=== PATIENT | female | born 1940 | race Hispanic/Latino ===

== ENCOUNTER 2016-12-15 21:21 | Emergency (ER) | payer MEDICARE, MEDICAID ==
[2016-12-15 21:21] VITALS: BMI 25.0
[2016-12-15 21:32] VITALS: RESP 16; TEMP 98.5; O2SAT 100
[2016-12-15] MEDS ORDERED: Sodium Chloride 0.9% 1,000 ML IV STA (21:43)
[2016-12-15 22:45] LABS: BASO # 0.1 K/uL (0.0-0.2); BASO % 0.8 % (0.0-2.0); EOS # 0.3 K/uL (0.0-0.7); EOS % 3.6 % (0.0-4.0); HEMATOCRIT 35.6 % (34.0-47.0); LYMPH # 1.4 K/uL (1.0-4.3); LYMPH % 17.4 % (20.0-40.0); MEAN CELL VOLUME 87.1 fl (81.0-99.0); MEAN CORPUSCULAR HEMOGLOBIN 28.9 pg (27.0-31.0); MEAN CORPUSCULAR HGB CONC 33.2 g/dL (33.0-37.0); MEAN PLATELET VOLUME 9.1 fl (7.2-11.7); MONO # 0.7 K/uL (0.0-0.8); MONO % 8.9 % (0.0-10.0); NEUT # 5.6 K/uL (1.8-7.0); NEUT % 69.3 % (50.0-75.0); NRBC % 0.1 % (0.0-0.0); RED CELL DISTRIBUTION WIDTH 12.7 % (11.5-14.5); WHITE BLOOD COUNT 8.1 K/uL (4.8-10.8)
[2016-12-15 22:55] LABS: ALB/GLOB RATIO 1.2 (1.0-2.1); ALKALINE PHOSPHATASE 77 U/L (38-126); ALT/SGPT 31 U/L (9-52); AST/SGOT 29 U/L (14-36); BILIRUBIN,TOTAL 0.4 mg/dl (0.2-1.3); BLOOD UREA NITROGEN 30 mg/dl (7-17); CALCIUM 10.2 mg/dL (8.4-10.2); CARBON DIOXIDE 24 mmol/L (22-30); CHLORIDE 107 mmol/L (98-107); GFR AFRICAN-AMERICAN > 60; GLUCOSE,RANDOM 103 mg/dL (65-105); LIPASE 191 U/L (23-300); POTASSIUM 4.5 MMOL/L (3.6-5.0); SODIUM 142 mmol/l (132-148); TOTAL PROTEIN 8.6 G/DL (6.3-8.2)
--- NOTE | 2016-12-15 22:58 | ED PDOC ---
HPI: General Adult Time Seen by Provider: 12/15/16 21:39 Chief Complaint (Nursing): Syncope Chief Complaint (Provider): Abdominal Pain and Lower Extremity Tremors History Per: Patient, Family (Patient's son) History/Exam Limitations: no limitations Onset/Duration Of Symptoms: Days (x1) Current Symptoms Are (Timing): Still Present Additional Complaint(s): 21:39 Serenity Goodwin is a 76 year old female with a past medical history of diabetes, hypertension, anxiety, and gastritis, as well as a past surgical history of open heart surgery, that presents to the ED with a chief complaint of "heaviness and shakiness" to her lower extremities with associated abdominal pain, left flank pain, and headache for the past day, along with one episode of nonbilious, nonbloody vomiting that occurred earlier today. She states that she saw her PMD, Dr. Daquan Wagoner, earlier today, and that she was sent home with no specific diagnosis due to her chronic health issues and chronic anxiety. Patient 's son also reports that his mother typically presents with multiple complaints. Patient denies any chest pain, cough, shortness of breath, or fever. Of Note: Patient typically takes Alprazolam twice daily, but reports that she did not take it today as prescribed. PMD: Dr. Daquan Wagoner MD Past Medical History Reviewed: Historical Data, Nursing Documentation, Vital Signs Vital Signs: Last Vital Signs Temp 98.5 F 12/15/16 21:27 Pulse 79 12/15/16 21:27 Resp 16 12/15/16 21:27 BP 188/73 H 12/15/16 21:27 Pulse Ox 100 12/15/16 23:58 - Medical History PMH: Anemia, Anxiety, Arthritis, CAD, Dementia (mild), Depression, Diabetes ( type II), Diverticulitis, Gastritis, Gall Bladder Disease, GERD, HTN, Hypercholesterolemia, Hypothyroidism, Pancreatitis, Chronic Kidney Disease Denies: CHF, COPD, HIV, Rheumatoid Arthritis - Surgical History Surgical History: CABG (x 4 years ago), Cholecystectomy, Coronary Stent (11/2015 (1 STENT)) - Family History Family History: States: Unknown Family Hx - Immunization History Hx Tetanus Toxoid Vaccination: No - Home Medications Home Medications: Ambulatory Orders Medication Instructions Recorded Alprazolam [Xanax] 0.5 mg PO BID 09/16/16 Glimepiride [Amaryl] 4 mg PO BID 09/16/16 Insulin Detemir [Levemir] 25 unit SQ QAM 09/16/16 Levothyroxine [Synthroid] 112 mcg PO DAILY 09/16/16 Linagliptin [Tradjenta] 5 mg PO DAILY 09/16/16 Metoprolol Tartrate [Lopressor] 50 mg PO BID 09/16/16 QUEtiapine [SEROquel] 50 mg PO HS 09/16/16 Ranolazine [Ranexa] 500 mg PO BID 09/16/16 Valsartan [Diovan] 80 mg PO HS 09/16/16 Valsartan [Diovan] 160 mg PO QAM 09/16/16 Aspirin [Ecotrin] 81 mg PO DAILY 11/09/16 Ticagrelor [Brilinta] 90 mg PO DAILY 11/09/16 traMADol [Ultram] 50 mg PO BID 11/09/16 Ondansetron ODT [Zofran ODT] 4 mg PO Q6 PRN #16 odt 12/16/16 - Allergies Allergies/Adverse Reactions: Allergies Allergy/AdvReac Type Severity Reaction Status Date / Time No Known Allergies Allergy Verified 10/06/16 00:05 Review of Systems Constitutional: Negative for: Fever Cardiovascular: Negative for: Chest Pain Respiratory: Negative for: Cough, Shortness of Breath Gastrointestinal: Positive for: Nausea, Vomiting (x1 episode), Abdominal Pain Musculoskeletal: Positive for: Other (left flank pain; "heaviness and shakiness " of lower extremities) Neurological: Positive for: Headache Physical Exam - Reviewed Nursing Documentation Reviewed: Yes Vital Signs Reviewed: Yes - Physical Exam Appears: Positive for: Uncomfortable (patient appears anxious) Head Exam: Positive for: ATRAUMATIC, NORMOCEPHALIC Skin: Positive for: Normal Color, Warm, Dry ENT: Positive for: Normal ENT Inspection Cardiovascular/Chest: Positive for: Regular Rate, Rhythm. Negative for: Murmur Respiratory: Positive for: Normal Breath Sounds. Negative for: Respiratory Distress Gastrointestinal/Abdominal: Positive for: Tenderness (epigastric tenderness) Extremity: Positive for: Normal ROM Neurologic/Psych: Positive for: Alert, Oriented - Laboratory Results Result Diagrams: 12/15/16 22:40 12/15/16 22:40 - ECG O2 Sat by Pulse Oximetry: 100 (RA) Pulse Ox Interpretation: Normal Medical Decision Making Medical Decision Makin:40 Initial Impression: Abdominal Pain, Nausea, Vomiting Initial Plan: * CMP * PTT * PT * Lipase * Troponin * Accucheck * Urine dipstick * Urinalysis * Sodium Chloride 1000 mL at 100 mLs/hr * Ativan 1 mg IVP * Pepcid 20 mg IV * Zofran 4 mg IV * Reevaluation 1:55 Labs reviewed, no clinically significant abnormalities. Patient experienced upwards resolution of pain and requested to be discharged home. Patient given Rx for Zofran and will follow up with PMD Dr. Wagoner. Clinical Impression: Gastritis and Anxiety Scribe Attestation: Documented by Piper Moreno, acting as a scribe for Rocky Medrano MD. Provider Scribe Attestation: All medical record entries made by the Scribe were at my direction and personally dictated by me. I have reviewed the chart and agree that the record accurately reflects my personal performance of the history, physical exam, medical decision making, and the department course for this patient. I have also personally directed, reviewed, and agree with the discharge instructions and disposition. Disposition - Clinical Impression Clinical Impression: Gastritis, Anxiety - Patient ED Disposition Is Patient to be Admitted: No Counseled Patient/Family Regarding: Studies Performed, Diagnosis, Need For Followup, Rx Given - Disposition Disposition: Routine/Home Disposition Time: 01:55 Condition: STABLE Prescriptions: Ondansetron ODT [Zofran ODT] 4 mg PO Q6 PRN #16 odt PRN Reason: Nausea/Vomiting Instructions: Gastritis (ED) Print Language: PERUVIAN
[2016-12-15 23:06] LABS: PARTIAL THROMBOPLASTIN TIME 23.8 SECONDS (23.3-32.5)
[2016-12-16 00:46] LABS: RBC URINE 2 /hpf (0-3); URINE BACTERIA RARE (<OCC); URINE BILIRUBIN NEGATIVE (NEGATIVE); URINE BLOOD NEGATIVE (NEGATIVE); URINE COLOR YELLOW (YELLOW); URINE GLUCOSE (UA) NEG (Normal); URINE KETONE NEGATIVE (NEGATIVE); URINE LEUKOCYTE ESTERASE NEG Leu/uL (Negative); URINE PROTEIN 30 mg/dL (NEGATIVE); URINE UROBILINOGEN 0.2-1.0 mg/dL (0.2-1.0); WBC URINE < 1 /hpf (0-5)
[2016-12-16 01:59] VITALS: BP 135/80; PULSE 71
--- NOTE | 2016-12-18 09:56 | CARD ---
APPROVED REPORT EKG Measurement Heart [id number] <Conclusion> Normal sinus rhythm Possible Left atrial enlargement Left axis deviation Left ventricular hypertrophy Abnormal ECG
== END 2016-12-16 02:00 | disposition home or self-care (01) ==
LOC: H.ER 21:21
DX: K29.70 Gastritis, unspecified, without bleeding (principal)
CPT/HCPCS: 80053; 81003; 83690; 84484; 85025; 85610; 85730; 93005; 96374; 99284; J2060; J2405; J7040

== ENCOUNTER 2017-02-23 10:11 | Emergency (ER) | payer MEDICARE, MEDICAID ==
[2017-02-23 10:20] VITALS: RESP 16; TEMP 98.3; BMI 27.4
[2017-02-23] MEDS ORDERED: Sodium Chloride 0.9% 500 ML IV STA (11:01)
--- NOTE | 2017-02-23 11:06 | ED PDOC ---
HPI: General Adult Time Seen by Provider: 02/23/17 10:45 Chief Complaint (Nursing): Abdominal Pain Chief Complaint (Provider): Body pain History Per: Patient History/Exam Limitations: no limitations Onset/Duration Of Symptoms: Days (3) Current Symptoms Are (Timing): Still Present Additional Complaint(s): Pt. with bodyaches. Also abd pain off and on. No dysuria. No nausea, vomit, diarrhea. Pain in abd goes up to her chest and to her throat. No dyspnea, headaches, dizziness. No fever or cough. No back pain. Has had similar multiple times in the past and has come to the ED. Pt. pcp Dr. Wagoner. Has not taken any meds for it. Past Medical History Reviewed: Nursing Documentation, Vital Signs Vital Signs: Last Vital Signs Temp 98.3 F 02/23/17 10:19 Pulse 60 02/23/17 10:19 Resp 16 02/23/17 10:19 BP 132/99 H 02/23/17 10:19 Pulse Ox 99 02/23/17 13:55 - Medical History PMH: Anemia, Anxiety, Arthritis, CAD, Dementia (mild), Depression, Diabetes ( type II), Diverticulitis, Gastritis, Gall Bladder Disease, GERD, HTN, Hypercholesterolemia, Hypothyroidism, Pancreatitis, Chronic Kidney Disease Denies: CHF, COPD, HIV, Rheumatoid Arthritis - Surgical History Surgical History: CABG (x 4 years ago), Cholecystectomy, Coronary Stent (11/2015 (1 STENT)) - Family History Family History: States: Unknown Family Hx - Living Arrangements Living Arrangements: With Family - Social History Current smoker - smoking cessation education provided: No Alcohol: None Drugs: Denies - Immunization History Hx Tetanus Toxoid Vaccination: No - Home Medications Home Medications: Ambulatory Orders Medication Instructions Recorded Alprazolam [Xanax] 0.5 mg PO BID 09/16/16 Glimepiride [Amaryl] 4 mg PO BID 09/16/16 Insulin Detemir [Levemir] 25 unit SQ QAM 09/16/16 Levothyroxine [Synthroid] 112 mcg PO DAILY 09/16/16 Linagliptin [Tradjenta] 5 mg PO DAILY 09/16/16 Metoprolol Tartrate [Lopressor] 50 mg PO BID 09/16/16 QUEtiapine [SEROquel] 50 mg PO HS 09/16/16 Ranolazine [Ranexa] 500 mg PO BID 09/16/16 Valsartan [Diovan] 80 mg PO HS 09/16/16 Valsartan [Diovan] 160 mg PO QAM 09/16/16 Aspirin [Ecotrin] 81 mg PO DAILY 11/09/16 Ticagrelor [Brilinta] 90 mg PO DAILY 11/09/16 traMADol [Ultram] 50 mg PO BID 11/09/16 Ondansetron ODT [Zofran ODT] 4 mg PO Q6 PRN #16 odt 12/16/16 Magnesium Citrate [Citrate of Mag] 150 ml PO DAILY PRN 3 Days 02/23/17 Nitrofurantoin Macrocrystals 100 mg PO BID #10 cap 02/23/17 [Macrobid] - Allergies Allergies/Adverse Reactions: Allergies Allergy/AdvReac Type Severity Reaction Status Date / Time No Known Allergies Allergy Verified 10/06/16 00:05 Review of Systems ROS Statement: Except As Marked, All Systems Reviewed And Found Negative ENT: Positive for: Throat Pain (able to swallow with no issues) Cardiovascular: Positive for: Chest Pain Gastrointestinal: Positive for: Abdominal Pain Musculoskeletal: Positive for: Other (bodyaches) Neurological: Negative for: Weakness Physical Exam - Reviewed Nursing Documentation Reviewed: Yes Vital Signs Reviewed: Yes - Physical Exam Appears: Positive for: Non-toxic, No Acute Distress Head Exam: Positive for: ATRAUMATIC, NORMAL INSPECTION, NORMOCEPHALIC Skin: Positive for: Normal Color, Warm, DRY Eye Exam: Positive for: EOMI, Normal appearance, PERRL ENT: Positive for: Normal ENT Inspection. Negative for: Nasal Congestion, Pharyngeal Erythema, Tonsillar Exudate Neck: Positive for: Normal, Painless ROM, Supple Cardiovascular/Chest: Positive for: Regular Rate, Rhythm Respiratory: Positive for: CNT, Normal Breath Sounds Gastrointestinal/Abdominal: Positive for: Normal Exam, Bowel Sounds, Soft, Tenderness (mild; nontender on distraction). Negative for: Distended, Guarding Back: Positive for: Normal Inspection. Negative for: L CVA Tenderness, R CVA Tenderness Extremity: Positive for: Normal ROM. Negative for: Tenderness, Pedal Edema Neurologic/Psych: Positive for: Alert, Oriented. Negative for: Motor/Sensory Deficits - Laboratory Results Result Diagrams: 02/23/17 12:50 02/23/17 12:00 Interpretation Of Abn Labs: 36/1.3 bun/cr. slight worsening Interpretation Of Abnormal: urine wbc - ECG ECG: Positive for: Interpreted By Me, Viewed By Me ECG Rhythm: Positive for: Normal QRS, Sinus Rhythm Interpretation Of Abn EKG: possible LVH Interpretation Of ECG: same as old O2 Sat by Pulse Oximetry: 99 Pulse Ox Interpretation: Normal - Radiology X-Ray: Interpreted by Me, Viewed By Me X-Ray Interpretation: No Acute Disease - Progress ED Course And Treament: 1109: Here multiple visits with multiple complaints. Will get labs and imaging for further eval. Pt. comfortable. Moving around and in no distress. Request urine evaluation. 1430: Stable. AAOx3. Pain free. Tolerated PO. Fu with pcp. Disposition - Clinical Impression Clinical Impression: UTI (urinary tract infection), Constipation - Patient ED Disposition Is Patient to be Admitted: No - Disposition Referrals: [facility] [Outside] - 02/26/17 Disposition: Routine/Home Disposition Time: 14:30 Condition: STABLE Additional Instructions: Return if not better in 3 days. Prescriptions: Magnesium Citrate [Citrate of Mag] 150 ml PO DAILY PRN 3 Days PRN Reason: Constipation Nitrofurantoin Macrocrystals [Macrobid] 100 mg PO BID #10 cap Instructions: Urinary Tract Infection in Women (ED), Constipation (ED) Print Language: MALTESE
[2017-02-23 11:51] LABS: RBC URINE 4 /hpf (0-3); TRANSITIONAL EPITHIAL 2 /hpf (0-3); URINE BACTERIA RARE (<OCC); URINE BILIRUBIN NEGATIVE (NEGATIVE); URINE BLOOD NEGATIVE (NEGATIVE); URINE COLOR YELLOW (YELLOW); URINE GLUCOSE (UA) NEG (Normal); URINE KETONE NEGATIVE (NEGATIVE); URINE LEUKOCYTE ESTERASE SMALL Leu/uL (Negative); URINE PROTEIN NEGATIVE (NEGATIVE); URINE UROBILINOGEN 0.2-1.0 mg/dL (0.2-1.0); WBC URINE 6 /hpf (0-5)
[2017-02-23 12:15] LABS: ALB/GLOB RATIO 1.2 (1.0-2.1); ALKALINE PHOSPHATASE 56 U/L (38-126); ALT/SGPT 22 U/L (9-52); AST/SGOT 28 U/L (14-36); BILIRUBIN,TOTAL 0.7 mg/dl (0.2-1.3); BLOOD UREA NITROGEN 36 mg/dl (7-17); CALCIUM 10.3 mg/dL (8.4-10.2); CARBON DIOXIDE 22 mmol/L (22-30); CHLORIDE 107 mmol/L (98-107); GFR AFRICAN-AMERICAN 48; GLUCOSE,RANDOM 88 mg/dL (65-105); LIPASE 189 U/L (23-300); SODIUM 144 mmol/l (132-148); TOTAL PROTEIN 9.1 G/DL (6.3-8.2)
[2017-02-23 12:18] LABS: POTASSIUM 5.5 MMOL/L (3.6-5.0)
[2017-02-23 13:11] LABS: BASO # 0.1 K/uL (0.0-0.2); BASO % 0.6 % (0.0-2.0); EOS # 0.6 K/uL (0.0-0.7); EOS % 6.8 % (0.0-4.0); HEMATOCRIT 33.6 % (34.0-47.0); LYMPH # 2.2 K/uL (1.0-4.3); LYMPH % 24.1 % (20.0-40.0); MEAN CELL VOLUME 84.4 fl (81.0-99.0); MEAN CORPUSCULAR HEMOGLOBIN 28.1 pg (27.0-31.0); MEAN CORPUSCULAR HGB CONC 33.3 g/dL (33.0-37.0); MEAN PLATELET VOLUME 8.9 fl (7.2-11.7); MONO # 1.1 K/uL (0.0-0.8); MONO % 11.9 % (0.0-10.0); NEUT # 5.1 K/uL (1.8-7.0); NEUT % 56.6 % (50.0-75.0); NRBC % 0.1 % (0.0-0.0); RED CELL DISTRIBUTION WIDTH 13.3 % (11.5-14.5)
--- NOTE | 2017-02-23 14:54 | RAD ---
PROCEDURE: Radiographs of the chest and abdomen (obstructive series) HISTORY: pain COMPARISON: No prior. TECHNIQUE: AP radiograph of the chest, with upright and supine radiographs of the abdomen. FINDINGS: CHEST: Lungs: Clear. Cardiovascular: Normal size heart. No pulmonary vascular congestion. Pleura: No pleural fluid. No pneumothorax. Other findings: Status post sternotomy P ABDOMEN AND PELVIS: Bowel: Unremarkable bowel gas pattern. No evidence of mechanical obstruction. Free air: None. Bones: Unremarkable. Other findings: Surgical clips seen at the right upper abdomen likely to prior cholecystectomy. IMPRESSION: Unremarkable radiographs of chest and abdomen. No evidence of mechanical bowel obstruction.
[2017-02-23 15:08] VITALS: BP 146/94; PULSE 67; O2SAT 100
--- NOTE | 2017-02-23 18:40 | CARD ---
APPROVED REPORT EKG Measurement Heart [id number] <Conclusion> Normal sinus rhythm Left axis deviation Moderate voltage criteria for LVH, may be normal variant Abnormal ECG
== END 2017-02-23 14:50 | disposition home or self-care (01) ==
LOC: H.ER 10:11
DX: N39.0 Urinary tract infection, site not specified (principal); K59.00 Constipation, unspecified; E03.9 Hypothyroidism, unspecified; E11.9 Type 2 diabetes mellitus without complications; E78.00 Pure hypercholesterolemia, unspecified; F03.90 Unspecified dementia, unspecified severity, without behavioral disturbance, psychotic disturbance, mood disturbance, and anxiety; F32.9 Major depressive disorder, single episode, unspecified; F41.9 Anxiety disorder, unspecified; I12.9 Hypertensive chronic kidney disease with stage 1 through stage 4 chronic kidney disease, or unspecified chronic kidney disease; K21.9 Gastro-esophageal reflux disease without esophagitis; I25.10 Atherosclerotic heart disease of native coronary artery without angina pectoris; K85.90 Acute pancreatitis without necrosis or infection, unspecified; Z79.4 Long term (current) use of insulin; Z79.82 Long term (current) use of aspirin; Z95.1 Presence of aortocoronary bypass graft; Z95.5 Presence of coronary angioplasty implant and graft
CPT/HCPCS: 74022; 80053; 81003; 83690; 84132; 84484; 85025; 87086; 93005; 96374; 99284; J2270; J7040

== ENCOUNTER 2017-03-04 09:04 | Inpatient (IN) | payer MEDICARE, MEDICAID ==
[2017-03-04 09:05] VITALS: BMI 27.4
[2017-03-04] MEDS ORDERED: DiphenhydrAMINE 50 mg/ml Inj IV STA (09:48)
[2017-03-04] MEDS ORDERED: DiphenhydrAMINE 50 mg/ml Inj ONE (10:06)
[2017-03-04 10:13] LABS: BASO % 0.2 % (0.0-2.0); EOS % 0.4 % (0.0-4.0); HEMATOCRIT 33.7 % (34.0-47.0); LYMPH % 8.3 % (20.0-40.0); MEAN CELL VOLUME 84.5 fl (81.0-99.0); MEAN CORPUSCULAR HEMOGLOBIN 27.6 pg (27.0-31.0); MEAN CORPUSCULAR HGB CONC 32.6 g/dL (33.0-37.0); MEAN PLATELET VOLUME 9.1 fl (7.2-11.7); MONO # 0.7 K/uL (0.0-0.8); MONO % 5.4 % (0.0-10.0); NEUT # 10.3 K/uL (1.8-7.0); NEUT % 85.7 % (50.0-75.0); PLATELET COUNT 208 K/uL (130-400); RED CELL DISTRIBUTION WIDTH 13.8 % (11.5-14.5); WHITE BLOOD COUNT 12.1 K/uL (4.8-10.8)
--- NOTE | 2017-03-04 10:13 | ED PDOC ---
HPI: Abdomen Time Seen by Provider: 03/04/17 09:21 Chief Complaint (Nursing): Abdominal Pain Chief Complaint (Provider): Abdominal Pain History Per: Patient History/Exam Limitations: no limitations Onset/Duration Of Symptoms: Hrs Current Symptoms Are (Timing): Still Present Severity: Mild Location Of Pain/Discomfort: Epigastric Associated Symptoms: Fever, Chills, Vomiting, Diarrhea Additional Complaint(s): Patient is a 76 year old female presenting to the ED complaining of epigastric abdominal pain since last night. Pain is associated with vomiting, diarrhea, tactile fever, and chills. Patient also complains of pruritic rash to bilateral arms. Patient fell earlier today right onto her back due to chronic dizziness and now complains of lower back pain. Denies head injury, chest pain, shortness of breath, cough, or leg edema. of note: Patient reports hypoglycemia yesterday and called 911. Patient was helped at her home and did not visit the ED. PMD; none Past Medical History Reviewed: Historical Data, Nursing Documentation, Vital Signs Vital Signs: Last Vital Signs Temp 98 F 03/04/17 09:15 Pulse 76 03/04/17 14:42 Resp 18 03/04/17 09:15 BP 121/57 L 03/04/17 09:15 Pulse Ox 98 03/04/17 14:42 - Medical History PMH: Anemia, Anxiety, Arthritis, CAD, Dementia (mild), Depression, Diabetes ( type II), Diverticulitis, Gastritis, Gall Bladder Disease, GERD, HTN, Hypercholesterolemia, Hypothyroidism, Pancreatitis, Chronic Kidney Disease Denies: CHF, COPD, HIV, Rheumatoid Arthritis - Surgical History Surgical History: CABG (x 4 years ago), Cholecystectomy, Coronary Stent (11/2015 (1 STENT)) - Family History Family History: States: No Known Family Hx - Immunization History Hx Tetanus Toxoid Vaccination: No - Home Medications Home Medications: Ambulatory Orders Medication Instructions Recorded Alprazolam [Xanax] 0.5 mg PO BID 09/16/16 Glimepiride [Amaryl] 4 mg PO BID 09/16/16 Insulin Detemir [Levemir] 25 unit SQ QAM 09/16/16 Levothyroxine [Synthroid] 112 mcg PO DAILY 09/16/16 Linagliptin [Tradjenta] 5 mg PO DAILY 09/16/16 Metoprolol Tartrate [Lopressor] 50 mg PO BID 09/16/16 QUEtiapine [SEROquel] 50 mg PO HS 09/16/16 Ranolazine [Ranexa] 500 mg PO BID 09/16/16 Valsartan [Diovan] 80 mg PO HS 09/16/16 Valsartan [Diovan] 160 mg PO QAM 09/16/16 Aspirin [Ecotrin] 81 mg PO DAILY 11/09/16 Ticagrelor [Brilinta] 90 mg PO DAILY 11/09/16 traMADol [Ultram] 50 mg PO BID 11/09/16 Ondansetron ODT [Zofran ODT] 4 mg PO Q6 PRN #16 odt 12/16/16 Magnesium Citrate [Citrate of Mag] 150 ml PO DAILY PRN 3 Days 02/23/17 Nitrofurantoin Macrocrystals 100 mg PO BID #10 cap 02/23/17 [Macrobid] - Allergies Allergies/Adverse Reactions: Allergies Allergy/AdvReac Type Severity Reaction Status Date / Time No Known Allergies Allergy Verified 03/04/17 09:15 Review of Systems ROS Statement: Except As Marked, All Systems Reviewed And Found Negative Constitutional: Positive for: Fever, Chills Cardiovascular: Negative for: Chest Pain, Edema Respiratory: Negative for: Cough, Shortness of Breath Gastrointestinal: Positive for: Vomiting, Abdominal Pain, Diarrhea Musculoskeletal: Positive for: Back Pain Skin: Positive for: Rash Physical Exam - Reviewed Nursing Documentation Reviewed: Yes Vital Signs Reviewed: Yes - Physical Exam Appears: Positive for: Well, Non-toxic, No Acute Distress Head Exam: Positive for: ATRAUMATIC, NORMAL INSPECTION, NORMOCEPHALIC Skin: Positive for: Warm. Negative for: Normal Color (hives on bilateral forearms) Eye Exam: Positive for: EOMI, Normal appearance, PERRL Neck: Positive for: Normal, Painless ROM Cardiovascular/Chest: Positive for: Regular Rate, Rhythm. Negative for: Gallop , Murmur Respiratory: Positive for: Normal Breath Sounds. Negative for: Accessory Muscle Use, Rhonchi, Respiratory Distress Gastrointestinal/Abdominal: Positive for: Normal Exam, Soft, Tenderness (mild epigastric ) Extremity: Positive for: Normal ROM Neurologic/Psych: Positive for: Alert, Oriented - Laboratory Results Result Diagrams: 03/04/17 10:00 06/04/17 10:00 - ECG ECG Rhythm: Positive for: Normal QRS, Sinus Rhythm. Negative for: ST/T Changes Rate: 76 O2 Sat by Pulse Oximetry: 98 (RA) Pulse Ox Interpretation: Normal Medical Decision Making Medical Decision Making: Time: Impression: 1 Gastroenteritis v Diverticulitis v Colitis 2 Urticarial Rash v Allergic Reaction 3 resolved Hypoglycemia Plan: CT A/P EKG CMP LIPASE TROPONIN CBC Benadryl 25 mg IV Zofran 4 mg IV Blood Culture Urine Culture UA Scribe Attestation Documented by Avelino Neumann acting as a scribe for Winter Laboy MD Provider Attestation: All medical record entries made by the Scribe were at my direction and personally dictated by me. I have reviewed the chart and agree that the record accurately reflects my personal performance of the history, physical exam, medical decision making, and the department course for this patient. I have also personally directed, reviewed, and agree with the discharge instructions and disposition. PROCEDURE: CT Abdomen and Pelvis with oral contrast. HISTORY: Abdominal pain vomiting and diarrhea COMPARISON: 11/09/2016 TECHNIQUE: Contiguous axial images of the abdomen and pelvis. No IV contrast given. Coronal and Sagittal reformats generated. Please note that due to lack of intravenous, evaluation of soft tissue structures and bowel wall is limited. Radiation dose: Total exam DLP = 714.69 mGy-cm. This CT exam was performed using one or more of the following dose reduction techniques: Automated exposure control, adjustment of the mA and/or kV according to patient size, and/or use of iterative reconstruction technique. FINDINGS: LOWER THORAX: [employer] radiograph demonstrates midline sternotomy wires and surgical clips in the right upper quadrant abdomen. Dense calcifications of the aortic valve and mitral annulus. Calcification of the coronary arteries. Heart is not significantly enlarged. No significant pericardial effusion. Mild bibasilar atelectatic changes noted. LIVER: No gross lesion. Calcification of the carpal lobe as before. Surgical clips in the gallbladder fossa. GALLBLADDER AND BILE DUCTS: Gallbladder not seen. Mildly dilated common bile duct, stable. PANCREAS: Unremarkable. No mass. No ductal dilatation. SPLEEN: Unremarkable. No splenomegaly. ADRENALS: Diffuse thickening of both adrenal glands, stable. KIDNEYS AND URETERS: Unremarkable. No stone or hydronephrosis. BLADDER: Grossly unremarkable. REPRODUCTIVE: Please note that evaluation of gynecologic organs is not optimal on CT imaging. Lobulated contour of the uterus, stable. APPENDIX: No CT evidence of acute appendicitis. BOWEL: Small hiatal hernia. Diverticulosis without evidence of diverticulitis. No bowel obstruction. Re- demonstration of focal asymmetry of the rectal wall. This could be underlying distention. PERITONEUM: Unremarkable. No fluid collection. No free air. LYMPH NODES: Unremarkable. No enlarged lymph nodes. VASCULATURE: Scattered atherosclerotic calcification throughout the abdominal aorta and its main branches. BONES: Generalized osteopenia. No acute fracture. OTHER FINDINGS: Calcified nodule in the posterior soft tissues on the left. IMPRESSION: Diverticulosis without evidence of diverticulitis. No acute bowel pathology. Focal asymmetry of the rectal wall could be related to underdistention. However , underlying pathology cannot be excluded. Colonoscopy/sigmoidoscopy recommended. No significant interval change. Disposition - Clinical Impression Clinical Impression: Abdominal pain, MUSHTAQ (acute kidney injury), Gastroenteritis - Patient ED Disposition Is Patient to be Admitted: Yes Discussed With : Daquan Wagoner Doctor Will See Patient In The: Hospital Counseled Patient/Family Regarding: Studies Performed, Diagnosis - Disposition Disposition Time: 14:30 Condition: FAIR - Pt Status Changed To: Hospital Disposition Of: Observation - POA Present On Arrival: None
[2017-03-04 10:35] LABS: ALB/GLOB RATIO 1.2 (1.0-2.1); ALKALINE PHOSPHATASE 73 U/L (38-126); ALT/SGPT 27 U/L (9-52); AST/SGOT 24 U/L (14-36); BILIRUBIN,TOTAL 0.8 mg/dl (0.2-1.3); BLOOD UREA NITROGEN 53 mg/dl (7-17); CARBON DIOXIDE 17 mmol/L (22-30); CHLORIDE 109 mmol/L (98-107); GFR AFRICAN-AMERICAN 33; GLUCOSE,RANDOM 144 mg/dL (65-105); LIPASE 214 U/L (23-300); SODIUM 139 mmol/l (132-148); TOTAL PROTEIN 8.6 G/DL (6.3-8.2)
[2017-03-04 10:50] LABS: POTASSIUM 5.6 MMOL/L (3.6-5.0)
[2017-03-04] MEDS ORDERED: Iohexol 240 (50 ml) PO ONE (11:28)
[2017-03-04 11:54] LABS: EOSINOPHIL 1 % (0-7); NEUTROPHIL 87 % (42-75); TOTAL CELLS COUNTED 100
--- NOTE | 2017-03-04 14:19 | CT ---
PROCEDURE: CT Abdomen and Pelvis with oral contrast. HISTORY: Abdominal pain vomiting and diarrhea COMPARISON: 11/09/2016 TECHNIQUE: Contiguous axial images of the abdomen and pelvis. No IV contrast given. Coronal and Sagittal reformats generated. Please note that due to lack of intravenous, evaluation of soft tissue structures and bowel wall is limited. Radiation dose: Total exam DLP = 714.69 mGy-cm. This CT exam was performed using one or more of the following dose reduction techniques: Automated exposure control, adjustment of the mA and/or kV according to patient size, and/or use of iterative reconstruction technique. FINDINGS: LOWER THORAX: [employer] Tester radiograph demonstrates midline sternotomy wires and surgical clips in the right upper quadrant abdomen. Dense calcifications of the aortic valve and mitral annulus. Calcification of the coronary arteries. Heart is not significantly enlarged. No significant pericardial effusion. Mild bibasilar atelectatic changes noted. LIVER: No gross lesion. Calcification of the carpal lobe as before. Surgical clips in the gallbladder fossa. GALLBLADDER AND BILE DUCTS: Gallbladder not seen. Mildly dilated common bile duct, stable. PANCREAS: Unremarkable. No mass. No ductal dilatation. SPLEEN: Unremarkable. No splenomegaly. ADRENALS: Diffuse thickening of both adrenal glands, stable. KIDNEYS AND URETERS: Unremarkable. No stone or hydronephrosis. BLADDER: Grossly unremarkable. REPRODUCTIVE: Please note that evaluation of gynecologic organs is not optimal on CT imaging. Lobulated contour of the uterus, stable. APPENDIX: No CT evidence of acute appendicitis. BOWEL: Small hiatal hernia. Diverticulosis without evidence of diverticulitis. No bowel obstruction. Re- demonstration of focal asymmetry of the rectal wall. This could be underlying distention. PERITONEUM: Unremarkable. No fluid collection. No free air. LYMPH NODES: Unremarkable. No enlarged lymph nodes. VASCULATURE: Scattered atherosclerotic calcification throughout the abdominal aorta and its main branches. BONES: Generalized osteopenia. No acute fracture. OTHER FINDINGS: Calcified nodule in the posterior soft tissues on the left. IMPRESSION: Diverticulosis without evidence of diverticulitis. No acute bowel pathology. Focal asymmetry of the rectal wall could be related to underdistention. However, underlying pathology cannot be excluded. Colonoscopy/sigmoidoscopy recommended. No significant interval change.
[2017-03-04] MEDS ORDERED: Sodium Chloride 0.9% 1,000 ML IV STA (14:33)
[2017-03-04] MEDS ORDERED: Ciprofloxacin 400mg/200ml D5W 400 MG/200 ML BAG IVPB STA (14:37)
[2017-03-04] MEDS ORDERED: metroNIDAZOLE 500mg/100ml NS 100 ML IVPB STA (14:37)
[2017-03-04 15:11] LABS: RBC URINE 2 /hpf (0-3); URINE BILIRUBIN NEGATIVE (NEGATIVE); URINE BLOOD NEGATIVE (NEGATIVE); URINE COLOR YELLOW (YELLOW); URINE GLUCOSE (UA) NEG (Normal); URINE KETONE NEGATIVE (NEGATIVE); URINE LEUKOCYTE ESTERASE NEG Leu/uL (Negative); URINE PROTEIN NEGATIVE (NEGATIVE); URINE UROBILINOGEN 0.2-1.0 mg/dL (0.2-1.0); WBC URINE 1 /hpf (0-5)
[2017-03-04] MEDS ORDERED: methylPREDNISolone 30 MG in Sodium Chloride 0.9% 50 ML IV STA (18:54)
[2017-03-05] MEDS: Insulin Detemir 100 Units/ml Inj SC SCH ×2 (06:31→08:28)
[2017-03-05] MEDS: Insulin Regular 100 units/ml SC SCH ×4 (06:31→21:43)
[2017-03-05] MEDS: Levothyroxine 112 MCG TAB PO SCH (06:32)
--- NOTE | 2017-03-05 07:41 | CARD ---
APPROVED REPORT EKG Measurement Heart [id number] <Conclusion> Normal sinus rhythm Right atrial enlargement Left axis deviation Abnormal ECG
[2017-03-05 08:00] LABS: HEMATOCRIT 29.1 % (34.0-47.0); LYMPH # 0.7 K/uL (1.0-4.3); LYMPH % 7.6 % (20.0-40.0); MEAN CELL VOLUME 84.1 fl (81.0-99.0); MEAN CORPUSCULAR HEMOGLOBIN 28.5 pg (27.0-31.0); MEAN CORPUSCULAR HGB CONC 33.8 g/dL (33.0-37.0); MEAN PLATELET VOLUME 9.4 fl (7.2-11.7); MONO # 0.1 K/uL (0.0-0.8); MONO % 1.1 % (0.0-10.0); NEUT # 8.3 K/uL (1.8-7.0); NEUT % 91.3 % (50.0-75.0); NRBC % 0.1 % (0.0-0.0); PLATELET COUNT 168 K/uL (130-400); RED CELL DISTRIBUTION WIDTH 13.7 % (11.5-14.5); WHITE BLOOD COUNT 9.1 K/uL (4.8-10.8)
[2017-03-05 08:24] LABS: ALB/GLOB RATIO 1.2 (1.0-2.1); ALKALINE PHOSPHATASE 64 U/L (38-126); ALT/SGPT 25 U/L (9-52); AST/SGOT 21 U/L (14-36); BILIRUBIN,TOTAL 0.6 mg/dl (0.2-1.3); BLOOD UREA NITROGEN 50 mg/dl (7-17); CALCIUM 9.6 mg/dL (8.4-10.2); CARBON DIOXIDE 20 mmol/L (22-30); CHLORIDE 106 mmol/L (98-107); GFR AFRICAN-AMERICAN 31; GLUCOSE,RANDOM 352 mg/dL (65-105); POTASSIUM 5.7 MMOL/L (3.6-5.0); SODIUM 134 mmol/l (132-148); TOTAL PROTEIN 7.3 G/DL (6.3-8.2)
[2017-03-05 08:25] LABS: PARTIAL THROMBOPLASTIN TIME 27.8 Seconds (25.6-37.1)
[2017-03-05] MEDS: methylPREDNISolone 30 MG in Sodium Chloride 0.9% 50 ML IV SCH ×2 (08:30→20:34)
[2017-03-05 08:50] LABS: T3 UPTAKE 0.76 T3 UPTAK (0.736-1.37); T4 6.31 ug/dl (5.5-11.0)
[2017-03-05 09:04] LABS: THYROID STIMULATING HORMONE < 0.02 mIU/ML (0.46-4.68)
[2017-03-05] MEDS ORDERED: Sod Polystyrene Sulf 15 gm/60 ml Oral Susp PO ONE (10:14)
[2017-03-05 11:41] LABS: NEUTROPHIL 94 % (42-75); TOTAL CELLS COUNTED 100
--- NOTE | 2017-03-05 12:09 | CP.PCM.CON ---
History of Present Illness - History of Present Illness History of Present Illness: This patient who is 76 years old I was called to see her for abnormal kidney function and hyperkalemia. Patient admitted because of abdominal pain also of hypoglycemia. Patient has history of diabetes mellitus for a long time Stated of hypertension medication all reviewed Social history noted in the chart Review of Systems - Constitutional Constitutional: Fatigue - EENT Eyes: As Per HPI Ears: As Per HPI Nose/Mouth/Throat: As Per HPI - Cardiovascular Cardiovascular: absent: Chest Pain, Dyspnea, Leg Ulcers, Orthopnea, Palpitations , Syncope - Respiratory Respiratory: absent: Cough, Dyspnea, Hemoptysis, Wheezing - Gastrointestinal Gastrointestinal: Abdominal Pain - Genitourinary Genitourinary: Nocturia - Musculoskeletal Musculoskeletal: Muscle Weakness Past Patient History - Infectious Disease Hx of Infectious Diseases: None - Tetanus Immunizations Tetanus Immunization: Unknown - Past Medical History & Family History Past Medical History?: Yes - Past Social History Smoking Status: Never Smoked - CARDIAC Hx Congestive Heart Failure: No Hx Hypercholesterolemia: Yes Hx Hypertension: Yes - PULMONARY Hx Chronic Obstructive Pulmonary Disease (COPD): No - NEUROLOGICAL Hx Dementia: Yes (mild) - HEENT Hx HEENT Problems: No - RENAL Hx Chronic Kidney Disease: Yes - ENDOCRINE/METABOLIC Hx Hypothyroidism: Yes - HEMATOLOGICAL/ONCOLOGICAL Hx AIDS: No Hx Anemia: Yes Hx Human Immunodeficiency Virus (HIV): No - INTEGUMENTARY Hx Dermatological Problems: No - MUSCULOSKELETAL/RHEUMATOLOGICAL Hx Arthritis: Yes Hx Falls: Yes Hx Rheumatoid Arthritis: No - GASTROINTESTINAL Hx Diverticulitis: Yes Hx Gall Bladder Disease: Yes Hx Gastritis: Yes Hx Pancreatitis: Yes - GENITOURINARY/GYNECOLOGICAL Hx Genitourinary Disorders: Yes - PSYCHIATRIC Hx Anxiety: Yes Hx Depression: Yes Hx Substance Use: No - SURGICAL HISTORY Hx Cholecystectomy: Yes Hx Coronary Artery Bypass Graft: Yes (x 4 years ago) Hx Coronary Stent: Yes (11/2015 (1 STENT)) - ANESTHESIA Hx Anesthesia: Yes Hx Anesthesia Reactions: No Hx Malignant Hyperthermia: No Meds Allergies/Adverse Reactions: Allergies Allergy/AdvReac Type Severity Reaction Status Date / Time No Known Allergies Allergy Verified 03/04/17 09:15 - Medications Medications: Current Medications Alprazolam (Xanax) 0.5 mg PO BID [facility] Last Admin: 03/05/17 08:41 Dose: 0.5 mg Diphenhydramine HCl (Benadryl) 25 mg PO TID [facility] Last Admin: 03/05/17 08:26 Dose: 25 mg Diphenhydramine HCl (Benadryl) 25 mg PO Q4 PRN PRN Reason: Itching / Pruritus Last Admin: 03/05/17 06:39 Dose: 25 mg Home Med (Patient's Own Medication) 500 unit PO BID [facility] Home Med (Patient's Own Medication) 5 unit PO DAILY [facility] Methylprednisolone 30 mg/ (Sodium Chloride) 50 mls @ 100 mls/hr IV Q12H [facility] Last Admin: 03/05/17 08:30 Dose: 100 mls/hr Sodium Chloride (Sodium Chloride 0.9%) 1,000 mls @ 75 mls/hr IV .[id number] [facility] Stop: 03/06/17 10:13 Insulin Detemir (Levemir) 25 units SC DAILY [facility] Last Admin: 03/05/17 08:28 Dose: 25 units Insulin Human Regular (Humulin R) 0 units SC ACHS [facility] PRN Reason: Protocol Last Admin: 03/05/17 06:31 Dose: 8 units Levothyroxine Sodium (Synthroid) 112 mcg PO DAILY@0630 [facility] Last Admin: 03/05/17 06:32 Dose: 112 mcg Metoprolol Tartrate (Lopressor) 50 mg PO Q12 [facility] Last Admin: 03/04/17 22:07 Dose: Not Given Quetiapine Fumarate (Seroquel) 50 mg PO HS [facility] Last Admin: 03/04/17 22:06 Dose: 50 mg Ticagrelor (Brilinta) 90 mg PO DAILY [facility] Last Admin: 03/05/17 08:26 Dose: 90 mg Valsartan (Diovan) 80 mg PO DAILY [facility] Physical Exam - Constitutional Appears: No Acute Distress - ENT Exam ENT Exam: Mucous Membranes Moist - Respiratory Exam Respiratory Exam: NORMAL BREATHING PATTERN. absent: Chest Wall Tenderness - Cardiovascular Exam Cardiovascular Exam: REGULAR RHYTHM. absent: Rubs - GI/Abdominal Exam GI & Abdominal Exam: Normal Bowel Sounds - Extremities Exam Extremities exam: Negative for: calf tenderness - Back Exam Back exam: absent: CVA tenderness (L), CVA tenderness (R) - Neurological Exam Neurological exam: Alert Results - Vital Signs Recent Vital Signs: Last Vital Signs Temp 98.4 F 03/05/17 07:54 Pulse 88 03/05/17 07:54 Resp 20 03/05/17 07:54 BP 99/63 L 03/05/17 07:54 Pulse Ox 99 03/05/17 07:54 - Labs Result Diagrams: 03/05/17 07:48 03/05/17 07:48 Assessment & Plan (1) Hyperkalemia Status: Acute (2) MUSHTAQ (acute kidney injury) Assessment and Plan: Patient appears to have acute kidney injury perhaps from dehydration and also patient noted she is taken ARB. My recommendation to hold the Diovan temporary for now one switched to Catapres of the blood pressure to go up for now her blood pressure is low. Patient was given Kayexalate for hyperkalemia Continue monitoring blood pressure repeat chemistry by tomorrow. Status: Acute
[2017-03-05] MEDS: Sodium Chloride 0.9% 1,000 ML IV SCH (12:47)
--- NOTE | 2017-03-05 14:05 | US ---
PROCEDURE: Ultrasound of the Kidneys HISTORY: MUSHTAQ COMPARISON: 09/17/2016.. TECHNIQUE: Sonogram of the kidneys. FINDINGS: RIGHT KIDNEY: Measures: 5.4 x 9.4 Cm. Normal in size, contour and echogenicity. No stone, solid mass lesion or hydronephrosis visualized. LEFT KIDNEY: Measures: By by 9.3 cm. Normal in size, contour and echogenicity. No stone, solid mass lesion or hydronephrosis visualized. OTHER FINDINGS: None. IMPRESSION: Unremarkable renal sonogram.
--- NOTE | 2017-03-05 15:17 | CP.PCM.HP ---
History of Present Illness - History of Present Illness History of Present Illness: 76 yrs old female AD CC abdominal pain epigastric, vomiting , diarrhea, tactile fever , chills , rash R L arm , chest , legs for one day [employer]. Patient is poor historian , She denies allergies. Review of Systems - Constitutional Constitutional: Chills, Fever (tactil) - EENT Eyes: Other (neg) Ears: Other (neg) Nose/Mouth/Throat: Other (neg) - Cardiovascular Cardiovascular: Other (neg) - Respiratory Respiratory: Other (neg) - Gastrointestinal Gastrointestinal: Abdominal Pain, Diarrhea, Vomiting - Genitourinary Genitourinary: Other (neg) - Musculoskeletal Musculoskeletal: Arthralgias - Integumentary Integumentary: Lesions, Pruritus - Neurological Neurological: Headaches - Psychiatric Psychiatric: Anxiety, Depression - Endocrine Endocrine: Other (neg) - Hematologic/Lymphatic Hematologic: Other (neg) Past Patient History - Infectious Disease Hx of Infectious Diseases: None - Tetanus Immunizations Tetanus Immunization: Unknown - Past Medical History & Family History Past Medical History?: Yes - Past Social History Smoking Status: Never Smoked - CARDIAC Hx Congestive Heart Failure: No Hx Hypercholesterolemia: Yes Hx Hypertension: Yes - PULMONARY Hx Chronic Obstructive Pulmonary Disease (COPD): No - NEUROLOGICAL Hx Dementia: Yes (mild) - HEENT Hx HEENT Problems: No - RENAL Hx Chronic Kidney Disease: Yes - ENDOCRINE/METABOLIC Hx Hypothyroidism: Yes - HEMATOLOGICAL/ONCOLOGICAL Hx AIDS: No Hx Anemia: Yes Hx Human Immunodeficiency Virus (HIV): No - INTEGUMENTARY Hx Dermatological Problems: No - MUSCULOSKELETAL/RHEUMATOLOGICAL Hx Arthritis: Yes Hx Falls: Yes Hx Rheumatoid Arthritis: No - GASTROINTESTINAL Hx Diverticulitis: Yes Hx Gall Bladder Disease: Yes Hx Gastritis: Yes Hx Pancreatitis: Yes - GENITOURINARY/GYNECOLOGICAL Hx Genitourinary Disorders: Yes - PSYCHIATRIC Hx Anxiety: Yes Hx Depression: Yes Hx Substance Use: No - SURGICAL HISTORY Hx Cholecystectomy: Yes Hx Coronary Artery Bypass Graft: Yes (x 4 years ago) Hx Coronary Stent: Yes (11/2015 (1 STENT)) - ANESTHESIA Hx Anesthesia: Yes Hx Anesthesia Reactions: No Hx Malignant Hyperthermia: No Meds Home Medications: Home Medication List Medication Instructions Recorded Confirmed Type Ciprofloxacin [Cipro] 500 mg PO Q12 #14 tab 03/08/17 Rx Hydrocortisone [Cortizone 2.5% 1 applic TP DAILY PRN 03/08/17 Rx CREAM] cloNIDine [Catapres] 0.1 mg PO BID #30 tab 03/09/17 Rx Allergies/Adverse Reactions: Allergies Allergy/AdvReac Type Severity Reaction Status Date / Time No Known Allergies Allergy Verified 03/04/17 09:15 Physical Exam - Constitutional Appears: No Acute Distress - Head Exam Head Exam: NORMAL INSPECTION - Eye Exam Eye Exam: PERRL - ENT Exam ENT Exam: Normal Exam - Neck Exam Neck exam: Positive for: Normal Inspection - Respiratory Exam Respiratory Exam: NORMAL BREATHING PATTERN - Cardiovascular Exam Cardiovascular Exam: REGULAR RHYTHM, Systolic Murmur (3/6 harsh Aortic LSB radiated to neck vessels) - GI/Abdominal Exam GI & Abdominal Exam: Normal Bowel Sounds, Tenderness (mild epigastric). absent : Guarding, Rebound, Rigid - Extremities Exam Extremities exam: Positive for: pedal edema (trace) - Back Exam Back exam: NORMAL INSPECTION - Neurological Exam Neurological exam: CN II-XII Intact (no foca motor/sensory defifcit) - Psychiatric Exam Psychiatric exam: Anxious - Skin Skin Exam: Rash (maculo papular lesions upper etremities, chest , lower extremities) Results - Vital Signs Recent Vital Signs: Last Vital Signs Temp 98.4 F 03/05/17 07:54 Pulse 98 H 03/05/17 12:47 Resp 20 03/05/17 07:54 BP 144/62 03/05/17 12:47 Pulse Ox 99 03/05/17 07:54 - Labs Result Diagrams: 03/08/17 13:30 03/09/17 05:30 Assessment & Plan (1) Gastroenteritis Status: Resolved (2) MUSHTAQ (acute kidney injury) Status: Acute (3) Hyperkalemia Status: Resolved (4) Skin rash Status: Resolved (5) DM (diabetes mellitus) Status: Chronic Priority: High (6) Dementia Status: Chronic Priority: High (7) Depression Status: Chronic Priority: High (8) Aortic valve disease Status: Chronic Priority: Medium (9) Presence of stent in coronary artery in patient with coronary artery disease Status: Chronic (10) Hypertension Status: Chronic Priority: Medium (11) Hypothyroidism Status: Chronic Priority: Medium - Assessment and Plan (Free Text) Plan: GI symptoms control , Benadryl ,Solu Medrol , Atarax, Hyperkalemia , BS and HTN control, CAD treatment, Renal consult appreciated
--- NOTE | 2017-03-05 19:41 | CP.PCM.CON ---
History of Present Illness - History of Present Illness History of Present Illness: I was asked to see patient by Dr Wagoner. Patient is a 76 year old female with PMH HTN, hypercholesterolemia who presents with rash and abdominal pain. The patient has a cardiac history and is s/p CABG. The patient had subsequent stress test revealing normal myocardial perfusion and normal LV function. The patient has a pruritic rash. Review of Systems - Constitutional Constitutional: absent: As Per HPI, Anorexia, Chills, Daytime Sleepiness, Excessive Sweating, Fatigue, Fever, Frequent Falls, Headache, Increased Appetite , Lethargy, Malaise, Night Sweats, Snoring, Sleep Apnea, Weight Gain, Weight Loss, Weakness, Other - EENT Eyes: absent: As Per HPI, Blind Spots, Blurred Vision, Change in Vision, Decreased Night Vision, Diplopia, Discharge, Dry Eye, Exophthalmos, Floaters, Irritation, Itchy Eyes, Loss of Peripheral Vision, Pain, Photophobia, Requires Corrective Lenses, Sees Flashes, Spots in Vision, Tunnel Vision, Other Visual Disturbances, Loss of Vision, Other Ears: absent: As Per HPI, Decreased Hearing, Ear Discharge, Ear Pain, Tinnitus, Abnormal Hearing, Disequilibrium, Dizziness, Other Nose/Mouth/Throat: absent: As Per HPI, Epistaxis, Nasal Congestion, Nasal Discharge, Nasal Obstruction, Nasal Trauma, Nose Pain, Post Nasal Drip, Sinus Pain, Sinus Pressure, Bleeding Gums, Change in Voice, Dental Pain, Dry Mouth, Dysphagia, Halitosis, Hoarsness, Lip Swelling, Mouth Lesions, Mouth Pain, Odynophagia, Sore Throat, Throat Swelling, Tongue Swelling, Facial Pain, Neck Pain, Neck Mass, Other - Cardiovascular Cardiovascular: absent: As Per HPI, Acrocyanosis, Chest Pain, Chest Pain at Rest , Chest Pain with Activity, Claudication, Diaphoresis, Dyspnea, Dyspnea on Exertion, Edema, Irregular Heart Rhythm, Pain Radiating to Arm/Neck/Jaw, Leg Edema, Leg Ulcers, Lightheadedness, Orthopnea, Palpitations, Paroxysmal Nocturnal Dyspnea, Pedal Edema, Radiating Pain, Rapid Heart Rate, Slow Heart Rate, Syncope, Other - Respiratory Respiratory: absent: As Per HPI, Cough, Dyspnea, Hemoptysis, Dyspnea on Exertion , Wheezing, Snoring, Stridor, Pain on Inspiration, Chest Congestion, Excessive Mucous Production, Change in Mucous Color, Pain with Coughing, Other - Gastrointestinal Gastrointestinal: absent: As Per HPI, Abdominal Pain, Belching, Bloating, Change in Bowel Habits, Change in Stool Character, Coffee Ground Emesis, Constipation, Cramping, Diarrhea, Dyspepsia, Dysphagia, Early Satiety, Excessive Flatus, Fecal Incontinence, Heartburn, Hematemesis, Hematochezia, Loose Stools, Melena, Nausea, Odynophagia, Temesmus, Vomiting, Other - Musculoskeletal Musculoskeletal: absent: As Per HPI, Abnormal Gait, Arthralgias, Atrophy, Back Pain, Deformity, Joint Swelling, Limited Range of Motion, Loss of Height, Muscle Cramps, Muscle Weakness, Myalgias, Neck Pain, Numbness, Radiating Pain into Limb, Stiffness, Tingling, Other - Integumentary Integumentary: Rash - Neurological Neurological: absent: As Per HPI, Abnormal Gait, Abnormal Hearing, Abnormal Movements, Abnormal Speech, Behavioral Changes, Burning Sensations, Confusion, Convulsions, Disequilibrium, Dizziness, Numbness, Focal Weakness, Frequent Falls , Headaches, Lack of Coordination, Loss of Vision, Memory Loss, Paresthesias, Radicular Pain, Restless Legs, Sensory Deficit, Syncope, Tingling, Tremor, Vertigo, Weakness, Other Visual Disturbances, Other - Psychiatric Psychiatric: absent: As Per HPI, Abnormal Sleep Pattern, Anhedonia, Anxiety, Auditory Hallucinations, Behavioral Changes, Change in Appetite, Change in Libido, Confusion, Depression, Difficulty Concentrating, Hallucinations, Homicidal Ideation, Hopelessness, Irritability, Memory Loss, Mood Swings, Panic Attacks, Paranoia, Suicidal Ideation, Visual Hallucinations, Tactile Hallucinations, Other - Endocrine Endocrine: absent: As Per HPI, Change in Body Appearance, Change in Libido, Cold Intolorance, Deepening of Voice, Excessive Sweating, Fatigue, Flushing, Heat Intolorance, Increase in Ring/Shoe/Hat Size, Palpitations, Polydipsia, Polyphagia, Polyuria, Other - Hematologic/Lymphatic Hematologic: absent: As Per HPI, Easy Bleeding, Easy Bruising, Lymphadenopathy, Other Past Patient History - Infectious Disease Hx of Infectious Diseases: None - Tetanus Immunizations Tetanus Immunization: Unknown - Past Medical History & Family History Past Medical History?: Yes - Past Social History Smoking Status: Never Smoked - CARDIAC Hx Congestive Heart Failure: No Hx Hypercholesterolemia: Yes Hx Hypertension: Yes - PULMONARY Hx Chronic Obstructive Pulmonary Disease (COPD): No - NEUROLOGICAL Hx Dementia: Yes (mild) - HEENT Hx HEENT Problems: No - RENAL Hx Chronic Kidney Disease: Yes - ENDOCRINE/METABOLIC Hx Hypothyroidism: Yes - HEMATOLOGICAL/ONCOLOGICAL Hx AIDS: No Hx Anemia: Yes Hx Human Immunodeficiency Virus (HIV): No - INTEGUMENTARY Hx Dermatological Problems: No - MUSCULOSKELETAL/RHEUMATOLOGICAL Hx Arthritis: Yes Hx Falls: Yes Hx Rheumatoid Arthritis: No - GASTROINTESTINAL Hx Diverticulitis: Yes Hx Gall Bladder Disease: Yes Hx Gastritis: Yes Hx Pancreatitis: Yes - GENITOURINARY/GYNECOLOGICAL Hx Genitourinary Disorders: Yes - PSYCHIATRIC Hx Anxiety: Yes Hx Depression: Yes Hx Substance Use: No - SURGICAL HISTORY Hx Cholecystectomy: Yes Hx Coronary Artery Bypass Graft: Yes (x 4 years ago) Hx Coronary Stent: Yes (11/2015 (1 STENT)) - ANESTHESIA Hx Anesthesia: Yes Hx Anesthesia Reactions: No Hx Malignant Hyperthermia: No Meds Allergies/Adverse Reactions: Allergies Allergy/AdvReac Type Severity Reaction Status Date / Time No Known Allergies Allergy Verified 03/04/17 09:15 - Medications Medications: Current Medications Alprazolam (Xanax) 0.5 mg PO BID [facility] Last Admin: 03/05/17 17:28 Dose: 0.5 mg Diphenhydramine HCl (Benadryl) 25 mg PO Q4 PRN PRN Reason: Itching / Pruritus Last Admin: 03/05/17 06:39 Dose: 25 mg Home Med (Patient's Own Medication) 500 unit PO BID [facility] Hydroxyzine HCl (Atarax) 25 mg PO Q8 PRN PRN Reason: Itching / Pruritus Last Admin: 03/05/17 17:11 Dose: 25 mg Methylprednisolone 30 mg/ (Sodium Chloride) 50 mls @ 100 mls/hr IV Q12H [facility] Last Admin: 03/05/17 08:30 Dose: 100 mls/hr Sodium Chloride (Sodium Chloride 0.9%) 1,000 mls @ 75 mls/hr IV .[id number] [facility] Stop: 03/06/17 10:13 Last Admin: 03/05/17 12:47 Dose: 75 mls/hr Insulin Detemir (Levemir) 25 units SC DAILY [facility] Last Admin: 03/05/17 08:28 Dose: 25 units Insulin Human Regular (Humulin R) 0 units SC ACHS [facility] PRN Reason: Protocol Last Admin: 03/05/17 17:11 Dose: 4 units Levothyroxine Sodium (Synthroid) 112 mcg PO DAILY@0630 [facility] Last Admin: 03/05/17 06:32 Dose: 112 mcg Metoprolol Tartrate (Lopressor) 50 mg PO Q12 [facility] Last Admin: 03/05/17 12:47 Dose: 50 mg Quetiapine Fumarate (Seroquel) 50 mg PO HS [facility] Last Admin: 03/04/17 22:06 Dose: 50 mg Sitagliptin Phosphate (Januvia) 25 mg PO DAILY [facility] Last Admin: 03/05/17 17:13 Dose: 25 mg Ticagrelor (Brilinta) 90 mg PO DAILY [facility] Last Admin: 03/05/17 08:26 Dose: 90 mg Valsartan (Diovan) 80 mg PO DAILY [facility] Physical Exam - Constitutional Appears: Non-toxic - Head Exam Head Exam: NORMAL INSPECTION - Eye Exam Eye Exam: Normal appearance - ENT Exam ENT Exam: Mucous Membranes Dry - Neck Exam Neck exam: Positive for: Normal Inspection - Respiratory Exam Respiratory Exam: NORMAL BREATHING PATTERN - Cardiovascular Exam Cardiovascular Exam: REGULAR RHYTHM - GI/Abdominal Exam GI & Abdominal Exam: Normal Bowel Sounds - Rectal Exam Rectal Exam: Deferred - Extremities Exam Extremities exam: Positive for: pedal edema - Back Exam Back exam: NORMAL INSPECTION - Neurological Exam Neurological exam: Alert - Psychiatric Exam Psychiatric exam: Normal Affect - Skin Skin Exam: Rash Results - Vital Signs Recent Vital Signs: Last Vital Signs Temp 98.2 F 03/05/17 16:24 Pulse 89 03/05/17 16:24 Resp 20 03/05/17 16:24 BP 145/57 L 03/05/17 16:24 Pulse Ox 96 03/05/17 16:24 - Labs Result Diagrams: 03/05/17 07:48 03/05/17 07:48 Labs: Laboratory Results - last 24 hr 03/05/17 03/05/17 03/05/17 11:27 15:42 17:30 POC Glucose (mg/dL) 138 H 292 H Ur Random Sodium 23 Ur Random Potassium 42.6 - EKG Data EKG Interpreted by: Myself Assessment & Plan (1) Aortic valve disease Assessment and Plan: will continue medical therapy Status: Acute (2) Essential hypertension Assessment and Plan: blood pressure control Status: Acute Priority: High (3) CAD (coronary artery disease) Assessment and Plan: previous normal stress test Status: Chronic Priority: Medium (4) DM (diabetes mellitus) Assessment and Plan: risk factors for CAD. Status: Chronic Priority: High
[2017-03-06] MEDS: Sodium Chloride 0.9% 1,000 ML IV SCH (00:07)
[2017-03-06] MEDS: Levothyroxine 112 MCG TAB PO SCH (05:58)
[2017-03-06] MEDS: Insulin Regular 100 units/ml SC SCH ×4 (06:52→22:35)
[2017-03-06 08:11] LABS: BASO % 0.1 % (0.0-2.0); HEMATOCRIT 27.2 % (34.0-47.0); LYMPH # 0.8 K/uL (1.0-4.3); LYMPH % 6.9 % (20.0-40.0); MEAN CELL VOLUME 84.8 fl (81.0-99.0); MEAN CORPUSCULAR HEMOGLOBIN 27.8 pg (27.0-31.0); MEAN CORPUSCULAR HGB CONC 32.8 g/dL (33.0-37.0); MEAN PLATELET VOLUME 9.7 fl (7.2-11.7); MONO # 0.3 K/uL (0.0-0.8); MONO % 2.7 % (0.0-10.0); NEUT # 10.8 K/uL (1.8-7.0); NEUT % 90.3 % (50.0-75.0); PLATELET COUNT 168 K/uL (130-400); RED CELL DISTRIBUTION WIDTH 13.7 % (11.5-14.5)
[2017-03-06 08:21] LABS: ALB/GLOB RATIO 1.2 (1.0-2.1); BILIRUBIN,TOTAL 0.4 mg/dl (0.2-1.3); CALCIUM 9.2 mg/dL (8.4-10.2); POTASSIUM 4.7 MMOL/L (3.6-5.0)
[2017-03-06] MEDS: Insulin Detemir 100 Units/ml Inj SC SCH (08:26)
[2017-03-06] MEDS: methylPREDNISolone 30 MG in Sodium Chloride 0.9% 50 ML IV SCH ×2 (08:28→20:49)
--- NOTE | 2017-03-06 11:03 | CP.PCM.PN ---
Subjective - Date & Time of Evaluation Date of Evaluation: 03/06/17 Time of Evaluation: 11:02 - Subjective Subjective: Patient appeared to be comfortable in bed No chest pain reported No abdominal pain Vital signs stable Physical exam Chest clear Heart no rubs Abdomen soft Extremity no edema Impression and plan Kidney function improving acute kidney injury appeared to be improving Calcium is corrected Continue monitoring Objective - Vital Signs/Intake and Output Vital Signs (last 24 hours): Temp Pulse Resp BP Pulse Ox 98.5 F 99 H 20 123/73 100 03/06/17 07:42 03/06/17 08:28 03/06/17 07:42 03/06/17 08:28 03/06/17 07:42 - Medications Medications: Current Medications Alprazolam (Xanax) 0.5 mg PO BID [facility] Last Admin: 03/06/17 08:31 Dose: 0.5 mg Diphenhydramine HCl (Benadryl) 25 mg PO Q4 PRN PRN Reason: Itching / Pruritus Last Admin: 03/05/17 06:39 Dose: 25 mg Home Med (Patient's Own Medication) 500 unit PO BID [facility] Hydrocortisone (Cortizone 2.5% Cream) 1 applic TP DAILY PRN PRN Reason: Itching / Pruritus Last Admin: 03/06/17 00:49 Dose: 1 applic Hydroxyzine HCl (Atarax) 25 mg PO Q8 PRN PRN Reason: Itching / Pruritus Last Admin: 03/06/17 00:06 Dose: 25 mg Methylprednisolone 30 mg/ (Sodium Chloride) 50 mls @ 100 mls/hr IV Q12H [facility] Last Admin: 03/06/17 08:28 Dose: 100 mls/hr Insulin Detemir (Levemir) 25 units SC DAILY [facility] Last Admin: 03/06/17 08:26 Dose: 25 units Insulin Human Regular (Humulin R) 0 units SC ACHS [facility] PRN Reason: Protocol Last Admin: 03/06/17 06:52 Dose: 4 units Levothyroxine Sodium (Synthroid) 112 mcg PO DAILY@0630 [facility] Last Admin: 03/06/17 05:58 Dose: 112 mcg Metoprolol Tartrate (Lopressor) 50 mg PO Q12 [facility] Last Admin: 03/06/17 08:28 Dose: 50 mg Quetiapine Fumarate (Seroquel) 50 mg PO HS [facility] Last Admin: 03/05/17 22:43 Dose: 50 mg Sitagliptin Phosphate (Januvia) 25 mg PO DAILY [facility] Last Admin: 03/06/17 08:26 Dose: 25 mg Ticagrelor (Brilinta) 90 mg PO DAILY [facility] Last Admin: 03/06/17 08:26 Dose: 90 mg Valsartan (Diovan) 80 mg PO DAILY [facility] Last Admin: 03/06/17 08:26 Dose: 80 mg Zolpidem Tartrate (Ambien) 5 mg PO HS PRN PRN Reason: Insomnia Last Admin: 03/06/17 00:49 Dose: 5 mg - Labs Labs: 03/06/17 06:45 03/06/17 06:45 PT 14.5 Seconds (9.8-13.1) H 03/05/17 07:48 INR 1.3 (0.9-1.2) H 03/05/17 07:48 APTT 27.8 Seconds (25.6-37.1) 03/05/17 07:48 Assessment and Plan (1) Hyperkalemia Status: Acute (2) MUSHTAQ (acute kidney injury) Status: Acute
[2017-03-06 11:20] LABS: NEUTROPHIL 90 % (42-75); TOTAL CELLS COUNTED 100
--- NOTE | 2017-03-06 14:14 | PQF GENQUE ---
Dr. Wagoner, Is there an associated diagnosis to go along with the following clinical labs: H /H:11.0/33.7->9.8/29.2->8.9/27.2 OR: Disagree OR: Unable to determine This form is a permanent part of the medical record Clarification of your documentation is requested to better reflect the severity of illness and intensity of treatment of your patient. Indicators present [] Specify: [] [] Specify: [] [] Specify: [] [] Specify: [] Location in the medical record that reflects the above clinical findings: [] Treatment Provided: [] PHYSICIAN'S RESPONSE Based on your medical judgment of the clinical indicators outlined above please clarify the following: [] Practitioner response [] If unable to determine, please check the box, sign and date. Present On Admission (POA) Indicator: [] Present at the time of admission [] Not present at the time of admission [] Clinically Undetermined In responding to this query, please exercise your independent professional judgment. The fact that a question is asked does not imply that any particular answer is desired or expected. Thank you for your clarification on this documentation. If you have any questions please call. Mony Cortes RN BSN ext. #[phone] MTDD
--- NOTE | 2017-03-06 14:19 | PQF GENQUE ---
Dr. Wagoner, Please clarify the stage of the chronic kidney disease: Stage 1 Stage 2 (mild) Stage 3 (moderate) Stage 4 (severe) Stage 5 Other (please specify) Unable to determine Unknown OR: Disagree H and P and Renal note: History of CKD and a current diagnosis of Acute Kidney Injury BUN:53->50->54 Creatinine:1.8->1.9->1.6 Est GFR ( Am/ Non-Af Amer):->-> IVF's This form is a permanent part of the medical record Clarification of your documentation is requested to better reflect the severity of illness and intensity of treatment of your patient. Indicators present [] Specify: [] [] Specify: [] [] Specify: [] [] Specify: [] Location in the medical record that reflects the above clinical findings: [] Treatment Provided: [] PHYSICIAN'S RESPONSE Based on your medical judgment of the clinical indicators outlined above please clarify the following: [] Practitioner response [] If unable to determine, please check the box, sign and date. Present On Admission (POA) Indicator: [] Present at the time of admission [] Not present at the time of admission [] Clinically Undetermined In responding to this query, please exercise your independent professional judgment. The fact that a question is asked does not imply that any particular answer is desired or expected. Thank you for your clarification on this documentation. If you have any questions please call. * Thank you, Mony Cortes RN BSN ext. #[phone] MTDD
--- NOTE | 2017-03-06 15:35 | CP.PCM.PN ---
Subjective - Date & Time of Evaluation Date of Evaluation: 03/06/17 Time of Evaluation: 10:45 - Subjective Subjective: F/U Gastroenteritis Less skin rash itching , at times when Patienet talks appears confused Objective - Vital Signs/Intake and Output Vital Signs (last 24 hours): Temp Pulse Resp BP Pulse Ox 98.5 F 99 H 20 123/73 100 03/06/17 07:42 03/06/17 08:28 03/06/17 07:42 03/06/17 08:28 03/06/17 07:42 - Medications Medications: Current Medications Alprazolam (Xanax) 0.5 mg PO BID [facility] Last Admin: 03/06/17 08:31 Dose: 0.5 mg Diphenhydramine HCl (Benadryl) 25 mg PO Q4 PRN PRN Reason: Itching / Pruritus Last Admin: 03/05/17 06:39 Dose: 25 mg Home Med (Patient's Own Medication) 500 unit PO BID [facility] Hydrocortisone (Cortizone 2.5% Cream) 1 applic TP DAILY PRN PRN Reason: Itching / Pruritus Last Admin: 03/06/17 00:49 Dose: 1 applic Methylprednisolone 30 mg/ (Sodium Chloride) 50 mls @ 100 mls/hr IV Q12H [facility] Last Admin: 03/06/17 08:28 Dose: 100 mls/hr Insulin Detemir (Levemir) 25 units SC DAILY [facility] Last Admin: 03/06/17 08:26 Dose: 25 units Insulin Human Regular (Humulin R) 0 units SC ACHS [facility] PRN Reason: Protocol Last Admin: 03/06/17 13:22 Dose: 3 units Levothyroxine Sodium (Synthroid) 112 mcg PO DAILY@0630 [facility] Last Admin: 03/06/17 05:58 Dose: 112 mcg Metoprolol Tartrate (Lopressor) 50 mg PO Q12 [facility] Last Admin: 03/06/17 08:28 Dose: 50 mg Quetiapine Fumarate (Seroquel) 50 mg PO HS [facility] Last Admin: 03/05/17 22:43 Dose: 50 mg Sitagliptin Phosphate (Januvia) 25 mg PO DAILY [facility] Last Admin: 03/06/17 08:26 Dose: 25 mg Ticagrelor (Brilinta) 90 mg PO DAILY [facility] Last Admin: 06/06/17 08:26 Dose: 90 mg Valsartan (Diovan) 80 mg PO DAILY [facility] Last Admin: 03/06/17 08:26 Dose: 80 mg Zolpidem Tartrate (Ambien) 5 mg PO HS PRN PRN Reason: Insomnia Last Admin: 03/06/17 00:49 Dose: 5 mg - Labs Labs: 03/06/17 06:45 03/06/17 06:45 PT 14.5 Seconds (9.8-13.1) H 03/05/17 07:48 INR 1.3 (0.9-1.2) H 03/05/17 07:48 APTT 27.8 Seconds (25.6-37.1) 03/05/17 07:48 - Constitutional Appears: No Acute Distress - Head Exam Head Exam: NORMAL INSPECTION - Eye Exam Eye Exam: PERRL - ENT Exam ENT Exam: Normal Exam - Neck Exam Neck Exam: Normal Inspection - Respiratory Exam Respiratory Exam: NORMAL BREATHING PATTERN - Cardiovascular Exam Cardiovascular Exam: REGULAR RHYTHM, Murmur (systolic 3/6 harsh Ao LSB radiated to neck vessels.) - GI/Abdominal Exam GI & Abdominal Exam: Tenderness (mild epigastric), Normal Bowel Sounds. absent : Guarding, Rigid, Rebound - Extremities Exam Additional comments: Trace pedal edema. - Back Exam Back Exam: NORMAL INSPECTION - Neurological Exam Neurological Exam: CN II-XII Intact Additional comments: No focal motor/sensory deficit. - Psychiatric Exam Psychiatric exam: Anxious - Skin Skin Exam: Rash (maculopapular lesions U/E, chest , L/E improved) Assessment and Plan (1) Gastroenteritis Status: Resolved (2) MUSHTAQ (acute kidney injury) Status: Acute (3) Hyperkalemia Status: Resolved (4) Skin rash Status: Resolved (5) DM (diabetes mellitus) Status: Chronic (6) Dementia Status: Chronic (7) Depression Status: Chronic (8) Aortic valve disease Status: Chronic (9) Presence of stent in coronary artery in patient with coronary artery disease Status: Chronic (10) Hypertension Status: Chronic (11) Hypothyroidism Status: Chronic - Assessment and Plan (Free Text) Plan: abdominal pain , hyperkalemia , skin rash improved, BS elevated 2nd to steroids
[2017-03-07] MEDS: Levothyroxine 112 MCG TAB PO SCH (05:59)
[2017-03-07] MEDS: Insulin Regular 100 units/ml SC SCH ×4 (06:37→21:13)
[2017-03-07 07:16] LABS: HEMATOCRIT 26.4 % (34.0-47.0); MEAN CELL VOLUME 84.8 fl (81.0-99.0); MEAN CORPUSCULAR HEMOGLOBIN 27.6 pg (27.0-31.0); MEAN CORPUSCULAR HGB CONC 32.5 g/dL (33.0-37.0); RED CELL DISTRIBUTION WIDTH 13.8 % (11.5-14.5); WHITE BLOOD COUNT 9.4 K/uL (4.8-10.8)
[2017-03-07 07:38] LABS: CREATININE, 24 HOUR URINE 0.55 g/24 h (0.63-2.50); CREATININE, URINE 0.73 g/L
[2017-03-07 07:49] LABS: CALCIUM 9.2 mg/dL (8.4-10.2); POTASSIUM 4.5 MMOL/L (3.6-5.0)
[2017-03-07] MEDS: Insulin Detemir 100 Units/ml Inj SC SCH (09:11)
[2017-03-07] MEDS: methylPREDNISolone 30 MG in Sodium Chloride 0.9% 50 ML IV SCH ×2 (09:13→21:11)
--- NOTE | 2017-03-07 11:26 | CP.PCM.PN ---
Subjective - Date & Time of Evaluation Date of Evaluation: 03/07/17 Time of Evaluation: 11:25 - Subjective Subjective: Patient is recovering from acute kidney injury Kidney function continued to improve Chest clear No rales Abdomen soft Extremity no edema Recovering from acute kidney injury. Objective - Vital Signs/Intake and Output Vital Signs (last 24 hours): Temp Pulse Resp BP Pulse Ox 98 F 70 20 133/70 97 03/07/17 09:00 03/07/17 09:12 03/07/17 09:00 03/07/17 09:12 03/07/17 09:00 - Medications Medications: Current Medications Alprazolam (Xanax) 0.5 mg PO BID [facility] Last Admin: 03/07/17 09:23 Dose: 0.5 mg Diphenhydramine HCl (Benadryl) 25 mg PO Q4 PRN PRN Reason: Itching / Pruritus Last Admin: 03/05/17 06:39 Dose: 25 mg Home Med (Patient's Own Medication) 500 unit PO BID [facility] Hydrocortisone (Cortizone 2.5% Cream) 1 applic TP DAILY PRN PRN Reason: Itching / Pruritus Last Admin: 03/06/17 00:49 Dose: 1 applic Methylprednisolone 30 mg/ (Sodium Chloride) 50 mls @ 100 mls/hr IV Q12H [facility] Last Admin: 03/07/17 09:13 Dose: 100 mls/hr Insulin Detemir (Levemir) 25 units SC DAILY [facility] Last Admin: 03/07/17 09:11 Dose: 25 units Insulin Human Regular (Humulin R) 0 units SC ACHS [facility] PRN Reason: Protocol Last Admin: 03/07/17 06:37 Dose: 2 units Levothyroxine Sodium (Synthroid) 112 mcg PO DAILY@0630 [facility] Last Admin: 03/07/17 05:59 Dose: 112 mcg Metoprolol Tartrate (Lopressor) 50 mg PO Q12 [facility] Last Admin: 03/07/17 09:12 Dose: 50 mg Quetiapine Fumarate (Seroquel) 50 mg PO HS [facility] Last Admin: 03/06/17 22:41 Dose: 50 mg Sitagliptin Phosphate (Januvia) 25 mg PO DAILY [facility] Last Admin: 03/07/17 09:11 Dose: 25 mg Ticagrelor (Brilinta) 90 mg PO DAILY [facility] Last Admin: 03/07/17 09:10 Dose: 90 mg Valsartan (Diovan) 80 mg PO DAILY [facility] Last Admin: 03/07/17 09:10 Dose: 80 mg - Labs Labs: 03/07/17 05:50 03/07/17 05:50 PT 14.5 Seconds (9.8-13.1) H 03/05/17 07:48 INR 1.3 (0.9-1.2) H 03/05/17 07:48 APTT 27.8 Seconds (25.6-37.1) 03/05/17 07:48 Assessment and Plan (1) Hyperkalemia Status: Acute (2) MUSHTAQ (acute kidney injury) Status: Acute
--- NOTE | 2017-03-07 17:47 | CP.PCM.PN ---
Subjective - Date & Time of Evaluation Date of Evaluation: 03/07/17 Time of Evaluation: 13:00 - Subjective Subjective: no abdominal pain , no skin itching , Patient complains She is not receiving enough visits from her family Objective - Vital Signs/Intake and Output Vital Signs (last 24 hours): Temp Pulse Resp BP Pulse Ox 98.3 F 85 20 170/78 H 100 03/07/17 16:12 03/07/17 16:12 03/07/17 16:12 03/07/17 16:12 03/07/17 16:12 - Medications Medications: Current Medications Alprazolam (Xanax) 0.5 mg PO BID [facility] Last Admin: 03/07/17 17:17 Dose: 0.5 mg Diphenhydramine HCl (Benadryl) 25 mg PO Q4 PRN PRN Reason: Itching / Pruritus Last Admin: 03/05/17 06:39 Dose: 25 mg Home Med (Patient's Own Medication) 500 unit PO BID [facility] Hydrocortisone (Cortizone 2.5% Cream) 1 applic TP DAILY PRN PRN Reason: Itching / Pruritus Last Admin: 03/06/17 00:49 Dose: 1 applic Methylprednisolone 30 mg/ (Sodium Chloride) 50 mls @ 100 mls/hr IV Q12H [facility] Last Admin: 03/07/17 09:13 Dose: 100 mls/hr Insulin Detemir (Levemir) 25 units SC DAILY [facility] Last Admin: 03/07/17 09:11 Dose: 25 units Insulin Human Regular (Humulin R) 0 units SC ACHS [facility] PRN Reason: Protocol Last Admin: 03/07/17 17:13 Dose: 6 units Levothyroxine Sodium (Synthroid) 112 mcg PO DAILY@0630 [facility] Last Admin: 03/07/17 05:59 Dose: 112 mcg Metoprolol Tartrate (Lopressor) 50 mg PO Q12 [facility] Last Admin: 03/07/17 09:12 Dose: 50 mg Quetiapine Fumarate (Seroquel) 50 mg PO HS [facility] Last Admin: 03/06/17 22:41 Dose: 50 mg Sitagliptin Phosphate (Januvia) 25 mg PO DAILY [facility] Last Admin: 03/07/17 09:11 Dose: 25 mg Ticagrelor (Brilinta) 90 mg PO DAILY [facility] Last Admin: 03/07/17 09:10 Dose: 90 mg Valsartan (Diovan) 80 mg PO DAILY [facility] Last Admin: 03/07/17 09:10 Dose: 80 mg - Labs Labs: 03/07/17 05:50 03/07/17 05:50 PT 14.5 Seconds (9.8-13.1) H 03/05/17 07:48 INR 1.3 (0.9-1.2) H 03/05/17 07:48 APTT 27.8 Seconds (25.6-37.1) 03/05/17 07:48 - Constitutional Appears: No Acute Distress - Head Exam Head Exam: NORMAL INSPECTION - Eye Exam Eye Exam: PERRL - ENT Exam ENT Exam: Normal Exam - Neck Exam Neck Exam: Normal Inspection - Respiratory Exam Respiratory Exam: Clear to Ausculation Bilateral, NORMAL BREATHING PATTERN - Cardiovascular Exam Cardiovascular Exam: REGULAR RHYTHM, Murmur (3/6 harsh Ao LSB radiated to neck vessels) - GI/Abdominal Exam GI & Abdominal Exam: Soft, Normal Bowel Sounds - Extremities Exam Extremities Exam: Normal Inspection - Back Exam Back Exam: tenderness (mild) - Neurological Exam Neurological Exam: Alert. absent: Motor Sensory Deficit - Psychiatric Exam Psychiatric exam: Anxious - Skin Skin Exam: Rash (resolving) Assessment and Plan (1) Gastroenteritis Status: Resolved (2) MUSHTAQ (acute kidney injury) Status: Acute (3) Hyperkalemia Status: Resolved (4) Skin rash Status: Resolved (5) DM (diabetes mellitus) Status: Chronic (6) Dementia Status: Chronic (7) Depression Status: Chronic (8) Aortic valve disease Status: Chronic (9) Presence of stent in coronary artery in patient with coronary artery disease Status: Chronic (10) Hypertension Status: Chronic (11) Hypothyroidism Status: Chronic - Assessment and Plan (Free Text) Plan: abdominal pain , rash resolved , MUSHTAQ improved , BP elevated
[2017-03-08] MEDS: Levothyroxine 112 MCG TAB PO SCH (05:40)
[2017-03-08 07:26] LABS: CALCIUM 9.5 mg/dL (8.4-10.2); POTASSIUM 4.8 MMOL/L (3.6-5.0)
[2017-03-08] MEDS: Insulin Regular 100 units/ml SC SCH ×4 (08:59→22:20)
[2017-03-08] MEDS: Insulin Detemir 100 Units/ml Inj SC SCH (09:00)
--- NOTE | 2017-03-08 11:07 | CP.PCM.PN ---
Subjective - Date & Time of Evaluation Date of Evaluation: 03/08/17 Time of Evaluation: 11:06 - Subjective Subjective: patient has no specific co Serum creatinine down 1.1 Patient recovers from acute kidney injury Follow-up as needed thank you Objective - Vital Signs/Intake and Output Vital Signs (last 24 hours): Temp Pulse Resp BP Pulse Ox 98.6 F 74 20 176/95 H 98 03/08/17 08:24 03/08/17 10:28 03/08/17 08:24 03/08/17 10:28 03/08/17 08:24 - Medications Medications: Current Medications Alprazolam (Xanax) 0.5 mg PO BID [facility] Last Admin: 03/08/17 08:58 Dose: 0.5 mg Ciprofloxacin (Cipro) 500 mg PO Q12 [facility] Last Admin: 03/08/17 10:28 Dose: 500 mg Diphenhydramine HCl (Benadryl) 25 mg PO Q4 PRN PRN Reason: Itching / Pruritus Last Admin: 03/05/17 06:39 Dose: 25 mg Home Med (Patient's Own Medication) 500 unit PO BID [facility] Hydrocortisone (Cortizone 2.5% Cream) 1 applic TP DAILY PRN PRN Reason: Itching / Pruritus Last Admin: 03/06/17 00:49 Dose: 1 applic Insulin Detemir (Levemir) 25 units SC DAILY [facility] Last Admin: 03/08/17 09:00 Dose: 25 units Insulin Human Regular (Humulin R) 0 units SC [facility] PRN Reason: Protocol Last Admin: 03/08/17 08:59 Dose: 2 units Levothyroxine Sodium (Synthroid) 112 mcg PO DAILY@0630 [facility] Last Admin: 03/08/17 05:40 Dose: 112 mcg Metoprolol Tartrate (Lopressor) 50 mg PO Q12 [facility] Last Admin: 03/08/17 09:01 Dose: 50 mg Quetiapine Fumarate (Seroquel) 50 mg PO HS [facility] Last Admin: 03/07/17 21:11 Dose: 50 mg Sitagliptin Phosphate (Januvia) 25 mg PO DAILY [facility] Last Admin: 03/08/17 09:00 Dose: 25 mg Ticagrelor (Brilinta) 90 mg PO DAILY [facility] Last Admin: 03/08/17 08:59 Dose: 90 mg Valsartan (Diovan) 80 mg PO DAILY [facility] Last Admin: 03/08/17 08:59 Dose: 80 mg - Labs Labs: 03/07/17 05:50 03/08/17 05:45 PT 14.5 Seconds (9.8-13.1) H 03/05/17 07:48 INR 1.3 (0.9-1.2) H 03/05/17 07:48 APTT 27.8 Seconds (25.6-37.1) 03/05/17 07:48 Assessment and Plan (1) Hyperkalemia Status: Resolved (2) MUSHTAQ (acute kidney injury) Status: Acute
[2017-03-08 12:39] LABS: RBC URINE 2 /hpf (0-3); URINE BACTERIA RARE (<OCC); URINE BILIRUBIN NEGATIVE (NEGATIVE); URINE BLOOD NEGATIVE (NEGATIVE); URINE COLOR YELLOW (YELLOW); URINE GLUCOSE (UA) NEG (Normal); URINE KETONE NEGATIVE (NEGATIVE); URINE LEUKOCYTE ESTERASE MOD Leu/uL (Negative); URINE PROTEIN NEGATIVE (NEGATIVE); URINE UROBILINOGEN 0.2-1.0 mg/dL (0.2-1.0); WBC URINE 42 /hpf (0-5)
[2017-03-08 14:44] LABS: HEMATOCRIT 28.8 % (34.0-47.0); MEAN CELL VOLUME 84.3 fl (81.0-99.0); MEAN CORPUSCULAR HEMOGLOBIN 28.4 pg (27.0-31.0); MEAN CORPUSCULAR HGB CONC 33.7 g/dL (33.0-37.0); RED CELL DISTRIBUTION WIDTH 13.7 % (11.5-14.5); RETIC% 1.4 % (0.5-1.5); WHITE BLOOD COUNT 8.4 K/uL (4.8-10.8)
[2017-03-08 15:20] LABS: IRON 67 ug/dL (37-170)
--- NOTE | 2017-03-08 16:18 | CP.PCM.PN ---
Subjective - Date & Time of Evaluation Date of Evaluation: 03/08/17 Time of Evaluation: 11:30 - Subjective Subjective: F/U Gastroenteritis Patient appears anxious, no abdominal pain, no SOB , no C/P , Patient,s son at bedside , BP elevated Objective - Vital Signs/Intake and Output Vital Signs (last 24 hours): Temp Pulse Resp BP Pulse Ox 98.6 F 54 L 20 166/78 H 98 03/08/17 08:24 03/08/17 15:21 03/08/17 08:24 03/08/17 15:21 03/08/17 08:24 - Medications Medications: Current Medications Alprazolam (Xanax) 0.5 mg PO BID [facility] Last Admin: 03/08/17 08:58 Dose: 0.5 mg Ciprofloxacin (Cipro) 500 mg PO Q12 [facility] Last Admin: 03/08/17 10:28 Dose: 500 mg Clonidine HCl (Catapres) 0.1 mg PO TID [facility] Diphenhydramine HCl (Benadryl) 25 mg PO Q4 PRN PRN Reason: Itching / Pruritus Last Admin: 03/05/17 06:39 Dose: 25 mg Home Med (Patient's Own Medication) 500 unit PO BID [facility] Hydrocortisone (Cortizone 2.5% Cream) 1 applic TP DAILY PRN PRN Reason: Itching / Pruritus Last Admin: 03/06/17 00:49 Dose: 1 applic Insulin Detemir (Levemir) 25 units SC DAILY [facility] Last Admin: 03/08/17 09:00 Dose: 25 units Insulin Human Regular (Humulin R) 0 units SC [facility] PRN Reason: Protocol Last Admin: 03/08/17 12:54 Dose: 2 units Levothyroxine Sodium (Synthroid) 112 mcg PO DAILY@0630 [facility] Last Admin: 03/08/17 05:40 Dose: 112 mcg Metoprolol Tartrate (Lopressor) 50 mg PO Q12 [facility] Last Admin: 03/08/17 09:01 Dose: 50 mg Quetiapine Fumarate (Seroquel) 50 mg PO HS [facility] Last Admin: 03/07/17 21:11 Dose: 50 mg Sitagliptin Phosphate (Januvia) 25 mg PO DAILY [facility] Last Admin: 03/08/17 09:00 Dose: 25 mg Ticagrelor (Brilinta) 90 mg PO DAILY [facility] Last Admin: 03/08/17 08:59 Dose: 90 mg Valsartan (Diovan) 80 mg PO DAILY [facility] Last Admin: 03/08/17 08:59 Dose: 80 mg Valsartan (Diovan) 80 mg PO HS [facility] - Labs Labs: 03/08/17 13:30 03/08/17 05:45 PT 14.5 Seconds (9.8-13.1) H 03/05/17 07:48 INR 1.3 (0.9-1.2) H 03/05/17 07:48 APTT 27.8 Seconds (25.6-37.1) 03/05/17 07:48 - Constitutional Appears: No Acute Distress - Head Exam Head Exam: NORMAL INSPECTION - Eye Exam Eye Exam: PERRL - ENT Exam ENT Exam: Normal Exam - Neck Exam Neck Exam: Normal Inspection - Respiratory Exam Respiratory Exam: NORMAL BREATHING PATTERN - Cardiovascular Exam Cardiovascular Exam: REGULAR RHYTHM, Murmur (systolic 3/6 harsh Ao LSB radiated to neck vessels) - GI/Abdominal Exam GI & Abdominal Exam: Soft, Normal Bowel Sounds - Extremities Exam Extremities Exam: Normal Inspection - Back Exam Back Exam: tenderness (mild) - Neurological Exam Neurological Exam: Alert, CN II-XII Intact Additional comments: No focal motor/sensory deficit. - Psychiatric Exam Psychiatric exam: Anxious - Skin Skin Exam: Warm Assessment and Plan (1) Gastroenteritis Status: Resolved (2) MUSHTAQ (acute kidney injury) Status: Acute (3) Hyperkalemia Status: Resolved (4) Skin rash Status: Resolved (5) DM (diabetes mellitus) Status: Chronic (6) Dementia Status: Chronic (7) Depression Status: Chronic (8) Aortic valve disease Status: Chronic (9) Presence of stent in coronary artery in patient with coronary artery disease Status: Chronic (10) Hypertension Status: Chronic (11) Hypothyroidism Status: Chronic (12) Hypertension, uncontrolled Status: Acute (13) Hypertension, uncontrolled Status: Acute - Assessment and Plan (Free Text) Plan: SBP elevated 180,s , adjust BP meds , f/u Cardiology
[2017-03-08 21:55] LABS: FOLATE 11.9 ng/mL
[2017-03-09] MEDS: Levothyroxine 112 MCG TAB PO SCH (05:57)
[2017-03-09] MEDS: Insulin Regular 100 units/ml SC SCH ×2 (06:33→11:15)
[2017-03-09 07:07] LABS: CALCIUM 9.6 mg/dL (8.4-10.2); POTASSIUM 4.4 MMOL/L (3.6-5.0)
--- NOTE | 2017-03-09 07:46 | CP.PCM.PN ---
Subjective - Date & Time of Evaluation Date of Evaluation: 03/09/17 Time of Evaluation: 07:40 - Subjective Subjective: no new complaints. blood pressure is improved. Objective - Vital Signs/Intake and Output Vital Signs (last 24 hours): Temp Pulse Resp BP Pulse Ox 98.4 F 50 L 20 143/74 95 03/08/17 16:26 03/08/17 23:20 03/08/17 16:26 03/08/17 23:20 03/08/17 16:26 - Medications Medications: Current Medications Alprazolam (Xanax) 0.5 mg PO BID [facility] Last Admin: 03/08/17 08:58 Dose: 0.5 mg Ciprofloxacin (Cipro) 500 mg PO Q12 [facility] Last Admin: 03/08/17 20:23 Dose: 500 mg Clonidine HCl (Catapres) 0.1 mg PO TID [facility] Last Admin: 03/08/17 16:40 Dose: 0.1 mg Diphenhydramine HCl (Benadryl) 25 mg PO Q4 PRN PRN Reason: Itching / Pruritus Last Admin: 03/05/17 06:39 Dose: 25 mg Home Med (Patient's Own Medication) 500 unit PO BID [facility] Hydrocortisone (Cortizone 2.5% Cream) 1 applic TP DAILY PRN PRN Reason: Itching / Pruritus Last Admin: 03/06/17 00:49 Dose: 1 applic Insulin Detemir (Levemir) 25 units SC DAILY [facility] Last Admin: 03/08/17 09:00 Dose: 25 units Insulin Human Regular (Humulin R) 0 units SC [facility] PRN Reason: Protocol Last Admin: 03/09/17 06:33 Dose: Not Given Levothyroxine Sodium (Synthroid) 112 mcg PO DAILY@0630 [facility] Last Admin: 03/09/17 05:57 Dose: 112 mcg Metoprolol Tartrate (Lopressor) 50 mg PO Q12 [facility] Last Admin: 03/08/17 20:23 Dose: 50 mg Quetiapine Fumarate (Seroquel) 50 mg PO HS [facility] Last Admin: 03/08/17 22:19 Dose: 50 mg Sitagliptin Phosphate (Januvia) 25 mg PO DAILY [facility] Last Admin: 03/08/17 09:00 Dose: 25 mg Ticagrelor (Brilinta) 90 mg PO DAILY [facility] Last Admin: 03/08/17 08:59 Dose: 90 mg Valsartan (Diovan) 80 mg PO DAILY [facility] Last Admin: 03/08/17 08:59 Dose: 80 mg Valsartan (Diovan) 80 mg PO HS [facility] Last Admin: 03/08/17 22:20 Dose: 80 mg - Labs Labs: 03/08/17 13:30 03/09/17 05:30 PT 14.5 Seconds (9.8-13.1) H 03/05/17 07:48 INR 1.3 (0.9-1.2) H 03/05/17 07:48 APTT 27.8 Seconds (25.6-37.1) 03/05/17 07:48 - Constitutional Appears: Non-toxic - Head Exam Head Exam: NORMAL INSPECTION - Eye Exam Eye Exam: Normal appearance - ENT Exam ENT Exam: Mucous Membranes Moist - Neck Exam Neck Exam: Full ROM - Cardiovascular Exam Cardiovascular Exam: REGULAR RHYTHM - GI/Abdominal Exam GI & Abdominal Exam: Normal Bowel Sounds - Rectal Exam Rectal Exam: Deferred - Extremities Exam Extremities Exam: absent: Pedal Edema - Back Exam Back Exam: NORMAL INSPECTION - Neurological Exam Neurological Exam: Alert - Psychiatric Exam Psychiatric exam: Normal Affect - Skin Skin Exam: Normal Color Assessment and Plan (1) Aortic valve disease Assessment & Plan: currently stable. no evidence of heart failure Status: Chronic (2) Essential hypertension Assessment & Plan: blood pressure is improved on current therapy Status: Acute (3) CAD (coronary artery disease) Assessment & Plan: previous normal stress test Status: Chronic (4) DM (diabetes mellitus) Assessment & Plan: blood sugar control Status: Chronic
[2017-03-09] MEDS: Insulin Detemir 100 Units/ml Inj SC SCH (09:13)
[2017-03-09 11:19] VITALS: RESP 18
[2017-03-09 13:58] VITALS: BP 110/72; PULSE 63; TEMP 98.3; O2SAT 100
--- NOTE | 2017-03-09 13:58 | CP.PCM.PN ---
Subjective - Date & Time of Evaluation Date of Evaluation: 03/09/17 Time of Evaluation: 11:30 - Subjective Subjective: F/U Gastroenteritis Objective - Vital Signs/Intake and Output Vital Signs (last 24 hours): Temp Pulse Resp BP Pulse Ox 98.2 F 62 18 117/72 99 03/09/17 11:19 03/09/17 11:19 03/09/17 11:19 03/09/17 11:19 03/09/17 11:19 - Medications Medications: Current Medications Alprazolam (Xanax) 0.5 mg PO BID [facility] Last Admin: 03/09/17 08:28 Dose: 0.5 mg Ciprofloxacin (Cipro) 500 mg PO Q12 [facility] Last Admin: 03/09/17 08:24 Dose: 500 mg Clonidine HCl (Catapres) 0.1 mg PO TID [facility] Last Admin: 03/09/17 12:27 Dose: 0.1 mg Diphenhydramine HCl (Benadryl) 25 mg PO Q4 PRN PRN Reason: Itching / Pruritus Last Admin: 03/05/17 06:39 Dose: 25 mg Home Med (Patient's Own Medication) 500 unit PO BID [facility] Hydrocortisone (Cortizone 2.5% Cream) 1 applic TP DAILY PRN PRN Reason: Itching / Pruritus Last Admin: 03/06/17 00:49 Dose: 1 applic Insulin Detemir (Levemir) 25 units SC DAILY [facility] Last Admin: 03/09/17 09:13 Dose: 25 units Insulin Human Regular (Humulin R) 0 units SC [facility] PRN Reason: Protocol Last Admin: 03/09/17 11:15 Dose: 2 units Levothyroxine Sodium (Synthroid) 112 mcg PO DAILY@0630 [facility] Last Admin: 03/09/17 05:57 Dose: 112 mcg Metoprolol Tartrate (Lopressor) 50 mg PO Q12 [facility] Last Admin: 03/09/17 08:25 Dose: 50 mg Quetiapine Fumarate (Seroquel) 50 mg PO HS [facility] Last Admin: 03/08/17 22:19 Dose: 50 mg Sitagliptin Phosphate (Januvia) 25 mg PO DAILY [facility] Last Admin: 03/09/17 08:25 Dose: 25 mg Ticagrelor (Brilinta) 90 mg PO DAILY [facility] Last Admin: 03/09/17 08:24 Dose: 90 mg Valsartan (Diovan) 80 mg PO DAILY [facility] Last Admin: 03/09/17 08:26 Dose: 80 mg Valsartan (Diovan) 80 mg PO HS [facility] Last Admin: 03/08/17 22:20 Dose: 80 mg - Labs Labs: 03/08/17 13:30 03/09/17 05:30 PT 14.5 Seconds (9.8-13.1) H 03/05/17 07:48 INR 1.3 (0.9-1.2) H 03/05/17 07:48 APTT 27.8 Seconds (25.6-37.1) 03/05/17 07:48 - Constitutional Appears: No Acute Distress - Head Exam Head Exam: NORMAL INSPECTION - Eye Exam Pupil Exam: PERRL - ENT Exam ENT Exam: Normal Oropharynx - Neck Exam Neck Exam: Normal Inspection - Respiratory Exam Respiratory Exam: NORMAL BREATHING PATTERN - Cardiovascular Exam Cardiovascular Exam: REGULAR RHYTHM, Murmur (systolic 3/6 harsh Ao LSB radiated to neck) - GI/Abdominal Exam GI & Abdominal Exam: Soft, Normal Bowel Sounds - Extremities Exam Extremities Exam: Normal Inspection - Back Exam Back Exam: tenderness (mild) - Neurological Exam Neurological Exam: Alert, CN II-XII Intact Additional comments: No focal motor sensory deficit. - Psychiatric Exam Psychiatric exam: Anxious - Skin Skin Exam: Warm Assessment and Plan (1) Gastroenteritis Status: Resolved (2) MUSHTAQ (acute kidney injury) Status: Acute (3) Hyperkalemia Status: Resolved (4) Skin rash Status: Resolved (5) DM (diabetes mellitus) Status: Chronic (6) Dementia Status: Chronic (7) Depression Status: Chronic (8) Aortic valve disease Status: Chronic (9) Presence of stent in coronary artery in patient with coronary artery disease Status: Chronic (10) Hypertension Status: Chronic (11) Hypothyroidism Status: Chronic
== END 2017-03-09 14:15 | disposition home health service (06) | DRG 392 ==
LOC: H.ER 09:04 → H.ERHOLD 14:37 → H.MEDSURG1 16:36 → OBSVTOIN 03-05 10:26
PROVIDERS: ADMIT Internal Medicine Pulmonary Disease; ATTEND Internal Medicine Pulmonary Disease
DX: K52.9 Noninfective gastroenteritis and colitis, unspecified (principal); N17.9 Acute kidney failure, unspecified; E11.22 Type 2 diabetes mellitus with diabetic chronic kidney disease; F03.90 Unspecified dementia, unspecified severity, without behavioral disturbance, psychotic disturbance, mood disturbance, and anxiety; E11.649 Type 2 diabetes mellitus with hypoglycemia without coma; E03.9 Hypothyroidism, unspecified; E78.00 Pure hypercholesterolemia, unspecified; E87.5 Hyperkalemia; F32.9 Major depressive disorder, single episode, unspecified; I12.9 Hypertensive chronic kidney disease with stage 1 through stage 4 chronic kidney disease, or unspecified chronic kidney disease; K21.9 Gastro-esophageal reflux disease without esophagitis; I25.10 Atherosclerotic heart disease of native coronary artery without angina pectoris; I35.9 Nonrheumatic aortic valve disorder, unspecified; L50.9 Urticaria, unspecified; N18.9 Chronic kidney disease, unspecified; Z79.82 Long term (current) use of aspirin; Z95.1 Presence of aortocoronary bypass graft; Z95.5 Presence of coronary angioplasty implant and graft; D64.9 Anemia, unspecified; F41.9 Anxiety disorder, unspecified; K29.70 Gastritis, unspecified, without bleeding; M19.90 Unspecified osteoarthritis, unspecified site; Z79.84 Long term (current) use of oral hypoglycemic drugs; R21 Rash and other nonspecific skin eruption; E86.0 Dehydration

== ENCOUNTER 2017-04-20 14:24 | Emergency (ER) | payer MEDICARE, MEDICAID ==
[2017-04-20 14:24] VITALS: BMI 27.4
[2017-04-20 14:32] VITALS: TEMP 98.8; O2SAT 98
[2017-04-20] MEDS ORDERED: Sodium Chloride 0.9% 500 ML IV STA (15:00)
--- NOTE | 2017-04-20 15:05 | ED PDOC ---
HPI: General Adult Time Seen by Provider: 04/20/17 15:03 Chief Complaint (Nursing): Weakness/Neurological Deficit Chief Complaint (Provider): EPIGASTRIC DISCOMFORT History Per: Patient (77 Y/O FEMALE H/O DM HERE WITH COMPLAINT OF EPIGASTRIC PAIN BEGINNING LAST NIGHT WORSENING TODAY RADIATING TO THROAT. DENIES ANY VOMITING/DIARRHEA/FEVER/DYSURIA/ TREATED FOR UTI DURING RECENT HOSPITAL STAY. HAS HAD CT ABDOMEN/PELVIS 03/2017 NEG FOR ACUTE FINDINGS. FEELS INTERMITTENTLY WEAK WITH FLUCTUATING BLOOD GLUCOSE PER PATIENT.) Past Medical History Reviewed: Historical Data, Nursing Documentation, Vital Signs Vital Signs: Last Vital Signs Temp 98.8 F 04/20/17 14:29 Pulse 82 04/20/17 14:29 Resp 20 04/20/17 14:29 BP 150/73 04/20/17 14:29 Pulse Ox 98 04/20/17 18:28 - Medical History PMH: Anemia, Anxiety, Arthritis, CAD, Dementia (mild), Depression, Diabetes ( type II), Diverticulitis, Gastritis, Gall Bladder Disease, GERD, HTN, Hypercholesterolemia, Hypothyroidism, Pancreatitis, Chronic Kidney Disease Denies: CHF, COPD, HIV, Rheumatoid Arthritis - Surgical History Surgical History: CABG (x 4 years ago), Cholecystectomy, Coronary Stent (11/2015 (1 STENT)) - Family History Family History: States: Unknown Family Hx - Immunization History Hx Tetanus Toxoid Vaccination: No - Home Medications Home Medications: Ambulatory Orders Medication Instructions Recorded Alprazolam [Xanax] 0.5 mg PO BID 09/16/16 Insulin Detemir [Levemir] 25 unit SQ QAM 09/16/16 Levothyroxine [Synthroid] 112 mcg PO DAILY 09/16/16 Linagliptin [Tradjenta] 5 mg PO DAILY 09/16/16 Metoprolol Tartrate [Lopressor] 50 mg PO BID 09/16/16 QUEtiapine [SEROquel] 50 mg PO HS 09/16/16 Ranolazine [Ranexa] 500 mg PO BID 09/16/16 Valsartan [Diovan] 80 mg PO HS 09/16/16 Valsartan [Diovan] 160 mg PO QAM 09/16/16 Aspirin [Ecotrin] 81 mg PO DAILY 11/09/16 Ticagrelor [Brilinta] 90 mg PO DAILY 11/09/16 Ciprofloxacin [Cipro] 500 mg PO Q12 #14 tab 03/08/17 Hydrocortisone [Cortizone 2.5% 1 applic TP DAILY PRN 03/08/17 CREAM] cloNIDine [Catapres] 0.1 mg PO BID #30 tab 03/09/17 Ranitidine HCl [Zantac 75] 75 mg PO BID #10 tablet 04/20/17 - Allergies Allergies/Adverse Reactions: Allergies Allergy/AdvReac Type Severity Reaction Status Date / Time No Known Allergies Allergy Verified 04/20/17 14:32 Review of Systems ROS Statement: Except As Marked, All Systems Reviewed And Found Negative Physical Exam - Reviewed Nursing Documentation Reviewed: Yes Vital Signs Reviewed: Yes - Physical Exam Appears: Positive for: Well, Non-toxic, No Acute Distress Head Exam: Positive for: ATRAUMATIC, NORMAL INSPECTION, NORMOCEPHALIC Skin: Positive for: Normal Color, Warm, DRY Eye Exam: Positive for: EOMI, Normal appearance, PERRL ENT: Positive for: Normal ENT Inspection Neck: Positive for: Normal, Painless ROM Cardiovascular/Chest: Positive for: Regular Rate, Rhythm Respiratory: Positive for: CNT, Normal Breath Sounds Gastrointestinal/Abdominal: Positive for: Normal Exam, Bowel Sounds, Soft Back: Positive for: Normal Inspection Extremity: Positive for: Normal ROM Neurologic/Psych: Positive for: Alert, Oriented - Laboratory Results Result Diagrams: 04/20/17 16:42 04/20/17 16:42 - ECG O2 Sat by Pulse Oximetry: 98 - Progress ED Course And Treament: PEPCID 20 MG PO X1 DOSE ZOFRAN 4 MG ODT EKG: NSR 72BPM; NO ECTOPY NO ACUTE CHANGES PATIENT STATES IMPROVEMENT AFTER MEDICATION GIVEN. H/O CHOLECYSTECTOMY UDIP NEG FOR LEUK /BLOOD/ KETONE/NITRATE PATIENT GIVEN 500ML WATER AND ABLE TO TOLERATE IN ED. Disposition - Clinical Impression Clinical Impression: Gastritis - Disposition Disposition: Routine/Home Disposition Time: 18:38 Condition: FAIR Prescriptions: Ranitidine HCl [Zantac 75] 75 mg PO BID #10 tablet Instructions: Gastritis (DC) Print Language: UPPER SORBIAN
--- NOTE | 2017-04-20 15:19 | RAD ---
HISTORY: ROUTINE COMPARISON: 10/05/2016 FINDINGS: LUNGS: No active pulmonary disease. PLEURA: No significant pleural effusion identified, no pneumothorax apparent. CARDIOVASCULAR: Normal. OSSEOUS STRUCTURES: Sternal wires VISUALIZED UPPER ABDOMEN: Normal. OTHER FINDINGS: None. IMPRESSION: No active disease.
[2017-04-20 17:08] LABS: BASO % 0.6 % (0.0-2.0); EOS # 0.4 K/uL (0.0-0.7); EOS % 5.8 % (0.0-4.0); HEMOGLOBIN 10.7 g/dL (12.0-16.0); MEAN CELL VOLUME 88.2 fl (81.0-99.0); MEAN CORPUSCULAR HEMOGLOBIN 28.3 pg (27.0-31.0); MEAN CORPUSCULAR HGB CONC 32.1 g/dL (33.0-37.0); MEAN PLATELET VOLUME 9.2 fl (7.2-11.7); MONO # 0.8 K/uL (0.0-0.8); MONO % 11.3 % (0.0-10.0); NEUT % 55.3 % (50.0-75.0); RBC 3.77 Mil/uL (3.80-5.20); RED CELL DISTRIBUTION WIDTH 15.4 % (11.5-14.5); WHITE BLOOD COUNT 7.3 K/uL (4.8-10.8)
[2017-04-20 18:03] LABS: SQUAMOUS EPITHIAL < 1 /hpf (0-5); URINE BILIRUBIN NEGATIVE (NEGATIVE); URINE BLOOD NEGATIVE (NEGATIVE); URINE CLARITY CLEAR (Clear); URINE COLOR YELLOW (YELLOW); URINE GLUCOSE (UA) NEG (Normal); URINE LEUKOCYTE ESTERASE NEG Leu/uL (Negative); URINE NITRATE NEGATIVE (NEGATIVE); URINE PROTEIN NEGATIVE (NEGATIVE); URINE UROBILINOGEN 0.2-1.0 mg/dL (0.2-1.0)
[2017-04-20 18:06] LABS: ALB/GLOB RATIO 1.4 (1.0-2.1); ALBUMIN 4.6 g/dL (3.5-5.0); ALT/SGPT 29 U/L (9-52); AST/SGOT 68 U/L (14-36); BLOOD UREA NITROGEN 33 mg/dl (7-17); CALCIUM 9.8 mg/dL (8.4-10.2); GFR AFRICAN-AMERICAN 48; GFR NON-AFRICAN AMERICAN 40; LIPASE 297 U/L (23-300)
[2017-04-20 19:07] VITALS: BP 144/71; PULSE 78; RESP 16
--- NOTE | 2017-04-21 20:31 | CARD ---
APPROVED REPORT EKG Measurement Heart [id number] <Conclusion> Sinus rhythm with occasional premature ventricular complexes Possible Left atrial enlargement Left axis deviation Left ventricular hypertrophy Abnormal ECG
== END 2017-04-20 19:06 | disposition home or self-care (01) ==
LOC: H.ER 14:24
DX: K29.70 Gastritis, unspecified, without bleeding (principal); R53.1 Weakness; E03.9 Hypothyroidism, unspecified; E78.00 Pure hypercholesterolemia, unspecified; F03.90 Unspecified dementia, unspecified severity, without behavioral disturbance, psychotic disturbance, mood disturbance, and anxiety; I12.9 Hypertensive chronic kidney disease with stage 1 through stage 4 chronic kidney disease, or unspecified chronic kidney disease; I25.10 Atherosclerotic heart disease of native coronary artery without angina pectoris; K85.90 Acute pancreatitis without necrosis or infection, unspecified; Z79.4 Long term (current) use of insulin; Z79.82 Long term (current) use of aspirin; Z95.1 Presence of aortocoronary bypass graft; Z95.5 Presence of coronary angioplasty implant and graft
CPT/HCPCS: 71010; 80053; 81003; 82948; 83690; 84484; 85025; 87086; 93005; 96374; 99284; J2405

== ENCOUNTER 2017-05-19 09:14 | Emergency (ER) | payer MEDICARE, MEDICAID ==
[2017-05-19 09:15] VITALS: BMI 27.4
[2017-05-19 09:30] VITALS: TEMP 98.6
[2017-05-19] MEDS ORDERED: Sodium Chloride 0.9% 1,000 ML IV STA (09:33)
--- NOTE | 2017-05-19 09:47 | ED PDOC ---
HPI: Abdomen Time Seen by Provider: 05/19/17 09:22 Chief Complaint (Nursing): Abdominal Pain Chief Complaint (Provider): Abdominal Pain History Per: Patient History/Exam Limitations: no limitations Onset/Duration Of Symptoms: Days (x 2-3) Current Symptoms Are (Timing): Still Present Additional Complaint(s): Serenity is a 77 y/o female who presents to the ED complaining of abdominal pain associated with nausea, vomiting, and constipation for 2-3 days. Patient has been here in the past for similar complaints, but this time she has nausea. Earlier today she experienced chest pain, son gave her Diovan with relief. Denies symptoms. Pain is described as epigastric pain that radiates to her back. PMD: Daquan Wagoner Past Medical History Reviewed: Historical Data, Nursing Documentation, Vital Signs Vital Signs: Last Vital Signs Temp 98.6 F 05/19/17 09:28 Pulse 61 05/19/17 10:21 Resp 19 05/19/17 10:21 BP 156/81 H 05/19/17 10:21 Pulse Ox 99 05/19/17 14:27 - Medical History PMH: Anemia, Anxiety, Arthritis, CAD, Dementia (mild), Depression, Diabetes ( type II), Diverticulitis, Gastritis, Gall Bladder Disease, GERD, HTN, Hypercholesterolemia, Hypothyroidism, Pancreatitis, Chronic Kidney Disease Denies: CHF, COPD, HIV, Rheumatoid Arthritis - Surgical History Surgical History: CABG (x 4 years ago), Cholecystectomy, Coronary Stent (11/2015 (1 STENT)) - Family History Family History: States: Unknown Family Hx - Immunization History Hx Tetanus Toxoid Vaccination: No - Home Medications Home Medications: Ambulatory Orders Medication Instructions Recorded Alprazolam [Xanax] 0.5 mg PO BID 09/16/16 Insulin Detemir [Levemir] 25 unit SQ QAM 09/16/16 Levothyroxine [Synthroid] 112 mcg PO DAILY 09/16/16 Linagliptin [Tradjenta] 5 mg PO DAILY 09/16/16 Metoprolol Tartrate [Lopressor] 50 mg PO BID 09/16/16 QUEtiapine [SEROquel] 50 mg PO HS 09/16/16 Ranolazine [Ranexa] 500 mg PO BID 09/16/16 Valsartan [Diovan] 80 mg PO HS 09/16/16 Valsartan [Diovan] 160 mg PO QAM 09/16/16 Aspirin [Ecotrin] 81 mg PO DAILY 11/09/16 Ticagrelor [Brilinta] 90 mg PO DAILY 11/09/16 Ciprofloxacin [Cipro] 500 mg PO Q12 #14 tab 03/08/17 Hydrocortisone [Cortizone 2.5% 1 applic TP DAILY PRN 03/08/17 CREAM] cloNIDine [Catapres] 0.1 mg PO BID #30 tab 03/09/17 Ranitidine HCl [Zantac 75] 75 mg PO BID #10 tablet 04/20/17 Ondansetron ODT [Zofran ODT] 4 mg PO Q8H PRN #20 odt 05/19/17 Pantoprazole Sodium [Protonix] 40 mg PO DAILY #14 ect 05/19/17 - Allergies Allergies/Adverse Reactions: Allergies Allergy/AdvReac Type Severity Reaction Status Date / Time ceftriaxone [From Rocephin] Allergy RASH Verified 05/19/17 09:27 Review of Systems ROS Statement: Except As Marked, All Systems Reviewed And Found Negative Cardiovascular: Negative for: Chest Pain (earlier today, now none) Gastrointestinal: Positive for: Nausea, Vomiting, Abdominal Pain (Epigastric), Constipation Genitourinary Female: Negative for: Dysuria, Frequency, Incontinence Musculoskeletal: Positive for: Back Pain (radiates from abdomen to back) Physical Exam - Reviewed Nursing Documentation Reviewed: Yes Vital Signs Reviewed: Yes - Physical Exam Appears: Positive for: Non-toxic, No Acute Distress, Uncomfortable Head Exam: Positive for: ATRAUMATIC, NORMAL INSPECTION, NORMOCEPHALIC Skin: Positive for: Normal Color, Warm, Dry Eye Exam: Positive for: EOMI, Normal appearance, PERRL Neck: Positive for: Normal, Painless ROM, Supple Cardiovascular/Chest: Positive for: Regular Rate, Rhythm. Negative for: Murmur Respiratory: Positive for: Normal Breath Sounds. Negative for: Respiratory Distress Gastrointestinal/Abdominal: Positive for: Soft, Tenderness (Epigastric tenderness on palpation). Negative for: Guarding, Rebound Back: Positive for: Normal Inspection. Negative for: Vertebral Tenderness Extremity: Positive for: Normal ROM. Negative for: Deformity Neurologic/Psych: Positive for: Alert, Oriented - Laboratory Results Result Diagrams: 05/19/17 09:48 08/19/17 09:48 - ECG O2 Sat by Pulse Oximetry: 99 (RA) Pulse Ox Interpretation: Normal - Radiology X-Ray: Interpreted by Me X-Ray Interpretation: No Acute Disease - Physician Consult Information Physician Contacted: Daquan Wagoner Outcome Of Conversation: Recommends Rx Protonix and follow-up with Dr. Bernard. Medical Decision Making Medical Decision Making: Time: 09:32 Initial Impression: Gastritis, ACS Initial Plan: --Blood work --EKG --CXR --Accucheck --Morphine 2 mg IV --NS IV 1000 ml at 125 mls/hr --Zofran 4 mg IV --Pending reevaluation Time: 09:57 --CT Abdomen/Pelvis pending Time: 12:56 CT CHEST WITH CONTRAST: FINDINGS: LUNGS: Suspect minor bibasilar atelectasis and or scarring changes. Lung milligan are otherwise clear. No infiltrate or mass seen. The MEDIASTINUM: Heart is borderline/ mildly enlarged. No significant pericardial effusion. At ascending thoracic aorta measures approximately 3.2 cm and descending thoracic aorta measures approximately 2.6 cm. . Atherosclerotic plaque changes seen along the thoracic aorta. Pulmonary trunk measures approximately 2.1 cm. Central airways are midline and patent. LYMPH NODES: Few small nonspecific mediastinal lymph nodes are present. PLEURA: Unremarkable. No pneumothorax. No pleural fluid. BONES: Mild multilevel degenerative spondylosis of the thoracic spine. There are no acute compression fractures seen. OTHER FINDINGS: None. CT ABDOMEN AND PELVIS: LIVER: Liver exhibits on normal size and attenuation pattern without mass collection or calcification. Mild central intrahepatic biliary ductal dilatation. Portal and splenic veins are opacified. GALLBLADDER AND BILE DUCTS: Status post cholecystectomy. There is dilatation of the common bile duct. . The PANCREAS: Pancreas is slightly atrophic and fatty replaced. No evidence of pancreatic mass or collection. Pancreatic duct is visible lobe not significantly dilated. Suspect the small diverticulum of the duodenum extending medially adjacent to the pancreatic head. SPLEEN: Spleen exhibits normal size and attenuation pattern without mass collection or calcification. ADRENALS: No adrenal masses. KIDNEYS AND URETERS: Kidneys demonstrate symmetric nephrograms. No evidence of nephrolithiasis hydronephrosis. No renal mass or collection. VASCULATURE: No evidence of abdominal aortic or iliac artery aneurysm. Mild atherosclerotic plaque changes along the abdominal aorta. BOWEL: Evaluation of the bowel is limited due to the lack of oral contrast material. There is a small hiatal hernia with wall thickening of the distal esophagus that could be due to esophagitis. The possibility of intrinsic/invasive wall lesion such as esophageal carcinoma not excluded. Endoscopy followup may be prudent. Clinic correlation recommended. Visualized loops of small bowel exhibit normal contour and caliber. No evidence acute mechanical small bowel obstruction. Stool and air seen throughout the colon with moderate amount of stool in the distal sigmoid and rectum consistent with fecal retention/ constipation. There appears to be mild wall thickening of the distal rectum. Colonic diverticulosis again noted APPENDIX: Normal-appearing appendix best seen on axial image number [id number]. No periappendiceal inflammatory changes. PERITONEUM: No evidence of free intraperitoneal air or fluid. No loculated fluid collections. LYMPH NODES: No significant bulky adenopathy. BLADDER: Urinary bladder is markedly distended. No evidence of intraluminal urinary bladder calculi. REPRODUCTIVE: Uterus is mildly enlarged and lobulated likely due to uterine fibroids with a calcification in the uterine fundal region. BONES: Mild multilevel degenerative spondylosis of the thoracic and lumbar spine. No acute compression fractures no retropulsed fragments. No suspicious lytic or blastic lesions. OTHER FINDINGS: None. IMPRESSION: There is a small hiatal hernia with wall thickening of the distal esophagus that could be due to protrusion of gastric mucosa. Esophagitis or other intrinsic/ invasive wall lesion including gas esophageal carcinoma to be excluded. Consider followup GI consultation and endoscopy. There is a small duodenal diverticulum. Constipation with large amount of stool in the sigmoid and rectum. Mild wall thickening of the distal rectum. Colonic diverticulosis. Status post cholecystectomy. Mild fatty hepatic infiltration. Borderline/mild cardiomegaly. Uterine fibroids. Time: 14:15 --Patient reports feeling better --Consulted patients PMD, Dr. Wagoner, present and previous CT scan results discussed Clinical Impression: Hiatal hernia, Esophagitis Upon provider evaluation patient is medically stable, and requires no further treatment in the ED at this time. Patient will be discharged with Rx for Zofran and Protonix. Counseling was provided and all questions were answered regarding diagnosis and need for follow up with PMD. There is agreement to discharge plan. Return if symptoms persist or worsen. Scribe Attestation: Documented by Alva Nicholson, acting as a scribe for Verito Rodriguez MD Provider Scribe Attestation: All medical record entries made by the Scribe were at my direction and personally dictated by me. I have reviewed the chart and agree that the record accurately reflects my personal performance of the history, physical exam, medical decision making, and the department course for this patient. I have also personally directed, reviewed, and agree with the discharge instructions and disposition. Disposition - Clinical Impression Clinical Impression: Hiatal hernia, Esophagitis - Patient ED Disposition Is Patient to be Admitted: No Discussed With : Daquan Wagoner Doctor Will See Patient In The: Office Counseled Patient/Family Regarding: Studies Performed, Diagnosis, Need For Followup - Disposition Referrals: Johnathon Bernard [Staff Provider] - Daquan Wagoner MD [Family Provider] - [facility] [Outside] Disposition: Routine/Home Disposition Time: 14:21 Condition: STABLE Prescriptions: Ondansetron ODT [Zofran ODT] 4 mg PO Q8H PRN #20 odt PRN Reason: Nausea/Vomiting Pantoprazole Sodium [Protonix] 40 mg PO DAILY #14 ect Instructions: Hiatal Hernia (ED), Esophagitis (ED) Forms: [employer] (Setswana) Print Language: MOHAWK
[2017-05-19 10:07] LABS: BASO # 0.1 K/uL (0.0-0.2); BASO % 0.7 % (0.0-2.0); EOS # 0.2 K/uL (0.0-0.7); EOS % 2.1 % (0.0-4.0); LYMPH # 1.3 K/uL (1.0-4.3); LYMPH % 12.7 % (20.0-40.0); MEAN CELL VOLUME 87.1 fl (81.0-99.0); MEAN CORPUSCULAR HEMOGLOBIN 28.9 pg (27.0-31.0); MEAN CORPUSCULAR HGB CONC 33.2 g/dL (33.0-37.0); MONO # 0.4 K/uL (0.0-0.8); MONO % 4.3 % (0.0-10.0); NEUT # 8.3 K/uL (1.8-7.0); NEUT % 80.2 % (50.0-75.0); NRBC % 0.1 % (0.0-0.0); RED CELL DISTRIBUTION WIDTH 13.8 % (11.5-14.5); WHITE BLOOD COUNT 10.4 K/uL (4.8-10.8)
[2017-05-19 10:17] LABS: PARTIAL THROMBOPLASTIN TIME 33.1 Seconds (25.6-37.1)
[2017-05-19 10:18] LABS: ALB/GLOB RATIO 1.3 (1.0-2.1); ALKALINE PHOSPHATASE 75 U/L (38-126); ALT/SGPT 33 U/L (9-52); AST/SGOT 29 U/L (14-36); BILIRUBIN,TOTAL 0.6 mg/dl (0.2-1.3); BLOOD UREA NITROGEN 19 mg/dl (7-17); CARBON DIOXIDE 20 mmol/L (22-30); CHLORIDE 108 mmol/L (98-107); GFR AFRICAN-AMERICAN 53; GLUCOSE,RANDOM 201 mg/dL (65-105); LIPASE 209 U/L (23-300); POTASSIUM 4.8 MMOL/L (3.6-5.0); SODIUM 142 mmol/l (132-148); TOTAL PROTEIN 8.7 G/DL (6.3-8.2)
[2017-05-19 10:22] VITALS: BP 156/81; PULSE 61; RESP 19
[2017-05-19 10:50] VITALS: O2SAT 99
[2017-05-19] MEDS ORDERED: Iohexol 300 100 ML IJ ONE (11:08)
[2017-05-19] MEDS ORDERED: Sodium Chloride 0.9% 100 ML ONE (11:08)
--- NOTE | 2017-05-19 12:58 | CT ---
PROCEDURE: CT Chest, Abdomen and Pelvis with intravenous contrast HISTORY: Upper epigastric pain, vomiting COMPARISON: Comparison made with CT scan chest 03/04/2017 TECHNIQUE: IV dose administered: 98 cc of Omnipaque 300 contrast material Radiation dose: Total exam DLP = 1041.75 mGy-cm. This CT exam was performed using one or more of the following dose reduction techniques: Automated exposure control, adjustment of the mA and/or kV according to patient size, and/or use of iterative reconstruction technique. FINDINGS: CT CHEST WITH CONTRAST: LUNGS: Suspect minor bibasilar atelectasis and or scarring changes. Lung milligan are otherwise clear. No infiltrate or mass seen. The MEDIASTINUM: Heart is borderline/ mildly enlarged. No significant pericardial effusion. At ascending thoracic aorta measures approximately 3.2 cm and descending thoracic aorta measures approximately 2.6 cm. . Atherosclerotic plaque changes seen along the thoracic aorta. Pulmonary trunk measures approximately 2.1 cm. Central airways are midline and patent. LYMPH NODES: Few small nonspecific mediastinal lymph nodes are present. PLEURA: Unremarkable. No pneumothorax. No pleural fluid. BONES: Mild multilevel degenerative spondylosis of the thoracic spine. There are no acute compression fractures seen. OTHER FINDINGS: None. CT ABDOMEN AND PELVIS: LIVER: Liver exhibits on normal size and attenuation pattern without mass collection or calcification. Mild central intrahepatic biliary ductal dilatation. Portal and splenic veins are opacified. GALLBLADDER AND BILE DUCTS: Status post cholecystectomy. There is dilatation of the common bile duct. . The PANCREAS: Pancreas is slightly atrophic and fatty replaced. No evidence of pancreatic mass or collection. Pancreatic duct is visible lobe not significantly dilated. Suspect the small diverticulum of the duodenum extending medially adjacent to the pancreatic head. SPLEEN: Spleen exhibits normal size and attenuation pattern without mass collection or calcification. ADRENALS: No adrenal masses. KIDNEYS AND URETERS: Kidneys demonstrate symmetric nephrograms. No evidence of nephrolithiasis hydronephrosis. No renal mass or collection. VASCULATURE: No evidence of abdominal aortic or iliac artery aneurysm. Mild atherosclerotic plaque changes along the abdominal aorta. BOWEL: Evaluation of the bowel is limited due to the lack of oral contrast material. There is a small hiatal hernia with wall thickening of the distal esophagus that could be due to esophagitis. The possibility of intrinsic/invasive wall lesion such as esophageal carcinoma not excluded. Endoscopy followup may be prudent. Clinic correlation recommended. Visualized loops of small bowel exhibit normal contour and caliber. No evidence acute mechanical small bowel obstruction. Stool and air seen throughout the colon with moderate amount of stool in the distal sigmoid and rectum consistent with fecal retention/ constipation. There appears to be mild wall thickening of the distal rectum. Colonic diverticulosis again noted APPENDIX: Normal-appearing appendix best seen on axial image number [id number]. No periappendiceal inflammatory changes. PERITONEUM: No evidence of free intraperitoneal air or fluid. No loculated fluid collections. LYMPH NODES: No significant bulky adenopathy. BLADDER: Urinary bladder is markedly distended. No evidence of intraluminal urinary bladder calculi. REPRODUCTIVE: Uterus is mildly enlarged and lobulated likely due to uterine fibroids with a calcification in the uterine fundal region. BONES: Mild multilevel degenerative spondylosis of the thoracic and lumbar spine. No acute compression fractures no retropulsed fragments. No suspicious lytic or blastic lesions. OTHER FINDINGS: None. IMPRESSION: There is a small hiatal hernia with wall thickening of the distal esophagus that could be due to protrusion of gastric mucosa. Esophagitis or other intrinsic/ invasive wall lesion including gas esophageal carcinoma to be excluded. Consider followup GI consultation and endoscopy. There is a small duodenal diverticulum. Constipation with large amount of stool in the sigmoid and rectum. Mild wall thickening of the distal rectum. Colonic diverticulosis. Status post cholecystectomy. Mild fatty hepatic infiltration. Borderline/mild cardiomegaly. Uterine fibroids.
[2017-05-19 13:25] LABS: RBC URINE 2 /hpf (0-3); URINE BILIRUBIN NEGATIVE (NEGATIVE); URINE BLOOD NEGATIVE (NEGATIVE); URINE COLOR STRAW (YELLOW); URINE GLUCOSE (UA) NEG (Normal); URINE KETONE NEGATIVE (NEGATIVE); URINE LEUKOCYTE ESTERASE NEG Leu/uL (Negative); URINE PROTEIN NEGATIVE (NEGATIVE); URINE UROBILINOGEN 0.2-1.0 mg/dL (0.2-1.0); WBC URINE < 1 /hpf (0-5)
--- NOTE | 2017-05-19 16:25 | RAD ---
HISTORY: Epigastric pain COMPARISON: Comparison chest 04/20/2017 FINDINGS: LUNGS: No active pulmonary disease. PLEURA: No significant pleural effusion identified, however note that the left lateral CP angle has been excluded from the film. No pneumothorax apparent. CARDIOVASCULAR: Sternotomy wires and CABG clips. There is mild left ventricular configuration. Metallic clips right OSSEOUS STRUCTURES: No significant abnormalities. VISUALIZED UPPER ABDOMEN: Upper quadrant of the abdomen consistent with prior cholecystectomy. OTHER FINDINGS: None. IMPRESSION: No active disease.
--- NOTE | 2017-05-20 10:21 | CARD ---
APPROVED REPORT EKG Measurement Heart [id number] <Conclusion> Normal sinus rhythm Possible Left atrial enlargement Left axis deviation Cannot rule out Septal infarct, age undetermined Abnormal ECG
== END 2017-05-19 14:30 | disposition home or self-care (01) ==
LOC: H.ER 09:14
DX: K44.9 Diaphragmatic hernia without obstruction or gangrene (principal); K20.9 Esophagitis, unspecified; R10.13 Epigastric pain; D25.9 Leiomyoma of uterus, unspecified; E03.9 Hypothyroidism, unspecified; E11.22 Type 2 diabetes mellitus with diabetic chronic kidney disease; F03.90 Unspecified dementia, unspecified severity, without behavioral disturbance, psychotic disturbance, mood disturbance, and anxiety; F32.9 Major depressive disorder, single episode, unspecified; F41.9 Anxiety disorder, unspecified; I12.9 Hypertensive chronic kidney disease with stage 1 through stage 4 chronic kidney disease, or unspecified chronic kidney disease; K21.0 Gastro-esophageal reflux disease with esophagitis; K57.50 Diverticulosis of both small and large intestine without perforation or abscess without bleeding; K59.00 Constipation, unspecified; Z79.4 Long term (current) use of insulin; Z79.82 Long term (current) use of aspirin; Z90.49 Acquired absence of other specified parts of digestive tract; Z95.1 Presence of aortocoronary bypass graft; Z95.5 Presence of coronary angioplasty implant and graft
CPT/HCPCS: 71010; 71260; 74177; 80053; 81003; 82948; 83690; 84484; 85025; 85610; 85730; 93005; 96374; 96375; 99282; J2270; J2405; J7040; Q9967

== ENCOUNTER 2017-06-29 17:07 | Emergency (ER) | payer MEDICARE, MEDICAID ==
[2017-06-29 17:07] VITALS: BMI 27.4
[2017-06-29] MEDS ORDERED: Sodium Chloride 0.9% 1,000 ML IV STA ×2 (17:19→17:41)
[2017-06-29 18:09] LABS: BASO # 0.1 K/uL (0.0-0.2); BASO % 0.9 % (0.0-2.0); EOS # 0.4 K/uL (0.0-0.7); EOS % 5.3 % (0.0-4.0); LYMPH # 1.7 K/uL (1.0-4.3); LYMPH % 22.2 % (20.0-40.0); MEAN CELL VOLUME 88.1 fl (81.0-99.0); MEAN CORPUSCULAR HEMOGLOBIN 30.1 pg (27.0-31.0); MEAN CORPUSCULAR HGB CONC 34.2 g/dL (33.0-37.0); MEAN PLATELET VOLUME 9.7 fl (7.2-11.7); MONO # 0.7 K/uL (0.0-0.8); MONO % 9.9 % (0.0-10.0); NEUT # 4.7 K/uL (1.8-7.0); NEUT % 61.7 % (50.0-75.0); NRBC % 0.1 % (0.0-0.0); RED CELL DISTRIBUTION WIDTH 13.5 % (11.5-14.5); WHITE BLOOD COUNT 7.6 K/uL (4.8-10.8)
--- NOTE | 2017-06-29 18:20 | ED PDOC ---
HPI: General Adult Time Seen by Provider: 06/29/17 17:19 Chief Complaint (Nursing): Dizziness/Lightheaded Chief Complaint (Provider): dizziness, weakness, epigastric pain History Per: Patient, Scoreboard Operator (joe GONZÁLES) History/Exam Limitations: no limitations Onset/Duration Of Symptoms: Days (3) Current Symptoms Are (Timing): Still Present Recently: Seen In ED (may visit for Abd pain) Additional Complaint(s): 77yo female presents c/o multiple symptoms including dizziness, generalized weakness, epigastric pain radiating to chest, associated with mild headache, nausea, and lower extremity weakness/pain (bilateral). Denies fever, melena, BRBPR or hematemesis or focal weakness. Past Medical History Reviewed: Historical Data, Nursing Documentation, Vital Signs Vital Signs: Last Vital Signs Temp 97.9 F 06/29/17 21:50 Pulse 75 06/29/17 21:50 Resp 16 06/29/17 21:50 BP 135/80 06/29/17 21:50 Pulse Ox 98 06/29/17 22:29 - Medical History PMH: Anemia, Anxiety, Arthritis, CAD, Dementia (mild), Depression, Diabetes ( type II), Diverticulitis, Gastritis, Gall Bladder Disease, GERD, HTN, Hypercholesterolemia, Hypothyroidism, Pancreatitis, Chronic Kidney Disease Denies: CHF, COPD, HIV, Rheumatoid Arthritis - Surgical History Surgical History: CABG (x 4 years ago), Cholecystectomy, Coronary Stent (11/2015 (1 STENT)) - Family History Family History: States: Unknown Family Hx - Living Arrangements Living Arrangements: With Family (son, has homemaker) - Social History Current smoker - smoking cessation education provided: No Alcohol: None - Immunization History Hx Tetanus Toxoid Vaccination: No - Home Medications Home Medications: Ambulatory Orders Medication Instructions Recorded Alprazolam [Xanax] 0.5 mg PO BID 09/16/16 Insulin Detemir [Levemir] 25 unit SQ QAM 09/16/16 Levothyroxine [Synthroid] 112 mcg PO DAILY 09/16/16 Linagliptin [Tradjenta] 5 mg PO DAILY 09/16/16 Metoprolol Tartrate [Lopressor] 50 mg PO BID 09/16/16 QUEtiapine [SEROquel] 50 mg PO HS 09/16/16 Ranolazine [Ranexa] 500 mg PO BID 09/16/16 Valsartan [Diovan] 80 mg PO HS 09/16/16 Valsartan [Diovan] 160 mg PO QAM 09/16/16 Aspirin [Ecotrin] 81 mg PO DAILY 11/09/16 Ticagrelor [Brilinta] 90 mg PO DAILY 11/09/16 Ciprofloxacin [Cipro] 500 mg PO Q12 #14 tab 03/08/17 Hydrocortisone [Cortizone 2.5% 1 applic TP DAILY PRN 03/08/17 CREAM] cloNIDine [Catapres] 0.1 mg PO BID #30 tab 03/09/17 Ranitidine HCl [Zantac 75] 75 mg PO BID #10 tablet 04/20/17 Ondansetron ODT [Zofran ODT] 4 mg PO Q8H PRN #20 odt 05/19/17 Pantoprazole Sodium [Protonix] 40 mg PO DAILY #14 ect 05/19/17 Famotidine [Pepcid] 20 mg PO Q12 #14 tab 06/29/17 - Allergies Allergies/Adverse Reactions: Allergies Allergy/AdvReac Type Severity Reaction Status Date / Time ceftriaxone [From Rocephin] Allergy RASH Verified 05/19/17 09:27 Review of Systems ROS Statement: Except As Marked, All Systems Reviewed And Found Negative Constitutional: Negative for: Fever, Chills ENT: Negative for: Nose Discharge, Throat Pain Cardiovascular: Positive for: Chest Pain. Negative for: Palpitations Respiratory: Negative for: Cough, Hemoptysis Gastrointestinal: Positive for: Nausea, Abdominal Pain. Negative for: Vomiting , Constipation, Melena Genitourinary Female: Negative for: Dysuria, Frequency Musculoskeletal: Positive for: Leg Pain. Negative for: Neck Pain, Shoulder Pain Skin: Negative for: Rash, Lesions, Jaundice Neurological: Positive for: Weakness, Headache, Dizziness. Negative for: Incoordination, Change in Speech, Confusion, Seizures Psych: Negative for: Anxiety, Depression Physical Exam - Reviewed Nursing Documentation Reviewed: Yes Vital Signs Reviewed: Yes - Physical Exam Appears: Positive for: Well, Non-toxic, No Acute Distress Head Exam: Positive for: ATRAUMATIC, NORMAL INSPECTION, NORMOCEPHALIC Skin: Positive for: Normal Color, Warm, DRY Eye Exam: Positive for: EOMI, Normal appearance, PERRL ENT: Positive for: Normal ENT Inspection Neck: Positive for: Normal, Painless ROM Cardiovascular/Chest: Positive for: Regular Rate, Rhythm Respiratory: Positive for: CNT, Normal Breath Sounds Gastrointestinal/Abdominal: Positive for: Bowel Sounds, Soft, Tenderness (mild epigastric tenderness) Back: Positive for: Normal Inspection Extremity: Positive for: Normal ROM Neurologic/Psych: Positive for: Alert, Oriented. Negative for: Motor/Sensory Deficits - Laboratory Results Result Diagrams: 06/29/17 17:50 06/29/17 17:50 - ECG ECG: Positive for: Interpreted By Me ECG Rhythm: Positive for: Nonspecific Changes Interpretation Of ECG: similar to EKG from 05/17 Rate: 61 O2 Sat by Pulse Oximetry: 98 Pulse Ox Interpretation: Normal Medical Decision Making Medical Decision Making: Prior charts reviewed, imaging CT chest/abd/pelv from May 19 revealed possible esophagitis but recommended endoscopy. Patient has not followed up w GI or PMD since ED visit. Disposition - Clinical Impression Clinical Impression: Generalized weakness, Abdominal pain, Gastritis - Patient ED Disposition Is Patient to be Admitted: Transfer of Care Counseled Patient/Family Regarding: Studies Performed - Disposition Disposition: Transfer of Care Disposition Time: 19:00 Condition: STABLE Prescriptions: Famotidine [Pepcid] 20 mg PO Q12 #14 tab Instructions: Gastritis (ED), Weakness (ED) Forms: [employer] (Kuwaiti) Print Language: GEORGIAN Patient Signed Over To: Rocky Medrano Handoff Comments: pending imaging, remaining bloodwork and dispo
[2017-06-29 18:26] LABS: ALB/GLOB RATIO 1.3 (1.0-2.1); ALKALINE PHOSPHATASE 77 U/L (38-126); ALT/SGPT 19 U/L (9-52); AST/SGOT 26 U/L (14-36); BILIRUBIN,TOTAL 0.4 mg/dl (0.2-1.3); BLOOD UREA NITROGEN 22 mg/dl (7-17); CARBON DIOXIDE 24 mmol/L (22-30); CHLORIDE 104 mmol/L (98-107); GFR AFRICAN-AMERICAN 53; GLUCOSE,RANDOM 190 mg/dL (65-105); LIPASE 306 U/L (23-300); SODIUM 145 mmol/l (132-148); TOTAL PROTEIN 8.2 G/DL (6.3-8.2)
[2017-06-29 18:29] LABS: POTASSIUM 5.2 MMOL/L (3.6-5.0)
[2017-06-29 18:54] LABS: RBC URINE 1 /hpf (0-3); URINE BACTERIA RARE (<OCC); URINE BILIRUBIN NEGATIVE (NEGATIVE); URINE BLOOD NEGATIVE (NEGATIVE); URINE COLOR YELLOW (YELLOW); URINE GLUCOSE (UA) NEG (Normal); URINE KETONE NEGATIVE (NEGATIVE); URINE LEUKOCYTE ESTERASE TRACE Leu/uL (Negative); URINE PROTEIN 100 mg/dL (NEGATIVE); URINE UROBILINOGEN 0.2-1.0 mg/dL (0.2-1.0); WBC URINE 4 /hpf (0-5)
--- NOTE | 2017-06-29 19:56 | ED PDOC ---
- Laboratory Results Result Diagrams: 06/29/17 17:50 06/29/17 17:50 - ECG O2 Sat by Pulse Oximetry: 98 (RA) Pulse Ox Interpretation: Normal Medical Decision Making Medical Decision Making: Patient signed out to provider from Dr. Campos at 190 pending ultrasound and reevaluation. 2145 Chest Xray shows no acute disease. Patient reports her symptoms have improved. Patient is medically stable and will be discharged home. Diagnosis: Gastritis Scribe Attestation Documented by Tea You acting as a scribe for Sadie Medrano MD. Provider Attestation All medical record entries made by the Scribe were at my direction and personally dictated by me. I have reviewed the chart and agree that the record accurately reflects my personal performance of the history, physical exam, medical decision making, and the department course for this patient. I have also personally directed, reviewed, and agree with the discharge instructions and disposition. Disposition Discussed With : Daquan Wagoner Counseled Patient/Family Regarding: Studies Performed, Diagnosis - Clinical Impression Clinical Impression: Generalized weakness, Abdominal pain, Gastritis - POA Present On Arrival: None - Disposition Disposition: Routine/Home Disposition Time: 21:46 Condition: STABLE Prescriptions: Famotidine [Pepcid] 20 mg PO Q12 #14 tab Instructions: Gastritis (ED), Weakness (ED) Forms: [employer] (Luxembourger) Print Language: THAI
--- NOTE | 2017-06-29 20:24 | US ---
EXAM: US Abdomen Complete EXAM DATE/TIME: 06/29/2017 6:24 PM CLINICAL HISTORY: 77 years old, female; Pain; Abdominal pain; Epigastric; Prior surgery; Surgery date: 6+ months; Surgery type: S/P cholecystectomy; Additional info: Epigastric pain TECHNIQUE: Real-time ultrasound of the abdomen (complete) with image documentation. COMPARISON: Prior CT abdomen of 11/28/2015 FINDINGS: Gallbladder: Surgically removed. Common bile duct: Measures 6.8 mm in diameter, within normal limits for age (normal less than 7 mm in a patient of this age). Liver: Within normal limits in appearance. Measures 14.4 cm in length. Normal flow seen in the main portal vein on color and Doppler imaging. Pancreas: Imaged portions appear unremarkable. Right kidney: Within normal limits in appearance. Measures 10 cm in length. No evidence of hydronephrosis. Left kidney: Within normal limits in appearance. Measures 9.6 cm in length. No evidence of hydronephrosis. Spleen: Within normal limits in appearance. Measures 9 cm in length. Aorta: Imaged portions appear unremarkable. IVC: Imaged portions appear unremarkable. IMPRESSION: No significant abnormality identified. Post cholecystectomy. See above for remaining findings.
[2017-06-29 21:50] VITALS: BP 135/80; RESP 16; TEMP 97.9
[2017-06-29 22:29] VITALS: O2SAT 98
[2017-06-30 07:35] VITALS: PULSE 61
--- NOTE | 2017-06-30 11:22 | RAD ---
HISTORY: epigastric and chest pain COMPARISON: Portable chest 05/19/2017. TECHNIQUE: Chest PA and lateral FINDINGS: LUNGS: No active pulmonary disease. PLEURA: No significant pleural effusion identified. No pneumothorax apparent. CARDIOVASCULAR: Normal. OSSEOUS STRUCTURES: Sternotomy wires appear stable. Surgical clips are again seen the right upper quadrant abdomen. VISUALIZED UPPER ABDOMEN: Normal. OTHER FINDINGS: None. IMPRESSION: No acute interval cardiopulmonary disease appreciated.
== END 2017-06-29 22:26 | disposition home or self-care (01) ==
LOC: H.ER 17:07
DX: K29.70 Gastritis, unspecified, without bleeding (principal); M62.81 Muscle weakness (generalized)
CPT/HCPCS: 71020; 76700; 80053; 81003; 82607; 83690; 84484; 85025; 96361; 96374; 96375; 99283; J2405; J7040

== ENCOUNTER 2017-11-03 16:58 | Inpatient (IN) | payer MEDICARE, MEDICAID ==
[2017-11-03 16:59] VITALS: BMI 27.4
--- NOTE | 2017-11-03 17:38 | ED PDOC ---
HPI: Chest Pain Time Seen by Provider: 11/03/17 17:17 Chief Complaint (Nursing): Abdominal Pain Chief Complaint (Provider): Chest Pain History Per: Patient History/Exam Limitations: no limitations Current Symptoms Are (Timing): Still Present Quality: "Pain" Associated Symptoms: denies: Nausea Additional Complaint(s): 77 year old male presenting to the ED complaining of chest pain that radiates to the right side of his back. the patient states that his pain is not associated with nausea, vomiting or shortness of breath. Denies shortness of breath and abdominal pain. Past Medical History Reviewed: Historical Data, Nursing Documentation, Vital Signs Vital Signs: Last Vital Signs Temp 97.6 F 11/03/17 17:03 Pulse 82 11/03/17 17:03 Resp 20 11/03/17 17:03 BP 211/99 H 11/03/17 17:03 Pulse Ox 97 11/03/17 17:42 - Medical History PMH: Anemia, Anxiety, Arthritis, CAD, Dementia (mild), Depression, Diabetes (?) , Diverticulitis, Gastritis, Gall Bladder Disease, GERD, HTN, Hypercholesterolemia, Hypothyroidism, Pancreatitis, Chronic Kidney Disease Denies: CHF, COPD, HIV, Rheumatoid Arthritis - Surgical History Surgical History: CABG, Cholecystectomy, Coronary Stent (11/2015 (1 STENT)) - Family History Family History: States: Unknown Family Hx - Immunization History Hx Tetanus Toxoid Vaccination: No Hx Influenza Vaccination: No Hx Pneumococcal Vaccination: No - Home Medications Home Medications: Ambulatory Orders Medication Instructions Recorded Alprazolam [Xanax] 0.5 mg PO BID 09/16/16 Insulin Detemir [Levemir] 25 unit SQ QAM 09/16/16 Levothyroxine [Synthroid] 112 mcg PO DAILY 09/16/16 Linagliptin [Tradjenta] 5 mg PO DAILY 09/16/16 Metoprolol Tartrate [Lopressor] 50 mg PO BID 09/16/16 QUEtiapine [SEROquel] 50 mg PO HS 09/16/16 Ranolazine [Ranexa] 500 mg PO BID 09/16/16 Valsartan [Diovan] 80 mg PO HS 09/16/16 Valsartan [Diovan] 160 mg PO QAM 09/16/16 Aspirin [Ecotrin] 81 mg PO DAILY 11/09/16 Ticagrelor [Brilinta] 90 mg PO DAILY 11/09/16 Ciprofloxacin [Cipro] 500 mg PO Q12 #14 tab 03/08/17 Hydrocortisone [Cortizone 2.5% 1 applic TP DAILY PRN 03/08/17 CREAM] cloNIDine [Catapres] 0.1 mg PO BID #30 tab 03/09/17 Ranitidine HCl [Zantac 75] 75 mg PO BID #10 tablet 04/20/17 Ondansetron ODT [Zofran ODT] 4 mg PO Q8H PRN #20 odt 05/19/17 Pantoprazole Sodium [Protonix] 40 mg PO DAILY #14 ect 05/19/17 Famotidine [Pepcid] 20 mg PO Q12 #14 tab 06/29/17 Aspirin 81 mg PO DAILY 07/24/17 Metoprolol Tartrate [Lopressor] 100 mg PO TID 07/24/17 LORazepam [Ativan] 0.5 mg PO BID #28 tab 08/01/17 QUEtiapine [SEROquel] 50 mg PO HS #14 tab 08/01/17 QUEtiapine [Seroquel] 25 mg PO DAILY #14 tab 08/01/17 Glimepiride [amaRYL] 4 mg PO BID 08/11/17 Insulin Detemir [Levemir] 20 unit SQ DAILY 08/11/17 Levothyroxine [Synthroid] 0.112 mg PO DAILY 08/11/17 Linagliptin [Tradjenta] 5 mg PO DAILY 08/11/17 Valsartan [Diovan] 160 mg PO DAILY 08/11/17 traMADol [Ultram] 50 mg PO BID 08/11/17 - Allergies Allergies/Adverse Reactions: Allergies Allergy/AdvReac Type Severity Reaction Status Date / Time ceftriaxone [From Rocephin] Allergy RASH Verified 11/03/17 17:03 Review of Systems ROS Statement: Except As Marked, All Systems Reviewed And Found Negative Cardiovascular: Positive for: Chest Pain (radiates to right side of back) Respiratory: Negative for: Shortness of Breath Gastrointestinal: Negative for: Nausea, Vomiting, Abdominal Pain Physical Exam - Reviewed Nursing Documentation Reviewed: Yes Vital Signs Reviewed: Yes - Physical Exam Appears: Positive for: Non-toxic, No Acute Distress Head Exam: Positive for: ATRAUMATIC, NORMAL INSPECTION, NORMOCEPHALIC Skin: Positive for: Normal Color, Warm, Dry. Negative for: Rash Eye Exam: Positive for: Normal appearance, EOMI, PERRL ENT: Positive for: Normal ENT Inspection. Negative for: Nasal Congestion, Tonsillar Exudate Neck: Positive for: Normal, Painless ROM, Supple Cardiovascular/Chest: Positive for: Regular Rate, Rhythm, Chest Non Tender. Negative for: Tachycardia Respiratory: Positive for: Normal Breath Sounds. Negative for: Rales, Rhonchi, Wheezing, Respiratory Distress Gastrointestinal/Abdominal: Positive for: Normal Exam, Bowel Sounds, Soft. Negative for: Tenderness, Guarding, Rebound Back: Positive for: Normal Inspection. Negative for: L CVA Tenderness, R CVA Tenderness Extremity: Positive for: Normal ROM. Negative for: Tenderness, Deformity, Swelling Neurologic/Psych: Positive for: Alert, Oriented - Laboratory Results Result Diagrams: 11/03/17 18:00 11/03/17 18:00 - ECG O2 Sat by Pulse Oximetry: 97 (RA) Pulse Ox Interpretation: Normal Medical Decision Making Medical Decision Makin Initial Impression 77 y/o female presenting with chest pain Initial Plan: * EKG * CMP * Troponin * Udip * CBC * Chest x-ray * Toradol 30mg IVP * Influenza A B * Reevaluation Documented by Tea You acting as a scribe for Jose M Chin MD. All medical record entries made by the Scribe were at my direction and personally dictated by me. I have reviewed the chart and agree that the record accurately reflects my personal performance of the history, physical exam, medical decision making, and the department course for this patient. I have also personally directed, reviewed, and agree with the discharge instructions and disposition. Disposition - Clinical Impression Clinical Impression: Chest pain - Patient ED Disposition Is Patient to be Admitted: Yes - Disposition Disposition Time: 19:15 Condition: FAIR Forms: [facility] (Belarusian) - Pt Status Changed To: Hospital Disposition Of: Observation - POA Present On Arrival: None
[2017-11-03 18:18] LABS: ALB/GLOB RATIO 1.3 (1.0-2.1); ALBUMIN 4.4 g/dL (3.5-5.0); ALT/SGPT 30 U/L (9-52); AST/SGOT 21 U/L (14-36); BLOOD UREA NITROGEN 29 mg/dl (7-17); CALCIUM 9.9 mg/dL (8.4-10.2); GFR AFRICAN-AMERICAN 53; GFR NON-AFRICAN AMERICAN 43
[2017-11-03 18:39] LABS: BASO # 0.1 K/uL (0.0-0.2); BASO % 0.7 % (0.0-2.0); EOS # 0.4 K/uL (0.0-0.7); HEMOGLOBIN 11.8 g/dL (12.0-16.0); LYMPH # 1.4 K/uL (1.0-4.3); LYMPH % 14.6 % (20.0-40.0); MEAN CELL VOLUME 87.2 fl (81.0-99.0); MEAN CORPUSCULAR HEMOGLOBIN 28.7 pg (27.0-31.0); MEAN CORPUSCULAR HGB CONC 32.9 g/dL (33.0-37.0); MEAN PLATELET VOLUME 10.5 fl (7.2-11.7); MONO # 0.7 K/uL (0.0-0.8); MONO % 7.8 % (0.0-10.0); NEUT # 6.7 K/uL (1.8-7.0); NEUT % 72.9 % (50.0-75.0); NRBC % 0.2 % (0.0-0.0); RBC 4.12 Mil/uL (3.80-5.20); RED CELL DISTRIBUTION WIDTH 13.6 % (11.5-14.5); WHITE BLOOD COUNT 9.3 K/uL (4.8-10.8)
[2017-11-03] MEDS ORDERED: Nitroglycerin 2% 15 INCH/30 GM TUBE TOP STA (20:21)
[2017-11-03] MEDS ORDERED: Nitroglycerin 2% Ointment Foilpak UD TOP ONE (20:30)
[2017-11-03] MEDS ORDERED: Nitroglycerin 2% Ointment Foilpak UD TOP SCH (22:00)
[2017-11-04 04:43] LABS: SQUAMOUS EPITHIAL 5 /hpf (0-5); URINE BACTERIA OCC (<OCC); URINE BILIRUBIN NEGATIVE (NEGATIVE); URINE BLOOD NEGATIVE (NEGATIVE); URINE CLARITY CLOUDY (Clear); URINE COLOR YELLOW (YELLOW); URINE GLUCOSE (UA) NEG (Normal); URINE HYALINE CAST 0-2 /hpf (0-2); URINE LEUKOCYTE ESTERASE LARGE Leu/uL (Negative); URINE NITRATE NEGATIVE (NEGATIVE); URINE PROTEIN 30 mg/dL (NEGATIVE); URINE UROBILINOGEN 0.2-1.0 mg/dL (0.2-1.0)
[2017-11-04] MEDS: Levothyroxine 100 MCG TAB PO SCH (06:12)
--- NOTE | 2017-11-04 08:35 | RAD ---
HISTORY: chest pain COMPARISON: Chest radiograph dated 06/29/2017. TECHNIQUE: Chest PA and lateral FINDINGS: LUNGS: No active pulmonary disease. PLEURA: No significant pleural effusion identified. No pneumothorax apparent. CARDIOVASCULAR: Prior sternotomy with sternal wires and surgical clips redemonstrated. Cardiomediastinal silhouette within normal limits. OSSEOUS STRUCTURES: Unchanged. VISUALIZED UPPER ABDOMEN: Right upper quadrant surgical clips redemonstrated. OTHER FINDINGS: None. IMPRESSION: No active disease.
[2017-11-04 08:50] LABS: HEMOGLOBIN 10.7 g/dL (12.0-16.0); MEAN CELL VOLUME 87.4 fl (81.0-99.0); MEAN CORPUSCULAR HEMOGLOBIN 29.3 pg (27.0-31.0); MEAN CORPUSCULAR HGB CONC 33.5 g/dL (33.0-37.0); RBC 3.65 Mil/uL (3.80-5.20); RED CELL DISTRIBUTION WIDTH 13.3 % (11.5-14.5); WHITE BLOOD COUNT 7.8 K/uL (4.8-10.8)
[2017-11-04] MEDS ORDERED: Patient's Own Med (Glimepiride [Amaryl] 4 MG) PO SCH (09:00)
[2017-11-04] MEDS ORDERED: INSULIN GLARGINE RECOMBINA 20 UNIT SQ SCH (09:00)
[2017-11-04 09:10] LABS: ALB/GLOB RATIO 1.2 (1.0-2.1); ALBUMIN 3.9 g/dL (3.5-5.0); CALCIUM 9.7 mg/dL (8.4-10.2)
[2017-11-04 09:14] LABS: T4 7.26 ug/dl (5.5-11.0)
[2017-11-04] MEDS: GlipiZIDE 10 mg SR Tab PO SCH ×2 (10:03→16:46)
[2017-11-04] MEDS: Insulin Detemir 100 Units/ml Inj SC SCH (10:04)
[2017-11-04] MEDS: Enoxaparin 40 mg Syringe SC SCH (10:04)
--- NOTE | 2017-11-04 11:18 | CARD ---
APPROVED REPORT EKG Measurement Heart [id number] <Conclusion> Normal sinus rhythm Biatrial enlargement Left ventricular hypertrophy Abnormal ECG
[2017-11-04] MEDS ORDERED: Iohexol 240 (50 ml) PO ONE (18:47)
--- NOTE | 2017-11-04 19:30 | CP.PCM.HP ---
History of Present Illness - History of Present Illness History of Present Illness: CC: Chest Pain. 77 y/o F, Multiple chronic current medical conditions, also Hx of CABG, Stent, CKD, [facility]x pancreat[facility] be evaluated for Chest pain in AM DOA, moderate intensity 6:10 with no relief, radiated to R flank, non associated to SOB, but BP 211/99 on arrival to ER. Worsening symptoms: Pt c/o of generalized abdominal pain, intermittent, moderate severity 6-7:10, non radiated, associated to nausea and 1x episode of vomiting. Aggravated factor: BP not controlled with Lopressor, Diovan po at home. Pt denied: fever, chills, SOB, palpitations, LOC, numbness, dizziness, sick contact, recent travel out of [facility]. CXR: Non active disease. EKG: Normal sinus rhythm, biatrial enlargement L ventricular hypertrophy. Present on Admission - Present on Admission Any Indicators Present on Admission: No Review of Systems - Constitutional Constitutional: Weakness - EENT Eyes: Other (negative) Nose/Mouth/Throat: Other (negative) - Cardiovascular Cardiovascular: Chest Pain, Radiating Pain - Respiratory Respiratory: Other (negative) - Gastrointestinal Gastrointestinal: Abdominal Pain, Nausea, Vomiting - Genitourinary Genitourinary: Other (negative) - Musculoskeletal Musculoskeletal: Arthralgias - Integumentary Integumentary: Other (negative) - Neurological Neurological: Other (negative) - Psychiatric Psychiatric: Anxiety, Depression - Endocrine Endocrine: Other (negative) - Hematologic/Lymphatic Hematologic: Other (negative) Past Patient History - Infectious Disease Hx of Infectious Diseases: None - Tetanus Immunizations Tetanus Immunization: Unknown - Past Medical History & Family History Past Medical History?: Yes Pertinent Family History: Unknown - Past Social History Smoking Status: Never Smoked Alcohol: None Drugs: Denies Home Situation {Lives}: With Family - CARDIAC Hx Cardiac Disorders: Yes Hx Congestive Heart Failure: No Hx Heart Attack: Yes Hx Hypercholesterolemia: Yes Hx Hypertension: Yes Other/Comment: Valve Replacement - PULMONARY Hx Chronic Obstructive Pulmonary Disease (COPD): No - NEUROLOGICAL Hx Neurological Disorder: Yes Hx Dementia: Yes (mild) - HEENT Hx HEENT Problems: No - RENAL Hx Chronic Kidney Disease: Yes (stage 2 renal disease) - ENDOCRINE/METABOLIC Hx Endocrine Disorders: Yes Hx Diabetes Mellitus Type 2: Yes Hx Hypothyroidism: Yes - HEMATOLOGICAL/ONCOLOGICAL Hx Blood Disorders: Yes Hx AIDS: No Hx Anemia: Yes Hx Blood Transfusions: No Hx Human Immunodeficiency Virus (HIV): No - INTEGUMENTARY Hx Dermatological Problems: No - MUSCULOSKELETAL/RHEUMATOLOGICAL Hx Musculoskeletal Disorders: Yes Hx Arthritis: Yes Hx Falls: Yes Hx Rheumatoid Arthritis: No - GASTROINTESTINAL Hx Gastrointestinal Disorders: Yes Hx Diverticulitis: Yes Hx Gall Bladder Disease: Yes Hx Gastritis: Yes Hx Gastroesophageal Reflux: Yes Hx Pancreatitis: Yes - GENITOURINARY/GYNECOLOGICAL Hx Genitourinary Disorders: No - PSYCHIATRIC Hx Psychophysiologic Disorder: Yes Hx Anxiety: Yes Hx Depression: Yes Hx Substance Use: No - SURGICAL HISTORY Hx Surgeries: Yes Hx Cholecystectomy: Yes Hx Coronary Artery Bypass Graft: Yes Hx Coronary Stent: Yes (11/2015 (1 STENT)) - ANESTHESIA Hx Anesthesia: Yes Hx Anesthesia Reactions: No Meds Allergies/Adverse Reactions: Allergies Allergy/AdvReac Type Severity Reaction Status Date / Time ceftriaxone [From Rocephin] Allergy RASH Verified 11/03/17 17:03 Physical Exam - Constitutional Appears: No Acute Distress, Chronically Ill - Head Exam Head Exam: NORMAL INSPECTION - Eye Exam Eye Exam: PERRL - ENT Exam ENT Exam: Normal Exam - Neck Exam Neck exam: Positive for: Normal Inspection - Respiratory Exam Respiratory Exam: NORMAL BREATHING PATTERN - Cardiovascular Exam Cardiovascular Exam: REGULAR RHYTHM - GI/Abdominal Exam GI & Abdominal Exam: Normal Bowel Sounds, Soft. absent: Distended, Tenderness - Extremities Exam Extremities exam: Positive for: normal inspection - Back Exam Back exam: NORMAL INSPECTION - Neurological Exam Neurological exam: Altered, Oriented x3 Additional comments: No motor sensory deficit. - Psychiatric Exam Psychiatric exam: Anxious - Skin Skin Exam: Warm Results - Vital Signs Recent Vital Signs: Last Vital Signs Temp 97.8 F 11/04/17 16:00 Pulse 66 11/04/17 16:00 Resp 20 11/04/17 16:00 BP 106/58 L 11/04/17 16:47 Pulse Ox 96 11/04/17 16:00 amrita Nguyen - Labs Result Diagrams: 11/04/17 08:10 11/04/17 08:10 Labs: Laboratory Results - last 24 hr 11/03/17 11/04/17 11/04/17 18:00 00:21 02:06 WBC RBC Hgb Hct MCV MCH MCHC RDW Plt Count 159 Sodium Potassium Chloride Carbon Dioxide Anion Gap BUN Creatinine Est GFR ( Amer) Est GFR (Non-Af Amer) POC Glucose (mg/dL) 141 H Random Glucose Calcium Total Bilirubin AST ALT Alkaline Phosphatase Total Protein Albumin Globulin Albumin/Globulin Ratio Triglycerides Cholesterol LDL Cholesterol Direct HDL Cholesterol Thyroxine (T4) TSH 3rd Generation Urine Color Yellow Urine Clarity Cloudy Urine pH 5.0 Ur Specific [place] 1.014 Urine Protein 30 Urine Glucose (UA) Neg Urine Ketones Negative Urine Blood Negative Urine Nitrate Negative Urine Bilirubin Negative Urine Urobilinogen 0.2-1.0 Ur Leukocyte Esterase Large Urine RBC (Auto) 3 Urine Microscopic WBC 48 H Ur Squamous Epith Cells 5 Urine Bacteria Occ H Hyaline Casts 0-2 11/04/17 11/04/17 11/04/17 06:28 08:10 08:10 WBC 7.8 RBC 3.65 L Hgb 10.7 L Hct 31.9 L MCV 87.4 MCH 29.3 MCHC 33.5 RDW 13.3 Plt Count 161 Sodium 140 Potassium 5.2 H Chloride 101 Carbon Dioxide 29 Anion Gap 15 BUN 38 H Creatinine 2.1 H Est GFR ( Amer) 28 Est GFR (Non-Af Amer) 23 POC Glucose (mg/dL) 90 Random Glucose 88 Calcium 9.7 Total Bilirubin 0.6 AST 18 ALT 25 Alkaline Phosphatase 59 Total Protein 7.0 Albumin 3.9 Globulin 3.2 Albumin/Globulin Ratio 1.2 Triglycerides 163 H Cholesterol 191 LDL Cholesterol Direct 121 HDL Cholesterol 31 Thyroxine (T4) 7.26 TSH 3rd Generation 0.43 L Urine Color Urine Clarity Urine pH Ur Specific [place] Urine Protein Urine Glucose (UA) Urine Ketones Urine Blood Urine Nitrate Urine Bilirubin Urine Urobilinogen Ur Leukocyte Esterase Urine RBC (Auto) Urine Microscopic WBC Ur Squamous Epith Cells Urine Bacteria Hyaline Casts 11/04/17 11/04/17 10:48 15:49 WBC RBC Hgb Hct MCV MCH MCHC RDW Plt Count Sodium Potassium Chloride Carbon Dioxide Anion Gap BUN Creatinine Est GFR ( Amer) Est GFR (Non-Af Amer) POC Glucose (mg/dL) 110 74 Random Glucose Calcium Total Bilirubin AST ALT Alkaline Phosphatase Total Protein Albumin Globulin Albumin/Globulin Ratio Triglycerides Cholesterol LDL Cholesterol Direct HDL Cholesterol Thyroxine (T4) TSH 3rd Generation Urine Color Urine Clarity Urine pH Ur Specific [place] Urine Protein Urine Glucose (UA) Urine Ketones Urine Blood Urine Nitrate Urine Bilirubin Urine Urobilinogen Ur Leukocyte Esterase Urine RBC (Auto) Urine Microscopic WBC Ur Squamous Epith Cells Urine Bacteria Hyaline Casts reviewed J.P. - EKG Data EKG comments: reviewed J.P. - Imaging and Cardiology Chest x-ray Status: Report reviewed by me (Patrick) Assessment & Plan (1) Chest pain Status: Acute Priority: High (2) Abdominal pain Status: Acute Priority: High (3) DM (diabetes mellitus) Status: Chronic Priority: High (4) High cholesterol Status: Chronic Priority: Medium (5) Hx of CABG Status: Chronic Priority: High (6) Hypertension Status: Chronic Priority: Medium (7) Hypothyroidism Status: Chronic Priority: Medium - Assessment and Plan (Free Text) Plan: Serology: (-) for Influenza A-B. F/U U C-S, Hgb A1C, Abd/Pelv CT, Continue with Cipro, Indur, Diovan, Zofran, Morphine and rest of medications, PT, OT. Cardiology consult. - Date & Time Date: 11/04/17 Time: 14:30
[2017-11-04] MEDS: Ciprofloxacin 400mg/200ml D5W 400 MG/200 ML BAG IVPB SCH (21:32)
[2017-11-05] MEDS: GlipiZIDE 10 mg SR Tab PO SCH ×2 (08:47→17:30)
[2017-11-05] MEDS: Enoxaparin 40 mg Syringe SC SCH (08:47)
[2017-11-05] MEDS: Levothyroxine 100 MCG TAB PO SCH (08:48)
[2017-11-05] MEDS: Ciprofloxacin 400mg/200ml D5W 400 MG/200 ML BAG IVPB SCH ×2 (08:49→21:58)
[2017-11-05] MEDS: Insulin Detemir 100 Units/ml Inj SC SCH (08:49)
[2017-11-05 09:48] LABS: HEMOGLOBIN 10.9 g/dL (12.0-16.0); MEAN CELL VOLUME 87.8 fl (81.0-99.0); MEAN CORPUSCULAR HEMOGLOBIN 28.7 pg (27.0-31.0); MEAN CORPUSCULAR HGB CONC 32.6 g/dL (33.0-37.0); RBC 3.8 Mil/uL (3.80-5.20); RED CELL DISTRIBUTION WIDTH 13.5 % (11.5-14.5); WHITE BLOOD COUNT 8.1 K/uL (4.8-10.8)
[2017-11-05 09:53] LABS: CALCIUM 9.5 mg/dL (8.4-10.2)
--- NOTE | 2017-11-05 10:08 | CP.PCM.CON ---
<Dionte Gentile Karen - Last Filed: 11/05/17 12:00> History of Present Illness - History of Present Illness History of Present Illness: Cardiology consult note for Dr. Trevor Gentile DO, PGY - 1 Reason For Consult: Chest pain HPI: 77 year old female with multiple visits to [facility] facilities and past medical history of CAD s/p CABG and stent placement in November 2015 (cannot locate where the stent is placed per chart review), Diabetes, Hypertension, Hyporthyroidism, Dementia, Depression, and Aortic Valve Disease presented day before yesterday, 11/03, with 8 hour duration of right sided, sharp, 6/10 chest pain which radiated to the right flank without associated symptoms (including shortness of breath). Upon arrival at the ER, patient's blood pressure was 211/ 99. Patient also has abdominal pain associated with nausea and one episode of vomiting. We were consulted for patient's chest pain. Patient seen by me at bedside, obtained translation from nurse. Patient denied any incidence of chest pain to me, stated that she only has the abdominal pain with nausea, and that the pain is very intense. Patient history is limited 2/2 language barrier, but she denies any shortness of breath or palpitations. Past Surgical History: CABG, Cardiac cath s/p stent November 2015, Aortic Valve Repair Past Medical History: Diabetes, Hypertension, Hyporthyroidism, Dementia, Depression, and Aortic Valve Disease Allergies: Ceftriaxone Social History: Patient denies alcohol, illicits, or tobacco (never-smoker) Hospitalizations: 07/24 - 08/03, patient was seen for chest pain by Dr. Wu Family History: Patient denies any cardiac historyy Medications: See NOV PMD: Dr. Daquan Wagoner Insurance: [employer] [place] [employer] Pharmacy: [facility] - [phone] Review of Systems: Constitutional: patient denies fever, chills, generalized weakness ENT: patient denies dysphagia, otalgia, hearing deficit, rhinorrhea Eyes: patient denies sudden loss of vision, diplopia, blurred vision MSK: patient denies muscle stiffness, joint pain, extremity cramping Cardio: +See HPI Pulm: patient denies cough, hemoptysis, wheeze Gastrointestinal: +See HPI Genitourinary: patient denies burning on urination, urinary frequency, hematuria, urinary urgency Neuro: patient denies paresis, paresthesia, dizziness, headache, numbness , tingling Derm: patient denies skin changes, lesions, nail changes Endo: patient denies intolerance to heat/cold, diaphoresis, night sweats, polydipsia Psych: patient denies anxiety, depression, mood changes Past Patient History - Infectious Disease Hx of Infectious Diseases: None - Tetanus Immunizations Tetanus Immunization: Unknown - Past Medical History & Family History Past Medical History?: Yes - Past Social History Smoking Status: Never Smoked Alcohol: None Drugs: Denies Home Situation {Lives}: With Family - CARDIAC Hx Cardiac Disorders: Yes Hx Congestive Heart Failure: No Hx Heart Attack: Yes Hx Hypercholesterolemia: Yes Hx Hypertension: Yes Other/Comment: Valve Replacement - PULMONARY Hx Chronic Obstructive Pulmonary Disease (COPD): No - NEUROLOGICAL Hx Neurological Disorder: Yes Hx Dementia: Yes (mild) - HEENT Hx HEENT Problems: No - RENAL Hx Chronic Kidney Disease: Yes (stage 2 renal disease) - ENDOCRINE/METABOLIC Hx Endocrine Disorders: Yes Hx Diabetes Mellitus Type 2: Yes Hx Hypothyroidism: Yes - HEMATOLOGICAL/ONCOLOGICAL Hx Blood Disorders: Yes Hx AIDS: No Hx Anemia: Yes Hx Blood Transfusions: No Hx Human Immunodeficiency Virus (HIV): No - INTEGUMENTARY Hx Dermatological Problems: No - MUSCULOSKELETAL/RHEUMATOLOGICAL Hx Musculoskeletal Disorders: Yes Hx Arthritis: Yes Hx Falls: Yes Hx Rheumatoid Arthritis: No - GASTROINTESTINAL Hx Gastrointestinal Disorders: Yes Hx Diverticulitis: Yes Hx Gall Bladder Disease: Yes Hx Gastritis: Yes Hx Gastroesophageal Reflux: Yes Hx Pancreatitis: Yes - GENITOURINARY/GYNECOLOGICAL Hx Genitourinary Disorders: No - PSYCHIATRIC Hx Psychophysiologic Disorder: Yes Hx Anxiety: Yes Hx Depression: Yes Hx Substance Use: No - SURGICAL HISTORY Hx Surgeries: Yes Hx Cholecystectomy: Yes Hx Coronary Artery Bypass Graft: Yes Hx Coronary Stent: Yes (11/2015 (1 STENT)) - ANESTHESIA Hx Anesthesia: Yes Hx Anesthesia Reactions: No Meds Allergies/Adverse Reactions: Allergies Allergy/AdvReac Type Severity Reaction Status Date / Time ceftriaxone [From Rocephin] Allergy RASH Verified 11/03/17 17:03 - Medications Medications: Current Medications Aspirin (Aspirin Chewable) 81 mg PO DAILY [facility] Last Admin: 11/05/17 08:47 Dose: 81 mg Enoxaparin Sodium (Lovenox) 40 mg SC DAILY [facility] PRN Reason: Protocol Last Admin: 11/05/17 08:47 Dose: 40 mg Glipizide (Glucotrol Xl) 10 mg PO ACBD [facility] Last Admin: 11/05/17 08:47 Dose: 10 mg Ciprofloxacin (Cipro 400mg/200ml Dsw) 400 mg in 200 mls @ 200 mls/hr IVPB Q12 [facility] PRN Reason: Protocol Last Admin: 11/05/17 08:49 Dose: 200 mls/hr Insulin Detemir (Levemir) 20 units SC DAILY [facility] Last Admin: 11/05/17 08:49 Dose: Not Given Isosorbide Mononitrate (Imdur Er) 30 mg PO BID [facility] Last Admin: 11/05/17 08:47 Dose: 30 mg Levothyroxine Sodium (Synthroid) 100 mcg PO DAILY@0630 [facility] Last Admin: 11/05/17 08:48 Dose: 100 mcg Lorazepam (Ativan) 0.5 mg PO BID [facility] Last Admin: 11/05/17 08:46 Dose: 0.5 mg Metoprolol Tartrate (Lopressor) 50 mg PO TID [facility] Last Admin: 11/04/17 16:47 Dose: Not Given Morphine Sulfate (Morphine) 2 mg IVP Q6 PRN PRN Reason: Pain, severe (8-10) Last Admin: 11/05/17 06:04 Dose: 2 mg Ondansetron HCl (Zofran Inj) 4 mg IVP Q6 PRN PRN Reason: Nausea/Vomiting Last Admin: 11/05/17 08:50 Dose: 4 mg Quetiapine Fumarate (Seroquel) 25 mg PO BID [facility] Last Admin: 11/05/17 08:47 Dose: 25 mg Tramadol HCl (Ultram) 50 mg PO BID [facility] Last Admin: 11/05/17 08:46 Dose: 50 mg Valsartan (Diovan) 160 mg PO BID [facility] Last Admin: 11/05/17 08:48 Dose: 160 mg Physical Exam - Additional Findings Additional findings: Physical Exam: Vital Signs as below Const'l: Telugu speaking, awake alert & oriented x 4, no acute distress Head/Neck: neck supple, no jvd, trachea midline, carotid midline, no cervical/head mass Eyes: pupils equally reactive to light and accommodation, nonicteric sclera, extraocular intact ENT: auditory acuity grossly intact, throat not congested, no nasal deformity Cardio: +Holosystolic murmur best heard at LUSB; regular rate, regular rhythm, no rubs gallops, no carotid bruit, normal s1, s2 Pulm: no accessory muscle use, equal normal breath sounds bilaterally, clear to ausculation bilaterally Abd: +Tenderness to palpation RUQ and RLQ; soft non-distended, normal bowel sounds x 4 quadrants, no palpable masses Derm: no rashes, no ulcers, no lesions Extr: no edema, no cyanosis, no calf tenderness, no lesions, no varicosities Neuro: cranial nerves II-XII grossly intact, upper extremity and lower extremity 5/5 muscle strength bilaterally, no loss of sensation in upper extremities, lower extremities bilaterally Results - Vital Signs Recent Vital Signs: Last Vital Signs Temp 98 F 11/05/17 08:00 Pulse 72 11/05/17 08:00 Resp 20 11/05/17 08:00 BP 131/65 11/05/17 08:00 Pulse Ox 97 11/05/17 08:00 - Labs Result Diagrams: 11/05/17 09:00 11/05/17 09:00 Labs: Laboratory Results - last 24 hr 11/04/17 11/04/17 11/04/17 10:48 15:49 21:27 WBC RBC Hgb Hct MCV MCH MCHC RDW Plt Count Sodium Potassium Chloride Carbon Dioxide Anion Gap BUN Creatinine Est GFR ( Amer) Est GFR (Non-Af Amer) POC Glucose (mg/dL) 110 74 133 H Random Glucose Calcium Troponin I 11/05/17 11/05/17 11/05/17 05:26 09:00 09:00 WBC 8.1 RBC 3.80 Hgb 10.9 L Hct 33.3 L MCV 87.8 MCH 28.7 MCHC 32.6 L RDW 13.5 Plt Count 147 Sodium Potassium Chloride Carbon Dioxide Anion Gap BUN Creatinine Est GFR ( Amer) Est GFR (Non-Af Amer) POC Glucose (mg/dL) 59 L Random Glucose Calcium Troponin I < 0.0120 11/05/17 09:00 WBC RBC Hgb Hct MCV MCH MCHC RDW Plt Count Sodium 139 Potassium 5.0 Chloride 105 Carbon Dioxide 21 L Anion Gap 18 BUN 45 H Creatinine 2.1 H Est GFR ( Amer) 28 Est GFR (Non-Af Amer) 23 POC Glucose (mg/dL) Random Glucose 127 H Calcium 9.5 Troponin I Assessment & Plan - Assessment and Plan (Free Text) Assessment: Assessment and Plan: 77 year old female with past medical history of CAD s/p CABG and stent placement in November 2015 (cannot locate where the stent is placed per chart review), Diabetes, Hypertension, Hyporthyroidism, Dementia, Depression, and Aortic Valve Disease presents with abdominal pain. Patient incidentally reported some right sided chest pain with radiation to the right flank area as well without shortness of breath. Patient was also found to be hypertensive, which was treated with Lopressor, Valsartan, and Catapres. Upon review of labs , this was found to be hypertensive emergency, as patient is in MUSHTAQ. Patient's blood pressure is well controlled right now. Patient's troponins were negative X 2 and EKG does not show any ST elevations. Chest pain, likely 2/2 anxiety VS ischemia, rule out ACS - Pending Troponin 3, Negative X 2 - No EKG ischemic changes, but shows biatrial enlargement with LVH Hypertensive Emergency - Patient found to have systolic blood pressure >180 on admission as well as MUSHTAQ - Manage BP with Lopressor and Catapres; HOLD ARB, PATIENT IS IN MUSHTAQ Acute Kidney Injury likely 2/2 blood pressure vs renal calculi - Patient does complain of right flank pain - Please hold MELONIE-I, ARBs, as patient is in MUSHTAQ - Patient's last ECHO does not show decreased EF, consider light hydration - Rest of Management per Primary Hyperlipidemia - Patient has elevated TGs - Consider starting on Fenofibrate Diabetes Mellitus - Per primary Abdominal Pain - Per primary Hypothyroidism - Per primary Dispo: Monitor blood pressure closely; Check last troponin; Consider light hydration for MUSHTAQ; Please hold MELONIE-I/ARBs 2/2 MUSHTAQ <Juan Murray - Last Filed: 11/07/17 00:53> Meds - Medications Medications: Current Medications Aspirin (Aspirin Chewable) 81 mg PO DAILY [facility] Last Admin: 11/06/17 09:15 Dose: 81 mg Atorvastatin Calcium (Lipitor) 40 mg PO HS [facility] Last Admin: 11/06/17 21:23 Dose: 40 mg Enoxaparin Sodium (Lovenox) 40 mg SC DAILY [facility] PRN Reason: Protocol Last Admin: 11/06/17 09:18 Dose: 40 mg Glipizide (Glucotrol Xl) 10 mg PO ACBD [facility] Last Admin: 11/06/17 16:32 Dose: 10 mg Hydralazine HCl (Apresoline) 10 mg IV Q6 PRN PRN Reason: Blood Pressure Ciprofloxacin (Cipro 200mg/100ml D5w) 100 mls @ 100 mls/hr IVPB Q12 [facility] Last Admin: 11/06/17 21:26 Dose: 100 mls/hr Insulin Detemir (Levemir) 20 units SC DAILY [facility] Last Admin: 11/06/17 09:17 Dose: 20 units Isosorbide Mononitrate (Imdur Er) 30 mg PO BID [facility] Last Admin: 11/06/17 16:32 Dose: 30 mg Levothyroxine Sodium (Synthroid) 100 mcg PO DAILY@0630 [facility] Last Admin: 11/06/17 05:42 Dose: 100 mcg Lorazepam (Ativan) 0.5 mg PO Q8 PRN PRN Reason: Anxiety Metoprolol Tartrate (Lopressor) 50 mg PO TID [facility] Last Admin: 11/06/17 16:33 Dose: 50 mg Morphine Sulfate (Morphine) 2 mg IVP Q6 PRN PRN Reason: Pain, severe (8-10) Last Admin: 11/05/17 06:04 Dose: 2 mg Ondansetron HCl (Zofran Inj) 4 mg IVP Q6 PRN PRN Reason: Nausea/Vomiting Last Admin: 11/05/17 08:50 Dose: 4 mg Quetiapine Fumarate (Seroquel) 25 mg PO HS [facility] Last Admin: 11/06/17 21:23 Dose: 25 mg Tramadol HCl (Ultram) 50 mg PO BID [facility] Last Admin: 11/06/17 16:37 Dose: 50 mg Results - Vital Signs Recent Vital Signs: Last Vital Signs Temp 97.5 F L 11/06/17 19:28 Pulse 79 11/06/17 21:00 Resp 20 11/06/17 19:28 BP 114/59 L 11/06/17 19:28 Pulse Ox 97 11/06/17 19:28 - Labs Result Diagrams: 11/06/17 07:31 11/06/17 07:31 Labs: Laboratory Results - last 24 hr 11/06/17 11/06/17 11/06/17 00:51 00:51 05:41 WBC RBC Hgb Hct MCV MCH MCHC RDW Plt Count Sodium Potassium Chloride Carbon Dioxide Anion Gap BUN Creatinine Est GFR ( Amer) Est GFR (Non-Af Amer) POC Glucose (mg/dL) 109 Random Glucose Calcium Phosphorus Total Bilirubin AST ALT Alkaline Phosphatase Total Protein Albumin Globulin Albumin/Globulin Ratio Urine Osmolality 206 L Ur Random Creatinine 51.3 Ur Random Sodium 15 Ur Random Potassium 24.2 11/06/17 11/06/17 11/06/17 07:31 07:31 11:29 WBC 8.1 RBC 3.61 L Hgb 10.5 L Hct 31.4 L MCV 87.0 MCH 29.2 MCHC 33.5 RDW 13.1 Plt Count 156 Sodium 139 Potassium 4.8 Chloride 100 Carbon Dioxide 28 Anion Gap 16 BUN 45 H Creatinine 2.0 H Est GFR ( Amer) 29 Est GFR (Non-Af Amer) 24 POC Glucose (mg/dL) 222 H Random Glucose 137 H Calcium 9.7 Phosphorus Total Bilirubin 0.8 AST 20 ALT 29 Alkaline Phosphatase 70 Total Protein 7.7 Albumin 4.4 Globulin 3.3 Albumin/Globulin Ratio 1.3 Urine Osmolality Ur Random Creatinine Ur Random Sodium Ur Random Potassium 11/06/17 11/06/17 11/06/17 15:40 16:22 21:06 WBC RBC Hgb Hct MCV MCH MCHC RDW Plt Count Sodium Potassium Chloride Carbon Dioxide Anion Gap BUN Creatinine Est GFR ( Amer) Est GFR (Non-Af Amer) POC Glucose (mg/dL) 155 H 91 Random Glucose Calcium Phosphorus 4.5 Total Bilirubin AST ALT Alkaline Phosphatase Total Protein Albumin Globulin Albumin/Globulin Ratio Urine Osmolality Ur Random Creatinine Ur Random Sodium Ur Random Potassium Assessment & Plan (1) Chest pain Status: Acute Priority: High (2) Abdominal discomfort Status: Acute (3) CAD (coronary artery disease) Status: Acute (4) Diabetes mellitus Status: Acute (5) Essential hypertension Status: Acute Priority: High (6) Hypercholesteremia Status: Acute (7) Hypertension, uncontrolled Status: Acute (8) Renal failure Status: Acute (9) Respiratory distress Status: Acute Priority: High (10) Coronary artery disease involving coronary bypass graft Status: Chronic (11) History of coronary artery stent placement Status: Chronic Attending/Attestation - Attestation I have personally seen and examined this patient.: Yes I have fully participated in the care of the patient.: Yes I have reviewed all pertinent clinical information: Yes Notes (Text): 11/05/17 00:53 CP - atypical - hx of significant CAD HTN plan for ischemic evaluation
--- NOTE | 2017-11-05 14:45 | RAD ---
HISTORY: Chest and abdominal pain COMPARISON: No prior. FINDINGS: BOWEL: Normal. No obstruction. No free air. BONES: Mild secondary OTHER FINDINGS: None. IMPRESSION: No significant or acute findings to account for/ related to the clinical presentation. Additional benign and/or incidental findings described above.
--- NOTE | 2017-11-05 15:34 | CP.PCM.PN ---
Subjective - Date & Time of Evaluation Date of Evaluation: 11/05/17 Time of Evaluation: 13:15 - Subjective Subjective: F/U Chest pain. Nausea , abdominal pain early am , had Zofran IV , denies abdominal pain N/ V/D now, no Chest pain Objective - Vital Signs/Intake and Output Vital Signs (last 24 hours): Temp Pulse Resp BP Pulse Ox 97.5 F L 89 18 103/65 95 11/05/17 13:00 11/05/17 13:14 11/05/17 13:00 11/05/17 13:14 11/05/17 13:00 - Medications Medications: Current Medications Aspirin (Aspirin Chewable) 81 mg PO DAILY [facility] Last Admin: 11/05/17 08:47 Dose: 81 mg Enoxaparin Sodium (Lovenox) 40 mg SC DAILY [facility] PRN Reason: Protocol Last Admin: 11/05/17 08:47 Dose: 40 mg Glipizide (Glucotrol Xl) 10 mg PO ACBD [facility] Last Admin: 11/05/17 08:47 Dose: 10 mg Hydralazine HCl (Apresoline) 10 mg IV Q6 PRN PRN Reason: Blood Pressure Ciprofloxacin (Cipro 400mg/200ml Dsw) 400 mg in 200 mls @ 200 mls/hr IVPB Q12 [facility] PRN Reason: Protocol Last Admin: 11/05/17 08:49 Dose: 200 mls/hr Insulin Detemir (Levemir) 20 units SC DAILY [facility] Last Admin: 11/05/17 08:49 Dose: Not Given Isosorbide Mononitrate (Imdur Er) 30 mg PO BID [facility] Last Admin: 11/05/17 08:47 Dose: 30 mg Levothyroxine Sodium (Synthroid) 100 mcg PO DAILY@0630 [facility] Last Admin: 11/05/17 08:48 Dose: 100 mcg Lorazepam (Ativan) 0.5 mg PO BID [facility] Last Admin: 11/05/17 08:46 Dose: 0.5 mg Metoprolol Tartrate (Lopressor) 50 mg PO TID [facility] Last Admin: 11/05/17 13:14 Dose: 50 mg Morphine Sulfate (Morphine) 2 mg IVP Q6 PRN PRN Reason: Pain, severe (8-10) Last Admin: 11/05/17 06:04 Dose: 2 mg Ondansetron HCl (Zofran Inj) 4 mg IVP Q6 PRN PRN Reason: Nausea/Vomiting Last Admin: 11/05/17 08:50 Dose: 4 mg Quetiapine Fumarate (Seroquel) 25 mg PO BID [facility] Last Admin: 11/05/17 08:47 Dose: 25 mg Tramadol HCl (Ultram) 50 mg PO BID [facility] Last Admin: 11/05/17 08:46 Dose: 50 mg - Labs Labs: 11/05/17 09:00 11/05/17 09:00 - Constitutional Appears: No Acute Distress, Chronically Ill - Head Exam Head Exam: NORMAL INSPECTION - Eye Exam Eye Exam: PERRL - ENT Exam ENT Exam: Normal Exam - Neck Exam Neck Exam: Normal Inspection - Respiratory Exam Respiratory Exam: NORMAL BREATHING PATTERN - Cardiovascular Exam Cardiovascular Exam: REGULAR RHYTHM, Murmur - GI/Abdominal Exam GI & Abdominal Exam: Soft, Tenderness (Mild epigastric , RUQ , suprapubic), Normal Bowel Sounds. absent: Guarding, Rebound - Extremities Exam Extremities Exam: Normal Inspection - Back Exam Back Exam: NORMAL INSPECTION - Neurological Exam Neurological Exam: Alert, Oriented x3 Additional comments: no focal motor/sensory deficit - Psychiatric Exam Psychiatric exam: Anxious - Skin Skin Exam: Warm Assessment and Plan (1) Chest pain Status: Acute (2) Abdominal pain Status: Acute (3) UTI (urinary tract infection) Status: Acute (4) MUSHTAQ (acute kidney injury) Status: Acute (5) DM (diabetes mellitus) Status: Chronic (6) High cholesterol Status: Chronic (7) Hx of CABG Status: Chronic (8) Hypertension Status: Chronic (9) Hypothyroidism Status: Chronic - Assessment and Plan (Free Text) Plan: f/u CT Abd/pelvis continue Cipro IV , U C-S G (-) rods, continue rest of treatment , PT eval
--- NOTE | 2017-11-05 16:25 | CT ---
PROCEDURE: CT Abdomen and Pelvis with contrast HISTORY: Chest pain and abdominal pain COMPARISON: 06/29/2017 abdominal ultrasound TECHNIQUE: Oral contrast only. Radiation dose: Total exam DLP = 952.46 mGy-cm. This CT exam was performed using one or more of the following dose reduction techniques: Automated exposure control, adjustment of the mA and/or kV according to patient size, and/or use of iterative reconstruction technique. FINDINGS: LOWER THORAX: Unremarkable. LIVER: Unremarkable. No gross lesion or ductal dilatation. GALLBLADDER AND BILE DUCTS: Status post cholecystectomy. No abnormality is seen in the gallbladder fossa. Dilated common bile duct consistent with prior cholecystectomy without intrahepatic bile duct dilatation. PANCREAS: Unremarkable. No gross lesion or ductal dilatation. SPLEEN: Unremarkable. ADRENALS: Unremarkable. No mass. KIDNEYS AND URETERS: Unremarkable. No hydronephrosis. No solid mass. VASCULATURE: Unremarkable. No aortic aneurysm. BOWEL: Diverticulosis without an acute inflammatory component or other associated pathologic process. APPENDIX: A normal appendix is not visualize. No abnormalities to suggest acute appendicitis. No right lower quadrant inflammatory processes identified. PERITONEUM: Unremarkable. No free fluid. No free air. LYMPH NODES: Unremarkable. No enlarged lymph nodes. BLADDER: Unremarkable. REPRODUCTIVE: Unremarkable. BONES: No acute fracture. OTHER FINDINGS: Air in subcutaneous tissues left lower quadrant anterior abdominal wall region likely iatrogenic with no adjacent inflammatory process. IMPRESSION: No acute findings related to/accounting for the clinical presentation. Additional benign and/or incidental findings described above.
[2017-11-06] MEDS ORDERED: Sodium Chloride 0.45% 1,000 ML IV SCH (01:00)
[2017-11-06] MEDS: Levothyroxine 100 MCG TAB PO SCH (05:42)
[2017-11-06 08:14] LABS: HEMOGLOBIN 10.5 g/dL (12.0-16.0); MEAN CORPUSCULAR HEMOGLOBIN 29.2 pg (27.0-31.0); MEAN CORPUSCULAR HGB CONC 33.5 g/dL (33.0-37.0); RBC 3.61 Mil/uL (3.80-5.20); RED CELL DISTRIBUTION WIDTH 13.1 % (11.5-14.5); WHITE BLOOD COUNT 8.1 K/uL (4.8-10.8)
[2017-11-06 08:30] LABS: ALB/GLOB RATIO 1.3 (1.0-2.1); ALBUMIN 4.4 g/dL (3.5-5.0); CALCIUM 9.7 mg/dL (8.4-10.2)
[2017-11-06] MEDS: GlipiZIDE 10 mg SR Tab PO SCH ×2 (09:16→16:32)
[2017-11-06] MEDS: Insulin Detemir 100 Units/ml Inj SC SCH (09:17)
[2017-11-06] MEDS: Enoxaparin 40 mg Syringe SC SCH (09:18)
--- NOTE | 2017-11-06 09:32 | CP.PCM.PN ---
<SeferinoDionte - Last Filed: 11/06/17 10:22> Subjective - Date & Time of Evaluation Date of Evaluation: 11/06/17 Time of Evaluation: 09:28 - Subjective Subjective: Cardiology progress note Patient seen and examined at bedside. Patient still having mild abdominal pain , but denies any chest pain at current time. Patient further states that her nausea, vomiting, diarrhea are much improved, have resolved. Patient denies shortness of breath, states she is feeling better. No further complaints at this time. Sister at bedside providing translation. Objective - Vital Signs/Intake and Output Vital Signs (last 24 hours): Temp Pulse Resp BP Pulse Ox 97.1 F L 79 18 114/71 99 11/06/17 08:49 11/06/17 09:00 11/06/17 08:49 11/06/17 08:49 11/06/17 08:49 - Medications Medications: Current Medications Alprazolam (Xanax) 0.25 mg PO Q12 [facility] Stop: 11/12/17 21:31 Last Admin: 11/06/17 09:23 Dose: 0.25 mg Aspirin (Aspirin Chewable) 81 mg PO DAILY [facility] Last Admin: 11/06/17 09:15 Dose: 81 mg Enoxaparin Sodium (Lovenox) 40 mg SC DAILY [facility] PRN Reason: Protocol Last Admin: 11/06/17 09:18 Dose: 40 mg Glipizide (Glucotrol Xl) 10 mg PO ACBD [facility] Last Admin: 11/06/17 09:16 Dose: 10 mg Hydralazine HCl (Apresoline) 10 mg IV Q6 PRN PRN Reason: Blood Pressure Sodium Chloride (Sodium Chloride 0.45%) 1,000 mls @ 80 mls/hr IV .[id number] [facility] Stop: 11/07/17 00:51 Last Admin: 11/06/17 01:12 Dose: 80 mls/hr Ciprofloxacin (Cipro 200mg/100ml D5w) 100 mls @ 100 mls/hr IVPB Q12 [facility] Insulin Detemir (Levemir) 20 units SC DAILY [facility] Last Admin: 11/06/17 09:17 Dose: 20 units Isosorbide Mononitrate (Imdur Er) 30 mg PO BID [facility] Last Admin: 11/06/17 09:16 Dose: 30 mg Levothyroxine Sodium (Synthroid) 100 mcg PO DAILY@0630 [facility] Last Admin: 11/06/17 05:42 Dose: 100 mcg Metoprolol Tartrate (Lopressor) 50 mg PO TID [facility] Last Admin: 11/05/17 17:34 Dose: 50 mg Morphine Sulfate (Morphine) 2 mg IVP Q6 PRN PRN Reason: Pain, severe (8-10) Last Admin: 11/05/17 06:04 Dose: 2 mg Ondansetron HCl (Zofran Inj) 4 mg IVP Q6 PRN PRN Reason: Nausea/Vomiting Last Admin: 11/05/17 08:50 Dose: 4 mg Quetiapine Fumarate (Seroquel) 25 mg PO HS [facility] Tramadol HCl (Ultram) 50 mg PO BID [facility] Last Admin: 11/06/17 09:22 Dose: 50 mg - Labs Labs: 11/06/17 07:31 11/06/17 07:31 - Additional Findings Additional findings: Physical Exam: Vital Signs as below Const'l: Wallisian speaking, awake alert & oriented x 4, no acute distress Head/Neck: neck supple, no jvd, trachea midline, carotid midline, no cervical/head mass Eyes: pupils equally reactive to light and accommodation, nonicteric sclera, extraocular intact ENT: auditory acuity grossly intact, throat not congested, no nasal deformity Cardio: +Holosystolic murmur best heard at LUSB; regular rate, regular rhythm, no rubs gallops, no carotid bruit, normal s1, s2 Pulm: no accessory muscle use, equal normal breath sounds bilaterally, clear to ausculation bilaterally Abd: +Tenderness to palpation RUQ and RLQ; soft non-distended, normal bowel sounds x 4 quadrants, no palpable masses Derm: no rashes, no ulcers, no lesions Extr: no edema, no cyanosis, no calf tenderness, no lesions, no varicosities Neuro: cranial nerves II-XII grossly intact, upper extremity and lower extremity 5/5 muscle strength bilaterally, no loss of sensation in upper extremities, lower extremities bilaterally Assessment and Plan - Assessment and Plan (Free Text) Assessment: Assessment and Plan: 77 year old female with past medical history of CAD s/p CABG and stent placement in November 2015 (cannot locate where the stent is placed per chart review), Diabetes, Hypertension, Hyporthyroidism, Dementia, Depression, and Aortic Valve Disease presents with abdominal pain. Patient incidentally reported some right sided chest pain with radiation to the right flank area as well without shortness of breath. Patient was also found to be hypertensive, which was treated with Lopressor, Valsartan, and Catapres. Upon review of labs , this was found to be hypertensive emergency, as patient is in MUSHTAQ. Patient's blood pressure is well controlled right now. Patient's troponins were negative X 2 and EKG does not show any ST elevations. Chest pain, likely 2/2 anxiety VS ischemia, rule out ACS - Pending Troponin 3, Negative X 2 - No EKG ischemic changes, but shows biatrial enlargement with LVH - When patient's abdominal symptoms resolve, stress test Hypertensive Emergency - Patient found to have systolic blood pressure >180 on admission as well as MUSHTAQ - Manage BP with Lopressor and Catapres; HOLD ARB, PATIENT IS IN MUSHTAQ Acute Kidney Injury likely 2/2 blood pressure vs renal calculi - Patient does complain of right flank pain - Please hold MELONIE-I, ARBs, as patient is in MUSHTAQ - Patient's last ECHO does not show decreased EF, consider light hydration - Rest of Management per Primary Hyperlipidemia - Patient has elevated TGs - Starting patient on Crestor Diabetes Mellitus - Per primary Abdominal Pain - Per primary Hypothyroidism - Per primary Dispo: Monitor blood pressure closely; Check last troponin; Consider light hydration for MUSHTAQ; Please hold MELONIE-I/ARBs 2/2 MUSHTAQ. When patient's symptoms resolve, stress test <Juan Murray - Last Filed: 11/07/17 00:54> Objective - Vital Signs/Intake and Output Vital Signs (last 24 hours): Temp Pulse Resp BP Pulse Ox 97.5 F L 79 20 114/59 L 97 11/06/17 19:28 11/06/17 21:00 11/06/17 19:28 11/06/17 19:28 11/06/17 19:28 Intake and Output: 11/06/17 11/07/17 18:59 06:59 Intake Total 1100 Balance 1100 - Medications Medications: Current Medications Aspirin (Aspirin Chewable) 81 mg PO DAILY [facility] Last Admin: 11/06/17 09:15 Dose: 81 mg Atorvastatin Calcium (Lipitor) 40 mg PO HS [facility] Last Admin: 11/06/17 21:23 Dose: 40 mg Enoxaparin Sodium (Lovenox) 40 mg SC DAILY [facility] PRN Reason: Protocol Last Admin: 11/06/17 09:18 Dose: 40 mg Glipizide (Glucotrol Xl) 10 mg PO ACBD [facility] Last Admin: 11/06/17 16:32 Dose: 10 mg Hydralazine HCl (Apresoline) 10 mg IV Q6 PRN PRN Reason: Blood Pressure Ciprofloxacin (Cipro 200mg/100ml D5w) 100 mls @ 100 mls/hr IVPB Q12 [facility] Last Admin: 11/06/17 21:26 Dose: 100 mls/hr Insulin Detemir (Levemir) 20 units SC DAILY [facility] Last Admin: 11/06/17 09:17 Dose: 20 units Isosorbide Mononitrate (Imdur Er) 30 mg PO BID [facility] Last Admin: 11/06/17 16:32 Dose: 30 mg Levothyroxine Sodium (Synthroid) 100 mcg PO DAILY@0630 [facility] Last Admin: 11/06/17 05:42 Dose: 100 mcg Lorazepam (Ativan) 0.5 mg PO Q8 PRN PRN Reason: Anxiety Metoprolol Tartrate (Lopressor) 50 mg PO TID [facility] Last Admin: 11/06/17 16:33 Dose: 50 mg Morphine Sulfate (Morphine) 2 mg IVP Q6 PRN PRN Reason: Pain, severe (8-10) Last Admin: 11/05/17 06:04 Dose: 2 mg Ondansetron HCl (Zofran Inj) 4 mg IVP Q6 PRN PRN Reason: Nausea/Vomiting Last Admin: 11/05/17 08:50 Dose: 4 mg Quetiapine Fumarate (Seroquel) 25 mg PO HS [facility] Last Admin: 11/06/17 21:23 Dose: 25 mg Tramadol HCl (Ultram) 50 mg PO BID [facility] Last Admin: 11/06/17 16:37 Dose: 50 mg - Labs Labs: 11/06/17 07:31 11/06/17 07:31 Assessment and Plan (1) Chest pain Status: Acute (2) Abdominal discomfort Status: Acute (3) CAD (coronary artery disease) Status: Acute (4) Diabetes mellitus Status: Acute (5) Essential hypertension Status: Acute (6) Hypercholesteremia Status: Acute (7) Hypertension, uncontrolled Status: Acute (8) Renal failure Status: Acute (9) Respiratory distress Status: Acute (10) Coronary artery disease involving coronary bypass graft Status: Chronic (11) History of coronary artery stent placement Status: Chronic Attending/Attestation - Attestation I have personally seen and examined this patient.: Yes I have fully participated in the care of the patient.: Yes I have reviewed all pertinent clinical information, including history, physical exam and plan: Yes
--- NOTE | 2017-11-06 10:00 | US ---
PROCEDURE: Ultrasound of the Kidneys HISTORY: As per MD order COMPARISON: Comparison is made with the previous ultrasound of the abdomen dated 06/29/2017 CT of the abdomen and pelvis dated 11/05/2017. TECHNIQUE: Sonogram of the kidneys. FINDINGS: RIGHT KIDNEY: Measures: 9.9 x 6.4 x 4.3 cm. Normal in size, contour and echogenicity. No stone, solid mass lesion or hydronephrosis visualized. LEFT KIDNEY: Measures: 9.9 x 5.4 x 5.4 cm. Normal in size, contour and echogenicity. No stone, solid mass lesion or hydronephrosis visualized. OTHER FINDINGS: None. IMPRESSION: No ultrasound evidence of obstructing nephrolithiasis or hydronephrosis.
[2017-11-06] MEDS: Ciprofloxacin 200mg/100ml D5W 100 ML IVPB SCH ×2 (11:15→21:26)
--- NOTE | 2017-11-06 11:47 | CP.PCM.CON ---
History of Present Illness - History of Present Illness History of Present Illness: This patient is 77 years of age I was called to see for consultation for abnormal kidney function with rising BUN/creatinine creatinine. Patient was admitted with atypical epigastric pain also atypical chest pain which appeared to be relieved by now. Patient stated that she has a history of chronic kidney disease in addition history of coronary artery disease with a previous stent History of hypertension and hyperlipidemia Review of systems as noted below Social history unremarkable Review of Systems - Constitutional Constitutional: absent: Anorexia, Chills, Night Sweats - EENT Eyes: absent: Blurred Vision, Irritation Ears: absent: Decreased Hearing Nose/Mouth/Throat: absent: Epistaxis - Cardiovascular Cardiovascular: absent: Acrocyanosis, Chest Pain, Dyspnea, Leg Edema, Syncope - Respiratory Respiratory: absent: Cough, Dyspnea, Hemoptysis - Gastrointestinal Gastrointestinal: absent: Abdominal Pain, Diarrhea - Genitourinary Genitourinary: Nocturia - Musculoskeletal Musculoskeletal: Muscle Weakness - Integumentary Integumentary: As Per HPI - Neurological Neurological: Weakness - Hematologic/Lymphatic Hematologic: absent: Easy Bleeding Past Patient History - Infectious Disease Hx of Infectious Diseases: None - Tetanus Immunizations Tetanus Immunization: Unknown - Past Medical History & Family History Past Medical History?: Yes - Past Social History Smoking Status: Never Smoked Alcohol: None Drugs: Denies Home Situation {Lives}: With Family - CARDIAC Hx Cardiac Disorders: Yes Hx Congestive Heart Failure: No Hx Heart Attack: Yes Hx Hypercholesterolemia: Yes Hx Hypertension: Yes Other/Comment: Valve Replacement - PULMONARY Hx Chronic Obstructive Pulmonary Disease (COPD): No - NEUROLOGICAL Hx Neurological Disorder: Yes Hx Dementia: Yes (mild) - HEENT Hx HEENT Problems: No - RENAL Hx Chronic Kidney Disease: Yes (stage 2 renal disease) - ENDOCRINE/METABOLIC Hx Endocrine Disorders: Yes Hx Diabetes Mellitus Type 2: Yes Hx Hypothyroidism: Yes - HEMATOLOGICAL/ONCOLOGICAL Hx Blood Disorders: Yes Hx AIDS: No Hx Anemia: Yes Hx Blood Transfusions: No Hx Human Immunodeficiency Virus (HIV): No - INTEGUMENTARY Hx Dermatological Problems: No - MUSCULOSKELETAL/RHEUMATOLOGICAL Hx Musculoskeletal Disorders: Yes Hx Arthritis: Yes Hx Falls: Yes Hx Rheumatoid Arthritis: No - GASTROINTESTINAL Hx Gastrointestinal Disorders: Yes Hx Diverticulitis: Yes Hx Gall Bladder Disease: Yes Hx Gastritis: Yes Hx Gastroesophageal Reflux: Yes Hx Pancreatitis: Yes - GENITOURINARY/GYNECOLOGICAL Hx Genitourinary Disorders: No - PSYCHIATRIC Hx Psychophysiologic Disorder: Yes Hx Anxiety: Yes Hx Depression: Yes Hx Substance Use: No - SURGICAL HISTORY Hx Surgeries: Yes Hx Cholecystectomy: Yes Hx Coronary Artery Bypass Graft: Yes Hx Coronary Stent: Yes (11/2015 (1 STENT)) - ANESTHESIA Hx Anesthesia: Yes Hx Anesthesia Reactions: No Meds Home Medications: Home Medication List Medication Instructions Recorded Confirmed Type Atorvastatin [Lipitor] 40 mg PO DAILY #60 tab 11/06/17 Rx Allergies/Adverse Reactions: Allergies Allergy/AdvReac Type Severity Reaction Status Date / Time ceftriaxone [From Rocephin] Allergy RASH Verified 11/03/17 17:03 - Medications Medications: Current Medications Alprazolam (Xanax) 0.25 mg PO Q12 [facility] Stop: 11/12/17 21:31 Last Admin: 11/06/17 09:23 Dose: 0.25 mg Aspirin (Aspirin Chewable) 81 mg PO DAILY [facility] Last Admin: 11/06/17 09:15 Dose: 81 mg Atorvastatin Calcium (Lipitor) 40 mg PO HS [facility] Enoxaparin Sodium (Lovenox) 40 mg SC DAILY [facility] PRN Reason: Protocol Last Admin: 11/06/17 09:18 Dose: 40 mg Glipizide (Glucotrol Xl) 10 mg PO ACBD [facility] Last Admin: 11/06/17 09:16 Dose: 10 mg Hydralazine HCl (Apresoline) 10 mg IV Q6 PRN PRN Reason: Blood Pressure Sodium Chloride (Sodium Chloride 0.45%) 1,000 mls @ 80 mls/hr IV .[id number] [facility] Stop: 11/07/17 00:51 Last Admin: 11/06/17 01:12 Dose: 80 mls/hr Ciprofloxacin (Cipro 200mg/100ml D5w) 100 mls @ 100 mls/hr IVPB Q12 [facility] Last Admin: 11/06/17 11:15 Dose: 100 mls/hr Insulin Detemir (Levemir) 20 units SC DAILY [facility] Last Admin: 11/06/17 09:17 Dose: 20 units Isosorbide Mononitrate (Imdur Er) 30 mg PO BID [facility] Last Admin: 11/06/17 09:16 Dose: 30 mg Levothyroxine Sodium (Synthroid) 100 mcg PO DAILY@0630 [facility] Last Admin: 11/06/17 05:42 Dose: 100 mcg Metoprolol Tartrate (Lopressor) 50 mg PO TID [facility] Last Admin: 11/06/17 11:17 Dose: 50 mg Morphine Sulfate (Morphine) 2 mg IVP Q6 PRN PRN Reason: Pain, severe (8-10) Last Admin: 11/05/17 06:04 Dose: 2 mg Ondansetron HCl (Zofran Inj) 4 mg IVP Q6 PRN PRN Reason: Nausea/Vomiting Last Admin: 11/05/17 08:50 Dose: 4 mg Quetiapine Fumarate (Seroquel) 25 mg PO [facility] Tramadol HCl (Ultram) 50 mg PO BID [facility] Last Admin: 11/06/17 09:22 Dose: 50 mg Physical Exam - Constitutional Appears: Non-toxic, No Acute Distress - ENT Exam ENT Exam: absent: Mucous Membranes Dry - Neck Exam Neck exam: Negative for: Lymphadenopathy - Respiratory Exam Respiratory Exam: NORMAL BREATHING PATTERN. absent: Chest Wall Tenderness - Cardiovascular Exam Cardiovascular Exam: REGULAR RHYTHM. absent: Rubs - GI/Abdominal Exam GI & Abdominal Exam: Normal Bowel Sounds - Extremities Exam Extremities exam: Negative for: calf tenderness - Back Exam Back exam: absent: CVA tenderness (L), CVA tenderness (R) - Neurological Exam Neurological exam: Alert - Psychiatric Exam Psychiatric exam: Normal Affect Results - Vital Signs Recent Vital Signs: Last Vital Signs Temp 97.1 F L 11/06/17 08:49 Pulse 79 11/06/17 11:17 Resp 18 11/06/17 08:49 BP 114/71 11/06/17 11:17 Pulse Ox 99 11/06/17 08:49 - Labs Result Diagrams: 11/06/17 07:31 11/06/17 07:31 Labs: Laboratory Results - last 24 hr 11/04/17 11/05/17 11/05/17 08:10 11:01 16:35 WBC RBC Hgb Hct MCV MCH MCHC RDW Plt Count Sodium Potassium Chloride Carbon Dioxide Anion Gap BUN Creatinine Est GFR ( Amer) Est GFR (Non-Af Amer) POC Glucose (mg/dL) 184 H Random Glucose Hemoglobin A1c 6.0 Calcium Total Bilirubin AST ALT Alkaline Phosphatase Troponin I NT-Pro-B Natriuret Pep 537 Total Protein Albumin Globulin Albumin/Globulin Ratio Urine Osmolality Ur Random Creatinine Ur Random Sodium Ur Random Potassium 02/02/1511/05/17 11/05/17 16:35 17:13 21:55 WBC RBC Hgb Hct MCV MCH MCHC RDW Plt Count Sodium Potassium Chloride Carbon Dioxide Anion Gap BUN Creatinine Est GFR ( Amer) Est GFR (Non-Af Amer) POC Glucose (mg/dL) 120 H 153 H Random Glucose Hemoglobin A1c Calcium Total Bilirubin AST ALT Alkaline Phosphatase Troponin I < 0.0120 NT-Pro-B Natriuret Pep Total Protein Albumin Globulin Albumin/Globulin Ratio Urine Osmolality Ur Random Creatinine Ur Random Sodium Ur Random Potassium 11/06/17 11/06/17 11/06/17 00:51 00:51 05:41 WBC RBC Hgb Hct MCV MCH MCHC RDW Plt Count Sodium Potassium Chloride Carbon Dioxide Anion Gap BUN Creatinine Est GFR ( Amer) Est GFR (Non-Af Amer) POC Glucose (mg/dL) 109 Random Glucose Hemoglobin A1c Calcium Total Bilirubin AST ALT Alkaline Phosphatase Troponin I NT-Pro-B Natriuret Pep Total Protein Albumin Globulin Albumin/Globulin Ratio Urine Osmolality 206 L Ur Random Creatinine 51.3 Ur Random Sodium 15 Ur Random Potassium 24.2 11/06/17 11/06/17 11/06/17 07:31 07:31 11:29 WBC 8.1 RBC 3.61 L Hgb 10.5 L Hct 31.4 L MCV 87.0 MCH 29.2 MCHC 33.5 RDW 13.1 Plt Count 156 Sodium 139 Potassium 4.8 Chloride 100 Carbon Dioxide 28 Anion Gap 16 BUN 45 H Creatinine 2.0 H Est GFR ( Amer) 29 Est GFR (Non-Af Amer) 24 POC Glucose (mg/dL) 222 H Random Glucose 137 H Hemoglobin A1c Calcium 9.7 Total Bilirubin 0.8 AST 20 ALT 29 Alkaline Phosphatase 70 Troponin I NT-Pro-B Natriuret Pep Total Protein 7.7 Albumin 4.4 Globulin 3.3 Albumin/Globulin Ratio 1.3 Urine Osmolality Ur Random Creatinine Ur Random Sodium Ur Random Potassium Assessment & Plan (1) MUSHTAQ (acute kidney injury) Assessment and Plan: Patient may have acute kidney injury superimposed on underlying chronic kidney disease not sure at this point we need to have baseline SERUM creatinine if possible. Patient has significant history of coronary artery disease had kidney function could be compromised and has chronic kidney disease from nephrosclerosis as possibility in the differential diagnosis. We will order serum phosphorus level and protein in the urine and PTH Status: Acute
--- NOTE | 2017-11-06 13:46 | CP.PCM.PN ---
Subjective - Date & Time of Evaluation Date of Evaluation: 11/06/17 Time of Evaluation: 13:45 - Subjective Subjective: doing well Objective - Vital Signs/Intake and Output Vital Signs (last 24 hours): Temp Pulse Resp BP Pulse Ox 97.7 F 67 18 126/65 97 11/06/17 13:00 11/06/17 13:35 11/06/17 13:00 11/06/17 13:35 11/06/17 13:00 Intake and Output: 11/06/17 11/06/17 06:59 18:59 Intake Total 100 Balance 100 - Medications Medications: Current Medications Aspirin (Aspirin Chewable) 81 mg PO DAILY [facility] Last Admin: 11/06/17 09:15 Dose: 81 mg Atorvastatin Calcium (Lipitor) 40 mg PO HS [facility] Enoxaparin Sodium (Lovenox) 40 mg SC DAILY [facility] PRN Reason: Protocol Last Admin: 11/06/17 09:18 Dose: 40 mg Glipizide (Glucotrol Xl) 10 mg PO ACBD [facility] Last Admin: 11/06/17 09:16 Dose: 10 mg Hydralazine HCl (Apresoline) 10 mg IV Q6 PRN PRN Reason: Blood Pressure Sodium Chloride (Sodium Chloride 0.45%) 1,000 mls @ 80 mls/hr IV .[id number] [facility] Stop: 11/07/17 00:51 Last Admin: 11/06/17 01:12 Dose: 80 mls/hr Ciprofloxacin (Cipro 200mg/100ml D5w) 100 mls @ 100 mls/hr IVPB Q12 [facility] Last Admin: 11/06/17 11:15 Dose: 100 mls/hr Insulin Detemir (Levemir) 20 units SC DAILY [facility] Last Admin: 11/06/17 09:17 Dose: 20 units Isosorbide Mononitrate (Imdur Er) 30 mg PO BID [facility] Last Admin: 11/06/17 09:16 Dose: 30 mg Levothyroxine Sodium (Synthroid) 100 mcg PO DAILY@0630 [facility] Last Admin: 11/06/17 05:42 Dose: 100 mcg Lorazepam (Ativan) 0.5 mg PO Q8 PRN PRN Reason: Anxiety Metoprolol Tartrate (Lopressor) 50 mg PO TID [facility] Last Admin: 11/06/17 13:35 Dose: 50 mg Morphine Sulfate (Morphine) 2 mg IVP Q6 PRN PRN Reason: Pain, severe (8-10) Last Admin: 11/05/17 06:04 Dose: 2 mg Ondansetron HCl (Zofran Inj) 4 mg IVP Q6 PRN PRN Reason: Nausea/Vomiting Last Admin: 11/05/17 08:50 Dose: 4 mg Quetiapine Fumarate (Seroquel) 25 mg PO HS [facility] Tramadol HCl (Ultram) 50 mg PO BID [facility] Last Admin: 11/06/17 09:22 Dose: 50 mg - Labs Labs: 11/06/17 07:31 11/06/17 07:31 - Neck Exam Neck Exam: Normal Inspection - Respiratory Exam Respiratory Exam: NORMAL BREATHING PATTERN - Cardiovascular Exam Cardiovascular Exam: REGULAR RHYTHM - GI/Abdominal Exam GI & Abdominal Exam: Soft, Normal Bowel Sounds Assessment and Plan - Assessment and Plan (Free Text) Assessment: 77 yo female with chest pain no gi complaints cardio w/u in progress
--- NOTE | 2017-11-06 17:10 | CARD ---
APPROVED REPORT EKG Measurement Heart [id number] <Conclusion> Normal sinus rhythm Possible Left atrial enlargement Left axis deviation Left ventricular hypertrophy Abnormal ECG
[2017-11-07] MEDS: Levothyroxine 100 MCG TAB PO SCH (06:49)
[2017-11-07 07:13] LABS: CALCIUM 9.4 mg/dL (8.4-10.2)
[2017-11-07] MEDS: Insulin Detemir 100 Units/ml Inj SC SCH (09:43)
[2017-11-07] MEDS: GlipiZIDE 10 mg SR Tab PO SCH ×2 (09:43→17:41)
[2017-11-07] MEDS: Ciprofloxacin 200mg/100ml D5W 100 ML IVPB SCH ×2 (09:45→21:18)
--- NOTE | 2017-11-07 10:11 | CP.PCM.PN ---
Subjective - Date & Time of Evaluation Date of Evaluation: 11/06/17 (This note is for 11/06/17.) Time of Evaluation: 13:20 - Subjective Subjective: F/u CP, UTI. No A/D, no CP. Objective - Vital Signs/Intake and Output Vital Signs (last 24 hours): Temp Pulse Resp BP Pulse Ox 98.1 F 69 18 143/68 96 11/07/17 08:09 11/07/17 08:09 11/07/17 08:09 11/07/17 08:09 11/07/17 08:09 - Medications Medications: Current Medications Aspirin (Aspirin Chewable) 81 mg PO DAILY [facility] Last Admin: 11/06/17 09:15 Dose: 81 mg Atorvastatin Calcium (Lipitor) 40 mg PO HS [facility] Last Admin: 11/06/17 21:23 Dose: 40 mg Enoxaparin Sodium (Lovenox) 40 mg SC DAILY [facility] PRN Reason: Protocol Last Admin: 11/06/17 09:18 Dose: 40 mg Glipizide (Glucotrol Xl) 10 mg PO ACBD [facility] Last Admin: 11/07/17 09:43 Dose: Not Given Hydralazine HCl (Apresoline) 10 mg IV Q6 PRN PRN Reason: Blood Pressure Ciprofloxacin (Cipro 200mg/100ml D5w) 100 mls @ 100 mls/hr IVPB Q12 [facility] Last Admin: 11/07/17 09:45 Dose: 100 mls/hr Insulin Detemir (Levemir) 20 units SC DAILY [facility] Last Admin: 11/07/17 09:43 Dose: Not Given Isosorbide Mononitrate (Imdur Er) 30 mg PO BID [facility] Last Admin: 11/06/17 16:32 Dose: 30 mg Levothyroxine Sodium (Synthroid) 100 mcg PO DAILY@0630 [facility] Last Admin: 11/07/17 06:49 Dose: Not Given Lorazepam (Ativan) 0.5 mg PO Q8 PRN PRN Reason: Anxiety Metoprolol Tartrate (Lopressor) 50 mg PO TID [facility] Last Admin: 11/07/17 09:44 Dose: Not Given Morphine Sulfate (Morphine) 2 mg IVP Q6 PRN PRN Reason: Pain, severe (8-10) Last Admin: 11/05/17 06:04 Dose: 2 mg Ondansetron HCl (Zofran Inj) 4 mg IVP Q6 PRN PRN Reason: Nausea/Vomiting Last Admin: 11/05/17 08:50 Dose: 4 mg Quetiapine Fumarate (Seroquel) 25 mg PO HS [facility] Last Admin: 11/06/17 21:23 Dose: 25 mg Tramadol HCl (Ultram) 50 mg PO BID [facility] Last Admin: 11/07/17 09:44 Dose: Not Given - Labs Labs: 11/06/17 07:31 11/07/17 05:30 - Constitutional Appears: No Acute Distress, Chronically Ill - Head Exam Head Exam: NORMAL INSPECTION - Eye Exam Eye Exam: PERRL - ENT Exam ENT Exam: Normal Exam - Neck Exam Neck Exam: Normal Inspection - Respiratory Exam Respiratory Exam: NORMAL BREATHING PATTERN - Cardiovascular Exam Cardiovascular Exam: REGULAR RHYTHM - GI/Abdominal Exam GI & Abdominal Exam: Soft, Tenderness (mmild epigastric, RUQ), Normal Bowel Sounds - Extremities Exam Extremities Exam: Normal Inspection - Back Exam Back Exam: NORMAL INSPECTION - Neurological Exam Neurological Exam: Alert, Oriented x3 Additional comments: No focal motor sensory deficit. - Psychiatric Exam Psychiatric exam: Anxious - Skin Skin Exam: Warm Assessment and Plan (1) Chest pain Status: Acute (2) Abdominal pain Status: Acute (3) UTI (urinary tract infection) Assessment & Plan: E. Coli Status: Acute (4) MUSHTAQ (acute kidney injury) Status: Acute (5) DM (diabetes mellitus) Status: Chronic (6) High cholesterol Status: Chronic (7) Hx of CABG Status: Chronic (8) Hypertension Status: Chronic (9) Hypothyroidism Status: Chronic - Assessment and Plan (Free Text) Plan: Urine C-S: E.Coli, continue Cipro and rest of Tx.
--- NOTE | 2017-11-07 10:31 | CP.PCM.PN ---
<SeferinoiDonte - Last Filed: 11/07/17 10:34> Subjective - Date & Time of Evaluation Date of Evaluation: 11/07/17 Time of Evaluation: 10:27 - Subjective Subjective: Cardiology progress note for Dr. Murray Patient seen and examined at bedside. Patient's son providing translation. Patient is having an acute bout of confusion, does not want to give consent for stress test at this time. We will revisit this topic tomorrow. Patient states that she still has a foul odor to her urine but denies burning on urination or discharge. Patient's son states that she has been diagnosed with CKD Stage II by her kraft mill operator, Dr. Gore. Objective - Vital Signs/Intake and Output Vital Signs (last 24 hours): Temp Pulse Resp BP Pulse Ox 98.1 F 69 18 143/68 96 11/07/17 08:09 11/07/17 08:09 11/07/17 08:09 11/07/17 08:09 11/07/17 08:09 - Medications Medications: Current Medications Aspirin (Aspirin Chewable) 81 mg PO DAILY [facility] Last Admin: 11/06/17 09:15 Dose: 81 mg Atorvastatin Calcium (Lipitor) 40 mg PO HS [facility] Last Admin: 11/06/17 21:23 Dose: 40 mg Enoxaparin Sodium (Lovenox) 40 mg SC DAILY [facility] PRN Reason: Protocol Last Admin: 11/06/17 09:18 Dose: 40 mg Glipizide (Glucotrol Xl) 10 mg PO ACBD [facility] Last Admin: 11/07/17 09:43 Dose: Not Given Hydralazine HCl (Apresoline) 10 mg IV Q6 PRN PRN Reason: Blood Pressure Ciprofloxacin (Cipro 200mg/100ml D5w) 100 mls @ 100 mls/hr IVPB Q12 [facility] Last Admin: 11/07/17 09:45 Dose: 100 mls/hr Insulin Detemir (Levemir) 20 units SC DAILY [facility] Last Admin: 11/07/17 09:43 Dose: Not Given Isosorbide Mononitrate (Imdur Er) 30 mg PO BID [facility] Last Admin: 11/06/17 16:32 Dose: 30 mg Levothyroxine Sodium (Synthroid) 100 mcg PO DAILY@0630 [facility] Last Admin: 11/07/17 06:49 Dose: Not Given Lorazepam (Ativan) 0.5 mg PO Q8 PRN PRN Reason: Anxiety Metoprolol Tartrate (Lopressor) 50 mg PO TID [facility] Last Admin: 11/07/17 09:44 Dose: Not Given Morphine Sulfate (Morphine) 2 mg IVP Q6 PRN PRN Reason: Pain, severe (8-10) Last Admin: 11/05/17 06:04 Dose: 2 mg Ondansetron HCl (Zofran Inj) 4 mg IVP Q6 PRN PRN Reason: Nausea/Vomiting Last Admin: 11/05/17 08:50 Dose: 4 mg Quetiapine Fumarate (Seroquel) 25 mg PO HS [facility] Last Admin: 11/06/17 21:23 Dose: 25 mg Tramadol HCl (Ultram) 50 mg PO BID [facility] Last Admin: 11/07/17 09:44 Dose: Not Given - Labs Labs: 11/06/17 07:31 11/07/17 05:30 - Additional Findings Additional findings: Physical Exam: Vital Signs as below Const'l: Tajik speaking, awake alert & oriented x 4, no acute distress Head/Neck: neck supple, no jvd, trachea midline, carotid midline, no cervical/head mass Eyes: pupils equally reactive to light and accommodation, nonicteric sclera, extraocular intact ENT: auditory acuity grossly intact, throat not congested, no nasal deformity Cardio: +Holosystolic murmur best heard at LUSB; regular rate, regular rhythm, no rubs gallops, no carotid bruit, normal s1, s2 Pulm: no accessory muscle use, equal normal breath sounds bilaterally, clear to ausculation bilaterally Abd: +Tenderness to palpation RUQ and RLQ; +Anthony negative; soft non- distended, normal bowel sounds x 4 quadrants, no palpable masses Derm: no rashes, no ulcers, no lesions Extr: no edema, no cyanosis, no calf tenderness, no lesions, no varicosities Neuro: cranial nerves II-XII grossly intact, upper extremity and lower extremity 5/5 muscle strength bilaterally, no loss of sensation in upper extremities, lower extremities bilaterally Assessment and Plan - Assessment and Plan (Free Text) Assessment: Assessment and Plan: 77 year old female with past medical history of CAD s/p CABG and stent placement in November 2015 (cannot locate where the stent is placed per chart review), Diabetes, Hypertension, Hyporthyroidism, Dementia, Depression, and Aortic Valve Disease presents with abdominal pain. Patient incidentally reported some right sided chest pain with radiation to the right flank area as well without shortness of breath. Patient was also found to be hypertensive, which was treated with Lopressor, Valsartan, and Catapres. Upon review of labs , this was found to be hypertensive emergency, as patient is in MUSHTAQ. Patient's blood pressure is well controlled right now. Patient's troponins were negative X 2 and EKG does not show any ST elevations. Chest pain, likely 2/2 anxiety VS ischemia, rule out ACS - Pending Troponin 3, Negative X 2 - No EKG ischemic changes, but shows biatrial enlargement with LVH - When patient's abdominal symptoms resolve, stress test Hypertensive Emergency - Patient found to have systolic blood pressure >180 on admission as well as MUSHTAQ - Manage BP with Lopressor and Catapres; HOLD ARB, PATIENT IS IN MUSHTAQ Acute Kidney Injury likely 2/2 blood pressure vs renal calculi - Patient does complain of right flank pain - Please hold MELONIE-I, ARBs, as patient is in MUSHTAQ - Patient's last ECHO does not show decreased EF, consider light hydration - Patient's son states that her kraft mill operator has diagnosed her with CKD Stage II - consider nephrology consult - Rest of Management per Primary Hyperlipidemia - Patient has elevated TGs - Starting patient on Crestor Diabetes Mellitus - Per primary Abdominal Pain - Per primary Hypothyroidism - Per primary Dispo: Monitor blood pressure closely; Consider light hydration for MUSHTAQ; Please hold MELONIE-I/ARBs 2/2 MUSHTAQ. Patient having an acute bout of confusion, is refusing consent for stress test right now. Will consult with her regarding the stress test tomorrow. <Juan Murray - Last Filed: 11/07/17 17:38> Objective - Vital Signs/Intake and Output Vital Signs (last 24 hours): Temp Pulse Resp BP Pulse Ox 97.9 F 81 20 144/79 98 11/07/17 15:25 11/07/17 15:25 11/07/17 15:25 11/07/17 15:25 11/07/17 15:25 - Medications Medications: Current Medications Aspirin (Aspirin Chewable) 81 mg PO DAILY [facility] Last Admin: 11/07/17 14:36 Dose: 81 mg Atorvastatin Calcium (Lipitor) 40 mg PO HS [facility] Last Admin: 11/06/17 21:23 Dose: 40 mg Enoxaparin Sodium (Lovenox) 40 mg SC DAILY [facility] PRN Reason: Protocol Last Admin: 11/07/17 14:37 Dose: 40 mg Glipizide (Glucotrol Xl) 10 mg PO ACBD [facility] Last Admin: 11/07/17 09:43 Dose: Not Given Hydralazine HCl (Apresoline) 10 mg IV Q6 PRN PRN Reason: Blood Pressure Ciprofloxacin (Cipro 200mg/100ml D5w) 100 mls @ 100 mls/hr IVPB Q12 [facility] Last Admin: 11/07/17 09:45 Dose: 100 mls/hr Insulin Detemir (Levemir) 20 units SC DAILY [facility] Last Admin: 11/07/17 09:43 Dose: Not Given Isosorbide Mononitrate (Imdur Er) 30 mg PO BID [facility] Last Admin: 11/07/17 09:00 Dose: Not Given Levothyroxine Sodium (Synthroid) 100 mcg PO DAILY@0630 [facility] Last Admin: 11/07/17 06:49 Dose: Not Given Lorazepam (Ativan) 0.5 mg PO Q8 PRN PRN Reason: Anxiety Last Admin: 11/07/17 14:36 Dose: 0.5 mg Metoprolol Tartrate (Lopressor) 50 mg PO TID [facility] Last Admin: 11/07/17 14:37 Dose: 50 mg Morphine Sulfate (Morphine) 2 mg IVP Q6 PRN PRN Reason: Pain, severe (8-10) Last Admin: 11/05/17 06:04 Dose: 2 mg Ondansetron HCl (Zofran Inj) 4 mg IVP Q6 PRN PRN Reason: Nausea/Vomiting Last Admin: 11/05/17 08:50 Dose: 4 mg Quetiapine Fumarate (Seroquel) 25 mg PO [facility] Last Admin: 11/06/17 21:23 Dose: 25 mg Tramadol HCl (Ultram) 50 mg PO BID [facility] Last Admin: 11/07/17 09:44 Dose: Not Given - Labs Labs: 11/06/17 07:31 11/07/17 05:30 Assessment and Plan (1) Chest pain Status: Acute (2) Abdominal discomfort Status: Acute (3) CAD (coronary artery disease) Status: Acute (4) Diabetes mellitus Status: Acute (5) Essential hypertension Status: Acute (6) Hypercholesteremia Status: Acute (7) Hypertension, uncontrolled Status: Acute (8) Renal failure Status: Acute (9) Respiratory distress Status: Acute (10) Coronary artery disease involving coronary bypass graft Status: Chronic (11) History of coronary artery stent placement Status: Chronic Attending/Attestation - Attestation I have personally seen and examined this patient.: Yes I have fully participated in the care of the patient.: Yes I have reviewed all pertinent clinical information, including history, physical exam and plan: Yes Notes (Text): 11/07/17 17:37 stress imaging done, pt refused resting images cont hydralazine, nitrates arb on hold 2' to mushtaq cont asa, statins, bb 11/07/17 17:38
[2017-11-07] MEDS ORDERED: Aminophylline 50 MG in Sodium Chloride 0.9% 50 ML IV ONE (12:45)
--- NOTE | 2017-11-07 14:08 | CP.PCM.PN ---
Subjective - Date & Time of Evaluation Date of Evaluation: 11/07/17 Time of Evaluation: 14:07 - Subjective Subjective: doing well Objective - Vital Signs/Intake and Output Vital Signs (last 24 hours): Temp Pulse Resp BP Pulse Ox 97.9 F 65 18 165/69 H 96 11/07/17 13:14 11/07/17 13:14 11/07/17 13:14 11/07/17 13:14 11/07/17 13:14 - Medications Medications: Current Medications Aspirin (Aspirin Chewable) 81 mg PO DAILY [facility] Last Admin: 11/06/17 09:15 Dose: 81 mg Atorvastatin Calcium (Lipitor) 40 mg PO HS [facility] Last Admin: 11/06/17 21:23 Dose: 40 mg Enoxaparin Sodium (Lovenox) 40 mg SC DAILY [facility] PRN Reason: Protocol Last Admin: 11/06/17 09:18 Dose: 40 mg Glipizide (Glucotrol Xl) 10 mg PO ACBD [facility] Last Admin: 11/07/17 09:43 Dose: Not Given Hydralazine HCl (Apresoline) 10 mg IV Q6 PRN PRN Reason: Blood Pressure Ciprofloxacin (Cipro 200mg/100ml D5w) 100 mls @ 100 mls/hr IVPB Q12 [facility] Last Admin: 11/07/17 09:45 Dose: 100 mls/hr Insulin Detemir (Levemir) 20 units SC DAILY [facility] Last Admin: 11/07/17 09:43 Dose: Not Given Isosorbide Mononitrate (Imdur Er) 30 mg PO BID [facility] Last Admin: 11/06/17 16:32 Dose: 30 mg Levothyroxine Sodium (Synthroid) 100 mcg PO DAILY@0630 [facility] Last Admin: 11/07/17 06:49 Dose: Not Given Lorazepam (Ativan) 0.5 mg PO Q8 PRN PRN Reason: Anxiety Metoprolol Tartrate (Lopressor) 50 mg PO TID [facility] Last Admin: 11/07/17 09:44 Dose: Not Given Morphine Sulfate (Morphine) 2 mg IVP Q6 PRN PRN Reason: Pain, severe (8-10) Last Admin: 11/05/17 06:04 Dose: 2 mg Ondansetron HCl (Zofran Inj) 4 mg IVP Q6 PRN PRN Reason: Nausea/Vomiting Last Admin: 11/05/17 08:50 Dose: 4 mg Quetiapine Fumarate (Seroquel) 25 mg PO HS [facility] Last Admin: 11/06/17 21:23 Dose: 25 mg Tramadol HCl (Ultram) 50 mg PO BID [facility] Last Admin: 11/07/17 09:44 Dose: Not Given - Labs Labs: 11/06/17 07:31 11/07/17 05:30 - Neck Exam Neck Exam: Normal Inspection - Respiratory Exam Respiratory Exam: NORMAL BREATHING PATTERN - Cardiovascular Exam Cardiovascular Exam: REGULAR RHYTHM - GI/Abdominal Exam GI & Abdominal Exam: Soft, Normal Bowel Sounds Assessment and Plan - Assessment and Plan (Free Text) Assessment: 77 yo female with chest pain stress test pending no gi issues
--- NOTE | 2017-11-07 14:14 | CP.PCM.PN ---
Subjective - Date & Time of Evaluation Date of Evaluation: 11/07/17 Time of Evaluation: 14:12 - Subjective Subjective: Patient conscious alert sitting up not in any acute distress. No specific complain No nausea no vomiting Appetite normal Objective - Vital Signs/Intake and Output Vital Signs (last 24 hours): Temp Pulse Resp BP Pulse Ox 97.9 F 65 18 165/69 H 96 11/07/17 13:14 11/07/17 13:14 11/07/17 13:14 11/07/17 13:14 11/07/17 13:14 - Medications Medications: Current Medications Aspirin (Aspirin Chewable) 81 mg PO DAILY [facility] Last Admin: 11/06/17 09:15 Dose: 81 mg Atorvastatin Calcium (Lipitor) 40 mg PO HS [facility] Last Admin: 11/06/17 21:23 Dose: 40 mg Enoxaparin Sodium (Lovenox) 40 mg SC DAILY [facility] PRN Reason: Protocol Last Admin: 11/06/17 09:18 Dose: 40 mg Glipizide (Glucotrol Xl) 10 mg PO ACBD [facility] Last Admin: 11/07/17 09:43 Dose: Not Given Hydralazine HCl (Apresoline) 10 mg IV Q6 PRN PRN Reason: Blood Pressure Ciprofloxacin (Cipro 200mg/100ml D5w) 100 mls @ 100 mls/hr IVPB Q12 [facility] Last Admin: 11/07/17 09:45 Dose: 100 mls/hr Insulin Detemir (Levemir) 20 units SC DAILY [facility] Last Admin: 11/07/17 09:43 Dose: Not Given Isosorbide Mononitrate (Imdur Er) 30 mg PO BID [facility] Last Admin: 11/06/17 16:32 Dose: 30 mg Levothyroxine Sodium (Synthroid) 100 mcg PO DAILY@0630 [facility] Last Admin: 11/07/17 06:49 Dose: Not Given Lorazepam (Ativan) 0.5 mg PO Q8 PRN PRN Reason: Anxiety Metoprolol Tartrate (Lopressor) 50 mg PO TID [facility] Last Admin: 11/07/17 09:44 Dose: Not Given Morphine Sulfate (Morphine) 2 mg IVP Q6 PRN PRN Reason: Pain, severe (8-10) Last Admin: 11/05/17 06:04 Dose: 2 mg Ondansetron HCl (Zofran Inj) 4 mg IVP Q6 PRN PRN Reason: Nausea/Vomiting Last Admin: 11/05/17 08:50 Dose: 4 mg Quetiapine Fumarate (Seroquel) 25 mg PO HS [facility] Last Admin: 11/06/17 21:23 Dose: 25 mg Tramadol HCl (Ultram) 50 mg PO BID [facility] Last Admin: 11/07/17 09:44 Dose: Not Given - Labs Labs: 11/06/17 07:31 11/07/17 05:30 - Constitutional Appears: No Acute Distress - ENT Exam ENT Exam: Mucous Membranes Moist - Neck Exam Neck Exam: absent: Lymphadenopathy - Respiratory Exam Respiratory Exam: NORMAL BREATHING PATTERN. absent: Chest Wall Tenderness - Cardiovascular Exam Cardiovascular Exam: REGULAR RHYTHM. absent: Rubs - GI/Abdominal Exam GI & Abdominal Exam: Soft, Normal Bowel Sounds - Extremities Exam Extremities Exam: absent: Calf Tenderness - Back Exam Back Exam: absent: CVA tenderness (L), CVA tenderness (R) - Neurological Exam Neurological Exam: Alert, Awake, CN II-XII Intact, Normal Gait, Oriented x3 - Psychiatric Exam Psychiatric exam: Normal Affect - Skin Skin Exam: absent: Cyanosis Assessment and Plan (1) MUSHTAQ (acute kidney injury) Assessment & Plan: Acute kidney injury seems to be improving. Serum creatinine coming down. Patient with a history of coronary artery disease apparently she is refusing to do some cardiac testing as per primary team. Serum phosphorus normal PTH is pending Status: Acute
[2017-11-07] MEDS: Enoxaparin 40 mg Syringe SC SCH (14:37)
--- NOTE | 2017-11-07 16:44 | CP.PCM.PN ---
Subjective - Date & Time of Evaluation Date of Evaluation: 11/07/17 Time of Evaluation: 13:40 - Subjective Subjective: F/U CP, UTI Pt no A/D. no c/o, confused at times. Objective - Vital Signs/Intake and Output Vital Signs (last 24 hours): Temp Pulse Resp BP Pulse Ox 97.9 F 81 20 144/79 98 11/07/17 15:25 11/07/17 15:25 11/07/17 15:25 11/07/17 15:25 11/07/17 15:25 - Medications Medications: Current Medications Aspirin (Aspirin Chewable) 81 mg PO DAILY [facility] Last Admin: 11/07/17 14:36 Dose: 81 mg Atorvastatin Calcium (Lipitor) 40 mg PO HS [facility] Last Admin: 11/06/17 21:23 Dose: 40 mg Enoxaparin Sodium (Lovenox) 40 mg SC DAILY [facility] PRN Reason: Protocol Last Admin: 11/07/17 14:37 Dose: 40 mg Glipizide (Glucotrol Xl) 10 mg PO ACBD [facility] Last Admin: 11/07/17 09:43 Dose: Not Given Hydralazine HCl (Apresoline) 10 mg IV Q6 PRN PRN Reason: Blood Pressure Ciprofloxacin (Cipro 200mg/100ml D5w) 100 mls @ 100 mls/hr IVPB Q12 [facility] Last Admin: 11/07/17 09:45 Dose: 100 mls/hr Insulin Detemir (Levemir) 20 units SC DAILY [facility] Last Admin: 11/07/17 09:43 Dose: Not Given Isosorbide Mononitrate (Imdur Er) 30 mg PO BID [facility] Last Admin: 11/07/17 09:00 Dose: Not Given Levothyroxine Sodium (Synthroid) 100 mcg PO DAILY@0630 [facility] Last Admin: 11/07/17 06:49 Dose: Not Given Lorazepam (Ativan) 0.5 mg PO Q8 PRN PRN Reason: Anxiety Last Admin: 11/07/17 14:36 Dose: 0.5 mg Metoprolol Tartrate (Lopressor) 50 mg PO TID [facility] Last Admin: 11/07/17 14:37 Dose: 50 mg Morphine Sulfate (Morphine) 2 mg IVP Q6 PRN PRN Reason: Pain, severe (8-10) Last Admin: 11/05/17 06:04 Dose: 2 mg Ondansetron HCl (Zofran Inj) 4 mg IVP Q6 PRN PRN Reason: Nausea/Vomiting Last Admin: 11/05/17 08:50 Dose: 4 mg Quetiapine Fumarate (Seroquel) 25 mg PO HS [facility] Last Admin: 11/06/17 21:23 Dose: 25 mg Tramadol HCl (Ultram) 50 mg PO BID [facility] Last Admin: 11/07/17 09:44 Dose: Not Given - Labs Labs: 11/06/17 07:31 11/07/17 05:30 - Constitutional Appears: Chronically Ill - Head Exam Head Exam: NORMAL INSPECTION - Eye Exam Eye Exam: PERRL - ENT Exam ENT Exam: Normal Exam - Neck Exam Neck Exam: Normal Inspection - Respiratory Exam Respiratory Exam: NORMAL BREATHING PATTERN - Cardiovascular Exam Cardiovascular Exam: REGULAR RHYTHM, Murmur - GI/Abdominal Exam GI & Abdominal Exam: Soft, Tenderness (mild RUQ, suprapubic.), Normal Bowel Sounds - Extremities Exam Extremities Exam: Normal Inspection - Back Exam Back Exam: NORMAL INSPECTION - Neurological Exam Neurological Exam: Alert, Oriented x3 Additional comments: No focal motor/sensory deficit - Psychiatric Exam Psychiatric exam: Anxious - Skin Skin Exam: Warm Assessment and Plan (1) Chest pain Status: Acute (2) Abdominal pain Status: Acute (3) UTI (urinary tract infection) Status: Acute (4) MUSHTAQ (acute kidney injury) Status: Acute (5) DM (diabetes mellitus) Status: Chronic (6) High cholesterol Status: Chronic (7) Hx of CABG Status: Chronic (8) Hypertension Status: Chronic (9) Hypothyroidism Status: Chronic - Assessment and Plan (Free Text) Plan: For Stress Test in AM, continue rest of Tx.
[2017-11-08 00:56] VITALS: RESP 18
[2017-11-08] MEDS: Levothyroxine 100 MCG TAB PO SCH (06:39)
[2017-11-08] MEDS: Enoxaparin 40 mg Syringe SC SCH (09:12)
[2017-11-08] MEDS: GlipiZIDE 10 mg SR Tab PO SCH (09:13)
[2017-11-08] MEDS: Ciprofloxacin 200mg/100ml D5W 100 ML IVPB SCH (09:18)
[2017-11-08] MEDS: Insulin Detemir 100 Units/ml Inj SC SCH (10:00)
--- NOTE | 2017-11-08 11:17 | CP.PCM.PN ---
Subjective - Date & Time of Evaluation Date of Evaluation: 11/08/17 Time of Evaluation: 11:15 - Subjective Subjective: Patient awake and conscious She appears to be comfortable but no chest pain no shortness of breath Vital sign noted to be stable Objective - Vital Signs/Intake and Output Vital Signs (last 24 hours): Temp Pulse Resp BP Pulse Ox 97.7 F 65 18 147/70 95 11/08/17 07:55 11/08/17 09:12 11/08/17 07:55 11/08/17 09:12 11/08/17 07:55 - Medications Medications: Current Medications Aspirin (Aspirin Chewable) 81 mg PO DAILY [facility] Last Admin: 11/08/17 09:13 Dose: 81 mg Atorvastatin Calcium (Lipitor) 40 mg PO HS [facility] Last Admin: 11/07/17 21:17 Dose: 40 mg Enoxaparin Sodium (Lovenox) 40 mg SC DAILY [facility] PRN Reason: Protocol Last Admin: 11/08/17 09:12 Dose: 40 mg Glipizide (Glucotrol Xl) 10 mg PO ACBD [facility] Last Admin: 11/08/17 09:13 Dose: 10 mg Hydralazine HCl (Apresoline) 10 mg IV Q6 PRN PRN Reason: Blood Pressure Ciprofloxacin (Cipro 200mg/100ml D5w) 100 mls @ 100 mls/hr IVPB Q12 [facility] Last Admin: 11/08/17 09:18 Dose: 100 mls/hr Insulin Detemir (Levemir) 20 units SC DAILY [facility] Last Admin: 11/07/17 09:43 Dose: Not Given Isosorbide Mononitrate (Imdur Er) 30 mg PO BID [facility] Last Admin: 11/08/17 09:12 Dose: 30 mg Levothyroxine Sodium (Synthroid) 100 mcg PO DAILY@0630 [facility] Last Admin: 11/08/17 06:39 Dose: 100 mcg Lorazepam (Ativan) 0.5 mg PO Q8 PRN PRN Reason: Anxiety Last Admin: 11/07/17 23:19 Dose: 0.5 mg Metoprolol Tartrate (Lopressor) 50 mg PO TID [facility] Last Admin: 11/08/17 09:12 Dose: 50 mg Morphine Sulfate (Morphine) 2 mg IVP Q6 PRN PRN Reason: Pain, severe (8-10) Last Admin: 11/05/17 06:04 Dose: 2 mg Ondansetron HCl (Zofran Inj) 4 mg IVP Q6 PRN PRN Reason: Nausea/Vomiting Last Admin: 11/05/17 08:50 Dose: 4 mg Quetiapine Fumarate (Seroquel) 25 mg PO HS [facility] Last Admin: 11/07/17 21:17 Dose: 25 mg Tramadol HCl (Ultram) 50 mg PO BID [facility] Last Admin: 11/08/17 09:17 Dose: 50 mg - Labs Labs: 11/06/17 07:31 11/07/17 05:30 - Constitutional Appears: No Acute Distress - ENT Exam ENT Exam: Mucous Membranes Moist - Respiratory Exam Respiratory Exam: absent: Chest Wall Tenderness - Cardiovascular Exam Cardiovascular Exam: REGULAR RHYTHM. absent: JVD, Rubs - GI/Abdominal Exam GI & Abdominal Exam: Soft, Normal Bowel Sounds - Extremities Exam Extremities Exam: absent: Calf Tenderness - Back Exam Back Exam: absent: CVA tenderness (L), CVA tenderness (R) - Neurological Exam Neurological Exam: Alert - Psychiatric Exam Psychiatric exam: Normal Affect - Skin Skin Exam: absent: Cyanosis Assessment and Plan (1) MUSHTAQ (acute kidney injury) Assessment & Plan: Acute kidney injury the fact that serum creatinine coming down and improving I'm not sure again if she has underlying chronic kidney disease because I do not have previous serum creatinine on her. Diabetes mellitus as per primary team PTH is slightly elevated consistent with secondary hyperparathyroidism we give calcitriol. Status: Acute
[2017-11-08 12:49] VITALS: BP 143/89; PULSE 58; TEMP 97.6; O2SAT 97
--- NOTE | 2017-11-08 13:32 | CT ---
PROCEDURE: CT HEAD WITHOUT CONTRAST. HISTORY: AMS COMPARISON: CT head dated 09/16/2016. TECHNIQUE: Axial computed tomography images were obtained through the head/brain without intravenous contrast. Radiation dose: Total exam DLP = 788.2 mGy-cm. This CT exam was performed using one or more of the following dose reduction techniques: Automated exposure control, adjustment of the mA and/or kV according to patient size, and/or use of iterative reconstruction technique. FINDINGS: HEMORRHAGE: No intracranial hemorrhage. BRAIN: No mass effect or edema. Atrophy. Chronic periventricular matter microvascular ischemic changes. VENTRICLES: Unremarkable. No hydrocephalus. CALVARIUM: Unremarkable. PARANASAL SINUSES: Unremarkable as visualized. No significant inflammatory changes. MASTOID AIR CELLS: Unremarkable as visualized. No inflammatory changes. OTHER FINDINGS: None. IMPRESSION: No acute intracranial pathology.
--- NOTE | 2017-11-08 15:37 | CP.PCM.DIS ---
Provider - Provider Date of Admission: 11/03/17 19:14 Attending physician: Daquan Wagoner MD Diagnosis - Discharge Diagnosis (1) Chest pain Status: Acute Priority: High (2) Abdominal pain Status: Acute Priority: High (3) UTI (urinary tract infection) Status: Acute (4) MUSHTAQ (acute kidney injury) Status: Acute (5) DM (diabetes mellitus) Status: Chronic Priority: High (6) High cholesterol Status: Chronic Priority: Medium (7) Hx of CABG Status: Chronic Priority: High (8) Hypertension Status: Chronic Priority: Medium (9) Hypothyroidism Status: Chronic Priority: Medium Hospital Course - Lab Results Lab Results: Micro Results 11/04/17 08:20 Urine,Random Urine Culture - Final Escherichia Coli Most Recent Lab Values WBC 8.1 K/uL (4.8-10.8) 11/06/17 07:31 RBC 3.61 Mil/uL (3.80-5.20) L 11/06/17 07:31 Hgb 10.5 g/dL (12.0-16.0) L 11/06/17 07:31 Hct 31.4 % (34.0-47.0) L 11/06/17 07:31 MCV 87.0 fl (81.0-99.0) 11/06/17 07:31 MCH 29.2 pg (27.0-31.0) 11/06/17 07:31 MCHC 33.5 g/dL (33.0-37.0) 11/06/17 07:31 RDW 13.1 % (11.5-14.5) 11/06/17 07:31 Plt Count 156 K/uL (130-400) 11/06/17 07:31 MPV 10.5 fl (7.2-11.7) 11/03/17 18:00 Neut % (Auto) 72.9 % (50.0-75.0) 11/03/17 18:00 Lymph % (Auto) 14.6 % (20.0-40.0) L 11/03/17 18:00 Dickey % (Auto) 7.8 % (0.0-10.0) 11/03/17 18:00 Eos % (Auto) 4.0 % (0.0-4.0) 11/03/17 18:00 Baso % (Auto) 0.7 % (0.0-2.0) 11/03/17 18:00 Neut # (Auto) 6.7 K/uL (1.8-7.0) 11/03/17 18:00 Lymph # (Auto) 1.4 K/uL (1.0-4.3) 11/03/17 18:00 Dickey # (Auto) 0.7 K/uL (0.0-0.8) 11/03/17 18:00 Eos # (Auto) 0.4 K/uL (0.0-0.7) 11/03/17 18:00 Baso # (Auto) 0.1 K/uL (0.0-0.2) 11/03/17 18:00 Sodium 143 mmol/l (132-148) 11/07/17 05:30 Potassium 4.6 MMOL/L (3.6-5.0) 11/07/17 05:30 Chloride 105 mmol/L (98-107) 11/07/17 05:30 Carbon Dioxide 24 mmol/L (22-30) 11/07/17 05:30 Anion Gap 19 (10-20) 11/07/17 05:30 BUN 35 mg/dl (7-17) H 11/07/17 05:30 Creatinine 1.5 mg/dl (0.7-1.2) H 11/07/17 05:30 Est GFR ( Amer) 41 11/07/17 05:30 Est GFR (Non-Af Amer) 34 11/07/17 05:30 POC Glucose (mg/dL) 182 mg/dL (65-110) H 11/08/17 11:02 Random Glucose 106 mg/dL (65-105) H 11/07/17 05:30 Hemoglobin A1c 6.0 % (4.2-6.5) 11/04/17 08:10 Calcium 9.4 mg/dL (8.4-10.2) 11/07/17 05:30 Phosphorus 4.5 mg/dl (2.5-4.5) 11/06/17 15:40 Total Bilirubin 0.8 mg/dl (0.2-1.3) 11/06/17 07:31 AST 20 U/L (14-36) 11/06/17 07:31 ALT 29 U/L (9-52) 11/06/17 07:31 Alkaline Phosphatase 70 U/L (38-126) 11/06/17 07:31 Troponin I < 0.0120 ng/mL (0.00-0.120) 11/05/17 16:35 NT-Pro-B Natriuret Pep 537 pg/ml (0-900) 11/05/17 16:35 Total Protein 7.7 G/DL (6.3-8.2) 11/06/17 07:31 Albumin 4.4 g/dL (3.5-5.0) 11/06/17 07:31 Globulin 3.3 gm/dL (2.2-3.9) 11/06/17 07:31 Albumin/Globulin Ratio 1.3 (1.0-2.1) 11/06/17 07:31 Triglycerides 163 mg/DL (0-149) H 11/04/17 08:10 Cholesterol 191 mg/dL (0-199) 11/04/17 08:10 LDL Cholesterol Direct 121 mg/dL (0-129) 11/04/17 08:10 HDL Cholesterol 31 MG/DL (30-70) 11/04/17 08:10 Thyroxine (T4) 7.26 ug/dl (5.5-11.0) 11/04/17 08:10 TSH 3rd Generation 0.43 mIU/ML (0.46-4.68) L 11/04/17 08:10 PTH Intact Whole Molec 78 pg/mL (14-64) H 11/06/17 15:40 Urine Color Yellow (YELLOW) 11/04/17 02:06 Urine Clarity Cloudy (Clear) 11/04/17 02:06 Urine pH 5.0 (5.0-8.0) 11/04/17 02:06 Ur Specific [place] 1.014 (1.003-1.030) 11/04/17 02:06 Urine Protein 30 mg/dL (NEGATIVE) 11/04/17 02:06 Urine Glucose (UA) Neg mg/dL (Normal) 11/04/17 02:06 Urine Ketones Negative mg/dL (NEGATIVE) 11/04/17 02:06 Urine Blood Negative (NEGATIVE) 11/04/17 02:06 Urine Nitrate Negative (NEGATIVE) 11/04/17 02:06 Urine Bilirubin Negative (NEGATIVE) 11/04/17 02:06 Urine Urobilinogen 0.2-1.0 mg/dL (0.2-1.0) 11/04/17 02:06 Ur Leukocyte Esterase Large Slim/uL (Negative) 11/04/17 02:06 Urine RBC (Auto) 3 /hpf (0-3) 11/04/17 02:06 Urine Microscopic WBC 48 /hpf (0-5) H 11/04/17 02:06 Ur Squamous Epith Cells 5 /hpf (0-5) 11/04/17 02:06 Urine Bacteria Occ (<OCC) H 11/04/17 02:06 Hyaline Casts 0-2 /hpf (0-2) 11/04/17 02:06 Urine Osmolality 206 mosm/kg (300-1000) L 11/06/17 00:51 Ur Random Creatinine 51.3 mg/dL 11/06/17 00:51 Ur Random Sodium 15 meq/L 11/06/17 00:51 Ur Random Potassium 24.2 mmol/L 11/06/17 00:51 Influenza Typ A,B (EIA) Negative for flu a/b (NEGATIVE) 11/03/17 18:00 Discharge Exam - Head Exam Head Exam: NORMAL INSPECTION - Eye Exam Eye Exam: Normal appearance - ENT Exam ENT Exam: Normal Exam - Neck Exam Neck exam: Normal Inspection - Respiratory Exam Respiratory Exam: NORMAL BREATHING PATTERN - Cardiovascular Exam Cardiovascular Exam: REGULAR RHYTHM, Systolic Murmur - GI/Abdominal Exam GI & Abdominal Exam: Normal Bowel Sounds, Soft, Tenderness (mild suprapubic) - Extremities Exam Extremities exam: normal inspection - Back Exam Back exam: NORMAL INSPECTION - Neurological Exam Neurological exam: Alert, Oriented x3 Additional comments: No focal motor/sensory deficit - Psychiatric Exam Psychiatric exam: Anxious - Skin Skin Exam: Warm Discharge Plan - Discharge Medications Prescriptions: Glimepiride [amaRYL] 4 mg PO BID #60 tab Aspirin 81 mg PO DAILY #30 tab.chew LORazepam [Ativan] 0.5 mg PO BID #14 tab Ciprofloxacin HCl [Cipro] 250 mg PO BID #10 tablet Isosorbide Mononitrate ER [Imdur ER] 30 mg PO BID #30 tab Atorvastatin [Lipitor] 40 mg PO HS #30 tab Metoprolol Tartrate [Lopressor] 50 mg PO TID #90 tab QUEtiapine [Seroquel] 25 mg PO HS #30 tab Levothyroxine [Synthroid] 100 mcg PO DAILY #30 tab - Follow Up Plan Condition: FAIR Disposition: HOME/ ROUTINE Instructions: Chest Pain (DC) Additional Instructions: pt. cleared for discharge to Home today by , Rx for meds provided pt. will f/u with PMD in 1 week pt will f/u with outpatient Referrals: Juan Murray MD [Staff Provider] - Karel Gore MD [Staff Provider] - Daquan Wagoner MD [Staff Provider] - Leyla Wu MD [Staff Provider] -
--- NOTE | 2017-11-08 16:25 | CP.PCM.PN ---
Subjective - Date & Time of Evaluation Date of Evaluation: 11/08/17 Time of Evaluation: 10:45 - Subjective Subjective: Cardiology progress note for Dr. Murray Patient seen and examined at bedside with son providing translation. Her abdominal pain is better, patient offers no complaints of chest pain or shortness of breath. Patient refused her stress imaging yesterday, only agreed to resting images. Objective - Vital Signs/Intake and Output Vital Signs (last 24 hours): Temp Pulse Resp BP Pulse Ox 97.6 F 58 L 18 143/89 97 11/08/17 12:49 11/08/17 12:49 11/08/17 12:49 11/08/17 12:49 11/08/17 12:49 - Medications Medications: Current Medications Aspirin (Aspirin Chewable) 81 mg PO DAILY [facility] Last Admin: 11/08/17 09:13 Dose: 81 mg Atorvastatin Calcium (Lipitor) 40 mg PO HS [facility] Last Admin: 11/07/17 21:17 Dose: 40 mg Enoxaparin Sodium (Lovenox) 40 mg SC DAILY [facility] PRN Reason: Protocol Last Admin: 11/08/17 09:12 Dose: 40 mg Glipizide (Glucotrol Xl) 10 mg PO ACBD [facility] Last Admin: 11/08/17 09:13 Dose: 10 mg Hydralazine HCl (Apresoline) 10 mg IV Q6 PRN PRN Reason: Blood Pressure Ciprofloxacin (Cipro 200mg/100ml D5w) 100 mls @ 100 mls/hr IVPB Q12 [facility] Last Admin: 11/08/17 09:18 Dose: 100 mls/hr Insulin Detemir (Levemir) 20 units SC DAILY [facility] Last Admin: 11/08/17 10:00 Dose: 20 units Isosorbide Mononitrate (Imdur Er) 30 mg PO BID [facility] Last Admin: 11/08/17 09:12 Dose: 30 mg Levothyroxine Sodium (Synthroid) 100 mcg PO DAILY@0630 [facility] Last Admin: 11/08/17 06:39 Dose: 100 mcg Lorazepam (Ativan) 0.5 mg PO Q8 PRN PRN Reason: Anxiety Last Admin: 11/07/17 23:19 Dose: 0.5 mg Metoprolol Tartrate (Lopressor) 50 mg PO TID [facility] Last Admin: 11/08/17 09:12 Dose: 50 mg Morphine Sulfate (Morphine) 2 mg IVP Q6 PRN PRN Reason: Pain, severe (8-10) Last Admin: 11/05/17 06:04 Dose: 2 mg Ondansetron HCl (Zofran Inj) 4 mg IVP Q6 PRN PRN Reason: Nausea/Vomiting Last Admin: 11/05/17 08:50 Dose: 4 mg Quetiapine Fumarate (Seroquel) 25 mg PO HS [facility] Last Admin: 11/07/17 21:17 Dose: 25 mg Tramadol HCl (Ultram) 50 mg PO BID [facility] Last Admin: 11/08/17 09:17 Dose: 50 mg - Labs Labs: 11/06/17 07:31 11/07/17 05:30 - Additional Findings Additional findings: Physical Exam: Vital Signs as below Const'l: Chinese speaking, awake alert & oriented x 4, no acute distress Head/Neck: neck supple, no jvd, trachea midline, carotid midline, no cervical/head mass Eyes: pupils equally reactive to light and accommodation, nonicteric sclera, extraocular intact ENT: auditory acuity grossly intact, throat not congested, no nasal deformity Cardio: +Holosystolic murmur best heard at LUSB; regular rate, regular rhythm, no rubs gallops, no carotid bruit, normal s1, s2 Pulm: no accessory muscle use, equal normal breath sounds bilaterally, clear to ausculation bilaterally Abd: +Tenderness to palpation RUQ and RLQ; +Anthony negative; soft non- distended, normal bowel sounds x 4 quadrants, no palpable masses Derm: no rashes, no ulcers, no lesions Extr: no edema, no cyanosis, no calf tenderness, no lesions, no varicosities Neuro: cranial nerves II-XII grossly intact, upper extremity and lower extremity 5/5 muscle strength bilaterally, no loss of sensation in upper extremities, lower extremities bilaterally Assessment and Plan - Assessment and Plan (Free Text) Assessment: Assessment and Plan: 77 year old female with past medical history of CAD s/p CABG and stent placement in November 2015 (cannot locate where the stent is placed per chart review), Diabetes, Hypertension, Hyporthyroidism, Dementia, Depression, and Aortic Valve Disease presents with abdominal pain. Patient incidentally reported some right sided chest pain with radiation to the right flank area as well without shortness of breath. Patient was also found to be hypertensive, which was treated with Lopressor, Valsartan, and Catapres. Upon review of labs , this was found to be hypertensive emergency, as patient is in MUSHTAQ. Patient's blood pressure is well controlled right now. Patient's troponins were negative X 2 and EKG does not show any ST elevations. Chest pain, likely 2/2 anxiety VS ischemia, rule out ACS - Pending Troponin 3, Negative X 2 - No EKG ischemic changes, but shows biatrial enlargement with LVH - Stress test: Resting images show no ischemia Hypertensive Emergency - Patient found to have systolic blood pressure >180 on admission as well as MUSHTAQ - Manage BP with Lopressor and Catapres; HOLD ARB, PATIENT IS IN MUSHTAQ Acute Kidney Injury likely 2/2 blood pressure vs renal calculi - Patient does complain of right flank pain - Please hold MELONIE-I, ARBs, as patient is in MUSHTAQ - Patient's last ECHO does not show decreased EF, consider light hydration - Patient's son states that her lav crewman has diagnosed her with CKD Stage II - consider nephrology consult - Rest of Management per Primary Hyperlipidemia - Patient has elevated TGs - Starting patient on Crestor Diabetes Mellitus - Per primary Abdominal Pain - Per primary Hypothyroidism - Per primary Dispo: Monitor blood pressure closely; Consider light hydration for MUSHTAQ; Please hold MELONIE-I/ARBs 2/2 MUSHTAQ. Patient having an acute bout of confusion, is refusing consent for stress imaging right now. We read the resting images, which show no evidence of ischemia. Per ACC/AHA guidelines, no further cardiac intervention needed at this point.
== END 2017-11-08 15:40 | disposition home health service (06) | DRG 313 ==
LOC: H.ER 16:58 → OBSVTOIN 19:14 → H.ERHOLD 19:14 → H.TEL 11-04 00:10
PROVIDERS: ADMIT Internal Medicine Pulmonary Disease; ATTEND Internal Medicine Pulmonary Disease
DX: R07.89 Other chest pain (principal); N17.9 Acute kidney failure, unspecified; N39.0 Urinary tract infection, site not specified; I16.1 Hypertensive emergency; I25.10 Atherosclerotic heart disease of native coronary artery without angina pectoris; B96.20 Unspecified Escherichia coli [E. coli] as the cause of diseases classified elsewhere; I12.9 Hypertensive chronic kidney disease with stage 1 through stage 4 chronic kidney disease, or unspecified chronic kidney disease; N18.2 Chronic kidney disease, stage 2 (mild); E11.22 Type 2 diabetes mellitus with diabetic chronic kidney disease; F03.90 Unspecified dementia, unspecified severity, without behavioral disturbance, psychotic disturbance, mood disturbance, and anxiety; E03.9 Hypothyroidism, unspecified; E78.5 Hyperlipidemia, unspecified; F41.9 Anxiety disorder, unspecified; K21.9 Gastro-esophageal reflux disease without esophagitis; I25.2 Old myocardial infarction; Z95.2 Presence of prosthetic heart valve; Z95.1 Presence of aortocoronary bypass graft; Z95.5 Presence of coronary angioplasty implant and graft; Z79.82 Long term (current) use of aspirin; Z79.4 Long term (current) use of insulin

== ENCOUNTER 2018-03-02 08:56 | Emergency (ER) | payer MEDICARE, MEDICAID ==
[2018-03-02 08:56] VITALS: BMI 27.4
[2018-03-02 09:03] VITALS: BP 149/42; PULSE 63; TEMP 99; O2SAT 98
--- NOTE | 2018-03-02 10:05 | ED PDOC ---
HPI: General Adult Chief Complaint (Nursing): Abnormal Skin Integrity Chief Complaint (Provider): Allergic Reaction History Per: Patient History/Exam Limitations: no limitations Onset/Duration Of Symptoms: Days (1x) Current Symptoms Are (Timing): Still Present Additional Complaint(s): 77 year old female with a history of HTN, DM and hypercholesteremia presents to the ED complaining of itchiness and redness on hands and abdomen yesterday. She reports she was gardening with no gloves on and soon noticed redness developing on both hands. Patient denies shortness of breath, throat closing sensation or any other medical complaints. PMD: Dr. Daquan Wagonre Past Medical History Vital Signs: Last Vital Signs Temp 99 F 03/02/18 09:02 Pulse 63 03/02/18 09:02 Resp BP 149/42 L 03/02/18 09:02 Pulse Ox 98 03/02/18 18:38 - Medical History PMH: Anemia, Anxiety, Arthritis, CAD, Dementia (mild), Depression, Diabetes (?) , Diverticulitis, Gastritis, Gall Bladder Disease, GERD, HTN, Hypercholesterolemia, Hypothyroidism, Pancreatitis, Chronic Kidney Disease ( stage 2 renal disease) Denies: CHF, COPD, HIV, Rheumatoid Arthritis - Surgical History Surgical History: CABG, Cholecystectomy, Coronary Stent (11/2015 (1 STENT)) - Family History Family History: States: Unknown Family Hx - Social History Current smoker - smoking cessation education provided: No Ex-Smoker (has not smoked in the last 12 months): No Alcohol: None Drugs: Denies - Immunization History Hx Tetanus Toxoid Vaccination: No Hx Influenza Vaccination: No Hx Pneumococcal Vaccination: No - Home Medications Home Medications: Ambulatory Orders Medication Instructions Recorded traMADol [Ultram] 50 mg PO BID 08/11/17 Insulin Glargine, Recombina 20 units SQ DAILY 11/03/17 [Lantus] Aspirin 81 mg PO DAILY #30 tab.chew 11/08/17 Atorvastatin [Lipitor] 40 mg PO HS #30 tab 11/08/17 Ciprofloxacin HCl [Cipro] 250 mg PO BID #10 tablet 11/08/17 Glimepiride [amaRYL] 4 mg PO BID #60 tab 11/08/17 Isosorbide Mononitrate ER [Imdur 30 mg PO BID #30 tab 11/08/17 ER] LORazepam [Ativan] 0.5 mg PO BID #14 tab 11/08/17 Levothyroxine [Synthroid] 100 mcg PO DAILY #30 tab 11/08/17 Metoprolol Tartrate [Lopressor] 50 mg PO TID #90 tab 11/08/17 QUEtiapine [Seroquel] 25 mg PO HS #30 tab 11/08/17 predniSONE [Prednisone] 40 mg PO DAILY 3 Days tab 03/02/18 - Allergies Allergies/Adverse Reactions: Allergies Allergy/AdvReac Type Severity Reaction Status Date / Time ceftriaxone [From Rocephin] Allergy RASH Verified 11/03/17 17:03 Review of Systems ROS Statement: Except As Marked, All Systems Reviewed And Found Negative Respiratory: Positive for: Other (no throat closing). Negative for: Shortness of Breath Skin: Positive for: Other (itchiness and redness on hands and abdomen) Physical Exam - Reviewed Nursing Documentation Reviewed: Yes Vital Signs Reviewed: Yes - Physical Exam Appears: Positive for: Non-toxic, No Acute Distress Head Exam: Positive for: ATRAUMATIC, NORMOCEPHALIC Skin: Positive for: Warm, Dry Eye Exam: Positive for: EOMI, Normal appearance, PERRL Neck: Positive for: Normal, Painless ROM Cardiovascular/Chest: Positive for: Murmur (systolic ) Respiratory: Positive for: Normal Breath Sounds. Negative for: Stridor, Wheezing Gastrointestinal/Abdominal: Positive for: Other (mild lower abdominal erythema) Extremity: Positive for: Normal ROM (upper and lower extremities), Other (mild erythema on hands) - ECG O2 Sat by Pulse Oximetry: 98 (RA) Pulse Ox Interpretation: Normal Medical Decision Making Medical Decision Making: Time: 9:22 Initial Impression: Allergic Reaction Initial Plan: --benadryl 25 mg PO --prednisone tab 60 mg PO Scribe Attestation: Documented by Brittany Elise, acting as a scribe for Walt Passafaro DO Provider Scribe Attestation: All medical record entries made by the Scribe were at my direction and personally dictated by me. I have reviewed the chart and agree that the record accurately reflects my personal performance of the history, physical exam, medical decision making, and the department course for this patient. I have also personally directed, reviewed, and agree with the discharge instructions and disposition. Disposition - Clinical Impression Clinical Impression: Allergic reaction - [facility] - Disposition Time: 09:20 Condition: GOOD Additional Instructions: Thank you for letting us take care of you today. The emergency medical care you received today was directed at your acute symptoms. If you were prescribed any medication, please fill it and take as directed. It may take several days for your symptoms to resolve. Return to the Emergency Department if your symptoms worsen, do not improve, or if you have any other problems. Please contact your doctor or call one of the physicians/clinics you have been referred to that are listed on the Patient Visit Information form that is included in your discharge packet. Bring any paperwork you were given at discharge with you along with any medications you are taking to your follow up visit. Our treatment cannot replace ongoing medical care by a primary care provider (PCP) outside of the emergency department. Thank you for allowing the [facility] team to be part of your care today. Start prescription tomorrow morning. Follow up with your primary care doctor in 2-3 days for re-evaluation and further management. Prescriptions: predniSONE [Prednisone] 40 mg PO DAILY 3 Days tab Forms: [employer] ([place])
== END 2018-03-02 09:43 | disposition home or self-care (01) ==
LOC: H.ER 08:56
DX: T78.40XA Allergy, unspecified, initial encounter (principal); I10 Essential (primary) hypertension; E11.9 Type 2 diabetes mellitus without complications; Z79.4 Long term (current) use of insulin; Z87.891 Personal history of nicotine dependence; Z95.1 Presence of aortocoronary bypass graft; Z95.5 Presence of coronary angioplasty implant and graft; Z79.82 Long term (current) use of aspirin; I12.9 Hypertensive chronic kidney disease with stage 1 through stage 4 chronic kidney disease, or unspecified chronic kidney disease; F03.90 Unspecified dementia, unspecified severity, without behavioral disturbance, psychotic disturbance, mood disturbance, and anxiety; Z86.59 Personal history of other mental and behavioral disorders; E78.00 Pure hypercholesterolemia, unspecified; E03.9 Hypothyroidism, unspecified; I25.10 Atherosclerotic heart disease of native coronary artery without angina pectoris

== ENCOUNTER 2018-03-28 17:04 | Inpatient (IN) | payer MEDICARE, MEDICAID ==
[2018-03-28 17:04] VITALS: BMI 27.4
[2018-03-28] MEDS ORDERED: Iohexol 240 (50 ml) PO ONE (17:33)
[2018-03-28] MEDS ORDERED: Sodium Chloride 0.9% 500 ML IV STA (17:36)
[2018-03-28] MEDS ORDERED: Famotidine 20mg/50ml 20 MG/50 ML BAG IVPB STA (17:51)
--- NOTE | 2018-03-28 17:51 | ED PDOC ---
HPI: General Adult Time Seen by Provider: 03/28/18 17:18 Chief Complaint (Nursing): Headache Chief Complaint (Provider): Abd pain History Per: Patient History/Exam Limitations: no limitations Onset/Duration Of Symptoms: Days (few) Current Symptoms Are (Timing): Still Present Additional Complaint(s): Pt. with upper abd pain for 3 days. Nausea, no vomit. Also had headache and body aches all over for a very long time. Is not worst pain in her life. Mild ache. No neck pain. No vision changes. No weakness, diarrhea, dyspnea. ? chest pain. No fever, cough, numbness, tingles, weakness. Past Medical History Reviewed: Nursing Documentation, Vital Signs Vital Signs: Last Vital Signs Temp 98.5 F 03/28/18 17:13 Pulse 72 03/28/18 17:13 Resp 22 03/28/18 17:13 BP 176/79 H 03/28/18 17:13 Pulse Ox 98 03/28/18 18:01 - Medical History PMH: Anemia, Anxiety, Arthritis, CAD, Dementia (mild), Depression, Diabetes (?) , Diverticulitis, Gastritis, Gall Bladder Disease, GERD, HTN, Hypercholesterolemia, Hypothyroidism, Pancreatitis, Chronic Kidney Disease ( stage 2 renal disease) Denies: CHF, COPD, HIV, Rheumatoid Arthritis - Surgical History Surgical History: CABG, Cholecystectomy, Coronary Stent (11/2015 (1 STENT)) - Family History Family History: States: Unknown Family Hx - Living Arrangements Living Arrangements: With Family - Immunization History Hx Tetanus Toxoid Vaccination: No Hx Influenza Vaccination: No Hx Pneumococcal Vaccination: No - Home Medications Home Medications: Ambulatory Orders Medication Instructions Recorded traMADol [Ultram] 50 mg PO BID 08/11/17 Insulin Glargine, Recombina 20 units SQ DAILY 11/03/17 [Lantus] Aspirin 81 mg PO DAILY #30 tab.chew 11/08/17 Atorvastatin [Lipitor] 40 mg PO HS #30 tab 11/08/17 Ciprofloxacin HCl [Cipro] 250 mg PO BID #10 tablet 11/08/17 Glimepiride [amaRYL] 4 mg PO BID #60 tab 11/08/17 Isosorbide Mononitrate ER [Imdur 30 mg PO BID #30 tab 11/08/17 ER] LORazepam [Ativan] 0.5 mg PO BID #14 tab 11/08/17 Levothyroxine [Synthroid] 100 mcg PO DAILY #30 tab 11/08/17 Metoprolol Tartrate [Lopressor] 50 mg PO TID #90 tab 11/08/17 QUEtiapine [Seroquel] 25 mg PO HS #30 tab 11/08/17 predniSONE [Prednisone] 40 mg PO DAILY 3 Days tab 03/02/18 - Allergies Allergies/Adverse Reactions: Allergies Allergy/AdvReac Type Severity Reaction Status Date / Time ceftriaxone [From Rocephin] Allergy RASH Verified 03/28/18 17:12 Review of Systems ROS Statement: Except As Marked, All Systems Reviewed And Found Negative Cardiovascular: Positive for: Chest Pain Gastrointestinal: Positive for: Nausea, Abdominal Pain Musculoskeletal: Positive for: Other (body aches) Physical Exam - Reviewed Nursing Documentation Reviewed: Yes Vital Signs Reviewed: Yes - Physical Exam Appears: Positive for: Non-toxic, No Acute Distress Head Exam: Positive for: ATRAUMATIC, NORMAL INSPECTION, NORMOCEPHALIC Skin: Positive for: Normal Color, Warm, DRY Eye Exam: Positive for: EOMI, Normal appearance, PERRL ENT: Positive for: Normal ENT Inspection Neck: Positive for: Normal, Painless ROM Cardiovascular/Chest: Positive for: Regular Rate, Rhythm Respiratory: Positive for: CNT, Normal Breath Sounds Gastrointestinal/Abdominal: Positive for: Soft, Tenderness (epigastric) Back: Positive for: Normal Inspection. Negative for: L CVA Tenderness, R CVA Tenderness Extremity: Positive for: Normal ROM, Pedal Edema (b/l feet 1+). Negative for: Tenderness, Calf Tenderness Neurologic/Psych: Positive for: Alert, cutter grinder II-XII, Oriented. Negative for: Motor/Sensory Deficits, Aphasia, Facial Droop - Laboratory Results Result Diagrams: 03/28/18 17:45 03/28/18 17:45 - ECG O2 Sat by Pulse Oximetry: 98 Pulse Ox Interpretation: Normal - CT Scan/US ct head Other Rad Studies (CT/US): Read By Radiologist Other Rad Interpretation: no acute - Progress ED Course And Treament: 1833: Stable. Dr. Mcgovern to fu on ct abd/pelvis and repeat K. Pt. with chf/ edema in feet will need possible admit. Lasix and asa given. Disposition - Clinical Impression Clinical Impression: CHF (congestive heart failure), Chronic headache disorder, Abdominal pain - Patient ED Disposition Is Patient to be Admitted: Transfer of Care - Disposition Disposition: Transfer of Care Disposition Time: 18:36 Condition: STABLE Patient Signed Over To: Lemuel Mcgovern
[2018-03-28] MEDS ORDERED: Famotidine 20mg/50ml 20 MG/50 ML BAG IVPB ONE (17:53)
[2018-03-28] MEDS ORDERED: Iohexol 240 (50 ml) ONE (17:54)
[2018-03-28 17:58] LABS: BASO # 0.1 K/uL (0.0-0.2); BASO % 0.7 % (0.0-2.0); EOS # 0.5 K/uL (0.0-0.7); EOS % 5.6 % (0.0-4.0); LYMPH # 1.9 K/uL (1.0-4.3); LYMPH % 21.9 % (20.0-40.0); MEAN CORPUSCULAR HEMOGLOBIN 29.3 pg (27.0-31.0); MEAN CORPUSCULAR HGB CONC 33.7 g/dL (33.0-37.0); MEAN PLATELET VOLUME 9.5 fl (7.2-11.7); MONO # 0.9 K/uL (0.0-0.8); MONO % 10.5 % (0.0-10.0); NEUT # 5.2 K/uL (1.8-7.0); NEUT % 61.3 % (50.0-75.0); NRBC % 0.1 % (0.0-0.0); RBC 4.1 Mil/uL (3.80-5.20); RED CELL DISTRIBUTION WIDTH 13.4 % (11.5-14.5); WHITE BLOOD COUNT 8.6 K/uL (4.8-10.8)
[2018-03-28 18:05] LABS: ALB/GLOB RATIO 1.2 (1.0-2.1); ALBUMIN 4.9 g/dL (3.5-5.0); CALCIUM 10.1 mg/dL (8.4-10.2); GFR AFRICAN-AMERICAN 52; GFR NON-AFRICAN AMERICAN 43; LIPASE 213 U/L (23-300)
--- NOTE | 2018-03-28 18:08 | CT ---
PROCEDURE: CT HEAD WITHOUT CONTRAST. HISTORY: headache COMPARISON: Noncontrast head CT 11/08/2017. TECHNIQUE: Axial computed tomography images were obtained through the head/brain without intravenous contrast. Radiation dose: Total exam DLP = 790.07 mGy-cm. This CT exam was performed using one or more of the following dose reduction techniques: Automated exposure control, adjustment of the mA and/or kV according to patient size, and/or use of iterative reconstruction technique. FINDINGS: HEMORRHAGE: No intracranial hemorrhage. BRAIN: Corticomedullary differentiation remains good throughout. Proportional, diffuse cerebral atrophy and chronic microangiopathy are reiterated. No interval mass effect is identified or suspicious extra-axial fluid collection in the midline brain and appears diffusely unremarkable nevertheless. Posterior fossa contents remain unremarkable including the brainstem. VENTRICLES: Unremarkable. No hydrocephalus. CALVARIUM: Unremarkable. PARANASAL SINUSES: Unremarkable as visualized. No significant inflammatory changes. MASTOID AIR CELLS: Unremarkable as visualized. No inflammatory changes. OTHER FINDINGS: None. IMPRESSION: Stable limited age-related neuro degenerative findings. No definite acute intracranial findings by standard CT criteria. Follow-up CT or MRI are available if clinically warranted.
[2018-03-28 18:17] LABS: B-TYPE NATRIURETIC PEPTIDE 1820 pg/ml (0-900); PROTHROMBIN TIME 10.9 Seconds (9.8-13.1)
[2018-03-28 18:18] LABS: PARTIAL THROMBOPLASTIN TIME 31.3 Seconds (25.6-37.1)
[2018-03-28 18:19] LABS: ALT/SGPT 26 U/L (9-52); AST/SGOT 44 U/L (14-36); BLOOD UREA NITROGEN 23 mg/dl (7-17)
[2018-03-28] MEDS ORDERED: Sodium Chloride 0.9% 50 ML IV ONE (19:22)
[2018-03-28] MEDS ORDERED: Iohexol 300 100 ML IJ ONE (19:22)
--- NOTE | 2018-03-28 19:27 | ED PDOC ---
- Laboratory Results Result Diagrams: 03/28/18 17:45 03/28/18 19:00 - ECG O2 Sat by Pulse Oximetry: 98 (RA) Pulse Ox Interpretation: Normal Medical Decision Making Medical Decision Making: -- Patient endorsed to me by Dr. Barrientos @ 1900, pending CT Abd & Pelvis and repeat potassium. Time: [address] RESULTS FINDINGS: HEMORRHAGE: No intracranial hemorrhage. BRAIN: Corticomedullary differentiation remains good throughout. Proportional, diffuse cerebral atrophy and chronic microangiopathy are reiterated. No interval mass effect is identified or suspicious extra-axial fluid collection in the midline brain and appears diffusely unremarkable nevertheless. Posterior fossa contents remain unremarkable including the brainstem. VENTRICLES: Unremarkable. No hydrocephalus. CALVARIUM: Unremarkable. PARANASAL SINUSES: Unremarkable as visualized. No significant inflammatory changes. MASTOID AIR CELLS: Unremarkable as visualized. No inflammatory changes. OTHER FINDINGS: None. IMPRESSION: Stable limited age-related neuro degenerative findings. No definite acute intracranial findings by standard CT criteria. Follow-up CT or MRI are available if clinically warranted. Time: 2056 CT ABD/PELVIS RESULTS FINDINGS: Lower thorax: There are postsurgical changes of median sternotomy. Heart size is normal. There are coronary artery calcifications and/or stents. 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 There is minimal scarring at the lung bases. ABDOMEN: Liver: There is fatty infiltration of the liver. Gallbladder and bile ducts: Gallbladder is absent. Common duct is dilated. Pancreas: Pancreas is mildly atrophic. Spleen: unremarkable Adrenals: There is nodularity to both adrenals. Kidneys and ureters: Kidneys are unremarkable.There is no pelvocaliectasis. There is mild ureterectasis bilaterally. Stomach and bowel: There is a small hiatal hernia. Stomach is incompletely distended. Rotation is normal. There is contrast throughout the small bowel. There is mild small bowel wall and fold thickening. There is mild terminal ileal wall thickening. Appendix is not visualized. There is no pericecal inflammation. There is moderate stool in the colon. There is diverticulosis. There is minimal inflammation about a proximal sigmoid diverticulum, image 102 series 3. PELVIS: Appendix: See stomach and bowel Bladder: Bladder is distended. Reproductive: Uterus is mildly prominent for patient's age. There is continued mild prominence of both adnexa with small coarse calcifications and cysts. ABDOMEN and PELVIS: Intraperitoneal space: There is no significant fluid.There is no free air. Bones/joints: Bony structures are osteopenic with degenerative change. Soft tissues: There is a very small fat containing umbilical hernia. Vasculature: There are vascular calcifications. There are phleboliths in the pelvis Lymph nodes: There are no enlarged para-aortic nodes There are shotty celiac nodes. IMPRESSION: Early sigmoid diverticulitis; possible enteritis, no bowel obstruction; dilated common duct status post cholecystectomy; mild ureterectasis most likely due to bladder volume Additional nonemergent findings as described above. Thank you for allowing us to participate in the care of your patient. Dictated and Authenticated by: Celeste Villasenor MD 03/28/2018 8:56 PM Eastern Time ([place] & [place]) Time: 2109 A/P: - will get blood work - will give Cipro and Flagyl Time: 2111 -- Spoke with family about results and Dr. Wagoner who accepts admission. Will admit for sigmoid diverticulitis and potential CHF. Scribe Attestation: Documented by Michael Mathew, acting as a scribe for Dr. Lemuel Mcgovern MD. Provider Scribe Attestation: All medical record entries made by the Scribe were at my direction and personally dictated by me. I have reviewed the chart and agree that the record accurately reflects my personal performance of the history, physical exam, medical decision making, and the department course for this patient. I have also personally directed, reviewed, and agree with the discharge instructions and disposition. Disposition - Clinical Impression Clinical Impression: CHF (congestive heart failure), Sigmoid diverticulitis - POA Present On Arrival: None - Disposition Disposition: Hospitalized as Observation Patient Disposition Time: 21:12 Condition: FAIR
--- NOTE | 2018-03-28 20:56 | CT ---
EXAM: CT Abdomen and Pelvis With Intravenous Contrast EXAM DATE/TIME: 03/28/2018 5:34 PM CLINICAL HISTORY: 78 years old, female; Pain; Abdominal pain; Epigastric; Prior surgery; Surgery date: 6+ months; Surgery type: Gb removed; Additional info: Abd pain TECHNIQUE: Axial computed tomography images of the abdomen and pelvis with intravenous contrast. All CT scans at this facility use at least one of these dose optimization techniques: automated exposure control; mA and/or kV adjustment per patient size (includes targeted exams where dose is matched to clinical indication); or iterative reconstruction. Coronal and sagittal reformatted images were created and reviewed. COMPARISON: CT - ABD PELVIS PO CONTRAST ONLY 2017-11-05 14:56 FINDINGS: Lower thorax: There are postsurgical changes of median sternotomy. Heart size is normal. There are coronary artery calcifications and/or stents. 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 There is minimal scarring at the lung bases. ABDOMEN: Liver: There is fatty infiltration of the liver. Gallbladder and bile ducts: Gallbladder is absent. Common duct is dilated. Pancreas: Pancreas is mildly atrophic. Spleen: unremarkable Adrenals: There is nodularity to both adrenals. Kidneys and ureters: Kidneys are unremarkable.There is no pelvocaliectasis. There is mild ureterectasis bilaterally. Stomach and bowel: There is a small hiatal hernia. Stomach is incompletely distended. Rotation is normal. There is contrast throughout the small bowel. There is mild small bowel wall and fold thickening. There is mild terminal ileal wall thickening. Appendix is not visualized. There is no pericecal inflammation. There is moderate stool in the colon. There is diverticulosis. There is minimal inflammation about a proximal sigmoid diverticulum, image 102 series 3. PELVIS: Appendix: See stomach and bowel Bladder: Bladder is distended. Reproductive: Uterus is mildly prominent for patient's age. There is continued mild prominence of both adnexa with small coarse calcifications and cysts. ABDOMEN and PELVIS: Intraperitoneal space: There is no significant fluid.There is no free air. Bones/joints: Bony structures are osteopenic with degenerative change. Soft tissues: There is a very small fat containing umbilical hernia. Vasculature: There are vascular calcifications. There are phleboliths in the pelvis Lymph nodes: There are no enlarged para-aortic nodes There are shotty celiac nodes. IMPRESSION: Early sigmoid diverticulitis; possible enteritis, no bowel obstruction; dilated common duct status post cholecystectomy; mild ureterectasis most likely due to bladder volume Additional nonemergent findings as described above.
[2018-03-28] MEDS ORDERED: Ciprofloxacin 200mg/100ml D5W 100 ML IVPB STA (20:57)
[2018-03-28] MEDS ORDERED: metroNIDAZOLE 500mg/100ml NS 100 ML IVPB STA (20:57)
[2018-03-28 22:39] LABS: VENOUS BLOOD GAS BASE EXCESS 4.5 mmol/L (0.0-2.0); VENOUS BLOOD GAS PCO2 54 mmHg (40-60); VENOUS BLOOD GAS PO2 24 mm/Hg (30-55); VENOUS BLOOD PH 7.37 (7.32-7.43)
[2018-03-29] MEDS: Levothyroxine 112 MCG TAB PO SCH (05:43)
--- NOTE | 2018-03-29 07:32 | RAD ---
HISTORY: dyspnea COMPARISON: Chest radiographs 11/03/2017. FINDINGS: LUNGS: No active pulmonary disease. PLEURA: No significant pleural effusion identified, no pneumothorax apparent. CARDIOVASCULAR: Normal cardiac silhouette reiterated. Post CABG changes however again identified. OSSEOUS STRUCTURES: No significant abnormalities. VISUALIZED UPPER ABDOMEN: Postcholecystectomy pattern of surgical clips again noted right upper quadrant. OTHER FINDINGS: None. IMPRESSION: No interval acute cardiopulmonary disease appreciated.
[2018-03-29 07:47] LABS: SQUAMOUS EPITHIAL < 1 /hpf (0-5); URINE BILIRUBIN NEGATIVE (NEGATIVE); URINE BLOOD NEGATIVE (NEGATIVE); URINE CLARITY CLEAR (Clear); URINE COLOR STRAW (YELLOW); URINE GLUCOSE (UA) NEG (Normal); URINE LEUKOCYTE ESTERASE NEG Leu/uL (Negative); URINE PROTEIN NEGATIVE (NEGATIVE); URINE UROBILINOGEN 0.2-1.0 mg/dL (0.2-1.0)
[2018-03-29] MEDS: GlipiZIDE 10 mg SR Tab PO SCH ×2 (08:58→16:59)
[2018-03-29] MEDS ORDERED: Patient's Own Med (Glimepiride [Amaryl] 4 MG) PO SCH (09:00)
[2018-03-29] MEDS ORDERED: INSULIN GLARGINE RECOMBINA 20 UNIT SQ SCH (09:00)
[2018-03-29] MEDS: Insulin Detemir 100 Units/ml Inj SC SCH (09:10)
--- NOTE | 2018-03-29 10:22 | CARD ---
APPROVED REPORT EKG Measurement Heart [id number] <Conclusion> Normal sinus rhythm Possible Left atrial enlargement Left axis deviation Pulmonary disease pattern Left ventricular hypertrophy Cannot rule out Septal infarct, age undetermined Abnormal ECG
--- NOTE | 2018-03-29 13:35 | CP.PCM.HP ---
History of Present Illness - History of Present Illness History of Present Illness: 78 years old female, CC abdominal pain for 3 days prior to admission no nausea no vomiting abdominal pain difficult to described by patient she is a poor historian appeared periumbilical and in the lower quadrants also patient is state at time epigastric with retrosternal radiation, accompanied by headache and generalized body aches, no nausea no vomiting no diarrhea no hematemesis or melena no fever no cough Review of Systems - Constitutional Constitutional: Other (neg) - EENT Eyes: Other (neg) Nose/Mouth/Throat: Other (neg) - Cardiovascular Cardiovascular: Other (neg) - Respiratory Respiratory: Other (neg) - Gastrointestinal Gastrointestinal: Abdominal Pain - Genitourinary Genitourinary: Other (neg) - Musculoskeletal Musculoskeletal: Arthralgias - Integumentary Integumentary: Other (neg) - Neurological Neurological: Headaches - Psychiatric Psychiatric: Anxiety, Depression - Endocrine Endocrine: Other (neg) - Hematologic/Lymphatic Hematologic: Other (neg) Past Patient History - Infectious Disease Hx of Infectious Diseases: None - Tetanus Immunizations Tetanus Immunization: Unknown - Past Medical History & Family History Past Medical History?: Yes - Past Social History Smoking Status: Never Smoked Alcohol: None Drugs: Denies Home Situation {Lives}: With Family - CARDIAC Hx Cardiac Disorders: Yes Hx Congestive Heart Failure: No Hx Hypercholesterolemia: Yes Hx Hypertension: Yes Other/Comment: CAD , CABG ,Stent - PULMONARY Hx Respiratory Disorders: No Hx Chronic Obstructive Pulmonary Disease (COPD): No - NEUROLOGICAL Hx Neurological Disorder: Yes Hx Dementia: Yes (mild) - HEENT Hx HEENT Problems: No - RENAL Hx Chronic Kidney Disease: Yes (stage 2 renal disease) - ENDOCRINE/METABOLIC Hx Endocrine Disorders: Yes Hx Diabetes Mellitus Type 2: Yes Hx Hypothyroidism: Yes - HEMATOLOGICAL/ONCOLOGICAL Hx Blood Disorders: Yes Hx AIDS: No Hx Anemia: Yes Hx Human Immunodeficiency Virus (HIV): No - INTEGUMENTARY Hx Dermatological Problems: No - MUSCULOSKELETAL/RHEUMATOLOGICAL Hx Musculoskeletal Disorders: Yes Hx Arthritis: Yes Hx Falls: No - GASTROINTESTINAL Hx Gastrointestinal Disorders: Yes Hx Diverticulitis: Yes Hx Gall Bladder Disease: Yes Hx Gastritis: Yes Hx Gastroesophageal Reflux: Yes Hx Pancreatitis: Yes - GENITOURINARY/GYNECOLOGICAL Hx Genitourinary Disorders: No - PSYCHIATRIC Hx Psychophysiologic Disorder: Yes Hx Anxiety: Yes Hx Depression: Yes Hx Substance Use: No - SURGICAL HISTORY Hx Surgeries: Yes Hx Cholecystectomy: Yes Hx Coronary Artery Bypass Graft: Yes Hx Coronary Stent: Yes (11/2015 (1 STENT)) - ANESTHESIA Hx Anesthesia: Yes Hx Anesthesia Reactions: No Meds Home Medications: Home Medication List Medication Instructions Recorded Confirmed Type Ciprofloxacin [Cipro] 500 mg PO Q12 #14 tab 04/01/18 Rx metroNIDAZOLE [Flagyl] 500 mg PO Q8 #21 tab 04/01/18 Rx Allergies/Adverse Reactions: Allergies Allergy/AdvReac Type Severity Reaction Status Date / Time ceftriaxone [From Rocephin] Allergy RASH Verified 03/28/18 17:12 Physical Exam - Constitutional Appears: No Acute Distress - Head Exam Head Exam: NORMAL INSPECTION - Eye Exam Eye Exam: PERRL - ENT Exam ENT Exam: Normal Exam - Neck Exam Neck exam: Positive for: Normal Inspection - Respiratory Exam Respiratory Exam: Clear to Auscultation Bilateral - Cardiovascular Exam Cardiovascular Exam: REGULAR RHYTHM, Systolic Murmur - GI/Abdominal Exam GI & Abdominal Exam: Tenderness (periumbilical, epigastric, lower quadrants L>R) - Extremities Exam Extremities exam: Positive for: pedal edema, tenderness (mild knees) - Back Exam Back exam: tenderness (mild) - Neurological Exam Neurological exam: Alert, CN II-XII Intact Additional comments: no focal motor sensory deficit - Psychiatric Exam Psychiatric exam: Anxious, Depressed - Skin Skin Exam: Warm Results - Vital Signs Recent Vital Signs: Last Vital Signs Temp 98.2 F 03/29/18 12:51 Pulse 76 03/29/18 12:51 Resp 20 03/29/18 12:51 BP 110/71 03/29/18 12:51 Pulse Ox 96 03/29/18 12:51 - Labs Result Diagrams: 04/01/18 13:00 04/01/18 13:00 Labs: Laboratory Results - last 24 hr 03/28/18 03/28/18 03/28/18 17:45 17:45 17:45 WBC 8.6 RBC 4.10 Hgb 12.0 Hct 35.6 MCV 87.0 MCH 29.3 MCHC 33.7 RDW 13.4 Plt Count 198 MPV 9.5 Neut % (Auto) 61.3 Lymph % (Auto) 21.9 [place] % (Auto) 10.5 H Eos % (Auto) 5.6 H Baso % (Auto) 0.7 Neut # (Auto) 5.2 Lymph # (Auto) 1.9 [place] # (Auto) 0.9 H Eos # (Auto) 0.5 Baso # (Auto) 0.1 PT 10.9 INR 1.0 APTT 31.3 pO2 VBG pH VBG pCO2 VBG HCO3 VBG Total CO2 VBG O2 Sat (Calc) VBG Base Excess VBG Potassium Glucose Lactate FiO2 Sodium 144 Potassium 5.4 H Chloride 105 Carbon Dioxide 26 Anion Gap 18 BUN 23 H Creatinine 1.2 Est GFR ( Amer) 52 Est GFR (Non-Af Amer) 43 POC Glucose (mg/dL) Random Glucose 110 H Calcium 10.1 Total Bilirubin 0.8 AST 44 H D ALT 26 Alkaline Phosphatase 90 Troponin I < 0.0120 NT-Pro-B Natriuret Pep 1820 H Total Protein 8.9 H Albumin 4.9 Globulin 4.0 H Albumin/Globulin Ratio 1.2 Lipase 213 Venous Blood Potassium Urine Color Urine Clarity Urine pH Ur Specific [place] Urine Protein Urine Glucose (UA) Urine Ketones Urine Blood Urine Nitrate Urine Bilirubin Urine Urobilinogen Ur Leukocyte Esterase Urine RBC (Auto) Urine Microscopic WBC Ur Squamous Epith Cells 03/28/18 03/28/18 03/29/18 19:00 22:00 05:49 WBC RBC Hgb Hct MCV MCH MCHC RDW Plt Count MPV Neut % (Auto) Lymph % (Auto) [place] % (Auto) Eos % (Auto) Baso % (Auto) Neut # (Auto) Lymph # (Auto) [place] # (Auto) Eos # (Auto) Baso # (Auto) PT INR APTT pO2 24 L VBG pH 7.37 VBG pCO2 54 VBG HCO3 26.9 VBG Total CO2 32.9 H VBG O2 Sat (Calc) 51.1 VBG Base Excess 4.5 H VBG Potassium 4.4 Glucose 88 Lactate 0.9 FiO2 21.0 Sodium 139.0 Potassium 4.9 Chloride 102.0 Carbon Dioxide Anion Gap BUN Creatinine Est GFR ( Amer) Est GFR (Non-Af Amer) POC Glucose (mg/dL) 73 Random Glucose Calcium Total Bilirubin AST ALT Alkaline Phosphatase Troponin I NT-Pro-B Natriuret Pep Total Protein Albumin Globulin Albumin/Globulin Ratio Lipase Venous Blood Potassium 4.4 Urine Color Urine Clarity Urine pH Ur Specific [place] Urine Protein Urine Glucose (UA) Urine Ketones Urine Blood Urine Nitrate Urine Bilirubin Urine Urobilinogen Ur Leukocyte Esterase Urine RBC (Auto) Urine Microscopic WBC Ur Squamous Epith Cells 03/29/18 03/29/18 03/29/18 07:15 09:06 10:47 WBC RBC Hgb Hct MCV MCH MCHC RDW Plt Count MPV Neut % (Auto) Lymph % (Auto) [place] % (Auto) Eos % (Auto) Baso % (Auto) Neut # (Auto) Lymph # (Auto) [place] # (Auto) Eos # (Auto) Baso # (Auto) PT INR APTT pO2 VBG pH VBG pCO2 VBG HCO3 VBG Total CO2 VBG O2 Sat (Calc) VBG Base Excess VBG Potassium Glucose Lactate FiO2 Sodium Potassium Chloride Carbon Dioxide Anion Gap BUN Creatinine Est GFR ( Amer) Est GFR (Non-Af Amer) POC Glucose (mg/dL) 378 H 240 H Random Glucose Calcium Total Bilirubin AST ALT Alkaline Phosphatase Troponin I NT-Pro-B Natriuret Pep Total Protein Albumin Globulin Albumin/Globulin Ratio Lipase Venous Blood Potassium Urine Color Straw Urine Clarity Clear Urine pH 6.0 Ur Specific [place] 1.021 Urine Protein Negative Urine Glucose (UA) Neg Urine Ketones Negative Urine Blood Negative Urine Nitrate Negative Urine Bilirubin Negative Urine Urobilinogen 0.2-1.0 Ur Leukocyte Esterase Neg Urine RBC (Auto) 2 Urine Microscopic WBC 2 Ur Squamous Epith Cells < 1 Assessment & Plan (1) Sigmoid diverticulitis Status: Acute Priority: High (2) GERD (gastroesophageal reflux disease) Status: Chronic Priority: High (3) CAD (coronary artery disease) of artery bypass graft Status: Chronic Priority: High (4) Hypertension Status: Chronic Priority: High (5) Diabetes type 2, controlled Status: Chronic (6) Hypothyroidism Status: Chronic (7) Osteoarthritis Status: Chronic Priority: Medium (8) Dementia Status: Chronic Priority: Medium - Assessment and Plan (Free Text) Plan: Cipro ,Flagyl, Cardiac consult, BP and BS control - Date & Time Date: 03/29/18 Time: 15:45
[2018-03-29] MEDS: Insulin Lispro (humaLOG) 100 Units/ml Inj SC SCH ×3 (14:00→21:24)
[2018-03-29] MEDS: Ciprofloxacin 200mg/100ml D5W 100 ML IVPB SCH ×2 (14:03→21:24)
[2018-03-29] MEDS: metroNIDAZOLE 500mg/100ml NS 100 ML IVPB SCH ×2 (14:04→16:59)
--- NOTE | 2018-03-29 17:57 | CP.PCM.CON ---
History of Present Illness - History of Present Illness History of Present Illness: I was asked to see patient by Dr Wagoner. Patient is a 78 year old female with PMH HTN, CAD s/p CABG, AVR who presenst with abdominal pain. She was found to have diverticulitis. She is undergoig treatment. She denies chest pain or dyspnea. Review of Systems - Constitutional Constitutional: absent: As Per HPI, Anorexia, Chills, Daytime Sleepiness, Excessive Sweating, Fatigue, Fever, Frequent Falls, Headache, Increased Appetite , Lethargy, Malaise, Night Sweats, Snoring, Sleep Apnea, Weight Gain, Weight Loss, Weakness, Other - EENT Eyes: absent: As Per HPI, Blind Spots, Blurred Vision, Change in Vision, Decreased Night Vision, Diplopia, Discharge, Dry Eye, Exophthalmos, Floaters, Irritation, Itchy Eyes, Loss of Peripheral Vision, Pain, Photophobia, Requires Corrective Lenses, Sees Flashes, Spots in Vision, Tunnel Vision, Other Visual Disturbances, Loss of Vision, Other Ears: absent: As Per HPI, Decreased Hearing, Ear Discharge, Ear Pain, Tinnitus, Abnormal Hearing, Disequilibrium, Dizziness, Other Nose/Mouth/Throat: absent: As Per HPI, Epistaxis, Nasal Congestion, Nasal Discharge, Nasal Obstruction, Nasal Trauma, Nose Pain, Post Nasal Drip, Sinus Pain, Sinus Pressure, Bleeding Gums, Change in Voice, Dental Pain, Dry Mouth, Dysphagia, Halitosis, Hoarsness, Lip Swelling, Mouth Lesions, Mouth Pain, Odynophagia, Sore Throat, Throat Swelling, Tongue Swelling, Facial Pain, Neck Pain, Neck Mass, Other - Breasts Breasts: absent: As Per HPI, Change in Shape, Mass, Pain, Nipple Discharge, Nipple Inversion, Skin Changes, Swelling, Other - Cardiovascular Cardiovascular: absent: As Per HPI, Acrocyanosis, Chest Pain, Chest Pain at Rest , Chest Pain with Activity, Claudication, Diaphoresis, Dyspnea, Dyspnea on Exertion, Edema, Irregular Heart Rhythm, Pain Radiating to Arm/Neck/Jaw, Leg Edema, Leg Ulcers, Lightheadedness, Orthopnea, Palpitations, Paroxysmal Nocturnal Dyspnea, Pedal Edema, Radiating Pain, Rapid Heart Rate, Slow Heart Rate, Syncope, Other - Respiratory Respiratory: absent: As Per HPI, Cough, Dyspnea, Hemoptysis, Dyspnea on Exertion , Wheezing, Snoring, Stridor, Pain on Inspiration, Chest Congestion, Excessive Mucous Production, Change in Mucous Color, Pain with Coughing, Other - Gastrointestinal Gastrointestinal: Abdominal Pain - Genitourinary Genitourinary: absent: As Per HPI, Change in Urinary Stream, Difficulty Urinating, Dysuria, Flank Pain, Hematuria, Pyuria, Nocturia, Urinary Incontinence, Urinary Frequency, Urinary Hesitance, Urinary Urgency, Voiding Freq/Small Amts, Freq UTI, Hx Renal/Bladder Calculi, Hx /Renal Surgery, Bladder Distension, Other - Musculoskeletal Musculoskeletal: absent: As Per HPI, Abnormal Gait, Arthralgias, Atrophy, Back Pain, Deformity, Joint Swelling, Limited Range of Motion, Loss of Height, Muscle Cramps, Muscle Weakness, Myalgias, Neck Pain, Numbness, Radiating Pain into Limb, Stiffness, Tingling, Other - Integumentary Integumentary: absent: As Per HPI, Acne, Alopecia, Bleeding Lesions, Change in Hair, Change in Nails, Change in Pigmentation, Changing Lesions, Dry Skin, Erythema, Furuncle, Hirsutism, Lesions, New Lesions, Non-Healing Lesions, Photosensitivity, Pruritus, Rash, Skin Pain, Skin Ulcer, Sores, Striae, Swelling , Unusual Bruising, Wounds, Jaundice, Other - Neurological Neurological: absent: As Per HPI, Abnormal Gait, Abnormal Hearing, Abnormal Movements, Abnormal Speech, Behavioral Changes, Burning Sensations, Confusion, Convulsions, Disequilibrium, Dizziness, Numbness, Focal Weakness, Frequent Falls , Headaches, Lack of Coordination, Loss of Vision, Memory Loss, Paresthesias, Radicular Pain, Restless Legs, Sensory Deficit, Syncope, Tingling, Tremor, Vertigo, Weakness, Other Visual Disturbances, Other - Psychiatric Psychiatric: absent: As Per HPI, Abnormal Sleep Pattern, Anhedonia, Anxiety, Auditory Hallucinations, Behavioral Changes, Change in Appetite, Change in Libido, Confusion, Depression, Difficulty Concentrating, Hallucinations, Homicidal Ideation, Hopelessness, Irritability, Memory Loss, Mood Swings, Panic Attacks, Paranoia, Suicidal Ideation, Visual Hallucinations, Tactile Hallucinations, Other - Endocrine Endocrine: absent: As Per HPI, Change in Body Appearance, Change in Libido, Cold Intolorance, Deepening of Voice, Excessive Sweating, Fatigue, Flushing, Heat Intolorance, Increase in Ring/Shoe/Hat Size, Palpitations, Polydipsia, Polyphagia, Polyuria, Other - Hematologic/Lymphatic Hematologic: absent: As Per HPI, Easy Bleeding, Easy Bruising, Lymphadenopathy, Other Past Patient History - Infectious Disease Hx of Infectious Diseases: None - Tetanus Immunizations Tetanus Immunization: Unknown - Past Medical History & Family History Past Medical History?: Yes - Past Social History Smoking Status: Never Smoked - CARDIAC Hx Cardiac Disorders: Yes Hx Congestive Heart Failure: No Hx Hypercholesterolemia: Yes Hx Hypertension: Yes - PULMONARY Hx Respiratory Disorders: No Hx Chronic Obstructive Pulmonary Disease (COPD): No - NEUROLOGICAL Hx Neurological Disorder: Yes Hx Dementia: Yes (mild) - HEENT Hx HEENT Problems: No - RENAL Hx Chronic Kidney Disease: Yes (stage 2 renal disease) - ENDOCRINE/METABOLIC Hx Endocrine Disorders: Yes Hx Diabetes Mellitus Type 2: Yes Hx Hypothyroidism: Yes - HEMATOLOGICAL/ONCOLOGICAL Hx Blood Disorders: Yes Hx AIDS: No Hx Anemia: Yes Hx Human Immunodeficiency Virus (HIV): No - INTEGUMENTARY Hx Dermatological Problems: No - MUSCULOSKELETAL/RHEUMATOLOGICAL Hx Musculoskeletal Disorders: Yes Hx Arthritis: Yes Hx Falls: No - GASTROINTESTINAL Hx Gastrointestinal Disorders: Yes Hx Diverticulitis: Yes Hx Gall Bladder Disease: Yes Hx Gastritis: Yes Hx Pancreatitis: Yes - GENITOURINARY/GYNECOLOGICAL Hx Genitourinary Disorders: No - PSYCHIATRIC Hx Psychophysiologic Disorder: Yes Hx Anxiety: Yes Hx Depression: Yes Hx Substance Use: No - SURGICAL HISTORY Hx Surgeries: Yes Hx Cholecystectomy: Yes Hx Coronary Artery Bypass Graft: Yes Hx Coronary Stent: Yes (11/2015 (1 STENT)) - ANESTHESIA Hx Anesthesia: Yes Hx Anesthesia Reactions: No Meds Allergies/Adverse Reactions: Allergies Allergy/AdvReac Type Severity Reaction Status Date / Time ceftriaxone [From Rocephin] Allergy RASH Verified 03/28/18 17:12 - Medications Medications: Current Medications Acetaminophen (Tylenol 325mg Tab) 650 mg PO Q4 PRN PRN Reason: Pain, Mild (1-3) Alprazolam (Xanax) 0.5 mg PO BID [facility] Last Admin: 03/29/18 17:08 Dose: 0.5 mg Aspirin (Aspirin Chewable) 81 mg PO DAILY [facility] Last Admin: 03/29/18 08:57 Dose: 81 mg Glipizide (Glucotrol Xl) 10 mg PO BIDWM [facility] Last Admin: 03/29/18 16:59 Dose: 10 mg Ciprofloxacin (Cipro 200mg/100ml D5w) 100 mls @ 100 mls/hr IVPB Q12 [facility] PRN Reason: Protocol Last Admin: 03/29/18 14:03 Dose: 100 mls/hr Metronidazole (Flagyl 500mg/100ml Ns) 100 mls @ 100 mls/hr IVPB Q8 [facility] PRN Reason: Protocol Last Admin: 03/29/18 16:59 Dose: Not Given Insulin Detemir (Levemir) 20 units SC DAILY [facility] Last Admin: 03/29/18 09:10 Dose: 20 units Insulin Human Lispro (Humalog) 0 units SC ACHS [facility] PRN Reason: Protocol Last Admin: 03/29/18 17:00 Dose: Not Given Levothyroxine Sodium (Synthroid) 112 mcg PO DAILY@0630 [facility] Last Admin: 03/29/18 05:43 Dose: 112 mcg Metoprolol Tartrate (Lopressor) 50 mg PO BID [facility] Last Admin: 03/29/18 17:06 Dose: 50 mg Quetiapine Fumarate (Seroquel) 25 mg PO HS [facility] Last Admin: 03/28/18 23:32 Dose: 25 mg Quetiapine Fumarate (Seroquel) 25 mg PO DAILY [facility] Last Admin: 03/29/18 09:00 Dose: 25 mg Tramadol HCl (Ultram) 50 mg PO BID [facility] Last Admin: 03/29/18 17:08 Dose: 50 mg Valsartan (Diovan) 160 mg PO BID [facility] Last Admin: 03/29/18 16:59 Dose: 160 mg Physical Exam - Constitutional Appears: Non-toxic - Head Exam Head Exam: NORMAL INSPECTION - Eye Exam Eye Exam: Normal appearance - ENT Exam ENT Exam: Mucous Membranes Moist - Neck Exam Neck exam: Positive for: Normal Inspection - Respiratory Exam Respiratory Exam: Clear to Auscultation Bilateral, NORMAL BREATHING PATTERN - Cardiovascular Exam Cardiovascular Exam: REGULAR RHYTHM, Systolic Murmur - GI/Abdominal Exam GI & Abdominal Exam: Normal Bowel Sounds - Rectal Exam Rectal Exam: Deferred - Extremities Exam Extremities exam: Positive for: pedal edema - Back Exam Back exam: NORMAL INSPECTION - Neurological Exam Neurological exam: Alert, Oriented x3 - Psychiatric Exam Psychiatric exam: Normal Affect - Skin Skin Exam: Normal Color Results - Vital Signs Recent Vital Signs: Last Vital Signs Temp 98.9 F 03/29/18 17:00 Pulse 85 06/29/18 17:06 Resp 17 03/29/18 17:00 BP 137/77 03/29/18 17:06 Pulse Ox 95 03/29/18 17:00 - Labs Result Diagrams: 03/28/18 17:45 03/28/18 19:00 Labs: Laboratory Results - last 24 hr 03/28/18 03/28/18 03/28/18 17:45 17:45 17:45 WBC 8.6 RBC 4.10 Hgb 12.0 Hct 35.6 MCV 87.0 MCH 29.3 MCHC 33.7 RDW 13.4 Plt Count 198 MPV 9.5 Neut % (Auto) 61.3 Lymph % (Auto) 21.9 [place] % (Auto) 10.5 H Eos % (Auto) 5.6 H Baso % (Auto) 0.7 Neut # (Auto) 5.2 Lymph # (Auto) 1.9 [place] # (Auto) 0.9 H Eos # (Auto) 0.5 Baso # (Auto) 0.1 PT 10.9 INR 1.0 APTT 31.3 pO2 VBG pH VBG pCO2 VBG HCO3 VBG Total CO2 VBG O2 Sat (Calc) VBG Base Excess VBG Potassium Glucose Lactate FiO2 Sodium 144 Potassium 5.4 H Chloride 105 Carbon Dioxide 26 Anion Gap 18 BUN 23 H Creatinine 1.2 Est GFR ( Amer) 52 Est GFR (Non-Af Amer) 43 POC Glucose (mg/dL) Random Glucose 110 H Calcium 10.1 Total Bilirubin 0.8 AST 44 H D ALT 26 Alkaline Phosphatase 90 Troponin I < 0.0120 NT-Pro-B Natriuret Pep 1820 H Total Protein 8.9 H Albumin 4.9 Globulin 4.0 H Albumin/Globulin Ratio 1.2 Lipase 213 Venous Blood Potassium Urine Color Urine Clarity Urine pH Ur Specific Sylvester Urine Protein Urine Glucose (UA) Urine Ketones Urine Blood Urine Nitrate Urine Bilirubin Urine Urobilinogen Ur Leukocyte Esterase Urine RBC (Auto) Urine Microscopic WBC Ur Squamous Epith Cells 03/28/18 03/28/18 03/29/18 19:00 22:00 05:49 WBC RBC Hgb Hct MCV MCH MCHC RDW Plt Count MPV Neut % (Auto) Lymph % (Auto) [place] % (Auto) Eos % (Auto) Baso % (Auto) Neut # (Auto) Lymph # (Auto) [place] # (Auto) Eos # (Auto) Baso # (Auto) PT INR APTT pO2 24 L VBG pH 7.37 VBG pCO2 54 VBG HCO3 26.9 VBG Total CO2 32.9 H VBG O2 Sat (Calc) 51.1 VBG Base Excess 4.5 H VBG Potassium 4.4 Glucose 88 Lactate 0.9 FiO2 21.0 Sodium 139.0 Potassium 4.9 Chloride 102.0 Carbon Dioxide Anion Gap BUN Creatinine Est GFR ( Amer) Est GFR (Non-Af Amer) POC Glucose (mg/dL) 73 Random Glucose Calcium Total Bilirubin AST ALT Alkaline Phosphatase Troponin I NT-Pro-B Natriuret Pep Total Protein Albumin Globulin Albumin/Globulin Ratio Lipase Venous Blood Potassium 4.4 Urine Color Urine Clarity Urine pH Ur Specific Sylvester Urine Protein Urine Glucose (UA) Urine Ketones Urine Blood Urine Nitrate Urine Bilirubin Urine Urobilinogen Ur Leukocyte Esterase Urine RBC (Auto) Urine Microscopic WBC Ur Squamous Epith Cells 03/29/18 03/29/18 03/29/18 07:15 09:06 10:47 WBC RBC Hgb Hct MCV MCH MCHC RDW Plt Count MPV Neut % (Auto) Lymph % (Auto) [place] % (Auto) Eos % (Auto) Baso % (Auto) Neut # (Auto) Lymph # (Auto) [place] # (Auto) Eos # (Auto) Baso # (Auto) PT INR APTT pO2 VBG pH VBG pCO2 VBG HCO3 VBG Total CO2 VBG O2 Sat (Calc) VBG Base Excess VBG Potassium Glucose Lactate FiO2 Sodium Potassium Chloride Carbon Dioxide Anion Gap BUN Creatinine Est GFR ( Amer) Est GFR (Non-Af Amer) POC Glucose (mg/dL) 378 H 240 H Random Glucose Calcium Total Bilirubin AST ALT Alkaline Phosphatase Troponin I NT-Pro-B Natriuret Pep Total Protein Albumin Globulin Albumin/Globulin Ratio Lipase Venous Blood Potassium Urine Color Straw Urine Clarity Clear Urine pH 6.0 Ur Specific Sylvester 1.021 Urine Protein Negative Urine Glucose (UA) Neg Urine Ketones Negative Urine Blood Negative Urine Nitrate Negative Urine Bilirubin Negative Urine Urobilinogen 0.2-1.0 Ur Leukocyte Esterase Neg Urine RBC (Auto) 2 Urine Microscopic WBC 2 Ur Squamous Epith Cells < 1 03/29/18 16:35 WBC RBC Hgb Hct MCV MCH MCHC RDW Plt Count MPV Neut % (Auto) Lymph % (Auto) [place] % (Auto) Eos % (Auto) Baso % (Auto) Neut # (Auto) Lymph # (Auto) [place] # (Auto) Eos # (Auto) Baso # (Auto) PT INR APTT pO2 VBG pH VBG pCO2 VBG HCO3 VBG Total CO2 VBG O2 Sat (Calc) VBG Base Excess VBG Potassium Glucose Lactate FiO2 Sodium Potassium Chloride Carbon Dioxide Anion Gap BUN Creatinine Est GFR ( Amer) Est GFR (Non-Af Amer) POC Glucose (mg/dL) 139 H Random Glucose Calcium Total Bilirubin AST ALT Alkaline Phosphatase Troponin I NT-Pro-B Natriuret Pep Total Protein Albumin Globulin Albumin/Globulin Ratio Lipase Venous Blood Potassium Urine Color Urine Clarity Urine pH Ur Specific Sylvester Urine Protein Urine Glucose (UA) Urine Ketones Urine Blood Urine Nitrate Urine Bilirubin Urine Urobilinogen Ur Leukocyte Esterase Urine RBC (Auto) Urine Microscopic WBC Ur Squamous Epith Cells - EKG Data EKG Interpreted by: Myself EKG shows normal: Sinus rhythm Assessment & Plan (1) Abdominal pain Assessment and Plan: continue mgmt for diverticulitis. Status: Acute Priority: High (2) CAD (coronary artery disease) Assessment and Plan: s/p CABG. last stress test reveasl normal myocaridal perfusion. has murmur consistent with aortic stenosis on examination. will monitor outpatient. Status: Acute
[2018-03-30] MEDS: metroNIDAZOLE 500mg/100ml NS 100 ML IVPB SCH ×3 (00:22→17:08)
[2018-03-30] MEDS: Ciprofloxacin 200mg/100ml D5W 100 ML IVPB SCH ×2 (01:30→14:34)
[2018-03-30] MEDS: Levothyroxine 112 MCG TAB PO SCH (06:39)
[2018-03-30] MEDS: Insulin Lispro (humaLOG) 100 Units/ml Inj SC SCH ×3 (06:40→21:47)
[2018-03-30] MEDS: GlipiZIDE 10 mg SR Tab PO SCH ×2 (08:29→17:05)
[2018-03-30] MEDS: Insulin Detemir 100 Units/ml Inj SC SCH (08:30)
--- NOTE | 2018-03-30 17:36 | CP.PCM.PN ---
Subjective - Date & Time of Evaluation Date of Evaluation: 03/30/18 Time of Evaluation: 12:40 - Subjective Subjective: confused at times , complains of mild abdominal pain epigastric , periumbilical, lower quadrants , pain L-S , knees Objective - Vital Signs/Intake and Output Vital Signs (last 24 hours): Temp Pulse Resp BP Pulse Ox 97.9 F 76 16 147/80 97 03/30/18 16:59 03/30/18 16:59 03/30/18 16:59 03/30/18 17:05 03/30/18 16:59 - Medications Medications: Current Medications Acetaminophen (Tylenol 325mg Tab) 650 mg PO Q4 PRN PRN Reason: Pain, Mild (1-3) Last Admin: 03/29/18 23:50 Dose: 650 mg Alprazolam (Xanax) 0.5 mg PO Q12 [facility] Last Admin: 03/30/18 08:37 Dose: 0.5 mg Aspirin (Aspirin Chewable) 81 mg PO DAILY [facility] Last Admin: 03/30/18 08:28 Dose: 81 mg Glipizide (Glucotrol Xl) 10 mg PO BIDWM [facility] Last Admin: 03/30/18 17:05 Dose: 10 mg Metronidazole (Flagyl 500mg/100ml Ns) 100 mls @ 100 mls/hr IVPB Q8 [facility] PRN Reason: Protocol Last Admin: 03/30/18 17:08 Dose: 100 mls/hr Ciprofloxacin (Cipro 200mg/100ml D5w) 100 mls @ 100 mls/hr IVPB Q12H [facility] PRN Reason: Protocol Last Admin: 03/30/18 14:34 Dose: 100 mls/hr Insulin Detemir (Levemir) 20 units SC DAILY [facility] Last Admin: 03/30/18 08:30 Dose: Not Given Insulin Human Lispro (Humalog) 0 units SC ACHS [facility] PRN Reason: Protocol Last Admin: 03/30/18 13:27 Dose: 4 units Levothyroxine Sodium (Synthroid) 112 mcg PO DAILY@0630 [facility] Last Admin: 03/30/18 06:39 Dose: 112 mcg Metoprolol Tartrate (Lopressor) 50 mg PO BID [facility] Last Admin: 03/30/18 17:05 Dose: 50 mg Quetiapine Fumarate (Seroquel) 25 mg PO HS [facility] Last Admin: 03/29/18 21:25 Dose: 25 mg Quetiapine Fumarate (Seroquel) 25 mg PO DAILY [facility] Last Admin: 03/30/18 08:33 Dose: 25 mg Tramadol HCl (Ultram) 50 mg PO BID [facility] Last Admin: 03/30/18 17:06 Dose: Not Given Valsartan (Diovan) 160 mg PO BID [facility] Last Admin: 03/30/18 17:05 Dose: 160 mg - Labs Labs: 03/28/18 17:45 03/28/18 19:00 PT 10.9 Seconds (9.8-13.1) 03/28/18 17:45 INR 1.0 (0.9-1.2) 03/28/18 17:45 APTT 31.3 Seconds (25.6-37.1) 03/28/18 17:45 - Constitutional Appears: No Acute Distress - Head Exam Head Exam: NORMAL INSPECTION - Eye Exam Eye Exam: PERRL - ENT Exam ENT Exam: Normal Exam - Neck Exam Neck Exam: Normal Inspection - Respiratory Exam Respiratory Exam: Clear to Ausculation Bilateral - Cardiovascular Exam Cardiovascular Exam: REGULAR RHYTHM, Murmur - GI/Abdominal Exam GI & Abdominal Exam: Soft, Tenderness (periumbilical , lower quadrants L>R), Normal Bowel Sounds - Extremities Exam Extremities Exam: Pedal Edema, Tenderness (R L knee) - Back Exam Back Exam: tenderness - Neurological Exam Neurological Exam: Alert (oriented x2, no focal motor sensory deficit) Additional comments: no focal motor/sensory deficit , unsteady gait - Psychiatric Exam Psychiatric exam: Anxious, Depressed - Skin Skin Exam: Warm Assessment and Plan (1) Sigmoid diverticulitis Status: Acute (2) CAD (coronary artery disease) of artery bypass graft Status: Chronic (3) Dementia Status: Chronic (4) Diabetes type 2, controlled Status: Chronic (5) GERD (gastroesophageal reflux disease) Status: Chronic (6) Hypertension Status: Chronic (7) Osteoarthritis Status: Acute - Assessment and Plan (Free Text) Plan: continue Cipro, Flagyl , Cardiac consult appreciated, BS and BP control, continue Soroquel , Tramadol
[2018-03-31] MEDS: metroNIDAZOLE 500mg/100ml NS 100 ML IVPB SCH ×4 (01:14→18:37)
[2018-03-31] MEDS: Ciprofloxacin 200mg/100ml D5W 100 ML IVPB SCH ×2 (01:15→17:12)
[2018-03-31] MEDS: Levothyroxine 112 MCG TAB PO SCH (06:53)
[2018-03-31] MEDS: Insulin Lispro (humaLOG) 100 Units/ml Inj SC SCH ×4 (08:16→21:14)
[2018-03-31] MEDS: GlipiZIDE 10 mg SR Tab PO SCH ×2 (08:16→17:12)
[2018-03-31] MEDS: Insulin Detemir 100 Units/ml Inj SC SCH (08:17)
--- NOTE | 2018-03-31 15:38 | CP.PCM.PN ---
Subjective - Date & Time of Evaluation Date of Evaluation: 03/31/18 Time of Evaluation: 13:30 - Subjective Subjective: F/U Sigmoid Diverticulitis. Pt with LLQ abdominal pain improved Objective - Vital Signs/Intake and Output Vital Signs (last 24 hours): Temp Pulse Resp BP Pulse Ox 98 F 71 20 93/58 L 95 03/31/18 11:51 03/31/18 11:51 03/31/18 11:51 03/31/18 11:51 03/31/18 11:51 - Medications Medications: Current Medications Acetaminophen (Tylenol 325mg Tab) 650 mg PO Q4 PRN PRN Reason: Pain, Mild (1-3) Last Admin: 03/29/18 23:50 Dose: 650 mg Alprazolam (Xanax) 0.5 mg PO Q12 [facility] Last Admin: 03/31/18 08:14 Dose: 0.5 mg Aspirin (Aspirin Chewable) 81 mg PO DAILY [facility] Last Admin: 03/31/18 08:18 Dose: 81 mg Glipizide (Glucotrol Xl) 10 mg PO BIDWM [facility] Last Admin: 03/31/18 08:16 Dose: 10 mg Metronidazole (Flagyl 500mg/100ml Ns) 100 mls @ 100 mls/hr IVPB Q8 [facility] PRN Reason: Protocol Last Admin: 03/31/18 08:17 Dose: 100 mls/hr Ciprofloxacin (Cipro 200mg/100ml D5w) 100 mls @ 100 mls/hr IVPB Q12H [facility] PRN Reason: Protocol Last Admin: 03/31/18 01:15 Dose: 100 mls/hr Insulin Detemir (Levemir) 20 units SC DAILY [facility] Last Admin: 03/31/18 08:17 Dose: 20 units Insulin Human Lispro (Humalog) 0 units SC ACHS [facility] PRN Reason: Protocol Last Admin: 03/31/18 11:45 Dose: 3 units Levothyroxine Sodium (Synthroid) 112 mcg PO DAILY@0630 [facility] Last Admin: 03/31/18 06:53 Dose: 112 mcg Metoprolol Tartrate (Lopressor) 50 mg PO BID [facility] Last Admin: 03/31/18 08:15 Dose: 50 mg Quetiapine Fumarate (Seroquel) 25 mg PO HS [facility] Last Admin: 03/30/18 21:07 Dose: 25 mg Quetiapine Fumarate (Seroquel) 25 mg PO DAILY [facility] Last Admin: 03/31/18 08:18 Dose: 25 mg Tramadol HCl (Ultram) 50 mg PO BID [facility] Last Admin: 03/31/18 08:14 Dose: 50 mg Valsartan (Diovan) 160 mg PO BID [facility] Last Admin: 03/31/18 08:17 Dose: 160 mg - Labs Labs: 03/28/18 17:45 03/28/18 19:00 PT 10.9 Seconds (9.8-13.1) 03/28/18 17:45 INR 1.0 (0.9-1.2) 03/28/18 17:45 APTT 31.3 Seconds (25.6-37.1) 03/28/18 17:45 - Constitutional Appears: No Acute Distress - Head Exam Head Exam: NORMAL INSPECTION - Eye Exam Eye Exam: PERRL - ENT Exam ENT Exam: Normal Exam - Neck Exam Neck Exam: Normal Inspection - Respiratory Exam Respiratory Exam: NORMAL BREATHING PATTERN - Cardiovascular Exam Cardiovascular Exam: REGULAR RHYTHM - GI/Abdominal Exam GI & Abdominal Exam: Soft, Tenderness (minimal LLQ), Normal Bowel Sounds - Extremities Exam Extremities Exam: Pedal Edema, Tenderness (R-L knee) - Back Exam Back Exam: tenderness - Neurological Exam Neurological Exam: Alert Additional comments: Ox2, no focal motor/sensory deficit. Unsteady gait - Psychiatric Exam Psychiatric exam: Anxious, Depressed - Skin Skin Exam: Warm Assessment and Plan (1) Sigmoid diverticulitis Status: Acute (2) CAD (coronary artery disease) of artery bypass graft Status: Chronic (3) Dementia Status: Chronic (4) Diabetes type 2, controlled Status: Chronic (5) GERD (gastroesophageal reflux disease) Status: Chronic (6) Hypertension Status: Chronic (7) Osteoarthritis Status: Acute - Assessment and Plan (Free Text) Plan: Continue Cipro, Flagyl, Tramadol and rest of Tx.
[2018-04-01] MEDS: Levothyroxine 112 MCG TAB PO SCH (06:16)
[2018-04-01] MEDS: Insulin Lispro (humaLOG) 100 Units/ml Inj SC SCH (06:33)
[2018-04-01 08:21] VITALS: O2SAT 96
[2018-04-01] MEDS: GlipiZIDE 10 mg SR Tab PO SCH (08:43)
[2018-04-01] MEDS: Insulin Detemir 100 Units/ml Inj SC SCH (08:43)
[2018-04-01 12:33] VITALS: BP 115/69; PULSE 66; RESP 20; TEMP 97.8
[2018-04-01 13:38] LABS: CALCIUM 9.5 mg/dL (8.4-10.2)
[2018-04-01 13:39] LABS: HEMOGLOBIN 11.7 g/dL (12.0-16.0); MEAN CELL VOLUME 86.3 fl (81.0-99.0); MEAN CORPUSCULAR HEMOGLOBIN 28.8 pg (27.0-31.0); MEAN CORPUSCULAR HGB CONC 33.4 g/dL (33.0-37.0); RBC 4.06 Mil/uL (3.80-5.20); RED CELL DISTRIBUTION WIDTH 13.7 % (11.5-14.5); WHITE BLOOD COUNT 6.8 K/uL (4.8-10.8)
--- NOTE | 2018-04-01 20:16 | CP.PCM.DIS ---
Provider - Provider Date of Admission: 03/30/18 19:27 Attending physician: Daquan Wagoner MD Diagnosis - Discharge Diagnosis (1) Sigmoid diverticulitis Status: Acute Priority: High (2) CAD (coronary artery disease) of artery bypass graft Status: Chronic Priority: High (3) Dementia Status: Chronic Priority: Medium (4) Diabetes type 2, controlled Status: Chronic (5) GERD (gastroesophageal reflux disease) Status: Chronic Priority: High (6) Hypertension Status: Chronic Priority: High (7) Osteoarthritis Status: Acute Hospital Course - Lab Results Lab Results: Micro Results 03/28/18 22:37 Blood Blood Culture - Preliminary NO GROWTH AFTER 3 DAYS 03/28/18 03:02 Blood Blood Culture - Preliminary NO GROWTH AFTER 3 DAYS 03/29/18 07:15 Urine,Clean Catch Urine Culture - Final Gram Negative Ramon Most Recent Lab Values WBC 6.8 K/uL (4.8-10.8) 04/01/18 13:00 RBC 4.06 Mil/uL (3.80-5.20) 04/01/18 13:00 Hgb 11.7 g/dL (12.0-16.0) L 04/01/18 13:00 Hct 35.0 % (34.0-47.0) 04/01/18 13:00 MCV 86.3 fl (81.0-99.0) 04/01/18 13:00 MCH 28.8 pg (27.0-31.0) 04/01/18 13:00 MCHC 33.4 g/dL (33.0-37.0) 04/01/18 13:00 RDW 13.7 % (11.5-14.5) 04/01/18 13:00 Plt Count 191 K/uL (130-400) 04/01/18 13:00 MPV 9.5 fl (7.2-11.7) 03/28/18 17:45 Neut % (Auto) 61.3 % (50.0-75.0) 03/28/18 17:45 Lymph % (Auto) 21.9 % (20.0-40.0) 03/28/18 17:45 Wheeler % (Auto) 10.5 % (0.0-10.0) H 03/28/18 17:45 Eos % (Auto) 5.6 % (0.0-4.0) H 03/28/18 17:45 Baso % (Auto) 0.7 % (0.0-2.0) 03/28/18 17:45 Neut # (Auto) 5.2 K/uL (1.8-7.0) 03/28/18 17:45 Lymph # (Auto) 1.9 K/uL (1.0-4.3) 03/28/18 17:45 Wheeler # (Auto) 0.9 K/uL (0.0-0.8) H 03/28/18 17:45 Eos # (Auto) 0.5 K/uL (0.0-0.7) 03/28/18 17:45 Baso # (Auto) 0.1 K/uL (0.0-0.2) 03/28/18 17:45 PT 10.9 Seconds (9.8-13.1) 03/28/18 17:45 INR 1.0 (0.9-1.2) 03/28/18 17:45 APTT 31.3 Seconds (25.6-37.1) 03/28/18 17:45 pO2 24 mm/Hg (30-55) L 03/28/18 22:00 VBG pH 7.37 (7.32-7.43) 03/28/18 22:00 VBG pCO2 54 mmHg (40-60) 03/28/18 22:00 VBG HCO3 26.9 mmol/L 03/28/18 22:00 VBG Total CO2 32.9 mmol/L (22-28) H 03/28/18 22:00 VBG O2 Sat (Calc) 51.1 % (40-65) 03/28/18 22:00 VBG Base Excess 4.5 mmol/L (0.0-2.0) H 03/28/18 22:00 VBG Potassium 4.4 mmol/L (3.6-5.2) 03/28/18 22:00 Sodium 139.0 mmol/L (132-148) 03/28/18 22:00 Chloride 102.0 mmol/L (98-107) 03/28/18 22:00 Glucose 88 mg/dL (65-105) 03/28/18 22:00 Lactate 0.9 mmol/L (0.7-2.1) 03/28/18 22:00 FiO2 21.0 % 03/28/18 22:00 Sodium 138 mmol/l (132-148) 04/01/18 13:00 Potassium 4.8 MMOL/L (3.6-5.0) 04/01/18 13:00 Chloride 100 mmol/L (98-107) 04/01/18 13:00 Carbon Dioxide 27 mmol/L (22-30) 04/01/18 13:00 Anion Gap 16 (10-20) 04/01/18 13:00 BUN 41 mg/dl (7-17) H 04/01/18 13:00 Creatinine 1.5 mg/dl (0.7-1.2) H 04/01/18 13:00 Est GFR ( Amer) 41 04/01/18 13:00 Est GFR (Non-Af Amer) 33 04/01/18 13:00 POC Glucose (mg/dL) 187 mg/dL (65-110) H 04/01/18 11:15 Random Glucose 162 mg/dL (65-105) H 04/01/18 13:00 Calcium 9.5 mg/dL (8.4-10.2) 04/01/18 13:00 Total Bilirubin 0.8 mg/dl (0.2-1.3) 03/28/18 17:45 AST 44 U/L (14-36) H D 03/28/18 17:45 ALT 26 U/L (9-52) 03/28/18 17:45 Alkaline Phosphatase 90 U/L (38-126) 03/28/18 17:45 Troponin I < 0.0120 ng/mL (0.00-0.120) 03/28/18 17:45 NT-Pro-B Natriuret Pep 1820 pg/ml (0-900) H 03/28/18 17:45 Total Protein 8.9 G/DL (6.3-8.2) H 03/28/18 17:45 Albumin 4.9 g/dL (3.5-5.0) 03/28/18 17:45 Globulin 4.0 gm/dL (2.2-3.9) H 03/28/18 17:45 Albumin/Globulin Ratio 1.2 (1.0-2.1) 06/28/18 17:45 Lipase 213 U/L (23-300) 03/28/18 17:45 Venous Blood Potassium 4.4 mmol/L (3.6-5.2) 03/28/18 22:00 Urine Color Straw (YELLOW) 03/29/18 07:15 Urine Clarity Clear (Clear) 03/29/18 07:15 Urine pH 6.0 (5.0-8.0) 03/29/18 07:15 Ur Specific [place] 1.021 (1.003-1.030) 03/29/18 07:15 Urine Protein Negative mg/dL (NEGATIVE) 03/29/18 07:15 Urine Glucose (UA) Neg mg/dL (Normal) 03/29/18 07:15 Urine Ketones Negative mg/dL (NEGATIVE) 03/29/18 07:15 Urine Blood Negative (NEGATIVE) 03/29/18 07:15 Urine Nitrate Negative (NEGATIVE) 03/29/18 07:15 Urine Bilirubin Negative (NEGATIVE) 03/29/18 07:15 Urine Urobilinogen 0.2-1.0 mg/dL (0.2-1.0) 03/29/18 07:15 Ur Leukocyte Esterase Neg Slim/uL (Negative) 03/29/18 07:15 Urine RBC (Auto) 2 /hpf (0-3) 03/29/18 07:15 Urine Microscopic WBC 2 /hpf (0-5) 03/29/18 07:15 Ur Squamous Epith Cells < 1 /hpf (0-5) 03/29/18 07:15 Discharge Exam - Head Exam Head Exam: NORMAL INSPECTION Discharge Plan - Discharge Medications Prescriptions: Ciprofloxacin [Cipro] 500 mg PO Q12 #14 tab metroNIDAZOLE [Flagyl] 500 mg PO Q8 #21 tab - Follow Up Plan Condition: FAIR Disposition: HOME/ ROUTINE Instructions: Diverticulitis (DC) Additional Instructions: take prescriptions for antibiotic until finished. return to emergency room for return of symptoms. follow up with primary md within 1 week.
== END 2018-04-01 16:15 | disposition home or self-care (01) | DRG 392 ==
LOC: H.ER 17:04 → H.ERHOLD 21:01 → H.TEL 03-29 01:36 → OBSVTOIN 03-30 19:27
PROVIDERS: ADMIT Internal Medicine Pulmonary Disease; ATTEND Internal Medicine Pulmonary Disease
DX: K57.32 Diverticulitis of large intestine without perforation or abscess without bleeding (principal); I13.0 Hypertensive heart and chronic kidney disease with heart failure and stage 1 through stage 4 chronic kidney disease, or unspecified chronic kidney disease; I25.810 Atherosclerosis of coronary artery bypass graft(s) without angina pectoris; E03.9 Hypothyroidism, unspecified; E11.22 Type 2 diabetes mellitus with diabetic chronic kidney disease; N18.2 Chronic kidney disease, stage 2 (mild); I50.9 Heart failure, unspecified; M19.90 Unspecified osteoarthritis, unspecified site; I35.0 Nonrheumatic aortic (valve) stenosis; F03.90 Unspecified dementia, unspecified severity, without behavioral disturbance, psychotic disturbance, mood disturbance, and anxiety; F32.9 Major depressive disorder, single episode, unspecified; F41.9 Anxiety disorder, unspecified; K29.70 Gastritis, unspecified, without bleeding; K21.9 Gastro-esophageal reflux disease without esophagitis; E78.00 Pure hypercholesterolemia, unspecified; Z95.5 Presence of coronary angioplasty implant and graft; Z88.3 Allergy status to other anti-infective agents

== ENCOUNTER 2018-04-03 17:53 | Observation (INO) | payer MEDICARE, MEDICAID ==
[2018-04-03 17:53] VITALS: BMI 27.4
[2018-04-03] MEDS ORDERED: Alum-Mag Hydrox-Simethicone Susp (30 mL) PO ONE (18:35)
--- NOTE | 2018-04-03 18:46 | ED PDOC ---
HPI: Chest Pain Time Seen by Provider: 04/03/18 18:14 Chief Complaint (Nursing): Chest Pain Chief Complaint (Provider): Chest Pain History Per: Patient History/Exam Limitations: no limitations Onset/Duration Of Symptoms: Sudden Onset (1200) Current Symptoms Are (Timing): Still Present Additional Complaint(s): 78 y/o female with a PMHx of HTN, diabetes, CAD, CABG, valve replacement, depression, and anxiety presenting for evaluation of epigastric and chest pain onset at 1200 today. Patient describes her symptoms as a burning sensation beginning in her epigastric region and radiating up to her chest and throat. Patient is also complaining of nausea. She denies difficulty breathing, fever, cough, and diarrhea. Patient was recently admitted to this facility with a diagnosis of diverticulitis and discharged 2 days ago. She is currently taking Cipro and Flagyl for her diverticulitis. PMD: Dr. Wagoner X Ray Nurse: Dr. Wu [facility] Corpsman: Dr. Gore Past Medical History Reviewed: Historical Data, Nursing Documentation, Vital Signs Vital Signs: Last Vital Signs Temp 97.3 F L 04/04/18 12:48 Pulse 67 04/04/18 12:48 Resp 20 04/04/18 12:48 BP 160/93 H 04/04/18 12:48 Pulse Ox 99 04/04/18 12:48 - Medical History PMH: Anemia, Anxiety, Arthritis, CAD, Dementia (mild), Depression, Diabetes (?) , Diverticulitis, Gastritis, Gall Bladder Disease, GERD, HTN, Hypercholesterolemia, Hypothyroidism, Pancreatitis, Chronic Kidney Disease ( stage 2 renal disease) Denies: CHF, COPD, HIV, Rheumatoid Arthritis - Surgical History Surgical History: CABG, Cholecystectomy, Coronary Stent (11/2015 (1 STENT)) Other surgeries: valve replacement - Family History Family History: States: Unknown Family Hx - Social History Ex-Smoker (has not smoked in the last 12 months): No Alcohol: None Drugs: Denies - Immunization History Hx Tetanus Toxoid Vaccination: No Hx Influenza Vaccination: No Hx Pneumococcal Vaccination: No - Home Medications Home Medications: Ambulatory Orders Medication Instructions Recorded traMADol [Ultram] 50 mg PO BID 08/11/17 Insulin Glargine, Recombina 20 units SQ DAILY 11/03/17 [Lantus] Aspirin 81 mg PO DAILY #30 tab.chew 11/08/17 Atorvastatin [Lipitor] 40 mg PO HS #30 tab 11/08/17 Glimepiride [amaRYL] 4 mg PO BID #60 tab 11/08/17 predniSONE [predniSONE Tab] 40 mg PO DAILY 3 Days tab 03/02/18 Alprazolam [Xanax] 0.5 mg PO BID 03/28/18 Levothyroxine [Synthroid] 112 mcg PO DAILY 03/28/18 Metoprolol Tartrate [Lopressor] 50 mg PO BID 03/28/18 QUEtiapine [Seroquel] 25 mg PO DAILY 03/28/18 Valsartan [Diovan] 160 mg PO BID 03/28/18 Ciprofloxacin [Cipro] 500 mg PO Q12 tab 04/04/18 metroNIDAZOLE [Flagyl] 500 mg PO Q8 tab 04/04/18 - Allergies Allergies/Adverse Reactions: Allergies Allergy/AdvReac Type Severity Reaction Status Date / Time ceftriaxone [From Rocephin] Allergy RASH Verified 04/03/18 18:03 SARA Risk Score for UA/NSTEMI - SARA Risk Score Age > 64: YES 3 or more CAD Risk Factors: YES Known CAD (Stenosis greater than 50%): NO Aspirin use in past 7 days: YES Severe Angina: NO EKG ST changes greater than 0.5mm: NO Positive Cardiac Marker: NO SARA Score: 3 Risk %: 13% Wells Criteria for PE - Wells Criteria for Pulmonary Embolism Clinical Signs and Symptoms of DVT: No P.E is #1 Diagnosis, or Equally Likely: No Heart Rate >100: No Immobilization at least 3 days;Surgery previous 4 weeks: No Previous, objectively diagnosed PE or DVT: No Hemoptysis: No Malignancy w/treatment within 6 months, or palliative: No Total Score: 0 Review of Systems ROS Statement: Except As Marked, All Systems Reviewed And Found Negative Constitutional: Negative for: Fever ENT: Positive for: Throat Pain Cardiovascular: Positive for: Chest Pain Respiratory: Negative for: Cough, Shortness of Breath Gastrointestinal: Positive for: Nausea, Abdominal Pain (epigastric). Negative for: Vomiting, Diarrhea Physical Exam - Reviewed Nursing Documentation Reviewed: Yes Vital Signs Reviewed: Yes - Physical Exam Appears: Positive for: Non-toxic, No Acute Distress Head Exam: Positive for: ATRAUMATIC, NORMAL INSPECTION, NORMOCEPHALIC Skin: Positive for: Normal Color, Warm, Dry. Negative for: Rash Eye Exam: Positive for: EOMI, Normal appearance, PERRL ENT: Positive for: Normal ENT Inspection Neck: Positive for: Normal, Painless ROM, Supple Cardiovascular/Chest: Positive for: Regular Rate, Rhythm. Negative for: Murmur Respiratory: Positive for: Normal Breath Sounds. Negative for: Respiratory Distress Gastrointestinal/Abdominal: Positive for: Soft, Tenderness (epigastric) Back: Positive for: Normal Inspection. Negative for: L CVA Tenderness, R CVA Tenderness, Vertebral Tenderness Extremity: Positive for: Normal ROM. Negative for: Pedal Edema, Deformity Neurologic/Psych: Positive for: Alert, Oriented. Negative for: Motor/Sensory Deficits - Laboratory Results Result Diagrams: 04/04/18 05:00 04/04/18 05:00 - ECG ECG: Positive for: Interpreted By Me, Viewed By Me ECG Rhythm: Positive for: Normal QRS (LVH present), Normal ST Segment, Sinus Rhythm (85 bpm) O2 Sat by Pulse Oximetry: 96 (RA) Pulse Ox Interpretation: Normal Medical Decision Making Medical Decision Makin:34 Impression: Epigastric and chest pain. Differential diagnoses include, but are not limited to gastritis, GERD, ACS, and pancreatitis. Plan: -EKG -CMP -Lipase -Troponin I -Urine dipstick -CBC w/ differential -Lidocaine 2% 15ml PO -Maalox Plus 30ml PO -Zofran 4mg PO -athletic monitor -Reevaluation 19:[address] Edwards pending labs and reevaluation. Scribe Attestation: Documented by Morris Uribe, acting as a scribe for Winter Laboy MD. Provider Scribe Attestation: All medical record entries made by the Scribe were at my direction and personally dictated by me. I have reviewed the chart and agree that the record accurately reflects my personal performance of the history, physical exam, medical decision making, and the department course for this patient. I have also personally directed, reviewed, and agree with the discharge instructions and disposition. Disposition - Clinical Impression Clinical Impression: Chest pain - Patient ED Disposition Is Patient to be Admitted: Transfer of Care Counseled Patient/Family Regarding: Studies Performed, Diagnosis - Disposition Disposition: Transfer of Care Disposition Time: 19:00 Condition: STABLE Patient Signed Over To: Mica Edwards Handoff Comments: pending labs and reevaluation
[2018-04-03 19:01] LABS: BASO # 0.1 K/uL (0.0-0.2); BASO % 1.1 % (0.0-2.0); EOS # 0.4 K/uL (0.0-0.7); EOS % 5.9 % (0.0-4.0); HEMOGLOBIN 12.8 g/dL (12.0-16.0); LYMPH # 1.7 K/uL (1.0-4.3); LYMPH % 27.4 % (20.0-40.0); MEAN CELL VOLUME 87.3 fl (81.0-99.0); MEAN CORPUSCULAR HEMOGLOBIN 28.9 pg (27.0-31.0); MEAN CORPUSCULAR HGB CONC 33.1 g/dL (33.0-37.0); MEAN PLATELET VOLUME 9.5 fl (7.2-11.7); MONO # 0.8 K/uL (0.0-0.8); NEUT # 3.2 K/uL (1.8-7.0); NEUT % 52.6 % (50.0-75.0); NRBC % 0.1 % (0.0-0.0); RBC 4.41 Mil/uL (3.80-5.20); RED CELL DISTRIBUTION WIDTH 13.3 % (11.5-14.5); WHITE BLOOD COUNT 6.1 K/uL (4.8-10.8)
--- NOTE | 2018-04-03 19:09 | ED PDOC ---
- Laboratory Results Result Diagrams: 04/03/18 18:54 04/03/18 18:54 - ECG O2 Sat by Pulse Oximetry: 96 (RA) Pulse Ox Interpretation: Normal Medical Decision Making Medical Decision Makin:00 Patient endorsed to me by Dr. Laboy pending cardiac workup and admission under Dr. Wagoner. 20:[address] Wagoner to discuss case. Scribe Attestation: Documented by Morris Uribe, acting as a scribe for Mica Edwards MD. Provider Scribe Attestation: All medical record entries made by the Scribe were at my direction and personally dictated by me. I have reviewed the chart and agree that the record accurately reflects my personal performance of the history, physical exam, medical decision making, and the department course for this patient. I have also personally directed, reviewed, and agree with the discharge instructions and disposition. Disposition - Disposition Condition: STABLE Forms: [employer] (Nepalese)
[2018-04-03 19:12] LABS: ALB/GLOB RATIO 1.2 (1.0-2.1); ALBUMIN 4.9 g/dL (3.5-5.0); ALT/SGPT 25 U/L (9-52); AST/SGOT 36 U/L (14-36); BLOOD UREA NITROGEN 33 mg/dl (7-17); CALCIUM 10.1 mg/dL (8.4-10.2); GFR AFRICAN-AMERICAN 38; GFR NON-AFRICAN AMERICAN 31; LIPASE 377 U/L (23-300)
[2018-04-03 21:10] LABS: SQUAMOUS EPITHIAL 1 /hpf (0-5); URINE BILIRUBIN NEGATIVE (NEGATIVE); URINE BLOOD NEGATIVE (NEGATIVE); URINE CLARITY SLIGHTY-CLOUDY (Clear); URINE COLOR YELLOW (YELLOW); URINE GLUCOSE (UA) NEG (Normal); URINE HYALINE CAST 0-2 /hpf (0-2); URINE LEUKOCYTE ESTERASE TRACE Leu/uL (Negative); URINE PROTEIN 30 mg/dL (NEGATIVE); URINE UROBILINOGEN 0.2-1.0 mg/dL (0.2-1.0)
[2018-04-03] MEDS ORDERED: Sodium Chloride 0.45% 1,000 ML IV SCH (23:00)
[2018-04-04 05:37] LABS: BASO # 0.1 K/uL (0.0-0.2); BASO % 1.5 % (0.0-2.0); EOS # 0.4 K/uL (0.0-0.7); EOS % 6.5 % (0.0-4.0); HEMOGLOBIN 10.8 g/dL (12.0-16.0); LYMPH # 2.2 K/uL (1.0-4.3); LYMPH % 37.4 % (20.0-40.0); MEAN CELL VOLUME 87.7 fl (81.0-99.0); MEAN CORPUSCULAR HEMOGLOBIN 29.1 pg (27.0-31.0); MEAN CORPUSCULAR HGB CONC 33.2 g/dL (33.0-37.0); MEAN PLATELET VOLUME 9.9 fl (7.2-11.7); MONO # 0.8 K/uL (0.0-0.8); MONO % 12.6 % (0.0-10.0); NEUT # 2.5 K/uL (1.8-7.0); NRBC % 0.1 % (0.0-0.0); RBC 3.72 Mil/uL (3.80-5.20)
[2018-04-04 06:15] LABS: ALB/GLOB RATIO 1.2 (1.0-2.1); ALBUMIN 3.8 g/dL (3.5-5.0); ALT/SGPT 22 U/L (9-52); AST/SGOT 28 U/L (14-36); BLOOD UREA NITROGEN 29 mg/dl (7-17); CALCIUM 9.3 mg/dL (8.4-10.2); GFR AFRICAN-AMERICAN 52; GFR NON-AFRICAN AMERICAN 43
[2018-04-04] MEDS ORDERED: Levothyroxine 112 MCG TAB PO SCH (06:30)
--- NOTE | 2018-04-04 08:31 | CARD ---
APPROVED REPORT EKG Measurement Heart [id number] <Conclusion> Normal sinus rhythm Left axis deviation Minimal voltage criteria for LVH, Left anterior fascicular block Abnormal ECG
[2018-04-04 12:49] VITALS: BP 160/93; PULSE 67; RESP 20; TEMP 97.3
--- NOTE | 2018-04-04 15:54 | CP.PCM.HP ---
History of Present Illness - History of Present Illness History of Present Illness: C: Abdominal pain. 78 y/o F, Multiple medical conditions including CABG, Stent, Pancreatitis. Pt came to ER [facility] [place] to be evaluated for increased abdominal pain epigastric area since 12 noon on DOA with no relief, pain was intermittent, burning sensation, severe intensity 8:10 associated to nausea, no v/d and radiated up to chest area. Worsening symptoms: 2 days [employer] Discharged from [place] for Diverticulitis on Cipro- Flagyl. Aggravated factor: movements/exercise. Pt denied: Fever, chills, vomiting, diarrhea, palpitations, dizziness, numbness , syncope, SOB, cough, sick contact. EKG: Normal sinus rhythm. Left axis deviation, minimal voltage criteria for LVH, left anterior fascicular block. Present on Admission - Present on Admission Any Indicators Present on Admission: No Review of Systems - Constitutional Constitutional: Weakness - EENT Eyes: Other (negative) Ears: Other (negative) Nose/Mouth/Throat: Other (negative) - Cardiovascular Cardiovascular: Chest Pain - Respiratory Respiratory: Other (negative) - Gastrointestinal Gastrointestinal: Abdominal Pain (epigastric), Heartburn, Nausea - Genitourinary Genitourinary: Other (negative) - Musculoskeletal Musculoskeletal: Arthralgias - Integumentary Integumentary: Other (negative) - Neurological Neurological: Other (negative) - Psychiatric Psychiatric: Anxiety - Endocrine Endocrine: Other (negative) - Hematologic/Lymphatic Hematologic: Other (negative) Past Patient History - Infectious Disease Hx of Infectious Diseases: None - Tetanus Immunizations Tetanus Immunization: Unknown - Past Medical History & Family History Past Medical History?: Yes Pertinent Family History: Unknown - Past Social History Smoking Status: Never Smoked Alcohol: None Drugs: Denies Home Situation {Lives}: Alone - CARDIAC Hx Cardiac Disorders: Yes Hx Hypercholesterolemia: Yes Hx Hypertension: Yes Other/Comment: Valve replacement May 2012 - PULMONARY Hx Respiratory Disorders: No Hx Chronic Obstructive Pulmonary Disease (COPD): No - NEUROLOGICAL Hx Neurological Disorder: Yes Hx Dementia: Yes (mild) - HEENT Hx HEENT Problems: No - RENAL Hx Chronic Kidney Disease: Yes (stage 2 renal disease) - ENDOCRINE/METABOLIC Hx Endocrine Disorders: Yes Hx Diabetes Mellitus Type 2: Yes Hx Hypothyroidism: Yes - HEMATOLOGICAL/ONCOLOGICAL Hx Blood Disorders: Yes Hx Anemia: Yes Hx Human Immunodeficiency Virus (HIV): No - INTEGUMENTARY Hx Dermatological Problems: No - MUSCULOSKELETAL/RHEUMATOLOGICAL Hx Musculoskeletal Disorders: Yes Hx Arthritis: Yes Hx Falls: Yes - GASTROINTESTINAL Hx Gastrointestinal Disorders: Yes Hx Diverticulitis: Yes Hx Gall Bladder Disease: Yes Hx Gastritis: Yes Hx Pancreatitis: Yes - GENITOURINARY/GYNECOLOGICAL Hx Genitourinary Disorders: No - PSYCHIATRIC Hx Psychophysiologic Disorder: Yes Hx Anxiety: Yes Hx Depression: Yes Hx Substance Use: No - SURGICAL HISTORY Hx Surgeries: Yes Hx Cholecystectomy: Yes Hx Coronary Artery Bypass Graft: Yes Hx Coronary Stent: Yes (11/2015 (1 STENT)) - ANESTHESIA Hx Anesthesia: Yes Hx Anesthesia Reactions: No Meds Home Medications: Home Medication List Medication Instructions Recorded Confirmed Type Ciprofloxacin [Cipro] 500 mg PO Q12 tab 04/04/18 Rx metroNIDAZOLE [Flagyl] 500 mg PO Q8 tab 04/04/18 Rx Allergies/Adverse Reactions: Allergies Allergy/AdvReac Type Severity Reaction Status Date / Time ceftriaxone [From Rocephin] Allergy RASH Verified 04/03/18 18:03 Physical Exam - Constitutional Appears: No Acute Distress - Head Exam Head Exam: NORMAL INSPECTION - Eye Exam Eye Exam: PERRL - ENT Exam ENT Exam: Normal Exam - Neck Exam Neck exam: Positive for: Normal Inspection - Respiratory Exam Respiratory Exam: Clear to Auscultation Bilateral - Cardiovascular Exam Cardiovascular Exam: REGULAR RHYTHM, Systolic Murmur - GI/Abdominal Exam GI & Abdominal Exam: Normal Bowel Sounds, Soft - Extremities Exam Extremities exam: Positive for: normal inspection - Back Exam Back exam: NORMAL INSPECTION - Neurological Exam Neurological exam: Alert, CN II-XII Intact Additional comments: No focal motor/sensory deficit. - Psychiatric Exam Psychiatric exam: Anxious - Skin Skin Exam: Warm Results - Vital Signs Recent Vital Signs: Last Vital Signs Temp 97.3 F L 04/04/18 12:48 Pulse 67 04/04/18 12:48 Resp 20 04/04/18 12:48 BP 160/93 H 04/04/18 12:48 Pulse Ox 99 04/04/18 12:48 reviewed Clifford - Labs Result Diagrams: 04/04/18 05:00 04/04/18 05:00 Labs: Laboratory Results - last 24 hr 04/03/18 04/03/18 04/03/18 18:54 18:54 20:06 WBC 6.1 RBC 4.41 Hgb 12.8 Hct 38.5 MCV 87.3 MCH 28.9 MCHC 33.1 RDW 13.3 Plt Count 210 MPV 9.5 Neut % (Auto) 52.6 Lymph % (Auto) 27.4 [place] % (Auto) 13.0 H Eos % (Auto) 5.9 H Baso % (Auto) 1.1 Neut # (Auto) 3.2 Lymph # (Auto) 1.7 [place] # (Auto) 0.8 Eos # (Auto) 0.4 Baso # (Auto) 0.1 Sodium 145 Potassium 4.9 Chloride 104 Carbon Dioxide 26 Anion Gap 20 BUN 33 H Creatinine 1.6 H Est GFR ( Amer) 38 Est GFR (Non-Af Amer) 31 POC Glucose (mg/dL) Random Glucose 168 H Calcium 10.1 Total Bilirubin 0.4 AST 36 ALT 25 Alkaline Phosphatase 92 Troponin I < 0.0120 Total Protein 9.0 H Albumin 4.9 Globulin 4.1 H Albumin/Globulin Ratio 1.2 Lipase 377 H Urine Color Yellow Urine Clarity Slighty-cloudy Urine pH 7.0 Ur Specific [place] 1.015 Urine Protein 30 Urine Glucose (UA) Neg Urine Ketones Negative Urine Blood Negative Urine Nitrate Negative Urine Bilirubin Negative Urine Urobilinogen 0.2-1.0 Ur Leukocyte Esterase Trace Urine RBC (Auto) 1 Urine Microscopic WBC 2 Ur Squamous Epith Cells 1 Hyaline Casts 0-2 04/03/18 04/04/18 04/04/18 22:20 05:00 05:00 WBC 6.0 RBC 3.72 L Hgb 10.8 L D Hct 32.6 L MCV 87.7 MCH 29.1 MCHC 33.2 RDW 13.0 Plt Count 163 MPV 9.9 Neut % (Auto) 42.0 L Lymph % (Auto) 37.4 [place] % (Auto) 12.6 H Eos % (Auto) 6.5 H Baso % (Auto) 1.5 Neut # (Auto) 2.5 Lymph # (Auto) 2.2 [place] # (Auto) 0.8 Eos # (Auto) 0.4 Baso # (Auto) 0.1 Sodium 141 Potassium 4.6 Chloride 109 H Carbon Dioxide 23 Anion Gap 14 BUN 29 H Creatinine 1.2 Est GFR ( Amer) 52 Est GFR (Non-Af Amer) 43 POC Glucose (mg/dL) 183 H Random Glucose 125 H Calcium 9.3 Total Bilirubin 0.4 AST 28 ALT 22 Alkaline Phosphatase 59 Troponin I < 0.0120 Total Protein 6.9 Albumin 3.8 Globulin 3.1 Albumin/Globulin Ratio 1.2 Lipase Urine Color Urine Clarity Urine pH Ur Specific [place] Urine Protein Urine Glucose (UA) Urine Ketones Urine Blood Urine Nitrate Urine Bilirubin Urine Urobilinogen Ur Leukocyte Esterase Urine RBC (Auto) Urine Microscopic WBC Ur Squamous Epith Cells Hyaline Casts 04/04/18 04/04/18 04/04/18 05:30 11:57 12:27 WBC RBC Hgb Hct MCV MCH MCHC RDW Plt Count MPV Neut % (Auto) Lymph % (Auto) [place] % (Auto) Eos % (Auto) Baso % (Auto) Neut # (Auto) Lymph # (Auto) [place] # (Auto) Eos # (Auto) Baso # (Auto) Sodium Potassium Chloride Carbon Dioxide Anion Gap BUN Creatinine Est GFR ( Amer) Est GFR (Non-Af Amer) POC Glucose (mg/dL) 121 H 139 H Random Glucose Calcium Total Bilirubin AST ALT Alkaline Phosphatase Troponin I < 0.0120 Total Protein Albumin Globulin Albumin/Globulin Ratio Lipase Urine Color Urine Clarity Urine pH Ur Specific [place] Urine Protein Urine Glucose (UA) Urine Ketones Urine Blood Urine Nitrate Urine Bilirubin Urine Urobilinogen Ur Leukocyte Esterase Urine RBC (Auto) Urine Microscopic WBC Ur Squamous Epith Cells Hyaline Casts - EKG Data EKG comments: reviewed J.P. Assessment & Plan (1) Abdominal pain, acute, epigastric Status: Acute Priority: High (2) Chest pain, atypical Status: Acute Priority: High (3) Gastritis Status: Chronic Priority: High (4) Anxiety Status: Acute Priority: Medium (5) Diabetes mellitus Status: Chronic Priority: Medium (6) Essential hypertension Status: Chronic Priority: Medium - Date & Time Date: 04/04/18
[2018-04-04 22:16] VITALS: O2SAT 96
== END 2018-04-04 16:00 | disposition home or self-care (01) ==
LOC: H.ER 17:53 → H.ERHOLD 20:34 → H.TEL 21:25
PROVIDERS: ADMIT Internal Medicine Pulmonary Disease; ATTEND Internal Medicine Pulmonary Disease
DX: R10.13 Epigastric pain (principal); R07.89 Other chest pain; K29.70 Gastritis, unspecified, without bleeding; F41.9 Anxiety disorder, unspecified; E11.22 Type 2 diabetes mellitus with diabetic chronic kidney disease; I12.9 Hypertensive chronic kidney disease with stage 1 through stage 4 chronic kidney disease, or unspecified chronic kidney disease; K21.9 Gastro-esophageal reflux disease without esophagitis; I25.10 Atherosclerotic heart disease of native coronary artery without angina pectoris; N18.2 Chronic kidney disease, stage 2 (mild); Z95.1 Presence of aortocoronary bypass graft; Z95.2 Presence of prosthetic heart valve; Z95.5 Presence of coronary angioplasty implant and graft; F32.9 Major depressive disorder, single episode, unspecified; F03.90 Unspecified dementia, unspecified severity, without behavioral disturbance, psychotic disturbance, mood disturbance, and anxiety; K57.92 Diverticulitis of intestine, part unspecified, without perforation or abscess without bleeding; E78.00 Pure hypercholesterolemia, unspecified; E03.9 Hypothyroidism, unspecified
CPT/HCPCS: 36415; 80053; 81003; 82948; 83690; 84484; 85025; 87086; 93005; 99285; C9113; G0378; J7030

== ENCOUNTER 2018-06-04 13:19 | Emergency (ER) | payer MEDICARE, MEDICAID ==
[2018-06-04 13:19] VITALS: BMI 27.4
[2018-06-04] MEDS ORDERED: Sodium Chloride 0.9% 1,000 ML IV STA (14:56)
[2018-06-04 15:27] LABS: BASO % 0.5 % (0.0-2.0); EOS # 0.4 K/uL (0.0-0.7); EOS % 4.9 % (0.0-4.0); HEMOGLOBIN 11.8 g/dL (12.0-16.0); LYMPH # 2.1 K/uL (1.0-4.3); LYMPH % 27.8 % (20.0-40.0); MEAN CELL VOLUME 85.7 fl (81.0-99.0); MEAN CORPUSCULAR HEMOGLOBIN 28.5 pg (27.0-31.0); MEAN CORPUSCULAR HGB CONC 33.2 g/dL (33.0-37.0); MEAN PLATELET VOLUME 9.8 fl (7.2-11.7); MONO # 0.7 K/uL (0.0-0.8); MONO % 8.9 % (0.0-10.0); NEUT # 4.4 K/uL (1.8-7.0); NEUT % 57.9 % (50.0-75.0); NRBC % 0.1 % (0.0-0.0); RBC 4.15 Mil/uL (3.80-5.20); RED CELL DISTRIBUTION WIDTH 13.6 % (11.5-14.5); WHITE BLOOD COUNT 7.6 K/uL (4.8-10.8)
--- NOTE | 2018-06-04 16:16 | ED PDOC ---
HPI: General Adult Time Seen by Provider: 06/04/18 14:10 Chief Complaint (Nursing): Weakness/Neurological Deficit Chief Complaint (Provider): Weakness/Neurological Deficit History Per: Patient History/Exam Limitations: no limitations Onset/Duration Of Symptoms: Other (months) Additional Complaint(s): 78 years old female with history of hypertension, diabetes, CAD, ulcer, CHF and chronic kidney disease presents to the ED for evaluation of generalized weakness for months associated with fatigue. Patient reports acid coming out from her mouth, which she takes medications for. She also complains of decreased appetite for about a year and itchiness throughout the body. Patient denies any shortness of breath, chest pain, abdominal pain, fever, headaches, diarrhea, numbness or weakness. PMD: [place] Past Medical History Reviewed: Historical Data, Nursing Documentation, Vital Signs Vital Signs: Last Vital Signs Temp 97.7 F 06/04/18 14:09 Pulse 64 06/04/18 14:09 Resp 17 06/04/18 14:09 BP 143/74 06/04/18 14:09 Pulse Ox 98 06/04/18 16:22 - Medical History PMH: Anemia, Anxiety, Arthritis, CAD, Dementia (mild), Depression, Diabetes (?) , Diverticulitis, Gastritis, Gall Bladder Disease, GERD, HTN, Hypercholesterolemia, Hypothyroidism, Pancreatitis, Chronic Kidney Disease ( stage 2 renal disease) Denies: CHF, COPD, HIV, Rheumatoid Arthritis - Surgical History Surgical History: CABG, Cholecystectomy, Coronary Stent (11/2015 (1 STENT)) - Family History Family History: States: Unknown Family Hx - Social History Current smoker - smoking cessation education provided: No Alcohol: None Drugs: Denies - Immunization History Hx Tetanus Toxoid Vaccination: No Hx Influenza Vaccination: No Hx Pneumococcal Vaccination: No - Home Medications Home Medications: Ambulatory Orders Medication Instructions Recorded RX: traMADol [Ultram] 50 mg PO BID 08/11/17 RX: Insulin Glargine, Recombina 20 units SQ DAILY 11/03/17 [Lantus] RX: Aspirin 81 mg PO DAILY #30 tab.chew 11/08/17 RX: Atorvastatin [Lipitor] 40 mg PO HS #30 tab 11/08/17 RX: Glimepiride [amaRYL] 4 mg PO BID #60 tab 11/08/17 RX: predniSONE [predniSONE Tab] 40 mg PO DAILY 3 Days tab 03/02/18 RX: Alprazolam [Xanax] 0.5 mg PO BID 03/28/18 RX: Levothyroxine [Synthroid] 112 mcg PO DAILY 03/28/18 RX: Metoprolol Tartrate [Lopressor] 50 mg PO BID 03/28/18 RX: QUEtiapine [Seroquel] 25 mg PO DAILY 03/28/18 RX: Valsartan [Diovan] 160 mg PO BID 03/28/18 RX: Ciprofloxacin [Cipro] 500 mg PO Q12 tab 04/04/18 RX: metroNIDAZOLE [Flagyl] 500 mg PO Q8 tab 04/04/18 - Allergies Allergies/Adverse Reactions: Allergies Allergy/AdvReac Type Severity Reaction Status Date / Time ceftriaxone [From Rocephin] Allergy RASH Verified 04/03/18 18:03 Review of Systems ROS Statement: Except As Marked, All Systems Reviewed And Found Negative Constitutional: Positive for: Other (Loss of appetite). Negative for: Fever ENT: Positive for: Other Cardiovascular: Negative for: Chest Pain Respiratory: Negative for: Shortness of Breath Gastrointestinal: Negative for: Abdominal Pain, Diarrhea Neurological: Negative for: Weakness, Numbness, Headache Physical Exam - Reviewed Nursing Documentation Reviewed: Yes Vital Signs Reviewed: Yes - Physical Exam Appears: Positive for: Non-toxic, No Acute Distress Head Exam: Positive for: ATRAUMATIC, NORMOCEPHALIC Skin: Positive for: Normal Color, Warm, Dry Eye Exam: Positive for: Normal appearance, EOMI, PERRL ENT: Positive for: Normal ENT Inspection Neck: Positive for: Normal, Supple Cardiovascular/Chest: Positive for: Regular Rate, Rhythm. Negative for: Murmur Respiratory: Positive for: Normal Breath Sounds. Negative for: Wheezing Gastrointestinal/Abdominal: Positive for: Normal Exam, Soft. Negative for: Tenderness Back: Positive for: Normal Inspection. Negative for: L CVA Tenderness, R CVA Tenderness Extremity: Positive for: Normal ROM. Negative for: Tenderness, Deformity Neurologic/Psych: Positive for: Alert, Oriented (x3). Negative for: Motor/ Sensory Deficits - Laboratory Results Result Diagrams: 06/04/18 15:16 06/04/18 15:16 - ECG O2 Sat by Pulse Oximetry: 98 (RA) Pulse Ox Interpretation: Normal Medical Decision Making Medical Decision Making: Time: 1451 Initial Impression: fatigue, GERD, decreased appetite. Differential include but not limited to UTI, dehydration, electrolyte abnormality, acute onchronic renal failure. Initial Plan: --EKG --BMP --Troponin --Disptick --CBC --NaCl 1,000 ml IV 17:[address] Chin. Pending labs, bloodwork, and UA. ----- Scribe Attestation: Documented by Sheryl Bermudez, acting as a scribe for Winter Laboy MD. Provider Scribe Attestation: All medical record entries made by the Scribe were at my direction and personally dictated by me. I have reviewed the chart and agree that the record accurately reflects my personal performance of the history, physical exam, medical decision making, and the department course for this patient. I have also personally directed, reviewed, and agree with the discharge instructions and disposition. Disposition - Disposition Forms: [email or web address] (Divehi)
[2018-06-04 18:18] LABS: BLOOD UREA NITROGEN 38 mg/dl (7-17); CALCIUM 10.2 mg/dL (8.4-10.2); GFR NON-AFRICAN AMERICAN 36
[2018-06-04 18:28] LABS: B-TYPE NATRIURETIC PEPTIDE 494 pg/ml (0-900)
--- NOTE | 2018-06-04 19:37 | ED PDOC ---
- Laboratory Results Result Diagrams: 06/04/18 15:16 06/04/18 17:38 - ECG O2 Sat by Pulse Oximetry: 98 (RA) Medical Decision Making Medical Decision Making: Discussed with Dr. Wagoner Will f/u in office tomorrow Disposition - Clinical Impression Clinical Impression: Hypertension, CKD (chronic kidney disease) stage 3, GFR 30-59 ml/min - POA Present On Arrival: None - Disposition Referrals: Daquan Wagoner MD [Family Provider] - Disposition: Routine/Home Disposition Time: 19:36 Condition: FAIR Prescriptions: Hydroxyzine Pamoate [Vistaril] 25 mg PO Q8 #10 capsule Instructions: High Blood Pressure in Adults, Chronic Kidney Disease Forms: [facility] (Malay)
[2018-06-04 19:59] VITALS: BP 119/86; PULSE 80; RESP 18; TEMP 98.1; O2SAT 99
--- NOTE | 2018-06-05 08:26 | CARD ---
APPROVED REPORT Date of service: 06/04/2018 <Conclusion> Normal sinus rhythm Minimal voltage criteria for LVH, may be normal variant Borderline ECG
== END 2018-06-04 21:09 | disposition home or self-care (01) ==
LOC: H.ER 13:19
DX: I10 Essential (primary) hypertension (principal); I13.0 Hypertensive heart and chronic kidney disease with heart failure and stage 1 through stage 4 chronic kidney disease, or unspecified chronic kidney disease; E03.9 Hypothyroidism, unspecified; E78.00 Pure hypercholesterolemia, unspecified; F03.90 Unspecified dementia, unspecified severity, without behavioral disturbance, psychotic disturbance, mood disturbance, and anxiety; Z86.59 Personal history of other mental and behavioral disorders; Z79.4 Long term (current) use of insulin; Z79.82 Long term (current) use of aspirin; Z95.1 Presence of aortocoronary bypass graft; Z95.5 Presence of coronary angioplasty implant and graft; E11.9 Type 2 diabetes mellitus without complications
CPT/HCPCS: 80048; 82948; 83880; 84484; 85025; 93005; 99285; J7030

== ENCOUNTER 2018-08-01 13:07 | Emergency (ER) | payer MEDICARE, MEDICAID ==
[2018-08-01 13:08] VITALS: BMI 27.4
[2018-08-01 13:20] VITALS: RESP 18
--- NOTE | 2018-08-01 14:13 | ED PDOC ---
HPI: Abdomen Time Seen by Provider: 08/01/18 13:22 Chief Complaint (Nursing): Chest Pain Chief Complaint (Provider): Abdominal pain History Per: Patient History/Exam Limitations: no limitations Onset/Duration Of Symptoms: Days (x 3) Current Symptoms Are (Timing): Still Present Location Of Pain/Discomfort: RUQ Quality Of Discomfort: "Pain" Associated Symptoms: Vomiting, Chest Pain Additional Complaint(s): 78 year old female with a history of diabetes and hypertension presents to the ED with generalized weakness for 3 days and today, right upper stomach pain that radiates into right side of her chest. Patient had two episodes of nbnb vomiting small amounts of clear liquid. She does not remember the name of her medications. She denies chest pain, abdominal pain and changes in appetite prior to bed last night. Denies fever and chills PMD: Dr. Daquan Wagoner Past Medical History Reviewed: Historical Data, Nursing Documentation, Vital Signs Vital Signs: Last Vital Signs Temp 97.4 F L 08/01/18 13:15 Pulse 62 08/01/18 13:15 Resp 18 08/01/18 13:15 BP 177/90 H 08/01/18 13:15 Pulse Ox 99 08/01/18 13:15 - Medical History PMH: Anemia, Anxiety, Arthritis, CAD, Dementia (mild), Depression, Diabetes (?), Diverticulitis, Gastritis, Gall Bladder Disease, GERD, HTN, Hypercholesterolemia, Hypothyroidism, Pancreatitis, Chronic Kidney Disease (stage 2 renal disease) Denies: CHF, COPD, HIV, Rheumatoid Arthritis - Surgical History Surgical History: CABG, Cholecystectomy, Coronary Stent (11/2015 (1 STENT)) - Family History Family History: States: Unknown Family Hx - Immunization History Hx Tetanus Toxoid Vaccination: No Hx Influenza Vaccination: No Hx Pneumococcal Vaccination: No - Home Medications Home Medications: Ambulatory Orders Medication Instructions Recorded traMADol [Ultram] 50 mg PO Q12 PRN 08/11/17 Insulin Glargine, Recombina 20 units SQ DAILY 11/03/17 [Lantus] Glimepiride [amaRYL] 4 mg PO BID #60 tab 11/08/17 Metoprolol Tartrate [Lopressor] 50 mg PO Q8 03/28/18 QUEtiapine [Seroquel] 25 mg PO HS 03/28/18 Hydroxyzine Pamoate [Vistaril] 25 mg PO Q8 #10 capsule 06/04/18 Alprazolam [Xanax] 0.5 mg PO Q12 08/01/18 Aspirin [Ecotrin] 81 mg PO DAILY 08/01/18 Cyproheptadine [Periactin] 4 mg PO Q12 08/01/18 Hydrochlorothiazide [Microzide] 12.5 mg PO BID 08/01/18 Icosapent Ethyl [Vascepa] 2 gm PO Q12 08/01/18 Irbesartan 150 mg PO Q12 08/01/18 Levothyroxine [Synthroid] 112 mcg PO DAILY 08/01/18 Ranitidine HCl [Zantac] 150 mg PO Q12 08/01/18 Ticagrelor [Brilinta] 90 mg PO Q12 08/01/18 amLODIPine [Norvasc] 2.5 mg PO DAILY 08/01/18 - Allergies Allergies/Adverse Reactions: Allergies Allergy/AdvReac Type Severity Reaction Status Date / Time ceftriaxone [From Rocephin] Allergy RASH Verified 08/01/18 13:15 Review of Systems ROS Statement: Except As Marked, All Systems Reviewed And Found Negative Constitutional: Positive for: Weakness Cardiovascular: Positive for: Chest Pain Gastrointestinal: Positive for: Vomiting, Abdominal Pain Physical Exam - Reviewed Nursing Documentation Reviewed: Yes Vital Signs Reviewed: Yes - Physical Exam Appears: Positive for: Non-toxic, No Acute Distress Head Exam: Positive for: ATRAUMATIC, NORMAL INSPECTION, NORMOCEPHALIC Skin: Positive for: Normal Color, Warm, Dry Eye Exam: Positive for: EOMI, Normal appearance, PERRL Neck: Positive for: Normal, Painless ROM, Supple Cardiovascular/Chest: Positive for: Regular Rate, Rhythm, Chest Non Tender (no tenderness on palpation of the sternum). Negative for: Murmur Respiratory: Positive for: Normal Breath Sounds. Negative for: Wheezing, Respiratory Distress Gastrointestinal/Abdominal: Positive for: Tenderness (RUQ tenderness with positive Murdock's sign). Negative for: Guarding Extremity: Positive for: Normal ROM (x 4). Negative for: Deformity, Swelling Neurologic/Psych: Positive for: Alert, Oriented. Negative for: Motor/Sensory Deficits - Laboratory Results Result Diagrams: 08/01/18 14:08 08/01/18 14:08 - ECG O2 Sat by Pulse Oximetry: 99 (RA) Pulse Ox Interpretation: Normal Medical Decision Making Medical Decision Makin:41 MDM: workup for RUQ pain GI cocktail and Tylenol Labs sent Reassess Time: 18:56 Upon reevaluation patient is feeling better and is no longer having pain. US shows no abnormalities and labs are within normal limits. Patient also no reports pain with urination. UA has been sent. Patient is to be signed out to Dr. Edwards pending UA result. Otherwise patient has been instructed to follow up with PMD with return precautions as needed. Scribe Attestation: Documented by Kimberly Franklin acting as a scribe for Francia Goss MD Provider Scribe Attestation: All medical record entries made by the Scribe were at my direction and personally dictated by me. I have reviewed the chart and agree that the record accurately reflects my personal performance of the history, physical exam, medical decision making, and the department course for this patient. I have also personally directed, reviewed, and agree with the discharge instructions and disposition. Disposition - Disposition Forms: [employer] (Korean)
[2018-08-01 14:26] LABS: ALB/GLOB RATIO 1.1 (1.0-2.1); ALBUMIN 4.6 g/dL (3.5-5.0); ALT/SGPT 33 U/L (9-52); AST/SGOT 26 U/L (14-36); BLOOD UREA NITROGEN 24 mg/dl (7-17); CALCIUM 10.4 mg/dL (8.4-10.2); GFR NON-AFRICAN AMERICAN 48; LIPASE 157 U/L (23-300)
[2018-08-01 14:35] LABS: B-TYPE NATRIURETIC PEPTIDE 768 pg/ml (0-900)
[2018-08-01 15:11] LABS: PROTHROMBIN TIME 11.9 Seconds (9.8-13.1)
[2018-08-01 15:14] LABS: PARTIAL THROMBOPLASTIN TIME 30.3 Seconds (25.6-37.1)
[2018-08-01 15:48] LABS: BASO % 0.4 % (0.0-2.0); EOS # 0.2 K/uL (0.0-0.7); HEMOGLOBIN 12.6 g/dL (12.0-16.0); LYMPH # 1.6 K/uL (1.0-4.3); LYMPH % 14.8 % (20.0-40.0); MEAN CELL VOLUME 87.8 fl (81.0-99.0); MEAN CORPUSCULAR HEMOGLOBIN 28.3 pg (27.0-31.0); MEAN CORPUSCULAR HGB CONC 32.2 g/dL (33.0-37.0); MEAN PLATELET VOLUME 9.9 fl (7.2-11.7); MONO # 0.5 K/uL (0.0-0.8); MONO % 4.5 % (0.0-10.0); NEUT # 8.2 K/uL (1.8-7.0); NEUT % 78.3 % (50.0-75.0); NRBC % 0.3 % (0.0-0.0); RBC 4.44 Mil/uL (3.80-5.20); RED CELL DISTRIBUTION WIDTH 13.4 % (11.5-14.5); WHITE BLOOD COUNT 10.5 K/uL (4.8-10.8)
--- NOTE | 2018-08-01 18:08 | US ---
Date of service: 08/01/2018 HISTORY: RUQ tenderness COMPARISON: CT scan of the abdomen pelvis dated 03/28/2018. TECHNIQUE: Sonographic evaluation of the right upper quadrant of the abdomen. FINDINGS: LIVER: Measures 13.9 cm in length. Normal echogenicity of the liver parenchyma. No mass. No intrahepatic bile duct dilatation. GALLBLADDER: Prior cholecystectomy. COMMON BILE DUCT: Stably dilated measuring 14 mm. PANCREAS: Not well-visualized. RIGHT KIDNEY: Measures 9.7 x 5.2 x 6.0 cm in length. Normal echogenicity. No calculus, mass, or hydronephrosis. AORTA: No aneurysmal dilatation. Aortic atherosclerotic calcification and mural plaque present IVC: Unremarkable. OTHER FINDINGS: None . IMPRESSION: No acute findings. Prior cholecystectomy. Stably dilated CBD, unchanged when compared to CT scan from 03/28/2018.
[2018-08-01 19:06] LABS: SQUAMOUS EPITHIAL 1 /hpf (0-5); URINE BACTERIA RARE (<OCC); URINE BILIRUBIN NEGATIVE (NEGATIVE); URINE BLOOD NEGATIVE (NEGATIVE); URINE CLARITY CLOUDY (Clear); URINE COLOR YELLOW (YELLOW); URINE GLUCOSE (UA) NEG (Normal); URINE HYALINE CAST 0-2 /hpf (0-2); URINE LEUKOCYTE ESTERASE MOD Leu/uL (Negative); URINE PROTEIN 100 mg/dL (NEGATIVE); URINE UROBILINOGEN 0.2-1.0 mg/dL (0.2-1.0)
--- NOTE | 2018-08-01 20:58 | ED PDOC ---
- Laboratory Results Result Diagrams: 08/01/18 14:08 08/01/18 14:08 - ECG O2 Sat by Pulse Oximetry: 99 (RA) Medical Decision Making Medical Decision Making: Time: 19:00 Patient care endorsed from Dr. Goss to Dr. Edwards pending UA. Time: 20:55 Urinalysis reveals patient has UTI. Diagnosis is UTI. pt made aware. pt feels better, tolerated po, soft benign abdomen. Patient will be discharge home and instructed to follow up with Dr. Orozco, [place]. Patient has been informed of return precautions. Scribe Attestation: Documented by Mani Gonzalez acting as a scribe for Mica Edwards MD. Provider Scribe Attestation: All medical record entries made by the Scribe were at my direction and personally dictated by me. I have reviewed the chart and agree that the record accurately reflects my personal performance of the history, physical exam, medical decision making, and the department course for this patient. I have also personally directed, reviewed, and agree with the discharge instructions and disposition. Disposition Counseled Patient/Family Regarding: Studies Performed, Diagnosis, Need For Followup - Clinical Impression Clinical Impression: UTI (urinary tract infection) - POA Present On Arrival: None - Disposition Disposition: Routine/Home Disposition Time: 20:55 Condition: IMPROVED Additional Instructions: follow up with your primary doctor dr orozco in 1-2 days return to the ED with any worsening or concerning symptoms Prescriptions: Nitrofurantoin Macrocrystals [Macrobid] 100 mg PO BID #14 cap Instructions: Urinary Tract Infections in Adults Forms: [facility] (Pakistani)
[2018-08-01 21:52] VITALS: BP 164/58; PULSE 64; TEMP 98.3
[2018-08-02 06:37] VITALS: O2SAT 99
--- NOTE | 2018-08-02 13:18 | CARD ---
APPROVED REPORT Date of service: 08/01/2018 EKG Measurement Heart [id number] <Conclusion> Normal sinus rhythm Left axis deviation Minimal voltage criteria for LVH, may be normal variant Abnormal ECG
== END 2018-08-01 21:05 | disposition home or self-care (01) ==
LOC: H.ER 13:07
DX: N39.0 Urinary tract infection, site not specified (principal)
CPT/HCPCS: 76705; 80053; 81003; 83690; 83880; 84484; 85025; 85610; 85730; 93005; 96374; 99283; J1885

== ENCOUNTER 2018-09-17 18:29 | Emergency (ER) | payer MEDICARE, MEDICAID ==
[2018-09-17 18:30] VITALS: BMI 27.4
--- NOTE | 2018-09-17 20:03 | ED PDOC ---
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 Additional Complaint(s): 78 year old female with a history of hypertension, diabetes, CAD and a CABG presents to the ED accompanied by her sister for elevated sugar and elevated blood pressure for x4 days. Patient denies cough, fever, or diarrhea. Patient was vomiting x2 days ago which resolved on its own. Her blood pressure is 166/69 and her sugar is 212. PMD: [place] Past Medical History Reviewed: Historical Data, Nursing Documentation, Vital Signs Vital Signs: Last Vital Signs Temp 98.0 F 09/17/18 18:36 Pulse 80 09/17/18 18:36 Resp 20 09/17/18 18:36 BP 186/72 H 09/17/18 18:36 Pulse Ox 98 09/17/18 18:36 - Medical History PMH: Anemia, Anxiety, Arthritis, CAD, Dementia (mild), Depression, Diabetes (?), Diverticulitis, Gastritis, Gall Bladder Disease, GERD, HTN, Hypercholesterolemia, Hypothyroidism, Pancreatitis, Chronic Kidney Disease (sta ge 2 renal disease) Denies: CHF, COPD, HIV, Rheumatoid Arthritis - Surgical History Surgical History: CABG, Cholecystectomy, Coronary Stent (11/2015 (1 STENT)) - Family History Family History: States: Unknown Family Hx - Social History Current smoker - smoking cessation education provided: No Ex-Smoker (has not smoked in the last 12 months): No Alcohol: None Drugs: Denies - Immunization History Hx Tetanus Toxoid Vaccination: No Hx Influenza Vaccination: No Hx Pneumococcal Vaccination: No - Home Medications Home Medications: Ambulatory Orders Medication Instructions Recorded RX: traMADol [Ultram] 50 mg PO Q12 PRN 08/11/17 RX: Insulin Glargine, Recombina 20 units SQ DAILY 11/03/17 [Lantus] RX: Glimepiride [amaRYL] 4 mg PO BID #60 tab 11/08/17 RX: Metoprolol Tartrate [Lopressor] 50 mg PO Q8 03/28/18 RX: QUEtiapine [Seroquel] 25 mg PO HS 03/28/18 Hydroxyzine Pamoate [Vistaril] 25 mg PO Q8 #10 capsule 06/04/18 Alprazolam [Xanax] 0.5 mg PO Q12 08/01/18 Cyproheptadine [Periactin] 4 mg PO Q12 08/01/18 Icosapent Ethyl [Vascepa] 2 gm PO Q12 08/01/18 Irbesartan 150 mg PO Q12 08/01/18 Levothyroxine [Synthroid] 112 mcg PO DAILY 08/01/18 Nitrofurantoin Macrocrystals 100 mg PO BID #14 cap 08/01/18 [Macrobid] RX: Aspirin [Ecotrin] 81 mg PO DAILY 08/01/18 RX: Hydrochlorothiazide [Microzide] 12.5 mg PO BID 08/01/18 Ranitidine HCl [Zantac] 150 mg PO Q12 08/01/18 Ticagrelor [Brilinta] 90 mg PO Q12 08/01/18 amLODIPine [Norvasc] 2.5 mg PO DAILY 08/01/18 - Allergies Allergies/Adverse Reactions: Allergies Allergy/AdvReac Type Severity Reaction Status Date / Time ceftriaxone [From Rocephin] Allergy RASH Verified 09/17/18 18:35 Review of Systems ROS Statement: Except As Marked, All Systems Reviewed And Found Negative Constitutional: Negative for: Fever Respiratory: Negative for: Cough Gastrointestinal: Negative for: Diarrhea Physical Exam - Reviewed Nursing Documentation Reviewed: Yes Vital Signs Reviewed: Yes - Physical Exam Appears: Positive for: No Acute Distress (elderly woman ) Skin: Positive for: Normal Color, Warm, Dry Eye Exam: Positive for: EOMI, Normal appearance, PERRL ENT: Positive for: Normal ENT Inspection Neck: Positive for: Normal Cardiovascular/Chest: Positive for: Regular Rate, Rhythm Respiratory: Positive for: Normal Breath Sounds. Negative for: Respiratory Distress Gastrointestinal/Abdominal: Positive for: Soft, Tenderness (mild epigastric). Negative for: Mass, Guarding, Rebound Extremity: Positive for: Normal ROM (upper and lower). Negative for: Pedal Edema, Deformity Neurologic/Psych: Positive for: Alert, Oriented (x3) - Laboratory Results Result Diagrams: 09/17/18 19:52 09/17/18 19:52 - ECG O2 Sat by Pulse Oximetry: 98 (RA) Pulse Ox Interpretation: Normal Medical Decision Making Medical Decision Making: Time: 1930 Initial Plan: vague abdominal pain --CT abd & pelvis w/o contrast --CMP --Lipase --CBC with differentials --Glucose --Pepcid 20 mg IVP Time: 2032 Ct abd & pelvis w/o contrast COMMENTS: The liver is of uniform attenuation without mass or defect. There is no intra or extrahepatic biliary ductal dilatation. The spleen is normal. The patient is status post cholecystectomy. The pancreas is of normal contour and attenuation characteristics. There is no evidence of adrenal mass. The kidneys are normal in size, shape and configuration. No renal or ureteral calculi are identified. There is no hydroureter or hydronephrosis. There is no evidence for appendicitis. There is no bowel wall thickening. No evidence for small or large bowel obstruction. Scattered diverticulosis is noted involving descending and sigmoid colon. Several calcified left buttock granulomas are present. There is no evidence of abdominal ascites or lymphadenopathy. There is no evidence of intrinsic or extrinsic bladder mass. There is no pelvic ascites or lymphadenopathy. The uterus appears bulky and somewhat enlarged suggestive of myomatous changes. Consider correlation with pelvic ultrasound. The ovaries are grossly normal. Images of the lung bases show no evidence of pleural or parenchymal mass. There are no pleural effusions. Scarring is seen in the right middle lobe and l ingula. Small hiatal hernia is seen. The bony structures are free of lytic or blastic lesions. IMPRESSION: 1. Status post cholecystectomy. 2. Scattered diverticulosis involving descending and sigmoid colon. 3. Several calcified left buttock granulomas. 4. The uterus appears bulky and somewhat enlarged suggestive of myomatous changes. Consider correlation with pelvic ultrasound. 5. Scarring in the right middle lobe and lingula. 6. Small hiatal hernia. Time: 2221 --CT findings discussed with pt and pts sister at bedside. explained that pt has fibroids and other findings pt states she feels better, tolerated po in the ED. spoke with Dr. Wagoner pts pcp, who agrees that patient can go home and follow up with him. Scribe Attestation: Documented by Brittany Elise, acting as a scribe for Mica Edwards MD Provider Scribe Attestation: All medical record entries made by the Scribe were at my direction and personally dictated by me. I have reviewed the chart and agree that the record accurately reflects my personal performance of the history, physical exam, medical decision making, and the department course for this patient. I have also personally directed, reviewed, and agree with the discharge instructions and disposition. Disposition - Clinical Impression Clinical Impression: Hyperglycemia - Patient ED Disposition Is Patient to be Admitted: No Counseled Patient/Family Regarding: Studies Performed, Diagnosis, Need For Followup - Disposition Disposition: Routine/Home Disposition Time: 22:22 Condition: IMPROVED Additional Instructions: follow up with Dr Wagoner tomorrow return to the ED with any worsening or concerning symptoms Instructions: Hyperglycemia, Adult (DC) Print Language: DANISH
[2018-09-17 21:05] LABS: BASO # 0.1 K/uL (0.0-0.2); BASO % 0.9 % (0.0-2.0); EOS # 0.4 K/uL (0.0-0.7); EOS % 4.2 % (0.0-4.0); HEMOGLOBIN 11.8 g/dL (12.0-16.0); LYMPH # 1.9 K/uL (1.0-4.3); MEAN CELL VOLUME 88.1 fl (81.0-99.0); MEAN CORPUSCULAR HEMOGLOBIN 28.6 pg (27.0-31.0); MEAN CORPUSCULAR HGB CONC 32.5 g/dL (33.0-37.0); MEAN PLATELET VOLUME 10.2 fl (7.2-11.7); MONO # 0.7 K/uL (0.0-0.8); MONO % 6.7 % (0.0-10.0); NEUT # 6.8 K/uL (1.8-7.0); NEUT % 69.2 % (50.0-75.0); NRBC % 0.1 % (0.0-0.0); RBC 4.13 Mil/uL (3.80-5.20); RED CELL DISTRIBUTION WIDTH 13.3 % (11.5-14.5); WHITE BLOOD COUNT 9.8 K/uL (4.8-10.8)
[2018-09-17 21:14] LABS: ALB/GLOB RATIO 1.2 (1.0-2.1); ALBUMIN 4.6 g/dL (3.5-5.0)
[2018-09-17 22:33] VITALS: BP 148/70; PULSE 83; RESP 18; TEMP 98.2
--- NOTE | 2018-09-18 13:13 | CT ---
Date of service: 09/17/2018 PROCEDURE: CT Abdomen and Pelvis . HISTORY: Abd pain COMPARISON: Comparison made with prior CT scan of the abdomen pelvis 03/28/2018. TECHNIQUE: Contiguous axial images of the abdomen and pelvis performed without oral or intravenous contrast material. Additional 2D sagittal and coronal reformats generated. Radiation dose: Total exam DLP = 543.19 mGy-cm. This CT exam was performed using one or more of the following dose reduction techniques: Automated exposure control, adjustment of the mA and/or kV according to patient size, and/or use of iterative reconstruction technique. FINDINGS: LOWER THORAX: Minor scarring changes seen in the both lung bases including middle lobe and lingular regions. No focal consolidation. No evidence of effusion or basilar pneumothorax. Heart size within range of normal. No significant pericardial effusion. There is a small hiatal hernia with wall thickening of the distal esophagus that could be due to protrusion of gastric mucosa. Possibility of esophagitis or other intrinsic/invasive wall lesion not excluded. Clinical correlation recommended to determine whether follow-up endoscopy is required. LIVER: The unenhanced liver exhibits normal size and attenuation pattern without masses or collections so far as can be seen. There does appear to be a hepatic calcification adjacent to the IVC. Note that streak and beam hardening artifact arising of from cholecystectomy clips partially obscure fine soft tissue detail on multiple images. GALLBLADDER AND BILE DUCTS: Cholecystectomy.. PANCREAS: The pancreas appears slightly atrophic and fatty replaced. No pancreatic mass collection or calcification. SPLEEN: Unremarkable. No splenomegaly. ADRENALS: Mild adrenal hyperplasia KIDNEYS AND URETERS: Unremarkable. No stone or hydronephrosis. The kidneys exhibit relatively symmetric size. No evidence of nephrolithiasis or hydronephrosis. There is a small vascular calcification right renal hilum. No obvious renal masses or collections.. BLADDER: Urinary bladder is physiologically distended. No evidence of intraluminal urinary bladder calculi.. REPRODUCTIVE: The uterus is of enlarged and exhibits lobular contour likely due to uterine fibroids. Pelvic ultrasound could confirm if necessary. APPENDIX: Normal appendix best seen on axial image number [id number]. No evidence of acute appendicitis.. BOWEL: Evaluation of the bowel is somewhat limited due to the lack of oral contrast material. Stomach is distended with food debris liquid and air. There is fecalized content within multiple loops of small bowel however the of small bowel otherwise exhibits normal contour and caliber. No evidence of acute mechanical small bowel obstruction. Multiple colonic diverticula, bulk of which arise from the descending and transverse colon however right-sided colonic diverticula are also present. No definitive radiographic evidence of acute diverticulitis. Moderate amount of stool is present throughout the colon consistent with fecal retention/constipation. PERITONEUM: Unremarkable. No fluid collection. No free air. Tiny fat containing umbilical hernia. LYMPH NODES: Unremarkable. No enlarged lymph nodes. VASCULATURE: Unremarkable. No aortic aneurysm. Moderate aortic atherosclerotic calcification or mural plaque present. BONES: Mild multilevel degenerative spondylosis of the lower thoracic and lumbar spine. No acute compression fractures no retropulsed fragments. OTHER FINDINGS: There is small ring-like calcification within the subcutaneous tissues left buttock consistent with a calcified injection granuloma. IMPRESSION: No evidence of acute intra abdominal pathology. Cholecystectomy small nonspecific a Paddock calcification as above. A bulky lobular appearing uterus likely due to uterine fibroids. Recommend pelvic ultrasound follow-up. Diverticulosis without radiographic evidence acute diverticulitis.
[2018-09-20 00:07] VITALS: O2SAT 98
== END 2018-09-17 22:33 | disposition home or self-care (01) ==
LOC: H.ER 18:29
DX: E11.65 Type 2 diabetes mellitus with hyperglycemia (principal); E03.9 Hypothyroidism, unspecified; E78.00 Pure hypercholesterolemia, unspecified; F03.90 Unspecified dementia, unspecified severity, without behavioral disturbance, psychotic disturbance, mood disturbance, and anxiety; I12.9 Hypertensive chronic kidney disease with stage 1 through stage 4 chronic kidney disease, or unspecified chronic kidney disease; Z79.4 Long term (current) use of insulin; Z95.1 Presence of aortocoronary bypass graft; Z95.5 Presence of coronary angioplasty implant and graft

== ENCOUNTER 2018-12-12 12:52 | Inpatient (IN) | payer MEDICARE, MEDICAID ==
[2018-12-12 12:53] VITALS: BMI 27.4
[2018-12-12] MEDS ORDERED: Alum-Mag Hydrox-Simethicone Susp (30 mL) PO ONE (13:17)
[2018-12-12] MEDS ORDERED: Alum-Mag Hydrox-Simethicone Susp (30 mL) ONE (13:37)
[2018-12-12] MEDS ORDERED: Povidone Iodine Oint 10% Foilpak UD ONE (13:38)
[2018-12-12 13:52] LABS: ALB/GLOB RATIO 1.3 (1.0-2.1); ALBUMIN 4.6 g/dL (3.5-5.0); CALCIUM 10.1 mg/dL (8.4-10.2)
[2018-12-12 13:56] LABS: BASO % 0.6 % (0.0-2.0); EOS # 0.2 K/uL (0.0-0.7); EOS % 2.6 % (0.0-4.0); HEMOGLOBIN 11.4 g/dL (12.0-16.0); LYMPH # 1.4 K/uL (1.0-4.3); LYMPH % 19.2 % (20.0-40.0); MEAN CELL VOLUME 86.8 fl (81.0-99.0); MEAN CORPUSCULAR HEMOGLOBIN 28.7 pg (27.0-31.0); MEAN CORPUSCULAR HGB CONC 33.1 g/dL (33.0-37.0); MEAN PLATELET VOLUME 10.2 fl (7.2-11.7); MONO # 0.7 K/uL (0.0-0.8); MONO % 9.6 % (0.0-10.0); NEUT # 4.8 K/uL (1.8-7.0); RBC 3.96 Mil/uL (3.80-5.20); RED CELL DISTRIBUTION WIDTH 13.5 % (11.5-14.5); WHITE BLOOD COUNT 7.1 K/uL (4.8-10.8)
--- NOTE | 2018-12-12 14:04 | ED PDOC ---
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 Patient states her symptoms worsened over the past 3 days, and peaked last night. She had a bowel movement this morning, which was normal. She also reports associated nausea, but denies any vomiting, fever, chills, shortness of breath or dyspnea on exertion. No additional complaints. PMD: Dr. Wagoner Past Medical History Reviewed: Historical Data, Nursing Documentation, Vital Signs Vital Signs: Last Vital Signs Temp 97.6 F 12/12/18 13:01 Pulse 69 12/12/18 13:01 Resp 18 12/12/18 13:01 BP 128/52 L 12/12/18 13:01 Pulse Ox 100 12/12/18 13:01 - Medical History PMH: Anemia, Anxiety, Arthritis, CAD, Dementia (mild), Depression, Diabetes (?), Diverticulitis, Gastritis, Gall Bladder Disease, GERD, HTN, Hypercholesterolemia, Hypothyroidism, Pancreatitis, Chronic Kidney Disease (stage 2 renal disease) Denies: CHF, COPD, HIV, Rheumatoid Arthritis - Surgical History Surgical History: CABG, Cholecystectomy, Coronary Stent (11/2015 (1 STENT)) - Family History Family History: States: No Known Family Hx, Unknown Family Hx - Immunization History Hx Tetanus Toxoid Vaccination: No Hx Influenza Vaccination: No Hx Pneumococcal Vaccination: No - Home Medications Home Medications: Ambulatory Orders Medication Instructions Recorded Insulin Glargine, Recombina 20 units SQ DAILY 11/03/17 [Lantus] Glimepiride [amaRYL] 4 mg PO BID #60 tab 11/08/17 Metoprolol Tartrate [Lopressor] 50 mg PO Q8 03/28/18 QUEtiapine [Seroquel] 25 mg PO HS 03/28/18 Hydroxyzine Pamoate [Vistaril] 25 mg PO Q8 #10 capsule 06/04/18 Alprazolam [Xanax] 0.5 mg PO Q12 08/01/18 Aspirin [Ecotrin] 81 mg PO DAILY 08/01/18 Hydrochlorothiazide [Microzide] 12.5 mg PO BID 08/01/18 Irbesartan 150 mg PO Q12 08/01/18 Levothyroxine [Synthroid] 112 mcg PO DAILY 08/01/18 Ticagrelor [Brilinta] 90 mg PO Q12 08/01/18 amLODIPine [Norvasc] 2.5 mg PO DAILY 08/01/18 - Allergies Allergies/Adverse Reactions: Allergies Allergy/AdvReac Type Severity Reaction Status Date / Time ceftriaxone [From Rocephin] Allergy RASH Verified 12/12/18 13:00 Review of Systems ROS Statement: Except As Marked, All Systems Reviewed And Found Negative Constitutional: Negative for: Fever, Chills Cardiovascular: Positive for: Chest Pain Respiratory: Negative for: Shortness of Breath, SOB with Exertion Gastrointestinal: Positive for: Nausea, Abdominal Pain. Negative for: Vomiting Neurological: Negative for: Headache Physical Exam - Reviewed Nursing Documentation Reviewed: Yes Vital Signs Reviewed: Yes - Physical Exam Appears: Positive for: Non-toxic, No Acute Distress Head Exam: Positive for: ATRAUMATIC, NORMAL INSPECTION, NORMOCEPHALIC Skin: Positive for: Normal Color, Warm, DRY Eye Exam: Positive for: EOMI, Normal appearance, PERRL ENT: Positive for: Normal ENT Inspection Neck: Positive for: Normal, Painless ROM, Supple Cardiovascular/Chest: Positive for: Regular Rate, Rhythm, Chest Non Tender. Negative for: Tachycardia Respiratory: Positive for: Normal Breath Sounds. Negative for: Wheezing Gastrointestinal/Abdominal: Positive for: Normal Exam, Soft, Tenderness (mild epigastric tenderness; large surgical scar noted to right upper quadrant; no Murdock's sign). Negative for: Mass, Guarding, Rebound Back: Positive for: Normal Inspection. Negative for: L CVA Tenderness, R CVA Tenderness Extremity: Positive for: Normal ROM. Negative for: Pedal Edema Neurological/Psych: Positive for: Awake, Alert, Normal Tone - Laboratory Results Result Diagrams: 12/12/18 13:20 12/12/18 13:20 Lab Results: Total Bilirubin 0.5 mg/dl (0.2-1.3) 12/12/18 13:20 AST 23 U/L (14-36) 12/12/18 13:20 ALT 16 U/L (9-52) 12/12/18 13:20 Alkaline Phosphatase 86 U/L (38-126) 12/12/18 13:20 Total Protein 8.2 G/DL (6.3-8.2) 12/12/18 13:20 Albumin 4.6 g/dL (3.5-5.0) 12/12/18 13:20 Globulin 3.6 gm/dL (2.2-3.9) 12/12/18 13:20 Albumin/Globulin Ratio 1.3 (1.0-2.1) 12/12/18 13:20 Lipase 206 U/L (23-300) 12/12/18 13:20 - ECG O2 Sat by Pulse Oximetry: 100 (RA) Pulse Ox Interpretation: Normal Medical Decision Making Medical Decision Making: Impression: 78yo female with abdominal pain, chest pain Plan: -- Labs -- Urinalysis -- CXR -- Maalox 30ml PO -- Pepcid 20mg IVP 15:[address] Wagoner and arrangements made for 23 hour observation. Patient is reporting no relief of abdominal pain. She is also complaining of a headache which initially was not present. Will order CT abd/pelvis and head. Patient informed of plan and agrees with plan of care. Dr. Wagoner requests Dr. Gunter for GI consult. Tylenol 975mg PO, ASA 324mg PO chew ordered. CT head w/o contrast: Generalized atrophy. Nonspecific white matter changes. CT abd/pelvis w/o contrast: No acute or significant findings related to/ accounting for the clinical presentation. Additional benign and/or incidental findings described above. -- Scribe Attestation: Documented by Corinne Ramos, acting as a scribe for GOMEZ Salter. Provider Scribe Attestation: All medical record entries made by the Scribe were at my direction and per sonally dictated by me. I have reviewed the chart and agree that the record accurately reflects my personal performance of the history, physical exam, medical decision making, and the department course for this patient. I have also personally directed, reviewed, and agree with the discharge instructions and disposition. Disposition - Clinical Impression Clinical Impression: Chest pain - Patient ED Disposition Is Patient to be Admitted: Yes - Disposition Disposition Time: 15:47 Condition: FAIR
[2018-12-12 14:08] LABS: TROPONIN I 0.029 ng/mL (0.00-0.120)
--- NOTE | 2018-12-12 14:21 | RAD ---
Date of service: 12/12/2018 HISTORY: Epigastric, abdominal pain. COMPARISON: 03/28/2018 FINDINGS: LUNGS: No active pulmonary disease. PLEURA: No significant pleural effusion identified, no pneumothorax apparent. CARDIOVASCULAR: Atherosclerotic calcifications identified primarily aortic arch. No radiographic findings to suggest acute or significant cardiovascular disease. Incidental Finding(s): Postoperative changes related to sternotomy. OSSEOUS STRUCTURES: No significant abnormalities. VISUALIZED UPPER ABDOMEN: Normal. OTHER FINDINGS: None. IMPRESSION: No active disease. No significant interval change compared to the prior examination(s).
[2018-12-12 16:48] LABS: SQUAMOUS EPITHIAL 2 /hpf (0-5); URINE BACTERIA RARE (<OCC); URINE BILIRUBIN NEGATIVE (NEGATIVE); URINE BLOOD NEGATIVE (NEGATIVE); URINE CLARITY SLIGHTY-CLOUDY (Clear); URINE COLOR YELLOW (YELLOW); URINE GLUCOSE (UA) NEG (NEGATIVE); URINE HYALINE CAST 0-2 /hpf (0-2); URINE LEUKOCYTE ESTERASE MOD Leu/uL (Negative); URINE PROTEIN NEGATIVE (NEGATIVE); URINE UROBILINOGEN 0.2-1.0 mg/dL (0.2-1.0)
[2018-12-12] MEDS ORDERED: Tmp-Smz 800 mg-160 mg DS Tab PO STA (16:57)
--- NOTE | 2018-12-12 17:12 | CARD ---
APPROVED REPORT Date of service: 12/12/2018 EKG Measurement Heart [id number] <Conclusion> Normal sinus rhythm Left bundle branch block Abnormal ECG
--- NOTE | 2018-12-12 17:30 | CT ---
Date of service: 12/12/2018 PROCEDURE: CT HEAD WITHOUT CONTRAST. HISTORY: headache COMPARISON: Noncontrast head CT performed 03/28/18 TECHNIQUE: Axial computed tomography images were obtained through the head/brain without intravenous contrast. Radiation dose: Total exam DLP = 804.23 mGy-cm. This CT exam was performed using one or more of the following dose reduction techniques: Automated exposure control, adjustment of the mA and/or kV according to patient size, and/or use of iterative reconstruction technique. FINDINGS: HEMORRHAGE: No intracranial hemorrhage. BRAIN: Diffuse atrophy with prominence of the ventricles and sulci noted. No mass effect or edema. Intracranial atherosclerosis. Mild scattered white matter hypodensities, which are nonspecific, but often seen with chronic microvascular ischemic disease. Please note that MRI with diffusion imaging is more sensitive in the detection of acute ischemic event. VENTRICLES: No hydrocephalus. CALVARIUM: Unremarkable. PARANASAL SINUSES: Unremarkable as visualized. No significant inflammatory changes. MASTOID AIR CELLS: Unremarkable as visualized. No inflammatory changes. OTHER FINDINGS: None. IMPRESSION: Generalized atrophy. Nonspecific white matter changes.
--- NOTE | 2018-12-12 17:40 | CT ---
Date of service: 12/12/2018 PROCEDURE: CT Abdomen and Pelvis without intravenous contrast HISTORY: EPIGASTRIC abdominal pain COMPARISON: 09/17/2018 TECHNIQUE: Unenhanced. Neither IV nor oral contrast administered Radiation dose: Total exam DLP = 569.33 mGy-cm. This CT exam was performed using one or more of the following dose reduction techniques: Automated exposure control, adjustment of the mA and/or kV according to patient size, and/or use of iterative reconstruction technique. FINDINGS: LOWER THORAX: Unremarkable. LIVER: Unremarkable. No gross lesion or ductal dilatation. GALLBLADDER AND BILE DUCTS: Status post cholecystectomy. No abnormality is seen in the gallbladder fossa. PANCREAS: Unremarkable. No gross lesion or ductal dilatation. SPLEEN: Unremarkable. ADRENALS: Unremarkable. No mass. KIDNEYS AND URETERS: Unremarkable. No hydronephrosis. No solid mass. VASCULATURE: Unremarkable. No aortic aneurysm. Atherosclerotic calcification and mural plaque present. Findings are seen throughout the aorta BOWEL: Diverticulosis without an acute inflammatory component or other associated pathologic process. APPENDIX: Unremarkable. Normal appendix. PERITONEUM: Unremarkable. No free fluid. No free air. LYMPH NODES: Unremarkable. No enlarged lymph nodes. BLADDER: Unremarkable. REPRODUCTIVE: Unremarkable. BONES: No acute fracture. OTHER FINDINGS: None. IMPRESSION: No acute or significant findings related to/ accounting for the clinical presentation. Additional benign and/or incidental findings described above. No significant interval change compared to the prior examination(s).
[2018-12-12] MEDS ORDERED: Tmp-Smz 800 mg-160 mg DS Tab ONE (18:10)
--- NOTE | 2018-12-12 23:34 | CP.PCM.PCO ---
Addendum Addendum: 12/12/18 22:40 RN called the [facility] under[facility] to check repeat ECG. Repeat ECG shows sinus bradycardia @59 bmp with LBBB (ECG finding is is similar to the one done in ED today). Patient is admitted for abdominal pain. Patient denies any chest pain, dyspnea, diaphoresis,nausea or vomiting. Reports no abdominal pain now. On exam, patient is comfortably lying in bed, not in acute distress. Cardio: RRR, normal S1, S2. Respiratory: clear to auscultation, no wheezing. abdomen: soft, ND. Troponin x 1 neg, s/p aspirin 325 mg in ED f/u troponin x 2 repeat ecg in AM cardiology consult Dr. Murray as suggested by Dr. Wagoner to RN earlier in the shift. d/w Dr.Simon Sultan Ko, pgy-2
[2018-12-13 05:39] LABS: BASO % 0.4 % (0.0-2.0); EOS # 0.4 K/uL (0.0-0.7); EOS % 6.4 % (0.0-4.0); HEMOGLOBIN 11.1 g/dL (12.0-16.0); LYMPH # 2.3 K/uL (1.0-4.3); LYMPH % 39.8 % (20.0-40.0); MEAN CELL VOLUME 85.9 fl (81.0-99.0); MEAN CORPUSCULAR HEMOGLOBIN 28.9 pg (27.0-31.0); MEAN CORPUSCULAR HGB CONC 33.7 g/dL (33.0-37.0); MEAN PLATELET VOLUME 9.7 fl (7.2-11.7); MONO # 0.7 K/uL (0.0-0.8); NEUT # 2.4 K/uL (1.8-7.0); NEUT % 41.4 % (50.0-75.0); NRBC % 0.2 % (0.0-0.0); RBC 3.83 Mil/uL (3.80-5.20); RED CELL DISTRIBUTION WIDTH 13.2 % (11.5-14.5); WHITE BLOOD COUNT 5.9 K/uL (4.8-10.8)
[2018-12-13 05:55] LABS: LDL CHOLESTEROL 93 mg/dL (0-129)
[2018-12-13 05:58] LABS: ALB/GLOB RATIO 1.3 (1.0-2.1); ALBUMIN 4.2 g/dL (3.5-5.0); ALT/SGPT 23 U/L (9-52); AST/SGOT 20 U/L (14-36); BLOOD UREA NITROGEN 28 mg/dl (7-17); CALCIUM 10.2 mg/dL (8.4-10.2); GFR NON-AFRICAN AMERICAN 33; HDL CHOLESTEROL 34 MG/DL (30-70)
[2018-12-13] MEDS: Levothyroxine 112 MCG TAB PO SCH (07:01)
--- NOTE | 2018-12-13 09:01 | CARD ---
APPROVED REPORT Date of service: 12/13/2018 EKG Measurement Heart [id number] <Conclusion> Normal sinus rhythm with sinus arrhythmia Nonspecific intraventricular block Cannot rule out Septal infarct, age undetermined T wave abnormality, consider inferior ischemia Abnormal ECG
[2018-12-13] MEDS: GlipiZIDE 10 mg SR Tab PO SCH ×2 (09:56→16:42)
[2018-12-13] MEDS: Insulin Detemir 100 Units/ml Inj SC SCH (09:57)
--- NOTE | 2018-12-13 13:43 | CP.PCM.HP ---
History of Present Illness - History of Present Illness History of Present Illness: CC: 78 y/o F, with multiple chronic medical conditions, including Hx CABG, Coronary Stent on 2016, Gall Bladder Disease, GERD, CKD, O/A, Diverticulitis. Pt walk in to [facility] on 12/12/18 to be evaluated for persistent abdominal pain from 2 weeks, gradually worsening on night [employer], described as more prominent to epigastric area, burning sensation, moderate intensity 5:10, radiating to upper chest, no nausea,vomiting or diarrhea, not taking any medication for this symptom, and with no relief, associated to weakness. Worsening symptoms: Headache, for few days, mentioned to be constant moderate severity 7:10. Aggravated factor: Movements/exercise. Pt denied: Fever, chills, n/v, urinary symptoms, CP, palpitations, SOB, cough, sick contact, recent travel out of [facility] Abd/Pelv CT showed: No acute significant findings. Head CT: Generalized atrophy CXR: No active disease, EKG: Normal sinus rhythm with sinus arrhythmia, intraventricular block, cannot rule out septal infarct, age undetermined Present on Admission - Present on Admission Any Indicators Present on Admission: No Review of Systems - Constitutional Constitutional: Weakness - EENT Eyes: Other (NEGATIVE) Ears: Other (negative) Nose/Mouth/Throat: Other (negative) - Cardiovascular Cardiovascular: Chest Pain - Respiratory Respiratory: Other (negative) - Gastrointestinal Gastrointestinal: Abdominal Pain (epigastric area) - Genitourinary Genitourinary: Other (negative) - Musculoskeletal Musculoskeletal: Arthralgias - Integumentary Integumentary: Other (negative) - Neurological Neurological: Headaches, Other (negative) - Psychiatric Psychiatric: Anxiety - Endocrine Endocrine: Other (negative) - Hematologic/Lymphatic Hematologic: Other (negative) Past Patient History - Infectious Disease Hx of Infectious Diseases: None - Tetanus Immunizations Tetanus Immunization: Unknown - Past Medical History & Family History Past Medical History?: Yes Pertinent Family History: Unknown - Past Social History Smoking Status: Never Smoked Alcohol: None Drugs: Denies Home Situation {Lives}: Alone - CARDIAC Hx Cardiac Disorders: Yes Hx Hypertension: Yes - PULMONARY Hx Respiratory Disorders: No Hx Chronic Obstructive Pulmonary Disease (COPD): No - NEUROLOGICAL Hx Neurological Disorder: Yes Hx Dementia: Yes (mild) - HEENT Hx HEENT Problems: No - RENAL Hx Chronic Kidney Disease: Yes (stage 2 renal disease) - ENDOCRINE/METABOLIC Hx Endocrine Disorders: Yes Hx Diabetes Mellitus Type 1: Yes Hx Hypothyroidism: Yes - HEMATOLOGICAL/ONCOLOGICAL Hx Blood Disorders: Yes Hx AIDS: No Hx Anemia: Yes Hx Human Immunodeficiency Virus (HIV): No - INTEGUMENTARY Hx Dermatological Problems: No - MUSCULOSKELETAL/RHEUMATOLOGICAL Hx Musculoskeletal Disorders: Yes Hx Arthritis: Yes Hx Falls: No Hx Rheumatoid Arthritis: No - GASTROINTESTINAL Hx Gastrointestinal Disorders: Yes Hx Diverticulitis: Yes Hx Gall Bladder Disease: Yes Hx Gastritis: Yes Hx Pancreatitis: Yes - GENITOURINARY/GYNECOLOGICAL Hx Genitourinary Disorders: No - PSYCHIATRIC Hx Psychophysiologic Disorder: Yes Hx Anxiety: Yes Hx Depression: Yes Hx Substance Use: No - SURGICAL HISTORY Hx Surgeries: Yes Hx Cholecystectomy: Yes Hx Coronary Artery Bypass Graft: Yes Hx Coronary Stent: Yes (11/2015 (1 STENT)) - ANESTHESIA Hx Anesthesia: Yes Hx Anesthesia Reactions: No Meds Allergies/Adverse Reactions: Allergies Allergy/AdvReac Type Severity Reaction Status Date / Time ceftriaxone [From Rocephin] Allergy RASH Verified 12/12/18 13:00 Physical Exam - Constitutional Appears: No Acute Distress - Head Exam Head Exam: NORMAL INSPECTION - Eye Exam Eye Exam: PERRL - ENT Exam ENT Exam: Normal Exam - Neck Exam Neck exam: Positive for: Normal Inspection - Respiratory Exam Respiratory Exam: NORMAL BREATHING PATTERN - Cardiovascular Exam Cardiovascular Exam: REGULAR RHYTHM - GI/Abdominal Exam GI & Abdominal Exam: Normal Bowel Sounds, Soft, Tenderness (mmild epigastric) Additional comments: Healed surgical scar upper chest - Extremities Exam Extremities exam: Positive for: normal inspection - Back Exam Back exam: NORMAL INSPECTION - Neurological Exam Neurological exam: Alert, CN II-XII Intact Additional comments: Forgetful, no focal motor/sensory deficit - Psychiatric Exam Psychiatric exam: Anxious - Skin Skin Exam: Warm Results - Vital Signs Recent Vital Signs: Last Vital Signs Temp 98.5 F 12/13/18 13:16 Pulse 64 12/13/18 13:16 Resp 18 12/13/18 13:16 BP 129/75 12/13/18 13:16 Pulse Ox 98 12/13/18 13:16 reviewed Patrick - Labs Result Diagrams: 12/13/18 05:00 12/13/18 05:00 Labs: Laboratory Results - last 24 hr 03/14/19 03/14/19 03/14/19 13:20 13:20 16:10 WBC 7.1 RBC 3.96 Hgb 11.4 L Hct 34.4 MCV 86.8 MCH 28.7 MCHC 33.1 RDW 13.5 Plt Count 206 MPV 10.2 Neut % (Auto) 68.0 Lymph % (Auto) 19.2 L [place] % (Auto) 9.6 Eos % (Auto) 2.6 Baso % (Auto) 0.6 Neut # (Auto) 4.8 Lymph # (Auto) 1.4 [place] # (Auto) 0.7 Eos # (Auto) 0.2 Baso # (Auto) 0.0 Sodium 144 Potassium 4.6 Chloride 106 Carbon Dioxide 22 Anion Gap 21 H BUN 30 H Creatinine 1.3 H Est GFR ( Amer) 48 Est GFR (Non-Af Amer) 40 POC Glucose (mg/dL) Random Glucose 194 H Hemoglobin A1c Calcium 10.1 Total Bilirubin 0.5 AST 23 ALT 16 Alkaline Phosphatase 86 Troponin I 0.0290 Total Protein 8.2 Albumin 4.6 Globulin 3.6 Albumin/Globulin Ratio 1.3 Triglycerides Cholesterol LDL Cholesterol Direct HDL Cholesterol Lipase 206 TSH 3rd Generation Urine Color Yellow Urine Clarity Slighty-cloudy Urine pH 5.0 Ur Specific [place] 1.014 Urine Protein Negative Urine Glucose (UA) Neg Urine Ketones Negative Urine Blood Negative Urine Nitrate Negative Urine Bilirubin Negative Urine Urobilinogen 0.2-1.0 Ur Leukocyte Esterase Mod Urine RBC (Auto) 1 Urine Microscopic WBC 7 H Ur Squamous Epith Cells 2 Urine Bacteria Rare Hyaline Casts 0-2 12/12/18 12/13/18 12/13/18 21:42 01:20 05:00 WBC RBC Hgb Hct MCV MCH MCHC RDW Plt Count MPV Neut % (Auto) Lymph % (Auto) [place] % (Auto) Eos % (Auto) Baso % (Auto) Neut # (Auto) Lymph # (Auto) [place] # (Auto) Eos # (Auto) Baso # (Auto) Sodium 144 Potassium 4.6 Chloride 107 Carbon Dioxide 26 Anion Gap 16 BUN 28 H Creatinine 1.5 H Est GFR ( Amer) 41 Est GFR (Non-Af Amer) 33 POC Glucose (mg/dL) 102 Random Glucose 69 Hemoglobin A1c Calcium 10.2 Total Bilirubin 0.4 AST 20 ALT 23 Alkaline Phosphatase 82 Troponin I 0.0420 0.0440 Total Protein 7.4 Albumin 4.2 Globulin 3.2 Albumin/Globulin Ratio 1.3 Triglycerides 136 Cholesterol 162 LDL Cholesterol Direct 93 HDL Cholesterol 34 Lipase TSH 3rd Generation < 0.02 L Urine Color Urine Clarity Urine pH Ur Specific [place] Urine Protein Urine Glucose (UA) Urine Ketones Urine Blood Urine Nitrate Urine Bilirubin Urine Urobilinogen Ur Leukocyte Esterase Urine RBC (Auto) Urine Microscopic WBC Ur Squamous Epith Cells Urine Bacteria Hyaline Casts 12/13/18 12/13/18 12/13/18 05:00 05:00 06:42 WBC 5.9 RBC 3.83 Hgb 11.1 L Hct 32.8 L MCV 85.9 MCH 28.9 MCHC 33.7 RDW 13.2 Plt Count 164 MPV 9.7 Neut % (Auto) 41.4 L Lymph % (Auto) 39.8 [place] % (Auto) 12.0 H Eos % (Auto) 6.4 H Baso % (Auto) 0.4 Neut # (Auto) 2.4 Lymph # (Auto) 2.3 [place] # (Auto) 0.7 Eos # (Auto) 0.4 Baso # (Auto) 0.0 Sodium Potassium Chloride Carbon Dioxide Anion Gap BUN Creatinine Est GFR ( Amer) Est GFR (Non-Af Amer) POC Glucose (mg/dL) 94 Random Glucose Hemoglobin A1c 6.2 Calcium Total Bilirubin AST ALT Alkaline Phosphatase Troponin I Total Protein Albumin Globulin Albumin/Globulin Ratio Triglycerides Cholesterol LDL Cholesterol Direct HDL Cholesterol Lipase TSH 3rd Generation Urine Color Urine Clarity Urine pH Ur Specific [place] Urine Protein Urine Glucose (UA) Urine Ketones Urine Blood Urine Nitrate Urine Bilirubin Urine Urobilinogen Ur Leukocyte Esterase Urine RBC (Auto) Urine Microscopic WBC Ur Squamous Epith Cells Urine Bacteria Hyaline Casts 12/13/18 12:03 WBC RBC Hgb Hct MCV MCH MCHC RDW Plt Count MPV Neut % (Auto) Lymph % (Auto) [place] % (Auto) Eos % (Auto) Baso % (Auto) Neut # (Auto) Lymph # (Auto) [place] # (Auto) Eos # (Auto) Baso # (Auto) Sodium Potassium Chloride Carbon Dioxide Anion Gap BUN Creatinine Est GFR ( Amer) Est GFR (Non-Af Amer) POC Glucose (mg/dL) 97 Random Glucose Hemoglobin A1c Calcium Total Bilirubin AST ALT Alkaline Phosphatase Troponin I Total Protein Albumin Globulin Albumin/Globulin Ratio Triglycerides Cholesterol LDL Cholesterol Direct HDL Cholesterol Lipase TSH 3rd Generation Urine Color Urine Clarity Urine pH Ur Specific [place] Urine Protein Urine Glucose (UA) Urine Ketones Urine Blood Urine Nitrate Urine Bilirubin Urine Urobilinogen Ur Leukocyte Esterase Urine RBC (Auto) Urine Microscopic WBC Ur Squamous Epith Cells Urine Bacteria Hyaline Casts reviewed J.P. - EKG Data EKG comments: Reviewed J.P. - Imaging and Cardiology Chest x-ray Status: Report reviewed by me (Elia.) CT scan - abdomen Status: Report reviewed by me (BenignoP.) CT scan - pelvis Status: Report reviewed by me (Liset.P.) CT scan - head Status: Report reviewed by me (Liset.P.) Assessment & Plan (1) UTI (urinary tract infection) Status: Acute Priority: High (2) Abdominal pain, acute, epigastric Status: Acute Priority: High (3) Chest pain Status: Acute Priority: Medium (4) Dementia Status: Chronic Priority: Medium (5) Hypertension Status: Acute Priority: Medium (6) Diabetes type 2, controlled Status: Chronic Priority: Low (7) Hx of CABG Status: Chronic Priority: High (8) Osteoarthritis Status: Chronic Priority: Medium (9) Anxiety Status: Chronic Priority: Medium (10) Hypothyroidism Status: Chronic Priority: Medium - Assessment and Plan (Free Text) Plan: F/U Echo, U C-S + for Gram Negative Ramon. Continue with Cipro, Ecotrin, Lopressor, Nicrozide, Norvasc, Seroquel, Synthroid, Xanax and est of Tx. GI and Cardiology consult. - Date & Time Date: 12/13/18 Time: 12:00
--- NOTE | 2018-12-13 13:44 | CP.PCM.PN ---
Subjective - Date & Time of Evaluation Date of Evaluation: 12/13/18 Time of Evaluation: 13:44 - Subjective Subjective: no overnight events Objective - Vital Signs/Intake and Output Vital Signs (last 24 hours): Temp Pulse Resp BP Pulse Ox 98.5 F 64 18 129/75 98 12/13/18 13:16 12/13/18 13:16 12/13/18 13:16 12/13/18 13:16 12/13/18 13:16 - Medications Medications: Current Medications Alprazolam (Xanax) 0.5 mg PO Q12 [facility] Last Admin: 12/13/18 11:17 Dose: 0.5 mg Amlodipine Besylate (Norvasc) 2.5 mg PO DAILY [facility] Last Admin: 12/13/18 09:55 Dose: 2.5 mg Aspirin (Ecotrin) 81 mg PO DAILY [facility] Last Admin: 12/13/18 09:57 Dose: 81 mg Atorvastatin Calcium (Lipitor) 10 mg PO HS [facility] Glipizide (Glucotrol Xl) 10 mg PO BRKDIN [facility] Last Admin: 12/13/18 09:56 Dose: 10 mg Hydrochlorothiazide (Microzide) 12.5 mg PO BID [facility] Last Admin: 12/13/18 09:56 Dose: 12.5 mg Hydroxyzine Pamoate (Vistaril) 25 mg PO Q8 [facility] Last Admin: 12/13/18 13:25 Dose: 25 mg Insulin Detemir (Levemir) 20 units SC DAILY [facility] Last Admin: 12/13/18 09:57 Dose: 20 units Levothyroxine Sodium (Synthroid) 112 mcg PO DAILY@0630 [facility] Last Admin: 12/13/18 07:01 Dose: 112 mcg Losartan Potassium (Cozaar) 100 mg PO DAILY [facility] Last Admin: 12/13/18 09:56 Dose: 100 mg Metoprolol Tartrate (Lopressor) 50 mg PO Q8 [facility] Last Admin: 12/13/18 09:53 Dose: 50 mg Quetiapine Fumarate (Seroquel) 25 mg PO HS [facility] Ticagrelor (Brilinta) 90 mg PO Q12 [facility] Last Admin: 12/13/18 09:52 Dose: 90 mg - Labs Labs: 12/13/18 05:00 12/13/18 05:00 - Head Exam Head Exam: NORMOCEPHALIC - ENT Exam ENT Exam: Normal Exam - Neck Exam Neck Exam: Normal Inspection - Respiratory Exam Respiratory Exam: Clear to Ausculation Bilateral - Cardiovascular Exam Cardiovascular Exam: REGULAR RHYTHM - GI/Abdominal Exam GI & Abdominal Exam: Soft, Normal Bowel Sounds Assessment and Plan - Assessment and Plan (Free Text) Assessment: 78 yo female with multiple complaints chest pain, w/u per cardio tolerating diet for now
--- NOTE | 2018-12-13 14:12 | CP.PCM.CON ---
History of Present Illness - History of Present Illness History of Present Illness: Bety Teague, PGY-1, Cardiology Consult Note for Dr. Murray 78 year old female with past medical history of hypertension, hyperlipidemia, diabetes mellitus type II, GERD presents with burning abdominal pain greatest in epigastric region. Patient reports pain radiates to chest. Patient has never had this sensation before. Patient denies any exacerbating or remitting factors. Patient reports associated nausea, but has not vomited. Patient denies any other symptoms at this time including shortness of breath, jaw pain, left arm pain, or diaphoresis. PMH: as mentioned above PSH: "heart surgery" 6 years ago for unknown reason, cholecystectomy FMHx: noncontributary SHx: denies any history of alcohol, smoking, or recreational drug use Allergies: NKDA Patient had stress test 1 years ago and she was told to have unremarkable resu lts Patient reports never having a cardiac catheterization PMD: Dr. Wagoner [place] meds: reviewed MAR Review of Systems - Review of Systems Review of Systems: except as in HPI Past Patient History - Infectious Disease Hx of Infectious Diseases: None - Tetanus Immunizations Tetanus Immunization: Unknown - Past Medical History & Family History Past Medical History?: Yes - Past Social History Smoking Status: Never Smoked - CARDIAC Hx Cardiac Disorders: Yes Hx Hypertension: Yes - PULMONARY Hx Respiratory Disorders: No Hx Chronic Obstructive Pulmonary Disease (COPD): No - NEUROLOGICAL Hx Dementia: Yes (mild) - HEENT Hx HEENT Problems: No - RENAL Hx Chronic Kidney Disease: Yes (stage 2 renal disease) - ENDOCRINE/METABOLIC Hx Endocrine Disorders: Yes Hx Diabetes Mellitus Type 1: Yes Hx Hypothyroidism: Yes - HEMATOLOGICAL/ONCOLOGICAL Hx AIDS: No Hx Anemia: Yes Hx Human Immunodeficiency Virus (HIV): No - INTEGUMENTARY Hx Dermatological Problems: No - MUSCULOSKELETAL/RHEUMATOLOGICAL Hx Arthritis: Yes Hx Falls: No Hx Rheumatoid Arthritis: No - GASTROINTESTINAL Hx Diverticulitis: Yes Hx Gall Bladder Disease: Yes Hx Gastritis: Yes Hx Pancreatitis: Yes - GENITOURINARY/GYNECOLOGICAL Hx Genitourinary Disorders: No - PSYCHIATRIC Hx Anxiety: Yes Hx Depression: Yes Hx Substance Use: No - SURGICAL HISTORY Hx Cholecystectomy: Yes Hx Coronary Artery Bypass Graft: Yes Hx Coronary Stent: Yes (11/2015 (1 STENT)) - ANESTHESIA Hx Anesthesia: Yes Hx Anesthesia Reactions: No Meds Allergies/Adverse Reactions: Allergies Allergy/AdvReac Type Severity Reaction Status Date / Time ceftriaxone [From Rocephin] Allergy RASH Verified 12/12/18 13:00 - Medications Medications: Current Medications Alprazolam (Xanax) 0.5 mg PO Q12 [facility] Last Admin: 12/13/18 11:17 Dose: 0.5 mg Amlodipine Besylate (Norvasc) 2.5 mg PO DAILY [facility] Last Admin: 12/13/18 09:55 Dose: 2.5 mg Aspirin (Ecotrin) 81 mg PO DAILY [facility] Last Admin: 12/13/18 09:57 Dose: 81 mg Atorvastatin Calcium (Lipitor) 10 mg PO [facility] Glipizide (Glucotrol Xl) 10 mg PO BRKDIN [facility] Last Admin: 12/13/18 09:56 Dose: 10 mg Hydrochlorothiazide (Microzide) 12.5 mg PO BID [facility] Last Admin: 12/13/18 09:56 Dose: 12.5 mg Hydroxyzine Pamoate (Vistaril) 25 mg PO Q8 [facility] Last Admin: 12/13/18 13:25 Dose: 25 mg Insulin Detemir (Levemir) 20 units SC DAILY [facility] Last Admin: 12/13/18 09:57 Dose: 20 units Levothyroxine Sodium (Synthroid) 112 mcg PO DAILY@0630 [facility] Last Admin: 12/13/18 07:01 Dose: 112 mcg Losartan Potassium (Cozaar) 100 mg PO DAILY [facility] Last Admin: 12/13/18 09:56 Dose: 100 mg Metoprolol Tartrate (Lopressor) 50 mg PO Q8 [facility] Last Admin: 12/13/18 09:53 Dose: 50 mg Quetiapine Fumarate (Seroquel) 25 mg PO [facility] Ticagrelor (Brilinta) 90 mg PO Q12 [facility] Last Admin: 12/13/18 09:52 Dose: 90 mg Physical Exam - Constitutional Appears: Well, Non-toxic, No Acute Distress - Head Exam Head Exam: ATRAUMATIC, NORMAL INSPECTION, NORMOCEPHALIC - Eye Exam Eye Exam: EOMI, PERRL - ENT Exam ENT Exam: Mucous Membranes Moist - Respiratory Exam Respiratory Exam: Clear to Auscultation Bilateral, NORMAL BREATHING PATTERN - Cardiovascular Exam Cardiovascular Exam: REGULAR RHYTHM, RRR, Systolic Murmur (systolic ejection murmur at RUSB) - GI/Abdominal Exam GI & Abdominal Exam: Normal Bowel Sounds, Soft. absent: Tenderness - Extremities Exam Extremities exam: Positive for: full ROM, normal inspection. Negative for: pedal edema - Neurological Exam Neurological exam: Alert, CN II-XII Intact, Oriented x3 - Skin Skin Exam: Dry, Intact, Normal Color Results - Vital Signs Recent Vital Signs: Last Vital Signs Temp 98.5 F 12/13/18 13:16 Pulse 64 12/13/18 13:16 Resp 18 12/13/18 13:16 BP 129/75 12/13/18 13:16 Pulse Ox 98 12/13/18 13:16 - Labs Result Diagrams: 12/13/18 05:00 12/13/18 05:00 Labs: Laboratory Results - last 24 hr 12/12/18 12/12/18 12/12/18 13:20 13:20 16:10 WBC 7.1 RBC 3.96 Hgb 11.4 L Hct 34.4 MCV 86.8 MCH 28.7 MCHC 33.1 RDW 13.5 Plt Count 206 MPV 10.2 Neut % (Auto) 68.0 Lymph % (Auto) 19.2 L [place] % (Auto) 9.6 Eos % (Auto) 2.6 Baso % (Auto) 0.6 Neut # (Auto) 4.8 Lymph # (Auto) 1.4 [place] # (Auto) 0.7 Eos # (Auto) 0.2 Baso # (Auto) 0.0 Sodium Potassium Chloride Carbon Dioxide Anion Gap BUN Creatinine Est GFR ( Amer) Est GFR (Non-Af Amer) POC Glucose (mg/dL) Random Glucose Hemoglobin A1c Calcium Total Bilirubin AST ALT Alkaline Phosphatase Troponin I 0.0290 Total Protein Albumin Globulin Albumin/Globulin Ratio Triglycerides Cholesterol LDL Cholesterol Direct HDL Cholesterol TSH 3rd Generation Urine Color Yellow Urine Clarity Slighty-cloudy Urine pH 5.0 Ur Specific [place] 1.014 Urine Protein Negative Urine Glucose (UA) Neg Urine Ketones Negative Urine Blood Negative Urine Nitrate Negative Urine Bilirubin Negative Urine Urobilinogen 0.2-1.0 Ur Leukocyte Esterase Mod Urine RBC (Auto) 1 Urine Microscopic WBC 7 H Ur Squamous Epith Cells 2 Urine Bacteria Rare Hyaline Casts 0-2 12/12/18 12/13/18 12/13/18 21:42 01:20 05:00 WBC RBC Hgb Hct MCV MCH MCHC RDW Plt Count MPV Neut % (Auto) Lymph % (Auto) [place] % (Auto) Eos % (Auto) Baso % (Auto) Neut # (Auto) Lymph # (Auto) [place] # (Auto) Eos # (Auto) Baso # (Auto) Sodium 144 Potassium 4.6 Chloride 107 Carbon Dioxide 26 Anion Gap 16 BUN 28 H Creatinine 1.5 H Est GFR ( Amer) 41 Est GFR (Non-Af Amer) 33 POC Glucose (mg/dL) 102 Random Glucose 69 Hemoglobin A1c Calcium 10.2 Total Bilirubin 0.4 AST 20 ALT 23 Alkaline Phosphatase 82 Troponin I 0.0420 0.0440 Total Protein 7.4 Albumin 4.2 Globulin 3.2 Albumin/Globulin Ratio 1.3 Triglycerides 136 Cholesterol 162 LDL Cholesterol Direct 93 HDL Cholesterol 34 TSH 3rd Generation < 0.02 L Urine Color Urine Clarity Urine pH Ur Specific [place] Urine Protein Urine Glucose (UA) Urine Ketones Urine Blood Urine Nitrate Urine Bilirubin Urine Urobilinogen Ur Leukocyte Esterase Urine RBC (Auto) Urine Microscopic WBC Ur Squamous Epith Cells Urine Bacteria Hyaline Casts 12/13/18 12/13/18 12/13/18 05:00 05:00 06:42 WBC 5.9 RBC 3.83 Hgb 11.1 L Hct 32.8 L MCV 85.9 MCH 28.9 MCHC 33.7 RDW 13.2 Plt Count 164 MPV 9.7 Neut % (Auto) 41.4 L Lymph % (Auto) 39.8 [place] % (Auto) 12.0 H Eos % (Auto) 6.4 H Baso % (Auto) 0.4 Neut # (Auto) 2.4 Lymph # (Auto) 2.3 [place] # (Auto) 0.7 Eos # (Auto) 0.4 Baso # (Auto) 0.0 Sodium Potassium Chloride Carbon Dioxide Anion Gap BUN Creatinine Est GFR ( Amer) Est GFR (Non-Af Amer) POC Glucose (mg/dL) 94 Random Glucose Hemoglobin A1c 6.2 Calcium Total Bilirubin AST ALT Alkaline Phosphatase Troponin I Total Protein Albumin Globulin Albumin/Globulin Ratio Triglycerides Cholesterol LDL Cholesterol Direct HDL Cholesterol TSH 3rd Generation Urine Color Urine Clarity Urine pH Ur Specific [place] Urine Protein Urine Glucose (UA) Urine Ketones Urine Blood Urine Nitrate Urine Bilirubin Urine Urobilinogen Ur Leukocyte Esterase Urine RBC (Auto) Urine Microscopic WBC Ur Squamous Epith Cells Urine Bacteria Hyaline Casts 12/13/18 12:03 WBC RBC Hgb Hct MCV MCH MCHC RDW Plt Count MPV Neut % (Auto) Lymph % (Auto) [place] % (Auto) Eos % (Auto) Baso % (Auto) Neut # (Auto) Lymph # (Auto) [place] # (Auto) Eos # (Auto) Baso # (Auto) Sodium Potassium Chloride Carbon Dioxide Anion Gap BUN Creatinine Est GFR ( Amer) Est GFR (Non-Af Amer) POC Glucose (mg/dL) 97 Random Glucose Hemoglobin A1c Calcium Total Bilirubin AST ALT Alkaline Phosphatase Troponin I Total Protein Albumin Globulin Albumin/Globulin Ratio Triglycerides Cholesterol LDL Cholesterol Direct HDL Cholesterol TSH 3rd Generation Urine Color Urine Clarity Urine pH Ur Specific [place] Urine Protein Urine Glucose (UA) Urine Ketones Urine Blood Urine Nitrate Urine Bilirubin Urine Urobilinogen Ur Leukocyte Esterase Urine RBC (Auto) Urine Microscopic WBC Ur Squamous Epith Cells Urine Bacteria Hyaline Casts Assessment & Plan - Assessment and Plan (Free Text) Assessment: CAD Pancreatitis Hypertension Diabetes Mellitus type II Hypothyroidism Plan: CAD Pancreatitis Hypertension Diabetes Mellitus type II Hypothyroidism Last echocardiogram in 07/2017: LVEF of 60.8%, grade I pseudonormal relaxation, LA mildly dilated EKG: NSR with left axis deviation unchanged Troponinx3: 0.029, 0.042, 0.044 Lipid panel unremarkable HgbA1c: 6.2 TSH: <0.02 This is likely due to GERD vs. gastritis but will repeat echocardiogram to evaluate cardiac function for rule out of cardiac cause of pain. Medications: Amlodipine Aspirin Brilinta Atorvastatin Glipizide HCTZ Levemir Synthyroid Cozaar Lopressor - Date & Time Date: 12/13/18 Time: 14:26
--- NOTE | 2018-12-13 20:03 | CARD ---
APPROVED REPORT Date of service: 12/13/2018 EXAM: Two-dimensional and M-mode echocardiogram with Doppler and color Doppler. Other Information Quality : AverageRhythm : NSR INDICATION Cardiac Disease: CAD Chest Pain Surgery/Intervention CABG: Date: 2012 2D DIMENSIONS IVSd1.17 (0.7-1.1cm)LVDd3.76 (3.9-5.9cm) PWd1.25 (0.7-1.1cm)IVSs1.32 (0.8-1.2cm) LVDs2.90 (2.5-4.0cm)FS (%) 22.9 % PWs1.63 (0.8-1.2cm) M-Mode DIMENSIONS Left Atrium (MM)4.26 (2.5-4.0cm)IVSd1.24 (0.7-1.1cm) Aortic Root2.62 (2.2-3.7cm)LVDd4.94 (4.0-5.6cm) Aortic Cusp Exc.1.62 (1.5-2.0cm)PWd0.94 (0.7-1.1cm) IVSs1.47 cmFS (%) 29 % LVDs3.53 (2.0-3.8cm)PWs1.29 cm Aortic Valve AoV Peak Wsazidgo951.2cm/sAoV VTI79.1cmAO Peak GR.49mmHg LVOT Peak Mibjgoqn14.4cm/sLVOT VTI20.31cmAO Mean GR.32mmHg Mitral Valve MV E Mrrtmbgw152.0cm/sMV DECEL [id number] A Mlxsnekq509.9cm/s MV WMK19cqG/A ratio0.8MVA (PHT)2.47cm2 TDI E/Lateral E'0.0E/Medial E'0.0 Tricuspid Valve TR Peak Qybfsmpr732nm/sRAP MEEOLLAK33kgItWB Peak Gr.31mmHg [id number] LEFT VENTRICLE The left ventricle is normal size. There is mild concentric left ventricular hypertrophy. The left ventricular systolic function is normal. The estimated ejection fraction is 55-60% No regional wall motion abnormalities noted.. Transmitral Doppler flow pattern is Grade I-abnormal relaxation pattern. No left ventricle thrombus noted on this study. There is no ventricular septal defect visualized. There is no left ventricular aneurysm. There is no mass noted in the left ventricle. RIGHT VENTRICLE The right ventricle is normal size. There is normal right ventricular wall thickness. The right ventricular systolic function is normal. ATRIA The left atrium is mildly dilated. The right atrium size is normal. The interatrial septum is intact with no evidence for an atrial septal defect. AORTIC VALVE The aortic valve is normal in structure. No aortic regurgitation is present. There is moderate to severe aortic valvular stenosis. Peak aortic velocity is 3.8 m/sec. Correlate clinically. There is no aortic valvular vegetation. MITRAL VALVE The mitral valve is normal in structure. There is no evidence of mitral valve prolapse. There is no mitral valve stenosis. There is no mitral valve regurgitation noted. TRICUSPID VALVE The tricuspid valve is normal in structure. There is mild tricuspid valve regurgitation noted. RVSP is calculated at 40 mm Hg. There is no tricuspid valve prolapse or vegetation. There is no tricuspid valve stenosis. PULMONIC VALVE The pulmonary valve is normal in structure. There is no pulmonic valvular regurgitation. There is no pulmonic valvular stenosis. GREAT VESSELS The aortic root is normal in size. The ascending aorta is normal in size. The pulmonary artery is normal. The IVC is normal in size and collapses >50% with inspiration. PERICARDIAL EFFUSION There is no pericardial effusion. There is no pleural effusion. <Conclusion> There is mild concentric left ventricular hypertrophy. The estimated ejection fraction is 55-60% Transmitral Doppler flow pattern is Grade I-abnormal relaxation pattern. The left atrium is mildly dilated. There is moderate to severe aortic valvular stenosis. Peak aortic velocity is 3.8 m/sec. Correlate clinically. There is mild tricuspid valve regurgitation noted. RVSP is calculated at 40 mm Hg. The IVC is normal in size and collapses >50% with inspiration.
[2018-12-13] MEDS: Ciprofloxacin 200mg/100ml D5W 100 ML IVPB SCH ×2 (21:00→21:12)
--- NOTE | 2018-12-13 22:16 | CON ---
DATE: 12/12/2018 REFERRING DOCTOR: Daquan Wagoner MD. REASON FOR CONSULTATION: Reflux. HISTORY OF PRESENT ILLNESS: This is a 78-year-old female with a history of increasing abdominal pain, epigastric with radiation to chest, worse over the past couple of days, had bowel movement this morning, which is better. No fever, no chills, nausea, vomiting. Currently lying in bed comfortable, in no apparent distress. PAST MEDICAL HISTORY: Includes anemia, anxiety, arthritis, CAD, dementia, depression, diabetes, cellulitis, gastritis, GERD, hypertension, hypercholesterolemia, hypothyroidism, CKD. PAST SURGICAL HISTORY: As above. MEDICATIONS: Reviewed. REVIEW OF SYSTEMS: All other systems have been reviewed and negative apart from the HPI. PHYSICAL EXAMINATION: GENERAL: Pleasant elderly-appearing female, lying in bed comfortable, in no apparent distress. VITAL SIGNS: Here in the hospital are grossly unremarkable. HEENT: Head: Normocephalic, atraumatic. Eyes: Pupils are equally reactive to light bilaterally. No conjunctival pallor or icterus. NECK: Supple. Normal range of motion. No lymphadenopathy appreciated. LUNGS: Coarse breath sounds bilaterally. HEART: S1 and S2, regular rate and rhythm. No murmurs appreciated. ABDOMEN: Soft, nontender. Bowel sounds present. No discomfort. No rebound. No guarding. RECTAL: Deferred. EXTREMITIES: Pulses felt bilaterally. SKIN: Warm, dry, and intact. NEUROLOGICAL: A and O x3. LABORATORY DATA: All labs and relevant radiology have been reviewed. CAT scan of the abdomen and pelvis shows no acute findings. WBC 5.9, hemoglobin 9.1, creatinine of 1.5. LFTs are essentially unremarkable. ASSESSMENT AND PLAN: This is a 78-year-old female with multiple complaints. From a gastrointestinal standpoint, recommend Pepcid twice a day, advance diet as tolerated. If it continues to worsen, then may consider endoscopy and/or imaging but for right now, the patient is doing well. Thank you for the consult. Erik Gunter MD/ PhD cc: Daquan Wagoner MD
[2018-12-14] MEDS: Levothyroxine 112 MCG TAB PO SCH (06:13)
[2018-12-14 07:51] LABS: HEMOGLOBIN 11.5 g/dL (12.0-16.0); MEAN CELL VOLUME 84.8 fl (81.0-99.0); MEAN CORPUSCULAR HEMOGLOBIN 28.7 pg (27.0-31.0); MEAN CORPUSCULAR HGB CONC 33.8 g/dL (33.0-37.0); RBC 4.01 Mil/uL (3.80-5.20); RED CELL DISTRIBUTION WIDTH 13.3 % (11.5-14.5); WHITE BLOOD COUNT 5.5 K/uL (4.8-10.8)
[2018-12-14 08:27] LABS: CALCIUM 10.3 mg/dL (8.4-10.2)
[2018-12-14] MEDS: GlipiZIDE 10 mg SR Tab PO SCH ×2 (09:26→17:28)
[2018-12-14] MEDS: Insulin Detemir 100 Units/ml Inj SC SCH (09:27)
--- NOTE | 2018-12-14 14:49 | CP.PCM.PN ---
Subjective - Date & Time of Evaluation Date of Evaluation: 12/14/18 Time of Evaluation: 12:00 - Subjective Subjective: F/U UTI Objective - Vital Signs/Intake and Output Vital Signs (last 24 hours): Temp Pulse Resp BP Pulse Ox 98.2 F 73 18 130/74 98 12/14/18 11:51 12/14/18 11:51 12/14/18 11:51 12/14/18 11:51 12/14/18 11:51 - Medications Medications: Current Medications Acetaminophen (Tylenol 325mg Tab) 325 mg PO QD6 PRN PRN Reason: Head heaviness Alprazolam (Xanax) 0.5 mg PO Q12 [facility] Last Admin: 12/14/18 09:25 Dose: 0.5 mg Amlodipine Besylate (Norvasc) 2.5 mg PO DAILY [facility] Last Admin: 12/14/18 09:29 Dose: 2.5 mg Aspirin (Ecotrin) 81 mg PO DAILY [facility] Last Admin: 12/14/18 09:26 Dose: 81 mg Atorvastatin Calcium (Lipitor) 10 mg PO [facility] Last Admin: 12/14/18 09:28 Dose: 10 mg Ciprofloxacin (Cipro) 500 mg PO Q12 [facility]; Protocol Glipizide (Glucotrol Xl) 10 mg PO BRKDIN [facility] Last Admin: 12/14/18 09:26 Dose: 10 mg Hydrochlorothiazide (Microzide) 12.5 mg PO BID [facility] Last Admin: 12/14/18 09:28 Dose: 12.5 mg Hydroxyzine Pamoate (Vistaril) 25 mg PO Q8 [facility] Last Admin: 12/14/18 09:26 Dose: 25 mg Insulin Detemir (Levemir) 10 units SC [facility] Levothyroxine Sodium (Synthroid) 112 mcg PO DAILY@0630 [facility] Last Admin: 12/14/18 06:13 Dose: 112 mcg Losartan Potassium (Cozaar) 100 mg PO DAILY [facility] Last Admin: 12/14/18 09:26 Dose: 100 mg Metoprolol Tartrate (Lopressor) 50 mg PO Q8 [facility] Last Admin: 12/14/18 00:27 Dose: Not Given Quetiapine Fumarate (Seroquel) 25 mg PO [facility] Last Admin: 12/13/18 21:11 Dose: 25 mg Ticagrelor (Brilinta) 90 mg PO Q12 [facility] Last Admin: 12/14/18 09:26 Dose: 90 mg - Labs Labs: 12/14/18 05:30 12/14/18 05:30 - Constitutional Appears: No Acute Distress - Head Exam Head Exam: NORMAL INSPECTION - Eye Exam Eye Exam: PERRL - ENT Exam ENT Exam: Normal Exam - Neck Exam Neck Exam: Normal Inspection - Respiratory Exam Respiratory Exam: NORMAL BREATHING PATTERN - Cardiovascular Exam Cardiovascular Exam: REGULAR RHYTHM - GI/Abdominal Exam GI & Abdominal Exam: Soft, Tenderness (mild epigastric), Normal Bowel Sounds Additional comments: Healed surgical scar upper chest - Extremities Exam Extremities Exam: Normal Inspection - Back Exam Back Exam: NORMAL INSPECTION - Neurological Exam Neurological Exam: Alert, CN II-XII Intact Additional comments: Forgetful, no focal motor/sensory deficit. - Psychiatric Exam Psychiatric exam: Anxious - Skin Skin Exam: Warm Assessment and Plan (1) UTI (urinary tract infection) Status: Acute (2) Abdominal pain, acute, epigastric Status: Acute (3) Chest pain Status: Acute (4) Dementia Status: Chronic (5) Hypertension Status: Acute (6) Diabetes type 2, controlled Status: Chronic (7) Hx of CABG Status: Chronic (8) Osteoarthritis Status: Chronic (9) Anxiety Status: Chronic (10) Hypothyroidism Status: Chronic
--- NOTE | 2018-12-14 14:51 | CP.PCM.PN ---
Objective - Vital Signs/Intake and Output Vital Signs (last 24 hours): Temp Pulse Resp BP Pulse Ox 98.2 F 73 18 130/74 98 12/14/18 11:51 12/14/18 11:51 12/14/18 11:51 12/14/18 11:51 12/14/18 11:51 - Medications Medications: Current Medications Acetaminophen (Tylenol 325mg Tab) 325 mg PO QD6 PRN PRN Reason: Head heaviness Alprazolam (Xanax) 0.5 mg PO Q12 [facility] Last Admin: 12/14/18 09:25 Dose: 0.5 mg Amlodipine Besylate (Norvasc) 2.5 mg PO DAILY [facility] Last Admin: 12/14/18 09:29 Dose: 2.5 mg Aspirin (Ecotrin) 81 mg PO DAILY [facility] Last Admin: 12/14/18 09:26 Dose: 81 mg Atorvastatin Calcium (Lipitor) [address] [facility] Last Admin: 12/14/18 09:28 Dose: 10 mg Ciprofloxacin (Cipro) 500 mg PO Q12 [facility]; Protocol Glipizide (Glucotrol Xl) 10 mg PO BRKDIN [facility] Last Admin: 12/14/18 09:26 Dose: 10 mg Hydrochlorothiazide (Microzide) 12.5 mg PO BID [facility] Last Admin: 12/14/18 09:28 Dose: 12.5 mg Hydroxyzine Pamoate (Vistaril) 25 mg PO Q8 [facility] Last Admin: 12/14/18 09:26 Dose: 25 mg Insulin Detemir (Levemir) [address] units [address] [facility] Levothyroxine Sodium (Synthroid) 112 mcg PO DAILY@0630 [facility] Last Admin: 12/14/18 06:13 Dose: 112 mcg Losartan Potassium (Cozaar) 100 mg PO DAILY [facility] Last Admin: 12/14/18 09:26 Dose: 100 mg Metoprolol Tartrate (Lopressor) 50 mg PO Q8 [facility] Last Admin: 12/14/18 00:27 Dose: Not Given Quetiapine Fumarate (Seroquel) [address] [facility] Last Admin: 12/13/18 21:11 Dose: 25 mg Ticagrelor (Brilinta) 90 mg PO Q12 [facility] Last Admin: 12/14/18 09:26 Dose: 90 mg - Labs Labs: 12/14/18 05:30 12/14/18 05:30 Assessment and Plan (1) UTI (urinary tract infection) Status: Acute (2) Abdominal pain, acute, epigastric Status: Acute (3) Chest pain Status: Acute (4) Dementia Status: Chronic (5) Hypertension Status: Acute (6) Diabetes type 2, controlled Status: Chronic (7) Hx of CABG Status: Chronic (8) Osteoarthritis Status: Chronic (9) Anxiety Status: Chronic (10) Hypothyroidism Status: Chronic
--- NOTE | 2018-12-14 16:10 | CP.PCM.PCO ---
Physician Communication Note - Physician Communication Note Physician Communication Note: Called for consult, patient seen by resident of Dr Murray. He can follow
[2018-12-14] MEDS ORDERED: Insulin Detemir 100 Units/ml Inj SC SCH (22:00)
[2018-12-15 00:32] VITALS: RESP 18
[2018-12-15] MEDS: Levothyroxine 112 MCG TAB PO SCH (06:15)
[2018-12-15] MEDS: GlipiZIDE 10 mg SR Tab PO SCH (08:51)
[2018-12-15 12:01] VITALS: BP 144/83; PULSE 68; TEMP 98.5; O2SAT 99
--- NOTE | 2018-12-15 15:13 | CP.PCM.PN ---
Objective - Vital Signs/Intake and Output Vital Signs (last 24 hours): Temp Pulse Resp BP Pulse Ox 98.5 F 68 18 144/83 99 12/15/18 12:00 12/15/18 12:00 12/15/18 12:00 12/15/18 12:00 12/15/18 12:00 - Medications Medications: Current Medications Acetaminophen (Tylenol 325mg Tab) 650 mg PO Q4 PRN PRN Reason: Pain, moderate (4-7) Acetaminophen (Tylenol 325mg Tab) 325 mg PO Q4 PRN PRN Reason: Pain, Mild (1-3) Alprazolam (Xanax) 0.5 mg PO Q12 [facility] Last Admin: 12/15/18 08:54 Dose: Not Given Amlodipine Besylate (Norvasc) 2.5 mg PO DAILY [facility] Last Admin: 12/15/18 08:51 Dose: 2.5 mg Aspirin (Ecotrin) 81 mg PO DAILY [facility] Last Admin: 12/15/18 08:53 Dose: 81 mg Atorvastatin Calcium (Lipitor) 10 mg PO [facility] Last Admin: 12/14/18 22:00 Dose: Not Given Ciprofloxacin (Cipro) 500 mg PO Q12 [facility]; Protocol Last Admin: 12/15/18 08:51 Dose: 500 mg Glipizide (Glucotrol Xl) 10 mg PO BRKDIN [facility] Last Admin: 12/15/18 08:51 Dose: 10 mg Hydrochlorothiazide (Microzide) 12.5 mg PO BID [facility] Last Admin: 12/15/18 08:51 Dose: 12.5 mg Hydroxyzine Pamoate (Vistaril) 25 mg PO Q8 [facility] Last Admin: 12/15/18 08:53 Dose: 25 mg Insulin Detemir (Levemir) 10 units SC [facility] Last Admin: 12/14/18 21:42 Dose: 10 u Levothyroxine Sodium (Synthroid) 112 mcg PO DAILY@0630 [facility] Last Admin: 12/15/18 06:15 Dose: 112 mcg Losartan Potassium (Cozaar) 100 mg PO DAILY [facility] Last Admin: 12/15/18 08:51 Dose: 100 mg Metoprolol Tartrate (Lopressor) 50 mg PO Q8 [facility] Last Admin: 12/15/18 08:55 Dose: Not Given Quetiapine Fumarate (Seroquel) 25 mg PO [facility] Last Admin: 12/14/18 21:38 Dose: 25 mg Ticagrelor (Brilinta) 90 mg PO Q12 [facility] Last Admin: 12/15/18 08:51 Dose: 90 mg - Labs Labs: 12/14/18 05:30 12/14/18 05:30 Assessment and Plan (1) UTI (urinary tract infection) Status: Acute (2) Abdominal pain, acute, epigastric Status: Acute (3) Chest pain Status: Acute (4) Dementia Status: Chronic (5) Hypertension Status: Acute (6) Diabetes type 2, controlled Status: Chronic (7) Hx of CABG Status: Chronic (8) Osteoarthritis Status: Chronic (9) Anxiety Status: Chronic (10) Hypothyroidism Status: Chronic
--- NOTE | 2018-12-15 15:34 | CP.PCM.DIS ---
Provider - Provider Date of Admission: 12/14/18 13:13 Attending physician: Dqauan Wagoner MD Consults: 12/13/18 07:00 Gastroenterology Consult Routine Comment: Consulting Provider: Erik Gunter Consulting Physician: Erik Gunter Reason for Consult: abdominal pain 12/15/18 11:12 Cardiology Consult Routine Comment: Consulting Provider: Juan Murray Consulting Physician: Juan Murray Reason for Consult: chest pain Time Spent in preparation of Discharge (in minutes): 35 Diagnosis - Discharge Diagnosis (1) UTI (urinary tract infection) Status: Acute Priority: High (2) Abdominal pain, acute, epigastric Status: Acute Priority: High (3) Chest pain Status: Acute Priority: Medium (4) Dementia Status: Chronic Priority: Medium (5) Hypertension Status: Acute Priority: Medium (6) Diabetes type 2, controlled Status: Chronic Priority: Low (7) Hx of CABG Status: Chronic Priority: High (8) Osteoarthritis Status: Chronic Priority: Medium (9) Anxiety Status: Chronic Priority: Medium (10) Hypothyroidism Status: Chronic Priority: Medium Hospital Course - Lab Results Lab Results: Micro Results 12/12/18 18:00 Urine,Clean Catch Urine Culture - Final Klebsiella Pneumoniae Ssp Pneu Most Recent Lab Values WBC 5.5 K/uL (4.8-10.8) 12/14/18 05:30 RBC 4.01 Mil/uL (3.80-5.20) 12/14/18 05:30 Hgb 11.5 g/dL (12.0-16.0) L 12/14/18 05:30 Hct 34.0 % (34.0-47.0) 12/14/18 05:30 MCV 84.8 fl (81.0-99.0) 12/14/18 05:30 MCH 28.7 pg (27.0-31.0) 12/14/18 05:30 MCHC 33.8 g/dL (33.0-37.0) 12/14/18 05:30 RDW 13.3 % (11.5-14.5) 12/14/18 05:30 Plt Count 171 K/uL (130-400) 12/14/18 05:30 MPV 9.7 fl (7.2-11.7) 12/13/18 05:00 Neut % (Auto) 41.4 % (50.0-75.0) L 12/13/18 05:00 Lymph % (Auto) 39.8 % (20.0-40.0) 12/13/18 05:00 Major % (Auto) 12.0 % (0.0-10.0) H 12/13/18 05:00 Eos % (Auto) 6.4 % (0.0-4.0) H 12/13/18 05:00 Baso % (Auto) 0.4 % (0.0-2.0) 12/13/18 05:00 Neut # (Auto) 2.4 K/uL (1.8-7.0) 12/13/18 05:00 Lymph # (Auto) 2.3 K/uL (1.0-4.3) 12/13/18 05:00 Major # (Auto) 0.7 K/uL (0.0-0.8) 12/13/18 05:00 Eos # (Auto) 0.4 K/uL (0.0-0.7) 12/13/18 05:00 Baso # (Auto) 0.0 K/uL (0.0-0.2) 12/13/18 05:00 Sodium 142 mmol/l (132-148) 12/14/18 05:30 Potassium 4.6 MMOL/L (3.6-5.0) 12/14/18 05:30 Chloride 101 mmol/L (98-107) 12/14/18 05:30 Carbon Dioxide 24 mmol/L (22-30) 12/14/18 05:30 Anion Gap 22 (10-20) H 12/14/18 05:30 BUN 28 mg/dl (7-17) H 12/14/18 05:30 Creatinine 1.5 mg/dl (0.7-1.2) H 12/14/18 05:30 Est GFR ( Amer) 41 12/14/18 05:30 Est GFR (Non-Af Amer) 33 12/14/18 05:30 POC Glucose (mg/dL) 130 mg/dL (65-110) H 12/15/18 10:53 Random Glucose 99 mg/dL (65-105) 12/14/18 05:30 Hemoglobin A1c 6.2 % (4.2-6.5) 12/13/18 05:00 Calcium 10.3 mg/dL (8.4-10.2) H 12/14/18 05:30 Total Bilirubin 0.4 mg/dl (0.2-1.3) 12/13/18 05:00 AST 20 U/L (14-36) 12/13/18 05:00 ALT 23 U/L (9-52) 12/13/18 05:00 Alkaline Phosphatase 82 U/L (38-126) 12/13/18 05:00 Troponin I 0.0440 ng/mL (0.00-0.120) 12/13/18 05:00 Total Protein 7.4 G/DL (6.3-8.2) 12/13/18 05:00 Albumin 4.2 g/dL (3.5-5.0) 12/13/18 05:00 Globulin 3.2 gm/dL (2.2-3.9) 12/13/18 05:00 Albumin/Globulin Ratio 1.3 (1.0-2.1) 12/13/18 05:00 Triglycerides 136 mg/DL (0-149) 12/13/18 05:00 Cholesterol 162 mg/dL (0-199) 12/13/18 05:00 LDL Cholesterol Direct 93 mg/dL (0-129) 12/13/18 05:00 HDL Cholesterol 34 MG/DL (30-70) 12/13/18 05:00 Lipase 206 U/L (23-300) 12/12/18 13:20 TSH 3rd Generation < 0.02 mIU/ML (0.46-4.68) L 12/13/18 05:00 Urine Color Yellow (YELLOW) 12/12/18 16:10 Urine Clarity Slighty-cloudy (Clear) 12/12/18 16:10 Urine pH 5.0 (5.0-8.0) 12/12/18 16:10 Ur Specific Parker 1.014 (1.003-1.030) 12/12/18 16:10 Urine Protein Negative mg/dL (NEGATIVE) 12/12/18 16:10 Urine Glucose (UA) Neg mg/dL (NEGATIVE) 12/12/18 16:10 Urine Ketones Negative mg/dL (NEGATIVE) 12/12/18 16:10 Urine Blood Negative (NEGATIVE) 12/12/18 16:10 Urine Nitrate Negative (NEGATIVE) 12/12/18 16:10 Urine Bilirubin Negative (NEGATIVE) 12/12/18 16:10 Urine Urobilinogen 0.2-1.0 mg/dL (0.2-1.0) 12/12/18 16:10 Ur Leukocyte Esterase Mod Slim/uL (Negative) 12/12/18 16:10 Urine RBC (Auto) 1 /hpf (0-3) 12/12/18 16:10 Urine Microscopic WBC 7 /hpf (0-5) H 12/12/18 16:10 Ur Squamous Epith Cells 2 /hpf (0-5) 12/12/18 16:10 Urine Bacteria Rare (<OCC) 12/12/18 16:10 Hyaline Casts 0-2 /hpf (0-2) 12/12/18 16:10 - Date & Time of H&P Date of H&P: 12/13/18 Time of H&P: 12:00 Discharge Exam - Head Exam Head Exam: NORMAL INSPECTION - Eye Exam Eye Exam: PERRL - ENT Exam ENT Exam: Normal Exam - Neck Exam Neck exam: Normal Inspection - Respiratory Exam Respiratory Exam: NORMAL BREATHING PATTERN - Cardiovascular Exam Cardiovascular Exam: REGULAR RHYTHM - GI/Abdominal Exam GI & Abdominal Exam: Normal Bowel Sounds, Soft, Tenderness (mild epigastric) Additional comments: healed surgical scar upper chest - Extremities Exam Extremities exam: normal inspection - Back Exam Back exam: NORMAL INSPECTION - Neurological Exam Neurological exam: Alert, CN II-XII Intact Additional comments: forgetful, no focal motor sensory deficit - Psychiatric Exam Psychiatric exam: Anxious - Skin Skin Exam: Warm Discharge Plan - Discharge Medications Prescriptions: Ciprofloxacin [Cipro] 500 mg PO BID #14 tab Pantoprazole Sodium [Protonix] 40 mg PO DAILY #30 ect Levothyroxine [Synthroid] 100 mcg PO DAILY #30 tab - Follow Up Plan Condition: FAIR Disposition: HOME/ ROUTINE Patient education suggested?: Yes Instructions: Chest Pain (DC) Additional Instructions: F/U with PMD in one week. Referrals: Dqauan Wagoner MD [Family Provider] - Leyla Wu MD [Staff Provider] -
--- NOTE | 2018-12-19 13:01 | PQF ---
PROVIDER RESPONSE TEXT: Chest pain, abdominal pain due to GERD primary diagnosis.. REVIEWER QUERY TEXT: Symptom Underlying Cause Please document the underlying diagnosis causing the patient?s documented symptom(s) or whether those are insignificant or unable to be further specified. The patient's Clinical Indicators include: Pt admitted w/ chest pain and abdominal pain, epigastric. Hx. of CAD ; CABG and coronary stenting in 2016; pt. w/ history of GERD and Gastritis. Please clarify the etiology of pt.'s chest pain / epigastric pain if known. Query created by: Solange Costello on 12/16/2018 1:42 PM Electronically signed by: Daquan Wagoner MD 12/19/2018 12:58 PM
== END 2018-12-15 16:50 | disposition home or self-care (01) | DRG 392 ==
LOC: H.ER 12:52 → H.ERHOLD 17:58 → H.TEL 22:14 → OBSVTOIN 12-14 13:13
PROVIDERS: ADMIT Internal Medicine Pulmonary Disease; ATTEND Internal Medicine Pulmonary Disease
DX: K21.9 Gastro-esophageal reflux disease without esophagitis (principal); N39.0 Urinary tract infection, site not specified; R07.89 Other chest pain; I25.10 Atherosclerotic heart disease of native coronary artery without angina pectoris; I44.7 Left bundle-branch block, unspecified; B96.1 Klebsiella pneumoniae [K. pneumoniae] as the cause of diseases classified elsewhere; N18.2 Chronic kidney disease, stage 2 (mild); I12.9 Hypertensive chronic kidney disease with stage 1 through stage 4 chronic kidney disease, or unspecified chronic kidney disease; E11.22 Type 2 diabetes mellitus with diabetic chronic kidney disease; R10.13 Epigastric pain; E03.9 Hypothyroidism, unspecified; E78.5 Hyperlipidemia, unspecified; F03.90 Unspecified dementia, unspecified severity, without behavioral disturbance, psychotic disturbance, mood disturbance, and anxiety; E78.00 Pure hypercholesterolemia, unspecified; F41.9 Anxiety disorder, unspecified; K29.70 Gastritis, unspecified, without bleeding; M19.90 Unspecified osteoarthritis, unspecified site; F32.9 Major depressive disorder, single episode, unspecified; Z95.1 Presence of aortocoronary bypass graft; Z95.5 Presence of coronary angioplasty implant and graft; Z79.82 Long term (current) use of aspirin; Z79.4 Long term (current) use of insulin; Z79.84 Long term (current) use of oral hypoglycemic drugs

== ENCOUNTER 2019-01-04 10:19 | Observation (INO) | payer MEDICARE, MEDICAID ==
[2019-01-04 10:41] VITALS: BMI 27.9
[2019-01-04] MEDS ORDERED: Alum-Mag Hydrox-Simethicone Susp (30 mL) PO ONE (10:59)
--- NOTE | 2019-01-04 11:19 | ED PDOC ---
HPI: Abdomen Time Seen by Provider: 01/04/19 10:39 Chief Complaint (Nursing): Abdominal Pain Chief Complaint (Provider): Abdominal Pain History Per: Patient History/Exam Limitations: no limitations Onset/Duration Of Symptoms: Days (x2) Current Symptoms Are (Timing): Still Present Additional Complaint(s): Patient is a 78 y/o female with an extensive PMHx including GERD, chronic kidney disease, and gall bladder disease who presents to the ED for evaluation of abdominal pain and vomiting for the past two days. Patient has been seen multiple times in the ED for epigastric pain. Patient states she had a catheter placed at [facility] [place]. Wu. During recovery she was given food which she immediately vomited up. The patient claims ever since she had been experiencing the abdominal pain as well as a burning irritation to her throat. Patient also feels disoriented and reports she is constantly trembling. Patient denies fever. Of note, patient's medication includes Protonix and Xanax. PCP: Dr. Daquan Wagoner Past Medical History Reviewed: Historical Data, Nursing Documentation, Vital Signs Vital Signs: Last Vital Signs Temp 100.6 F H 01/04/19 10:39 Pulse 89 01/04/19 10:39 Resp BP 129/60 01/04/19 10:39 Pulse Ox 95 01/04/19 10:39 - Medical History PMH: Anemia, Anxiety, Arthritis, CAD, Dementia (mild), Depression, Diabetes (?), Diverticulitis, Gastritis, Gall Bladder Disease, GERD, HTN, Hypercholeste rolemia, Hypothyroidism, Pancreatitis, Chronic Kidney Disease (stage 2 renal disease) Denies: CHF, COPD, HIV, Rheumatoid Arthritis - Surgical History Surgical History: CABG, Cholecystectomy, Coronary Stent (11/2015 (1 STENT)) - Family History Family History: States: Unknown Family Hx - Immunization History Hx Tetanus Toxoid Vaccination: No Hx Influenza Vaccination: No Hx Pneumococcal Vaccination: No - Home Medications Home Medications: Ambulatory Orders Medication Instructions Recorded Insulin Glargine, Recombina 20 units SQ DAILY 11/03/17 [Lantus] Glimepiride [amaRYL] 4 mg PO BID #60 tab 11/08/17 Metoprolol Tartrate [Lopressor] 50 mg PO BID 03/28/18 QUEtiapine [Seroquel] 25 mg PO HS 03/28/18 Hydroxyzine Pamoate [Vistaril] 25 mg PO Q8 #10 capsule 06/04/18 Alprazolam [Xanax] 0.5 mg PO Q12 08/01/18 Aspirin [Ecotrin] 81 mg PO DAILY 08/01/18 Hydrochlorothiazide [Microzide] 12.5 mg PO BID 08/01/18 Irbesartan 150 mg PO Q12 08/01/18 Ticagrelor [Brilinta] 90 mg PO Q12 08/01/18 amLODIPine [Norvasc] 5 mg PO DAILY 08/01/18 Ciprofloxacin [Cipro] 500 mg PO BID #14 tab 12/15/18 Levothyroxine [Synthroid] 100 mcg PO DAILY #30 tab 12/15/18 Pantoprazole Sodium [Protonix] 40 mg PO DAILY #30 ect 12/15/18 - Allergies Allergies/Adverse Reactions: Allergies Allergy/AdvReac Type Severity Reaction Status Date / Time ceftriaxone [From Rocephin] Allergy RASH Verified 12/12/18 13:00 Review of Systems ROS Statement: Except As Marked, All Systems Reviewed And Found Negative Constitutional: Positive for: Other (trembling). Negative for: Fever ENT: Positive for: Throat Pain (burning) Gastrointestinal: Positive for: Vomiting, Abdominal Pain Neurological: Positive for: Other (disoriented) Physical Exam - Reviewed Nursing Documentation Reviewed: Yes Vital Signs Reviewed: Yes - Physical Exam Appears: Positive for: In Acute Distress Head Exam: Positive for: ATRAUMATIC, NORMAL INSPECTION, NORMOCEPHALIC Skin: Positive for: Normal Color, Warm, DRY Eye Exam: Positive for: EOMI, Normal appearance, PERRL ENT: Positive for: Normal ENT Inspection Neck: Positive for: Normal, Painless ROM, Supple Cardiovascular/Chest: Positive for: Regular Rate, Rhythm. Negative for: Murmur Respiratory: Positive for: Normal Breath Sounds. Negative for: Respiratory Distress Gastrointestinal/Abdominal: Positive for: Soft, Tenderness (epigastric) Back: Positive for: Normal Inspection. Negative for: L CVA Tenderness, R CVA Tenderness, Vertebral Tenderness Extremity: Positive for: Normal ROM. Negative for: Pedal Edema, Deformity Neurological/Psych: Positive for: Alert, Oriented (x3) - Laboratory Results Result Diagrams: 01/04/19 11:30 01/04/19 11:30 - ECG O2 Sat by Pulse Oximetry: 95 (RA) Pulse Ox Interpretation: Normal Medical Decision Making Medical Decision Making: Time: 1058 Impression: Abdominal Pain and Vomiting DDx includes but not limited to GERD, gastritis, and pancreatitis. Plan: CT Abd & Pelvis w/o PO or IV Contrast EKG CMP Lipase Troponin I Urine Dipstick CBC Maalox 30 ml PO Pepcid 20 mg IVP Influenza A B UA Time: 1234 FINDINGS: LOWER THORAX: Mild interlobular septal thickening is appreciate with prominent vascular structures of the may indicate active CHF. Clinically correlate further. Trace bilateral pleural effusions are also identified. LIVER: Small hepatic granuloma again seen at the upper portion of the caudate lobe with the liver stable in appearance overall. No gross intrahepatic ductal dilatation though limited by lack of intravenous contrast. GALLBLADDER AND BILE DUCTS: Prior cholecystectomy reiterated. Stable dilatation of the extrahepatic biliary tree. PANCREAS: Unremarkable. No gross lesion or ductal dilatation. SPLEEN: Unremarkable. ADRENALS: Unremarkable. No mass. KIDNEYS AND URETERS: Unremarkable. No hydronephrosis. No solid mass. VASCULATURE: Nonaneurysmal abdominal aortic calcific atherosclerotic changes are identified. BOWEL: Scattered colonic diverticulosis, left greater than right hemicolon without acute diverticulitis pattern. [id number] fecal loading is scattered throughout the large bowel. Small bowel caliber is normal throughout. No overt pattern of colitis or enteritis at this time. Evaluation of the gastrointestinal tract is limited due to the lack of oral contrast administration. APPENDIX: Not identified. No CT evidence to suggest appendicitis. PERITONEUM: Unremarkable. No free fluid. No free air. LYMPH NODES: Unremarkable. No enlarged lymph nodes. BLADDER: Unremarkable. REPRODUCTIVE: Somewhat bulky shaped uterus may indicate underlying uterine fibroids. BONES: No acute fracture. OTHER FINDINGS: None. IMPRESSION: 1. Nonacute colonic diverticulosis scattered at the left greater than right hemicolon. No bowel obstruction, measure edema or free intra peritoneal gas/fluid collection. 2. Prior cholecystectomy with stable dilatation of extrahepatic biliary tree. 3. No radiodense urolithiasis, perinephric fluid collection or obstructive uropathy is appreciate bilaterally. The bilateral ureters appear normal caliber overall. No suspicious renal contour changes to suggest underlying mass. The lack of intravenous contrast limits evaluation of the renal parenchyma bilaterally. 4. Incidental potential limited CHF. Clinically correlate further [address] Wu who states that patient is stable from cardiological point and no further recommendations. --- Scribe Attestation: Documented by Hermes Carias, acting as a scribe Alka Laboy MD. Provider Scribe Attestation: All medical record entries made by the Scribe were at my direction and personally dictated by me. I have reviewed the chart and agree that the record accurately reflects my personal performance of the history, physical exam, medical decision making, and the department course for this patient. I have also personally directed, reviewed, and agree with the discharge instructions and disposition. Disposition - Clinical Impression Clinical Impression: Abdominal pain, GERD (gastroesophageal reflux disease), Gastritis, Chest pain, Chronic renal failure, stage 3 (moderate) - Patient ED Disposition Is Patient to be Admitted: Yes Discussed With : Daquan Wagoner Doctor Will See Patient In The: Hospital Counseled Patient/Family Regarding: Studies Performed, Diagnosis - Disposition Disposition Time: 13:00 Condition: FAIR - Pt Status Changed To: Hospital Disposition Of: Inpatient - Admit Certification Admit to Inpatient:: After my assessment, the patient will require hospitalization for at least two midnights. This is because of the severity of symptoms shown, intensity of services needed, and/or the medical risk in this patient being treated as an outpatient. - POA Present On Arrival: None
[2019-01-04 11:41] LABS: BASO % 0.2 % (0.0-2.0); EOS % 0.2 % (0.0-4.0); HEMOGLOBIN 10.4 g/dL (12.0-16.0); MEAN CELL VOLUME 86.9 fl (81.0-99.0); MEAN CORPUSCULAR HEMOGLOBIN 28.1 pg (27.0-31.0); MEAN CORPUSCULAR HGB CONC 32.3 g/dL (33.0-37.0); MEAN PLATELET VOLUME 9.5 fl (7.2-11.7); MONO # 0.9 K/uL (0.0-0.8); MONO % 6.4 % (0.0-10.0); NEUT # 12.7 K/uL (1.8-7.0); NEUT % 86.2 % (50.0-75.0); PLATELET COUNT 170 K/uL (130-400); RBC 3.71 Mil/uL (3.80-5.20); RED CELL DISTRIBUTION WIDTH 13.7 % (11.5-14.5); WHITE BLOOD COUNT 14.7 K/uL (4.8-10.8)
[2019-01-04 12:15] LABS: ALB/GLOB RATIO 1.3 (1.0-2.1); ALBUMIN 4.4 g/dL (3.5-5.0); CALCIUM 9.8 mg/dL (8.4-10.2)
[2019-01-04 12:18] LABS: TROPONIN I 0.499 ng/mL (0.00-0.120)
[2019-01-04] MEDS ORDERED: Alum-Mag Hydrox-Simethicone Susp (30 mL) ONE (12:22)
[2019-01-04] MEDS ORDERED: Aspirin 325 mg EC Tablets PO ONE (12:26)
--- NOTE | 2019-01-04 12:38 | CT ---
Date of service: 01/04/2019 PROCEDURE: CT Abdomen and Pelvis without intravenous contrast HISTORY: epigastric pain vomiting COMPARISON: None. TECHNIQUE: Helical CT of the abdomen and pelvis was performed without oral or intravenous contrast as per referring physician request. Coronal and sagittal reformats were generated. Radiation dose: Total exam DLP = 696.17 mGy-cm. This CT exam was performed using one or more of the following dose reduction techniques: Automated exposure control, adjustment of the mA and/or kV according to patient size, and/or use of iterative reconstruction technique. FINDINGS: LOWER THORAX: Mild interlobular septal thickening is appreciate with prominent vascular structures of the may indicate active CHF. Clinically correlate further. Trace bilateral pleural effusions are also identified. LIVER: Small hepatic granuloma again seen at the upper portion of the caudate lobe with the liver stable in appearance overall. No gross intrahepatic ductal dilatation though limited by lack of intravenous contrast. GALLBLADDER AND BILE DUCTS: Prior cholecystectomy reiterated. Stable dilatation of the extrahepatic biliary tree. PANCREAS: Unremarkable. No gross lesion or ductal dilatation. SPLEEN: Unremarkable. ADRENALS: Unremarkable. No mass. KIDNEYS AND URETERS: Unremarkable. No hydronephrosis. No solid mass. VASCULATURE: Nonaneurysmal abdominal aortic calcific atherosclerotic changes are identified. BOWEL: Scattered colonic diverticulosis, left greater than right hemicolon without acute diverticulitis pattern. [id number] fecal loading is scattered throughout the large bowel. Small bowel caliber is normal throughout. No overt pattern of colitis or enteritis at this time. Evaluation of the gastrointestinal tract is limited due to the lack of oral contrast administration. APPENDIX: Not identified. No CT evidence to suggest appendicitis. PERITONEUM: Unremarkable. No free fluid. No free air. LYMPH NODES: Unremarkable. No enlarged lymph nodes. BLADDER: Unremarkable. REPRODUCTIVE: Somewhat bulky shaped uterus may indicate underlying uterine fibroids. BONES: No acute fracture. OTHER FINDINGS: None. IMPRESSION: 1. Nonacute colonic diverticulosis scattered at the left greater than right hemicolon. No bowel obstruction, measure edema or free intra peritoneal gas/fluid collection. 2. Prior cholecystectomy with stable dilatation of extrahepatic biliary tree. 3. No radiodense urolithiasis, perinephric fluid collection or obstructive uropathy is appreciate bilaterally. The bilateral ureters appear normal caliber overall. No suspicious renal contour changes to suggest underlying mass. The lack of intravenous contrast limits evaluation of the renal parenchyma bilaterally. 4. Incidental potential limited CHF. Clinically correlate further.
[2019-01-04 13:08] LABS: SQUAMOUS EPITHIAL < 1 /hpf (0-5); URINE BACTERIA RARE (<OCC); URINE BILIRUBIN NEGATIVE (NEGATIVE); URINE BLOOD NEGATIVE (NEGATIVE); URINE CLARITY SLIGHTY-CLOUDY (Clear); URINE COLOR YELLOW (YELLOW); URINE GLUCOSE (UA) NEG (NEGATIVE); URINE LEUKOCYTE ESTERASE NEG Leu/uL (Negative); URINE PROTEIN 30 mg/dL (NEGATIVE); URINE UROBILINOGEN 0.2-1.0 mg/dL (0.2-1.0)
[2019-01-04 13:25] LABS: LYMPHOCYTE 9 % (20-50); MONOCYTE 5 % (0-10); NEUTROPHIL 86 % (42-75); TOTAL CELLS COUNTED 100
[2019-01-04 13:26] LABS: PLATELET ESTIMATE NORMAL (NORMAL)
[2019-01-04 13:27] LABS: HYPOCHROMIC SLIGHT
[2019-01-04] MEDS ORDERED: levoFLOXacin 500 mg in D5W 500 MG/100 ML BAG IVPB ONE ×2 (14:59→15:00)
[2019-01-04 16:39] VITALS: RESP 18
--- NOTE | 2019-01-04 17:02 | RAD ---
Date of service: 01/04/2019 HISTORY: fever COMPARISON: Portable chest 12/12/2018. TECHNIQUE: 1 view obtained. FINDINGS: LUNGS: No active pulmonary disease. PLEURA: No significant pleural effusion identified, no pneumothorax apparent. CARDIOVASCULAR: Calcific atherosclerotic changes are seen related to the thoracic aorta. Normal cardiac size. No pulmonary vascular congestion. OSSEOUS STRUCTURES: Post CABG related sternotomy reiterated. VISUALIZED UPPER ABDOMEN: Surgical clips again evident right upper quadrant abdomen. OTHER FINDINGS: None. IMPRESSION: No interval acute cardiopulmonary disease appreciated.
--- NOTE | 2019-01-04 18:30 | CT ---
Date of service: 01/04/2019 PROCEDURE: CT Chest without contrast HISTORY: abnormal cxr COMPARISON: Chest, abdomen pelvis CT 05/19/2017. chest radiograph 01/04/2019. TECHNIQUE: Contiguous axial images were obtained through the chest without intravenous contrast enhancement. Sagittal and coronal reconstructions were performed. Radiation dose: Total exam DLP = 410.28 mGy-cm. This CT exam was performed using one or more of the following dose reduction techniques: Automated exposure control, adjustment of the mA and/or kV according to patient size, and/or use of iterative reconstruction technique. FINDINGS: LUNGS: Trace bilateral basilar dependent atelectasis is noted. Prominence of the interlobular septal markings is seen at the bases in the periphery and could reflect early CHF but this is not definite. Clinically correlate further. No definite pulmonary vascular congestion cord but identified. Occasional foci ground-glass opacity are identified at the bilateral lungs infrequently, nonspecific finding. No overt consolidation bilaterally. No gross mass appreciable. Central airways appear clear. MEDIASTINUM: Thoracic inlet appears unremarkable. No aneurysm of the thoracic aorta is identified. Normal sized heart. 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 Main pulmonary artery unremarkable. No vascular congestion. No significant lymphadenopathy. Calcific atherosclerotic changes are seen related to the thoracic aorta. PLEURA: Trace bilateral pleural effusion. No pneumothorax bilaterally. BONES: Prior median sternotomy again evident. UPPER ABDOMEN: Grossly unremarkable. OTHER FINDINGS: None. IMPRESSION: Potential limited CHF. Bilateral basilar dependent atelectasis. Trace bilateral pleural effusions. Prior median sternotomy with prosthetic cardiac valves reiterated. Nonspecific trace bilateral ground-glass changes occasionally seen of uncertain origin. No gross mass appreciable.
[2019-01-05] MEDS: Levothyroxine 100 MCG TAB PO SCH (05:57)
[2019-01-05 08:25] LABS: HEMOGLOBIN 10.2 g/dL (12.0-16.0); MEAN CELL VOLUME 86.4 fl (81.0-99.0); MEAN CORPUSCULAR HEMOGLOBIN 29.3 pg (27.0-31.0); RBC 3.48 Mil/uL (3.80-5.20); RED CELL DISTRIBUTION WIDTH 13.6 % (11.5-14.5); WHITE BLOOD COUNT 7.1 K/uL (4.8-10.8)
[2019-01-05] MEDS: GlipiZIDE 10 mg SR Tab PO SCH ×2 (08:35→17:17)
[2019-01-05] MEDS: Insulin Detemir 100 Units/ml Inj SC SCH (08:37)
[2019-01-05 08:43] LABS: ALB/GLOB RATIO 1.2 (1.0-2.1); ALBUMIN 3.9 g/dL (3.5-5.0); CALCIUM 9.4 mg/dL (8.4-10.2)
[2019-01-05 09:12] LABS: TROPONIN I 0.292 ng/mL (0.00-0.120)
[2019-01-05] MEDS: levoFLOXacin 500 mg in D5W 500 MG/100 ML BAG IVPB SCH (09:56)
--- NOTE | 2019-01-05 10:26 | CARD ---
APPROVED REPORT Date of service: 01/04/2019 EKG Measurement Heart [id number] <Conclusion> Normal sinus rhythm Left atrial enlargement Left bundle branch block Abnormal ECG
--- NOTE | 2019-01-05 11:30 | CP.PCM.CON ---
History of Present Illness - History of Present Illness History of Present Illness: I was asked to evaluate patient by Dr Wagoner. Patient seen 01/05/19 1100 Patient is a 78 year old female with HTN, CAD s/p stent L Cx, AVR who presents with abdominal pain. Patient had cardiac cath on 01/02 to assess for porsthetic aortic stenosis and CAD. She has widely patent coronaries and no prosthetic . The patient was discharged to home. She complained of abdominal discomfort, nausea, vomiting. A troponin was checked which is elevated. The patient denies chest pain or dyspnea. Review of Systems - Constitutional Constitutional: absent: As Per HPI, Anorexia, Chills, Daytime Sleepiness, Excessive Sweating, Fatigue, Fever, Frequent Falls, Headache, Increased Appetite, Lethargy, Malaise, Night Sweats, Snoring, Sleep Apnea, Weight Gain, Weight Loss, Weakness, Other - EENT Eyes: absent: As Per HPI, Blind Spots, Blurred Vision, Change in Vision, Decreased Night Vision, Diplopia, Discharge, Dry Eye, Exophthalmos, Floaters, Irritation, Itchy Eyes, Loss of Peripheral Vision, Pain, Photophobia, Requires Corrective Lenses, Sees Flashes, Spots in Vision, Tunnel Vision, Other Visual Disturbances, Loss of Vision, Other Ears: absent: As Per HPI, Decreased Hearing, Ear Discharge, Ear Pain, Tinnitus, Abnormal Hearing, Disequilibrium, Dizziness, Other Nose/Mouth/Throat: absent: As Per HPI, Epistaxis, Nasal Congestion, Nasal Discharge, Nasal Obstruction, Nasal Trauma, Nose Pain, Post Nasal Drip, Sinus Pain, Sinus Pressure, Bleeding Gums, Change in Voice, Dental Pain, Dry Mouth, Dysphagia, Halitosis, Hoarsness, Lip Swelling, Mouth Lesions, Mouth Pain, Odynophagia, Sore Throat, Throat Swelling, Tongue Swelling, Facial Pain, Neck Pain, Neck Mass, Other - Cardiovascular Cardiovascular: absent: As Per HPI, Acrocyanosis, Chest Pain, Chest Pain at Rest, Chest Pain with Activity, Claudication, Diaphoresis, Dyspnea, Dyspnea on E xertion, Edema, Irregular Heart Rhythm, Pain Radiating to Arm/Neck/Jaw, Leg Edema, Leg Ulcers, Lightheadedness, Orthopnea, Palpitations, Paroxysmal Nocturnal Dyspnea, Pedal Edema, Radiating Pain, Rapid Heart Rate, Slow Heart Rate, Syncope, Other - Respiratory Respiratory: absent: As Per HPI, Cough, Dyspnea, Hemoptysis, Dyspnea on Exertion, Wheezing, Snoring, Stridor, Pain on Inspiration, Chest Congestion, Excessive Mucous Production, Change in Mucous Color, Pain with Coughing, Other - Gastrointestinal Gastrointestinal: Abdominal Pain, Nausea - Genitourinary Genitourinary: absent: As Per HPI, Change in Urinary Stream, Difficulty Urinating, Dysuria, Flank Pain, Hematuria, Pyuria, Nocturia, Urinary Incontinence, Urinary Frequency, Urinary Hesitance, Urinary Urgency, Voiding F req/Small Amts, Freq UTI, Hx Renal/Bladder Calculi, Hx /Renal Surgery, Bladder Distension, Other - Musculoskeletal Musculoskeletal: absent: As Per HPI, Abnormal Gait, Arthralgias, Atrophy, Back Pain, Deformity, Joint Swelling, Limited Range of Motion, Loss of Height, Muscle Cramps, Muscle Weakness, Myalgias, Neck Pain, Numbness, Radiating Pain into Limb, Stiffness, Tingling, Other - Integumentary Integumentary: absent: As Per HPI, Acne, Alopecia, Bleeding Lesions, Change in Hair, Change in Nails, Change in Pigmentation, Changing Lesions, Dry Skin, Erythema, Furuncle, Hirsutism, Lesions, New Lesions, Non-Healing Lesions, Photosensitivity, Pruritus, Rash, Skin Pain, Skin Ulcer, Sores, Striae, Swelling, Unusual Bruising, Wounds, Jaundice, Other - Neurological Neurological: absent: As Per HPI, Abnormal Gait, Abnormal Hearing, Abnormal Movements, Abnormal Speech, Behavioral Changes, Burning Sensations, Confusion, Convulsions, Disequilibrium, Dizziness, Numbness, Focal Weakness, Frequent Falls, Headaches, Lack of Coordination, Loss of Vision, Memory Loss, Paresthesias, Radicular Pain, Restless Legs, Sensory Deficit, Syncope, Tingling, Tremor, Vertigo, Weakness, Other Visual Disturbances, Other - Psychiatric Psychiatric: absent: As Per HPI, Abnormal Sleep Pattern, Anhedonia, Anxiety, Auditory Hallucinations, Behavioral Changes, Change in Appetite, Change in Libido, Confusion, Depression, Difficulty Concentrating, Hallucinations, Homicidal Ideation, Hopelessness, Irritability, Memory Loss, Mood Swings, Panic Attacks, Paranoia, Suicidal Ideation, Visual Hallucinations, Tactile Hallucinations, Other - Endocrine Endocrine: absent: As Per HPI, Change in Body Appearance, Change in Libido, Cold Intolorance, Deepening of Voice, Excessive Sweating, Fatigue, Flushing, Heat Intolorance, Increase in Ring/Shoe/Hat Size, Palpitations, Polydipsia, Polyphagia, Polyuria, Other - Hematologic/Lymphatic Hematologic: absent: As Per HPI, Easy Bleeding, Easy Bruising, Lymphadenopathy, Other Past Patient History - Infectious Disease Hx of Infectious Diseases: None - Tetanus Immunizations Tetanus Immunization: Unknown - Past Medical History & Family History Past Medical History?: Yes - Past Social History Smoking Status: Never Smoked - CARDIAC Hx Congestive Heart Failure: No Hx Hypercholesterolemia: Yes Hx Hypertension: Yes - PULMONARY Hx Chronic Obstructive Pulmonary Disease (COPD): No - NEUROLOGICAL Hx Dementia: Yes (mild) - HEENT Hx HEENT Problems: No - RENAL Hx Chronic Kidney Disease: Yes (stage 2 renal disease) - ENDOCRINE/METABOLIC Hx Hypothyroidism: Yes - HEMATOLOGICAL/ONCOLOGICAL Hx Anemia: Yes Hx Human Immunodeficiency Virus (HIV): No - INTEGUMENTARY Hx Dermatological Problems: No - MUSCULOSKELETAL/RHEUMATOLOGICAL Hx Arthritis: Yes Hx Rheumatoid Arthritis: No - GASTROINTESTINAL Hx Diverticulitis: Yes Hx Gall Bladder Disease: Yes Hx Gastritis: Yes Hx Pancreatitis: Yes - GENITOURINARY/GYNECOLOGICAL Hx Genitourinary Disorders: Yes Hx Urinary Tract Infection: Yes - PSYCHIATRIC Hx Anxiety: Yes Hx Depression: Yes - SURGICAL HISTORY Hx Cholecystectomy: Yes Hx Coronary Artery Bypass Graft: Yes Hx Coronary Stent: Yes (11/2015 (1 STENT)) - ANESTHESIA Hx Anesthesia: Yes Hx Anesthesia Reactions: No Meds Allergies/Adverse Reactions: Allergies Allergy/AdvReac Type Severity Reaction Status Date / Time ceftriaxone [From Rocephin] Allergy RASH Verified 12/12/18 13:00 - Medications Medications: Current Medications Alprazolam (Xanax) 0.5 mg PO Q12 [facility] Last Admin: 01/05/19 08:35 Dose: 0.5 mg Amlodipine Besylate (Norvasc) 5 mg PO DAILY [facility] Last Admin: 01/05/19 08:35 Dose: 5 mg Aspirin (Ecotrin) 81 mg PO DAILY [facility] Last Admin: 01/05/19 08:35 Dose: 81 mg Glipizide (Glucotrol Xl) 10 mg PO BIDWM [facility] Last Admin: 01/05/19 08:35 Dose: 10 mg Levofloxacin/Dextrose (Levaquin 500mg) 500 mg in 100 mls @ 100 mls/hr IVPB DAILY [facility]; Protocol Last Admin: 01/05/19 09:56 Dose: 100 mls/hr Insulin Detemir (Levemir) 20 units SC DAILY [facility] Last Admin: 01/05/19 08:37 Dose: Not Given Levothyroxine Sodium (Synthroid) 100 mcg PO DAILY@0630 [facility] Last Admin: 01/05/19 05:57 Dose: 100 mcg Losartan Potassium (Cozaar) 50 mg PO BID [facility] Last Admin: 01/05/19 08:35 Dose: 50 mg Metoprolol Tartrate (Lopressor) 50 mg PO BID [facility] Last Admin: 01/05/19 08:37 Dose: 50 mg Pantoprazole Sodium (Protonix Inj) 40 mg IVP DAILY [facility] Last Admin: 01/05/19 08:37 Dose: 40 mg Quetiapine Fumarate (Seroquel) 25 mg PO HS [facility] Last Admin: 01/04/19 22:41 Dose: Not Given Tramadol HCl (Ultram) 50 mg PO BID PRN PRN Reason: pain 7-10 Last Admin: 01/05/19 05:03 Dose: 50 mg Physical Exam - Constitutional Appears: Non-toxic - Head Exam Head Exam: NORMAL INSPECTION - Eye Exam Eye Exam: Normal appearance - ENT Exam ENT Exam: Mucous Membranes Moist - Neck Exam Neck exam: Positive for: Full Rom, Normal Inspection - Respiratory Exam Respiratory Exam: NORMAL BREATHING PATTERN - Cardiovascular Exam Cardiovascular Exam: REGULAR RHYTHM, Systolic Murmur - GI/Abdominal Exam GI & Abdominal Exam: Normal Bowel Sounds - Rectal Exam Rectal Exam: Deferred - Extremities Exam Extremities exam: Positive for: normal capillary refill, normal inspection, pedal pulses present. Negative for: calf tenderness, pedal edema, tenderness - Back Exam Back exam: NORMAL INSPECTION - Neurological Exam Neurological exam: Alert, Oriented x3 - Psychiatric Exam Psychiatric exam: Normal Affect - Skin Skin Exam: Normal Color Results - Vital Signs Recent Vital Signs: Last Vital Signs Temp 98.4 F 01/05/19 08:17 Pulse 80 01/05/19 08:37 Resp 18 01/05/19 08:17 BP 115/69 01/05/19 08:37 Pulse Ox 100 01/05/19 08:17 - Labs Result Diagrams: 01/05/19 07:40 01/05/19 04:00 Labs: Laboratory Results - last 24 hr 01/04/19 01/04/19 01/04/19 11:30 11:30 11:37 WBC 14.7 H D RBC 3.71 L Hgb 10.4 L Hct 32.2 L MCV 86.9 D MCH 28.1 MCHC 32.3 L RDW 13.7 Plt Count 170 MPV 9.5 Neut % (Auto) 86.2 H Lymph % (Auto) 7.0 L Arthur % (Auto) 6.4 Eos % (Auto) 0.2 Baso % (Auto) 0.2 Neut # (Auto) 12.7 H Lymph # (Auto) 1.0 Arthur # (Auto) 0.9 H Eos # (Auto) 0.0 Baso # (Auto) 0.0 Neutrophils % (Manual) 86 H Lymphocytes % (Manual) 9 L Monocytes % (Manual) 5 Platelet Estimate Normal Hypochromasia (manual) Slight Sodium 138 Potassium 4.8 Chloride 103 Carbon Dioxide 24 Anion Gap 16 BUN 35 H Creatinine 1.3 H Est GFR ( Amer) 48 Est GFR (Non-Af Amer) 40 POC Glucose (mg/dL) Random Glucose 153 H Calcium 9.8 Total Bilirubin 0.5 AST 26 ALT 29 Alkaline Phosphatase 81 Troponin I 0.4990 H* NT-Pro-B Natriuret Pep Total Protein 7.8 Albumin 4.4 Globulin 3.4 Albumin/Globulin Ratio 1.3 Lipase 58 Thyroxine (T4) TSH 3rd Generation Urine Color Urine Clarity Urine pH Ur Specific [place] Urine Protein Urine Glucose (UA) Urine Ketones Urine Blood Urine Nitrate Urine Bilirubin Urine Urobilinogen Ur Leukocyte Esterase Urine RBC (Auto) Urine Microscopic WBC Ur Squamous Epith Cells Urine Bacteria Influenza Typ A,B (EIA) Negative for flu a/b 01/04/19 01/04/19 01/04/19 12:58 14:55 20:31 WBC RBC Hgb Hct MCV MCH MCHC RDW Plt Count MPV Neut % (Auto) Lymph % (Auto) Arthur % (Auto) Eos % (Auto) Baso % (Auto) Neut # (Auto) Lymph # (Auto) Arthur # (Auto) Eos # (Auto) Baso # (Auto) Neutrophils % (Manual) Lymphocytes % (Manual) Monocytes % (Manual) Platelet Estimate Hypochromasia (manual) Sodium Potassium Chloride Carbon Dioxide Anion Gap BUN Creatinine Est GFR ( Amer) Est GFR (Non-Af Amer) POC Glucose (mg/dL) Random Glucose Calcium Total Bilirubin AST ALT Alkaline Phosphatase Troponin I 0.3650 H* NT-Pro-B Natriuret Pep 4110 H Total Protein Albumin Globulin Albumin/Globulin Ratio Lipase Thyroxine (T4) TSH 3rd Generation Urine Color Yellow Urine Clarity Slighty-cloudy Urine pH 6.0 Ur Specific [place] 1.015 Urine Protein 30 Urine Glucose (UA) Neg Urine Ketones Negative Urine Blood Negative Urine Nitrate Negative Urine Bilirubin Negative Urine Urobilinogen 0.2-1.0 Ur Leukocyte Esterase Neg Urine RBC (Auto) 1 Urine Microscopic WBC 2 Ur Squamous Epith Cells < 1 Urine Bacteria Rare Influenza Typ A,B (EIA) 01/04/19 01/05/19 01/05/19 21:09 04:00 05:50 WBC RBC Hgb Hct MCV MCH MCHC RDW Plt Count MPV Neut % (Auto) Lymph % (Auto) Arthur % (Auto) Eos % (Auto) Baso % (Auto) Neut # (Auto) Lymph # (Auto) Arthur # (Auto) Eos # (Auto) Baso # (Auto) Neutrophils % (Manual) Lymphocytes % (Manual) Monocytes % (Manual) Platelet Estimate Hypochromasia (manual) Sodium 141 Potassium 3.8 Chloride 103 Carbon Dioxide 28 Anion Gap 14 BUN 23 H Creatinine 1.1 Est GFR ( Amer) 58 Est GFR (Non-Af Amer) 48 POC Glucose (mg/dL) 150 H 101 Random Glucose 97 Calcium 9.4 Total Bilirubin 0.7 AST 24 ALT 30 Alkaline Phosphatase 72 Troponin I 0.2920 H* NT-Pro-B Natriuret Pep Total Protein 7.2 Albumin 3.9 Globulin 3.3 Albumin/Globulin Ratio 1.2 Lipase Thyroxine (T4) 8.67 TSH 3rd Generation 0.03 L Urine Color Urine Clarity Urine pH Ur Specific [place] Urine Protein Urine Glucose (UA) Urine Ketones Urine Blood Urine Nitrate Urine Bilirubin Urine Urobilinogen Ur Leukocyte Esterase Urine RBC (Auto) Urine Microscopic WBC Ur Squamous Epith Cells Urine Bacteria Influenza Typ A,B (EIA) 01/05/19 01/05/19 07:40 11:10 WBC 7.1 D RBC 3.48 L Hgb 10.2 L Hct 30.1 L MCV 86.4 MCH 29.3 MCHC 34.0 RDW 13.6 Plt Count 142 MPV Neut % (Auto) Lymph % (Auto) Arthur % (Auto) Eos % (Auto) Baso % (Auto) Neut # (Auto) Lymph # (Auto) Arthur # (Auto) Eos # (Auto) Baso # (Auto) Neutrophils % (Manual) Lymphocytes % (Manual) Monocytes % (Manual) Platelet Estimate Hypochromasia (manual) Sodium Potassium Chloride Carbon Dioxide Anion Gap BUN Creatinine Est GFR ( Amer) Est GFR (Non-Af Amer) POC Glucose (mg/dL) 253 H Random Glucose Calcium Total Bilirubin AST ALT Alkaline Phosphatase Troponin I NT-Pro-B Natriuret Pep Total Protein Albumin Globulin Albumin/Globulin Ratio Lipase Thyroxine (T4) TSH 3rd Generation Urine Color Urine Clarity Urine pH Ur Specific [place] Urine Protein Urine Glucose (UA) Urine Ketones Urine Blood Urine Nitrate Urine Bilirubin Urine Urobilinogen Ur Leukocyte Esterase Urine RBC (Auto) Urine Microscopic WBC Ur Squamous Epith Cells Urine Bacteria Influenza Typ A,B (EIA) - EKG Data EKG Interpreted by: Myself EKG shows normal: Sinus rhythm Assessment & Plan (1) Elevated troponin Assessment and Plan: the patient has widely patent stent in the left circumflex. The elevated troponin is not indicative of NC. medical therapy Status: Acute (2) Hypertension Assessment and Plan: blood pressure control Status: Chronic Priority: Medium (3) Aortic valve disease Assessment and Plan: patient DOES NOT have prosthetic valve aortic stenosis Status: Chronic Priority: Medium (4) CAD (coronary artery disease) Assessment and Plan: medical therapy. patent stent in the circumflex artery Status: Acute
--- NOTE | 2019-01-05 15:29 | CP.PCM.HP ---
History of Present Illness - History of Present Illness History of Present Illness: CC: Abdominal pain. 78 y/o F, with PMHx GERD, Pancreatitis, CKD stage 3, CABG, Coronary Stent 2016, AVR, CKD. Pt came to [facility] for evaluation of abdominal pain from 2 days [employer], taking Protonix with no relief. Pt describe abdominal pain more prominent to LLQ, intermittent, burning sensation, from mild to severe at times, intensity 3-8:10 non radiated but associated to nausea and vomiting x1, NBNB. Worsening symptoms: Disoriented, trembling, TMAX while in ER 100.6 F. Critical lab Troponin 0.4990 Aggravated factor: Food/ADL's. No: Chills, diarrhea, urinary symptoms, CP, palpitations, syncope, SOB, cough, sick contact, recent travel out of [facility]. Abd/Pel CT showed: N0n acute scattered colonic diverticulitis L > R hemicolon. CXR: No cardiopulmonary disease. Chest CT: Potential limited CHF, evidence of median sternotomy, trace b/l pleural effusion. EKG: Normal sinus rhythm, Left BBB, left atrial enlargement Present on Admission - Present on Admission Any Indicators Present on Admission: No Review of Systems - Constitutional Constitutional: Fever - EENT Eyes: Other (negative) Ears: Other (negative) Nose/Mouth/Throat: Other (negative) - Cardiovascular Cardiovascular: Other (negative) - Respiratory Respiratory: Other (negative) - Gastrointestinal Gastrointestinal: Abdominal Pain, Nausea, Vomiting - Genitourinary Genitourinary: Other (negative) - Musculoskeletal Musculoskeletal: Arthralgias - Integumentary Integumentary: Other (negative) - Neurological Neurological: Weakness - Psychiatric Psychiatric: Anxiety - Endocrine Endocrine: Other (negative) - Hematologic/Lymphatic Hematologic: Other (negative) Past Patient History - Infectious Disease Hx of Infectious Diseases: None - Tetanus Immunizations Tetanus Immunization: Unknown - Past Medical History & Family History Past Medical History?: Yes Pertinent Family History: Unknown - Past Social History Smoking Status: Never Smoked Alcohol: None Drugs: Denies Home Situation {Lives}: Alone - CARDIAC Hx Cardiac Disorders: Yes Hx Congestive Heart Failure: No Hx Hypercholesterolemia: Yes Hx Hypertension: Yes - PULMONARY Hx Respiratory Disorders: No Hx Chronic Obstructive Pulmonary Disease (COPD): No - NEUROLOGICAL Hx Neurological Disorder: Yes Hx Dementia: Yes (mild) - HEENT Hx HEENT Problems: No - RENAL Hx Chronic Kidney Disease: Yes (stage 2 renal disease) - ENDOCRINE/METABOLIC Hx Endocrine Disorders: Yes Hx Hypothyroidism: Yes - HEMATOLOGICAL/ONCOLOGICAL Hx Blood Disorders: Yes Hx Anemia: Yes Hx Human Immunodeficiency Virus (HIV): No - INTEGUMENTARY Hx Dermatological Problems: No - MUSCULOSKELETAL/RHEUMATOLOGICAL Hx Musculoskeletal Disorders: Yes Hx Arthritis: Yes Hx Rheumatoid Arthritis: No - GASTROINTESTINAL Hx Gastrointestinal Disorders: Yes Hx Diverticulitis: Yes Hx Gall Bladder Disease: Yes Hx Gastritis: Yes Hx Pancreatitis: Yes - GENITOURINARY/GYNECOLOGICAL Hx Genitourinary Disorders: Yes Hx Urinary Tract Infection: Yes - PSYCHIATRIC Hx Psychophysiologic Disorder: Yes Hx Anxiety: Yes Hx Depression: Yes - SURGICAL HISTORY Hx Surgeries: Yes Hx Cholecystectomy: Yes Hx Coronary Artery Bypass Graft: Yes Hx Coronary Stent: Yes (11/2015 (1 STENT)) - ANESTHESIA Hx Anesthesia: Yes Hx Anesthesia Reactions: No Meds Allergies/Adverse Reactions: Allergies Allergy/AdvReac Type Severity Reaction Status Date / Time ceftriaxone [From Rocephin] Allergy RASH Verified 12/12/18 13:00 Physical Exam - Constitutional Appears: No Acute Distress - Head Exam Head Exam: NORMAL INSPECTION - Eye Exam Eye Exam: PERRL - ENT Exam ENT Exam: Normal Exam - Neck Exam Neck exam: Positive for: Normal Inspection - Respiratory Exam Respiratory Exam: NORMAL BREATHING PATTERN - Cardiovascular Exam Cardiovascular Exam: REGULAR RHYTHM, Systolic Murmur Additional comments: Healed scar from Sternotomy - GI/Abdominal Exam GI & Abdominal Exam: Normal Bowel Sounds, Soft, Tenderness (mild epigastric and LUQ). absent: Guarding, Rebound - Extremities Exam Extremities exam: Positive for: normal inspection - Back Exam Back exam: NORMAL INSPECTION - Neurological Exam Neurological exam: Alert, CN II-XII Intact Additional comments: No focal motor/sensory deficit, forgetful - Psychiatric Exam Psychiatric exam: Anxious - Skin Skin Exam: Warm Results - Vital Signs Recent Vital Signs: Last Vital Signs Temp 98.4 F 01/05/19 08:17 Pulse 80 01/05/19 08:37 Resp 18 01/05/19 08:17 BP 115/69 01/05/19 08:37 Pulse Ox 100 01/05/19 08:17 reviewed JTonia - Labs Result Diagrams: 01/05/19 07:40 01/05/19 04:00 Labs: Laboratory Results - last 24 hr 01/04/19 01/04/19 01/05/19 20:31 21:09 04:00 WBC RBC Hgb Hct MCV MCH MCHC RDW Plt Count Sodium 141 Potassium 3.8 Chloride 103 Carbon Dioxide 28 Anion Gap 14 BUN 23 H Creatinine 1.1 Est GFR ( Amer) 58 Est GFR (Non-Af Amer) 48 POC Glucose (mg/dL) 150 H Random Glucose 97 Calcium 9.4 Total Bilirubin 0.7 AST 24 ALT 30 Alkaline Phosphatase 72 Troponin I 0.3650 H* 0.2920 H* Total Protein 7.2 Albumin 3.9 Globulin 3.3 Albumin/Globulin Ratio 1.2 25-OH Vitamin D Total Thyroxine (T4) 8.67 TSH 3rd Generation 0.03 L 01/05/19 01/05/19 01/05/19 05:50 07:40 07:40 WBC 7.1 D RBC 3.48 L Hgb 10.2 L Hct 30.1 L MCV 86.4 MCH 29.3 MCHC 34.0 RDW 13.6 Plt Count 142 Sodium Potassium Chloride Carbon Dioxide Anion Gap BUN Creatinine Est GFR ( Amer) Est GFR (Non-Af Amer) POC Glucose (mg/dL) 101 Random Glucose Calcium Total Bilirubin AST ALT Alkaline Phosphatase Troponin I Total Protein Albumin Globulin Albumin/Globulin Ratio 25-OH Vitamin D Total 31.0 Thyroxine (T4) TSH 3rd Generation 01/05/19 11:10 WBC RBC Hgb Hct MCV MCH MCHC RDW Plt Count Sodium Potassium Chloride Carbon Dioxide Anion Gap BUN Creatinine Est GFR ( Amer) Est GFR (Non-Af Amer) POC Glucose (mg/dL) 253 H Random Glucose Calcium Total Bilirubin AST ALT Alkaline Phosphatase Troponin I Total Protein Albumin Globulin Albumin/Globulin Ratio 25-OH Vitamin D Total Thyroxine (T4) TSH 3rd Generation reviewed J.P. - EKG Data EKG comments: reviewed J.P. - Imaging and Cardiology CT scan - abdomen Status: Report reviewed by me (J.P.) CT scan - pelvis Status: Report reviewed by me (J.P.) CT scan - chest Status: Report reviewed by me (J.P.) Chest x-ray Status: Report reviewed by me (J.P.) Assessment & Plan (1) Abdominal pain Status: Acute Priority: High (2) GERD (gastroesophageal reflux disease) Status: Chronic Priority: High (3) Elevated troponin Status: Acute Priority: High (4) Leukocytosis Status: Acute Priority: High (5) MUSHTAQ (acute kidney injury) Status: Chronic Priority: High (6) CAD (coronary artery disease) Status: Chronic Priority: Medium (7) Hypertension Status: Chronic Priority: Medium (8) Aortic valve disease Status: Chronic Priority: Medium (9) History of coronary artery stent placement Status: Chronic Priority: Medium (10) Hx of CABG Status: Chronic Priority: Medium (11) Hypothyroidism Status: Chronic Priority: Medium - Assessment and Plan (Free Text) Plan: F/U Hgb A1C, Blood C-S, continue Levaquin, ASA, Lopressor, Norvasc, Cozaar, Seroquel, Protonix, Insulin, Xanax and rest of Tx. Cardiology consult appreciated, GI and Nephrology consult. - Date & Time Date: 01/05/19
[2019-01-06] MEDS: Levothyroxine 100 MCG TAB PO SCH (06:42)
[2019-01-06] MEDS: GlipiZIDE 10 mg SR Tab PO SCH ×2 (08:08→17:05)
[2019-01-06] MEDS: levoFLOXacin 500 mg in D5W 500 MG/100 ML BAG IVPB SCH (08:09)
[2019-01-06] MEDS: Insulin Detemir 100 Units/ml Inj SC SCH (08:10)
[2019-01-06] MEDS ORDERED: levoFLOXacin 500 MG TAB PO SCH (09:00)
[2019-01-06 15:55] VITALS: BP 129/62; TEMP 98.6; O2SAT 97
--- NOTE | 2019-01-06 16:26 | CP.PCM.PN ---
Subjective - Date & Time of Evaluation Date of Evaluation: 01/06/19 Time of Evaluation: 10:40 - Subjective Subjective: no C/P, no abdominal pain, complains of dyspepsia Objective - Vital Signs/Intake and Output Vital Signs (last 24 hours): Temp Pulse Resp BP Pulse Ox 98.6 F 85 18 129/62 97 01/06/19 15:54 01/06/19 15:54 01/06/19 15:54 01/06/19 15:54 01/06/19 15:54 - Medications Medications: Current Medications Alprazolam (Xanax) 0.5 mg PO Q12 [facility] Last Admin: 01/06/19 08:08 Dose: 0.5 mg Amlodipine Besylate (Norvasc) 5 mg PO DAILY [facility] Last Admin: 01/06/19 08:08 Dose: 5 mg Amylase (Pancrease [id number] U) 5,000 unit PO TIDWM [facility] Aspirin (Ecotrin) 81 mg PO DAILY [facility] Last Admin: 01/06/19 08:08 Dose: 81 mg Glipizide (Glucotrol Xl) 10 mg PO BIDWM [facility] Last Admin: 01/06/19 08:08 Dose: 10 mg Levofloxacin/Dextrose (Levaquin 500mg) 500 mg in 100 mls @ 100 mls/hr IVPB DAILY [facility]; Protocol Last Admin: 01/06/19 08:09 Dose: Not Given Insulin Detemir (Levemir) 20 units SC DAILY [facility] Last Admin: 01/06/19 08:10 Dose: 26 units Levofloxacin (Levaquin) 500 mg PO DAILY [facility]; Protocol Stop: 01/07/19 23:59 Last Admin: 01/06/19 08:07 Dose: 500 mg Levothyroxine Sodium (Synthroid) 100 mcg PO DAILY@0630 [facility] Last Admin: 01/06/19 06:42 Dose: 100 mcg Losartan Potassium (Cozaar) 50 mg PO BID [facility] Last Admin: 01/06/19 08:08 Dose: 50 mg Metoprolol Tartrate (Lopressor) 50 mg PO BID [facility] Last Admin: 01/06/19 10:14 Dose: 50 mg Pantoprazole Sodium (Protonix Inj) 40 mg IVP DAILY [facility] Last Admin: 01/06/19 08:13 Dose: Not Given Quetiapine Fumarate (Seroquel) 25 mg PO HS [facility] Last Admin: 01/05/19 22:16 Dose: 25 mg Tramadol HCl (Ultram) 50 mg PO BID PRN PRN Reason: pain 7-10 Last Admin: 01/06/19 16:14 Dose: 50 mg - Labs Labs: 01/05/19 07:40 01/05/19 04:00 - Constitutional Appears: No Acute Distress - Head Exam Head Exam: NORMAL INSPECTION - Eye Exam Eye Exam: PERRL - ENT Exam ENT Exam: Normal Exam - Neck Exam Neck Exam: Normal Inspection - Respiratory Exam Respiratory Exam: Respiratory Distress - Cardiovascular Exam Cardiovascular Exam: REGULAR RHYTHM, Murmur Additional comments: Healed scar from Sternotomy. - GI/Abdominal Exam GI & Abdominal Exam: Soft, Tenderness (mild epigastric), Normal Bowel Sounds. absent: Guarding, Rebound - Extremities Exam Extremities Exam: Normal Inspection - Back Exam Back Exam: NORMAL INSPECTION - Neurological Exam Neurological Exam: Alert, CN II-XII Intact Additional comments: No focal motor/sensory deficit, forgetful - Psychiatric Exam Psychiatric exam: Anxious - Skin Skin Exam: Warm Assessment and Plan (1) Abdominal pain Status: Acute (2) GERD (gastroesophageal reflux disease) Status: Chronic (3) Dyspepsia Status: Acute (4) Elevated troponin Status: Acute (5) Leukocytosis Status: Acute (6) MUSHTAQ (acute kidney injury) Status: Chronic (7) CAD (coronary artery disease) Status: Chronic (8) Hypertension Status: Chronic (9) Aortic valve disease Status: Chronic (10) Hx of CABG Status: Chronic (11) History of coronary artery stent placement Status: Chronic (12) Hypothyroidism Status: Chronic - Assessment and Plan (Free Text) Plan: Cardiac Cath Patient with patent stent L Circumflex, elevatred troponin not indicative of [place], Cardiology cleared fo discharge, to have f/u GI , She will need EGD and Colonoscopy out Patient, see Shazia inst/med, f/u appt my office office one week, call [facility] Technician and GI staff consultant for f/u out patient
[2019-01-06 16:52] VITALS: PULSE 86
[2019-01-06] MEDS ORDERED: Amylase/Lipase/Protease 5,000 Units ECC PO SCH ×2 (17:00)
--- NOTE | 2019-01-07 10:15 | CP.PCM.DIS ---
Provider - Provider Date of Admission: 01/04/19 14:07 Attending physician: Daquan Wagoner MD Consults: 01/04/19 14:33 Cardiology Consult Stat Comment: Consulting Provider: Leyla Wu Consulting Physician: Leyla Wu Reason for Consult: elevated troponin 01/04/19 20:26 Gastroenterology Consult Routine Comment: diverticulitis Consulting Provider: Erik Gunter Consulting Physician: Erik Gunter Reason for Consult: Diverticulitis Nephrology Consult Routine Comment: Consulting Provider: Rhianna Gore Consulting Physician: Rhianna Gore Reason for Consult: CKD stage 2 Diagnosis - Discharge Diagnosis (1) Abdominal pain Status: Acute Priority: High (2) GERD (gastroesophageal reflux disease) Status: Chronic Priority: High (3) Dyspepsia Status: Acute (4) Elevated troponin Status: Acute Priority: High (5) Leukocytosis Status: Acute Priority: High (6) MUSHTAQ (acute kidney injury) Status: Chronic Priority: High (7) CAD (coronary artery disease) Status: Chronic Priority: Medium (8) Hypertension Status: Chronic Priority: Medium (9) Aortic valve disease Status: Chronic Priority: Medium (10) Hx of CABG Status: Chronic Priority: Medium (11) History of coronary artery stent placement Status: Chronic Priority: Medium (12) Hypothyroidism Status: Chronic Priority: Medium Hospital Course - Lab Results Lab Results: Micro Results 01/04/19 18:49 Blood Blood Culture - Preliminary NO GROWTH AFTER 48 HOURS 01/04/19 14:40 Blood Blood Culture - Preliminary NO GROWTH AFTER 48 HOURS Most Recent Lab Values WBC 7.1 K/uL (4.8-10.8) D 01/05/19 07:40 RBC 3.48 Mil/uL (3.80-5.20) L 01/05/19 07:40 Hgb 10.2 g/dL (12.0-16.0) L 01/05/19 07:40 Hct 30.1 % (34.0-47.0) L 01/05/19 07:40 MCV 86.4 fl (81.0-99.0) 01/05/19 07:40 MCH 29.3 pg (27.0-31.0) 01/05/19 07:40 MCHC 34.0 g/dL (33.0-37.0) 01/05/19 07:40 RDW 13.6 % (11.5-14.5) 01/05/19 07:40 Plt Count 142 K/uL (130-400) 01/05/19 07:40 MPV 9.5 fl (7.2-11.7) 01/04/19 11:30 Neut % (Auto) 86.2 % (50.0-75.0) H 01/04/19 11:30 Lymph % (Auto) 7.0 % (20.0-40.0) L 01/04/19 11:30 [place] % (Auto) 6.4 % (0.0-10.0) 01/04/19 11:30 Eos % (Auto) 0.2 % (0.0-4.0) 01/04/19 11:30 Baso % (Auto) 0.2 % (0.0-2.0) 01/04/19 11:30 Neut # (Auto) 12.7 K/uL (1.8-7.0) H 01/04/19 11:30 Lymph # (Auto) 1.0 K/uL (1.0-4.3) 01/04/19 11:30 [place] # (Auto) 0.9 K/uL (0.0-0.8) H 01/04/19 11:30 Eos # (Auto) 0.0 K/uL (0.0-0.7) 01/04/19 11:30 Baso # (Auto) 0.0 K/uL (0.0-0.2) 01/04/19 11:30 Neutrophils % (Manual) 86 % (42-75) H 01/04/19 11:30 Lymphocytes % (Manual) 9 % (20-50) L 01/04/19 11:30 Monocytes % (Manual) 5 % (0-10) 01/04/19 11:30 Platelet Estimate Normal (NORMAL) 01/04/19 11:30 Hypochromasia (manual) Slight 01/04/19 11:30 Sodium 141 mmol/l (132-148) 01/05/19 04:00 Potassium 3.8 MMOL/L (3.6-5.0) 01/05/19 04:00 Chloride 103 mmol/L (98-107) 01/05/19 04:00 Carbon Dioxide 28 mmol/L (22-30) 01/05/19 04:00 Anion Gap 14 (10-20) 01/05/19 04:00 BUN 23 mg/dl (7-17) H 01/05/19 04:00 Creatinine 1.1 mg/dl (0.7-1.2) 01/05/19 04:00 Est GFR ( Amer) 58 01/05/19 04:00 Est GFR (Non-Af Amer) 48 01/05/19 04:00 POC Glucose (mg/dL) 193 mg/dL (65-110) H 01/06/19 10:57 Random Glucose 97 mg/dL (65-105) 01/05/19 04:00 Hemoglobin A1c 6.5 % (4.2-6.5) 01/05/19 07:40 Calcium 9.4 mg/dL (8.4-10.2) 01/05/19 04:00 Total Bilirubin 0.7 mg/dl (0.2-1.3) 01/05/19 04:00 AST 24 U/L (14-36) 01/05/19 04:00 ALT 30 U/L (9-52) 01/05/19 04:00 Alkaline Phosphatase 72 U/L (38-126) 01/05/19 04:00 Troponin I 0.2920 ng/mL (0.00-0.120) H* 01/05/19 04:00 NT-Pro-B Natriuret Pep 4110 pg/ml (0-900) H 01/04/19 14:55 Total Protein 7.2 G/DL (6.3-8.2) 01/05/19 04:00 Albumin 3.9 g/dL (3.5-5.0) 01/05/19 04:00 Globulin 3.3 gm/dL (2.2-3.9) 01/05/19 04:00 Albumin/Globulin Ratio 1.2 (1.0-2.1) 01/05/19 04:00 Lipase 58 U/L (23-300) 01/04/19 11:30 25-OH Vitamin D Total 31.0 NG/ML (30.0-100.0) 01/05/19 07:40 Thyroxine (T4) 8.67 ug/dl (5.5-11.0) 01/05/19 04:00 TSH 3rd Generation 0.03 mIU/ML (0.46-4.68) L 01/05/19 04:00 Urine Color Yellow (YELLOW) 01/04/19 12:58 Urine Clarity Slighty-cloudy (Clear) 01/04/19 12:58 Urine pH 6.0 (5.0-8.0) 01/04/19 12:58 Ur Specific [place] 1.015 (1.003-1.030) 01/04/19 12:58 Urine Protein 30 mg/dL (NEGATIVE) 01/04/19 12:58 Urine Glucose (UA) Neg mg/dL (NEGATIVE) 01/04/19 12:58 Urine Ketones Negative mg/dL (NEGATIVE) 01/04/19 12:58 Urine Blood Negative (NEGATIVE) 01/04/19 12:58 Urine Nitrate Negative (NEGATIVE) 01/04/19 12:58 Urine Bilirubin Negative (NEGATIVE) 01/04/19 12:58 Urine Urobilinogen 0.2-1.0 mg/dL (0.2-1.0) 01/04/19 12:58 Ur Leukocyte Esterase Neg Slim/uL (Negative) 01/04/19 12:58 Urine RBC (Auto) 1 /hpf (0-3) 01/04/19 12:58 Urine Microscopic WBC 2 /hpf (0-5) 01/04/19 12:58 Ur Squamous Epith Cells < 1 /hpf (0-5) 01/04/19 12:58 Urine Bacteria Rare (<OCC) 01/04/19 12:58 Influenza Typ A,B (EIA) Negative for flu a/b (NEGATIVE) 01/04/19 11:37 Discharge Exam - Head Exam Head Exam: NORMAL INSPECTION Discharge Plan - Discharge Medications Prescriptions: Levofloxacin [Levaquin] 500 mg PO DAILY #7 tablet - Follow Up Plan Condition: FAIR Disposition: HOME/ ROUTINE Instructions: Pneumonia in Adults, Acid Reflux (Gastroesophageal Reflux Disease), Adult (DC), Acute Abdominal Pain (DC)
== END 2019-01-06 17:40 | disposition home or self-care (01) ==
LOC: H.ER 10:19 → H.ERHOLD 14:07 → H.TEL 15:49
PROVIDERS: ADMIT Internal Medicine Pulmonary Disease; ATTEND Internal Medicine Pulmonary Disease
DX: K21.9 Gastro-esophageal reflux disease without esophagitis (principal); R10.9 Unspecified abdominal pain; E11.22 Type 2 diabetes mellitus with diabetic chronic kidney disease; I12.9 Hypertensive chronic kidney disease with stage 1 through stage 4 chronic kidney disease, or unspecified chronic kidney disease; I25.10 Atherosclerotic heart disease of native coronary artery without angina pectoris; I35.9 Nonrheumatic aortic valve disorder, unspecified; I44.7 Left bundle-branch block, unspecified; K29.70 Gastritis, unspecified, without bleeding; N17.9 Acute kidney failure, unspecified; N18.3 Chronic kidney disease, stage 3 (moderate); Z79.4 Long term (current) use of insulin; Z79.82 Long term (current) use of aspirin; Z87.440 Personal history of urinary (tract) infections; Z95.1 Presence of aortocoronary bypass graft; Z95.5 Presence of coronary angioplasty implant and graft; D64.9 Anemia, unspecified; F32.9 Major depressive disorder, single episode, unspecified; F41.9 Anxiety disorder, unspecified; K82.9 Disease of gallbladder, unspecified; M19.90 Unspecified osteoarthritis, unspecified site; Z79.84 Long term (current) use of oral hypoglycemic drugs; Z79.899 Other long term (current) drug therapy; R74.8 Abnormal levels of other serum enzymes; D72.829 Elevated white blood cell count, unspecified; E03.9 Hypothyroidism, unspecified; E78.00 Pure hypercholesterolemia, unspecified; F03.90 Unspecified dementia, unspecified severity, without behavioral disturbance, psychotic disturbance, mood disturbance, and anxiety
CPT/HCPCS: 36415; 71045; 71250; 74176; 80053; 81003; 82306; 82948; 83036; 83690; 83880; 84436; 84443; 84484; 85025; 85027; 87040; 87804; 93005; 96374; 99285; C9113; G0378

== ENCOUNTER 2019-01-09 09:28 | Emergency (ER) | payer MEDICARE, MEDICAID ==
[2019-01-09 09:40] VITALS: BMI 27.4
--- NOTE | 2019-01-09 10:46 | ED PDOC ---
HPI: Dental Pain/Injury Time Seen by Provider: 01/09/19 10:12 Chief Complaint (Nursing): Dental Pain Chief Complaint (Provider): dental pain History Per: Patient History/Exam Limitations: no limitations Additional Complaint(s): 78 y/o F with hx of CAD s/p stents, bioprosthetic AVR, HTN who presents with dental pain. Pt was discharged from hospital on 01/07/19 after being admitted with mildly elevated troponin to 0.2. She underwent cardiac catheterization that showed patent stents and troponin was not felt to be due to DC. She was discharged home on Levaquin for a possible PNA. Pt began having left sided and lower jaw pain 2 days ago that worsened on day of discharge. She saw her dentist yesterday and had x-rays that showed a tooth abscess and cavities but nothing was done given that patient was unsure of what medication she was taking so she was instructed to have form filled out by her PMD. Pain radiates to left side of face. Denies dizziness, visual disturbance, gait instability, weakness on one side. Past Medical History Vital Signs: Last Vital Signs Temp 97 F L 01/09/19 09:38 Pulse 78 01/09/19 09:38 Resp 18 01/09/19 09:38 BP 114/56 L 01/09/19 09:38 Pulse Ox 98 01/09/19 09:38 - Medical History PMH: Anemia, Anxiety, Arthritis, CAD, Dementia (mild), Depression, Diabetes (?), Diverticulitis, Gastritis, Gall Bladder Disease, GERD, HTN, Hypercholesterolemia, Hypothyroidism, Pancreatitis, Chronic Kidney Disease (stage 2 renal disease) Denies: CHF, COPD, HIV, Rheumatoid Arthritis - Surgical History Surgical History: CABG, Cholecystectomy, Coronary Stent (11/2015 (1 STENT)) - Family History Family History: States: Unknown Family Hx - Immunization History Hx Tetanus Toxoid Vaccination: No Hx Influenza Vaccination: No Hx Pneumococcal Vaccination: No - Home Medications Home Medications: Ambulatory Orders Medication Instructions Recorded Insulin Glargine, Recombina 20 units SQ DAILY 11/03/17 [Lantus] Glimepiride [amaRYL] 4 mg PO BID #60 tab 11/08/17 Metoprolol Tartrate [Lopressor] 50 mg PO BID 03/28/18 QUEtiapine [Seroquel] 25 mg PO HS 06/28/18 Hydroxyzine Pamoate [Vistaril] 25 mg PO Q8 #10 capsule 06/04/18 Alprazolam [Xanax] 0.5 mg PO Q12 08/01/18 Aspirin [Ecotrin] 81 mg PO DAILY 08/01/18 Hydrochlorothiazide [Microzide] 12.5 mg PO BID 08/01/18 Irbesartan 150 mg PO Q12 08/01/18 Ticagrelor [Brilinta] 90 mg PO Q12 08/01/18 amLODIPine [Norvasc] 5 mg PO DAILY 08/01/18 Levothyroxine [Synthroid] 100 mcg PO DAILY #30 tab 12/15/18 Pantoprazole Sodium [Protonix] 40 mg PO DAILY #30 ect 12/15/18 Levofloxacin [Levaquin] 500 mg PO DAILY #7 tablet 01/06/19 Clindamycin [Cleocin] 450 mg PO TID 7 Days cap 01/09/19 oxyCODONE/Acetaminophen [Percocet 1 ea PO Q6 PRN #16 tab 01/09/19 5/325 mg Tab] - Allergies Allergies/Adverse Reactions: Allergies Allergy/AdvReac Type Severity Reaction Status Date / Time ceftriaxone [From Rocephin] Allergy RASH Verified 01/09/19 10:38 Review of Systems ENT: Positive for: Other (dental pain) Physical Exam - Reviewed Nursing Documentation Reviewed: Yes Vital Signs Reviewed: Yes - Physical Exam Appears: Positive for: Uncomfortable Head Exam: Positive for: ATRAUMATIC Skin: Positive for: Normal Color Eye Exam: Positive for: Normal appearance, PERRL Neurological/Psych: Positive for: Awake, Alert, Oriented. Negative for: Motor/Sensory Deficits (to light touch on face b) - ECG O2 Sat by Pulse Oximetry: 98 Medical Decision Making Medical Decision Making: Clindamycin 450mg PO x 1 Percocet 1 tab PO x 1 Dental office called and confirmed that patient has dental abscess but no treatment given due to patient's inability to state medications and will need clearance for extraction. Patient advised to drop form for clearance at Dr. Joy's office today and he will return from vacation on Sunday to fill it out and to follow up with him. Disposition - Clinical Impression Clinical Impression: Dental abscess - Patient ED Disposition Is Patient to be Admitted: No - Disposition Referrals: Daquan Wagoner MD [Staff Provider] - Leyla Wu MD [Staff Provider] - Disposition: Routine/Home Disposition Time: 11:35 Condition: STABLE Additional Instructions: Go to Dr. Joy's office today to leave paperwork for him to fill out on Sunday for clearance for your dental paperwork. Take Levaquin and Clindamycin (antibiotics) as prescribed and complete full course. Take Percocet or Tylenol alone for pain. Return to ER if you develop fevers, chills. Prescriptions: Clindamycin [Cleocin] 450 mg PO TID 7 Days cap oxyCODONE/Acetaminophen [Percocet 5/325 mg Tab] 1 ea PO Q6 PRN #16 tab PRN Reason: Pain, Severe (8-10) Instructions: Tooth Abscess (DC) Forms: [facility] (Icelandic) Print Language: PERSIAN
[2019-01-09] MEDS ORDERED: Oxycodone/Acetaminophen 5/325 mg Tab PO ONE (11:08)
[2019-01-09] MEDS ORDERED: Oxycodone/Acetaminophen 5/325 mg Tab ONE (11:20)
[2019-01-09 12:01] VITALS: BP 111/61; PULSE 70; RESP 16; TEMP 98
[2019-01-09 23:12] VITALS: O2SAT 98
== END 2019-01-09 11:35 | disposition home or self-care (01) ==
LOC: H.ER 09:28
DX: K04.7 Periapical abscess without sinus (principal)

== ENCOUNTER 2019-02-02 22:56 | Emergency (ER) | payer MEDICARE, MEDICAID ==
[2019-02-02 22:57] VITALS: BMI 27.4
[2019-02-02 23:01] VITALS: RESP 16; O2SAT 97
[2019-02-02] MEDS ORDERED: Sodium Chloride 0.9% 1,000 ML IV STA (23:17)
[2019-02-03 00:16] LABS: BASO % 0.2 % (0.0-2.0); EOS # 0.1 K/uL (0.0-0.7); EOS % 1.5 % (0.0-4.0); LYMPH # 1.2 K/uL (1.0-4.3); LYMPH % 13.5 % (20.0-40.0); MEAN CELL VOLUME 87.1 fl (81.0-99.0); MEAN CORPUSCULAR HEMOGLOBIN 28.4 pg (27.0-31.0); MEAN CORPUSCULAR HGB CONC 32.6 g/dL (33.0-37.0); MEAN PLATELET VOLUME 10.1 fl (7.2-11.7); MONO # 0.3 K/uL (0.0-0.8); MONO % 3.6 % (0.0-10.0); NEUT # 7.3 K/uL (1.8-7.0); NEUT % 81.2 % (50.0-75.0); RBC 4.23 Mil/uL (3.80-5.20)
--- NOTE | 2019-02-03 00:21 | ED PDOC ---
HPI: Headache Time Seen by Provider: 02/02/19 23:11 Chief Complaint (Nursing): Headache Chief Complaint (Provider): Headache History Per: Patient History/Exam Limitations: no limitations Onset/Duration Of Symptoms: Hrs (x 5) Current Symptoms Are (Timing): Still Present Quality: "Pain" Preceeding Symptoms: None Associated Symptoms: Nausea, Vomiting Additional Complaint(s): 78 year old female with a history of HTN, anxiety and diabetes presents to the ED for evaluation of a headache, dizziness, nausea and vomiting since 6pm. Patient reports sudden onset of neck pain, headache, nausea, vomiting and abdominal discomfort. She experienced approximately 6 episodes of non-bloody, non-bilious vomiting. Patient is unable to take medications due to vomiting and reports a somewhat poor appetite. Denies fever and photophobia. PMD: Dr. Wagoner Past Medical History Reviewed: Historical Data, Nursing Documentation, Vital Signs Vital Signs: Last Vital Signs Temp 97.4 F L 02/02/19 23:01 Pulse 63 02/02/19 23:01 Resp 16 02/02/19 23:01 BP 196/74 H 02/02/19 23:01 Pulse Ox 97 02/02/19 23:01 Primary Care Provider: Daquan Wagoner - Medical History PMH: Anemia, Anxiety, Arthritis, CAD, Dementia (mild), Depression, Diabetes (?), Diverticulitis, Gastritis, Gall Bladder Disease, GERD, HTN, Hyperc holesterolemia, Hypothyroidism, Pancreatitis, Chronic Kidney Disease (stage 2 renal disease) Denies: CHF, COPD, HIV, Rheumatoid Arthritis - Surgical History Surgical History: CABG, Cholecystectomy, Coronary Stent (11/2015 (1 STENT)) - Family History Family History: States: Unknown Family Hx - Social History Current smoker - smoking cessation education provided: No Alcohol: None Drugs: Denies - Immunization History Hx Tetanus Toxoid Vaccination: No Hx Influenza Vaccination: No Hx Pneumococcal Vaccination: No - Home Medications Home Medications: Ambulatory Orders Medication Instructions Recorded Insulin Glargine, Recombina 20 units SQ DAILY 11/03/17 [Lantus] Glimepiride [amaRYL] 4 mg PO BID #60 tab 11/08/17 Metoprolol Tartrate [Lopressor] 50 mg PO BID 03/28/18 QUEtiapine [Seroquel] 25 mg PO HS 03/28/18 Hydroxyzine Pamoate [Vistaril] 25 mg PO Q8 #10 capsule 06/04/18 Alprazolam [Xanax] 0.5 mg PO Q12 08/01/18 Aspirin [Ecotrin] 81 mg PO DAILY 08/01/18 Hydrochlorothiazide [Microzide] 12.5 mg PO BID 08/01/18 Irbesartan 150 mg PO Q12 08/01/18 Ticagrelor [Brilinta] 90 mg PO Q12 08/01/18 amLODIPine [Norvasc] 5 mg PO DAILY 08/01/18 Levothyroxine [Synthroid] 100 mcg PO DAILY #30 tab 12/15/18 Pantoprazole Sodium [Protonix] 40 mg PO DAILY #30 ect 12/15/18 Levofloxacin [Levaquin] 500 mg PO DAILY #7 tablet 01/06/19 Clindamycin [Cleocin] 450 mg PO TID 7 Days cap 01/09/19 oxyCODONE/Acetaminophen [Percocet 1 ea PO Q6 PRN #16 tab 01/09/19 5/325 mg Tab] Metoclopramide [Reglan] 10 mg PO Q6 PRN #12 tab 02/03/19 - Allergies Allergies/Adverse Reactions: Allergies Allergy/AdvReac Type Severity Reaction Status Date / Time ceftriaxone [From Rocephin] Allergy RASH Verified 02/02/19 23:04 Review of Systems ROS Statement: Except As Marked, All Systems Reviewed And Found Negative Constitutional: Negative for: Fever, Chills Gastrointestinal: Positive for: Nausea, Vomiting, Abdominal Pain (discomfort) Musculoskeletal: Positive for: Neck Pain Neurological: Positive for: Headache Physical Exam - Reviewed Nursing Documentation Reviewed: Yes Vital Signs Reviewed: Yes - Physical Exam Appears: Positive for: Uncomfortable Head Exam: Positive for: ATRAUMATIC, NORMAL INSPECTION, NORMOCEPHALIC Skin: Positive for: Normal Color, Warm, Dry Eye Exam: Positive for: Normal appearance, EOMI, PERRL. Negative for: Other (photophobia) ENT: Positive for: Other (dry mucous membranes) Neck: Positive for: Normal, Painless ROM, Supple Cardiovascular/Chest: Positive for: Regular Rate, Rhythm. Negative for: Murmur Respiratory: Positive for: Normal Breath Sounds. Negative for: Respiratory Distress Gastrointestinal/Abdominal: Positive for: Normal Exam, Soft. Negative for: Tenderness Back: Positive for: Normal Inspection. Negative for: L CVA Tenderness, R CVA Tenderness Extremity: Positive for: Normal ROM (x 4). Negative for: Deformity Neurological/Psych: Positive for: Awake, Alert, Normal Tone, Oriented (x3), Mood/Affect (anxious affect). Negative for: Motor/Sensory Deficits - Laboratory Results Result Diagrams: 02/02/19 23:59 02/02/19 23:59 - ECG O2 Sat by Pulse Oximetry: 97 (RA) Pulse Ox Interpretation: Normal Medical Decision Making Medical Decision Makin:17 Impression: nausea, vomiting and headache in setting of uncontrolled HTN Initial Plan: --CT Head --EKG --CMP --CBC --lactic acid --Troponin --PTT --PT --Ativan 1 mg IVP --NS IV 1,000 mls --Reglan 10 mg IVPB --Zofran 4 mg IV --UA 01:40 CT Head COMPARISON: 12/12/2018. COMMENTS: There is normal configuration of sella turcica. There are no intra or extra- axial collections. There is no mass effect or midline shift. There is no evidence of hematoma formation. No hydrocephalus is present. The ventricles are symmetrical. No abnormal calcifications are present. There is diffuse age-appropriate cerebellar and cerebral atrophy with proportionally dilated ventricles and cortical sulci. There are bilateral periventricular and subcortical white matter hypolucencies compatible with mild chronic microvascular disease. Otherwise, no significant focal abnormalities are seen either in the posterior fossa or supratentorial compartment. IMPRESSION: 1. Age-appropriate cerebellar and cerebral atrophy. 2. Mild chronic microvascular disease. 3. No evidence of acute intracranial pathology. 03:22 Labs reviewed and reveal no clinically significant abnormalities. Patient reports marked improvement of symptoms and is stable for discharge home. Diag noses are headache and gastritis. Scribe Attestation: Documented by Kimberly Franklin, acting as adrien Medrano MD Provider Scribe Attestation: All medical record entries made by the Scribe were at my direction and personally dictated by me. I have reviewed the chart and agree that the record accurately reflects my personal performance of the history, physical exam, medical decision making, and the department course for this patient. I have also personally directed, reviewed, and agree with the discharge instructions and disposition Disposition - Clinical Impression Clinical Impression: Acute headache, Anxiety, Gastritis - Patient ED Disposition Is Patient to be Admitted: No - Disposition Referrals: Daquan Wagoner MD [Primary Care Provider] - Disposition: Routine/Home Disposition Time: 03:25 Condition: IMPROVED Prescriptions: Metoclopramide [Reglan] 10 mg PO Q6 PRN #12 tab PRN Reason: headache/nausea/vomiting Instructions: Gastritis, Acute Headache (ED) Forms: [facility] (Upper Sorbian)
[2019-02-03 00:22] LABS: PROTHROMBIN TIME 11.8 Seconds (9.8-13.1)
[2019-02-03 00:25] LABS: PARTIAL THROMBOPLASTIN TIME 34.9 Seconds (25.6-37.1)
[2019-02-03 00:54] LABS: ALB/GLOB RATIO 1.2 (1.0-2.1); ALBUMIN 4.8 g/dL (3.5-5.0); ALT/SGPT 29 U/L (9-52); AST/SGOT 30 U/L (14-36); BLOOD UREA NITROGEN 23 mg/dl (7-17); CALCIUM 9.7 mg/dL (8.4-10.2); GFR NON-AFRICAN AMERICAN > 60
[2019-02-03 03:32] VITALS: BP 137/75; PULSE 61; TEMP 97.8
--- NOTE | 2019-02-03 11:35 | CT ---
Date of service: 02/03/2019 PROCEDURE: CT HEAD WITHOUT CONTRAST. HISTORY: headache COMPARISON: Noncontrast head CT 12/12/2018. TECHNIQUE: Axial computed tomography images were obtained through the head/brain without intravenous contrast. Radiation dose: Total exam DLP = 858.01 mGy-cm. This CT exam was performed using one or more of the following dose reduction techniques: Automated exposure control, adjustment of the mA and/or kV according to patient size, and/or use of iterative reconstruction technique. FINDINGS: HEMORRHAGE: No intracranial hemorrhage. BRAIN: Good corticomedullary differentiation is seen. Reiterated diffuse cerebral atrophy and chronic microangiopathy. No suspicious extra-axial fluid collection is identified and the midline brain anatomy appears grossly nonfocal as imaged. No mass effect identified. VENTRICLES: Unremarkable. No hydrocephalus. CALVARIUM: Unremarkable. PARANASAL SINUSES: Unremarkable as visualized. No significant inflammatory changes. MASTOID AIR CELLS: Unremarkable as visualized. No inflammatory changes. OTHER FINDINGS: None. IMPRESSION: Stable age related neuro degenerative changes. No definite acute intracranial findings by standard CT criteria. Concordant preliminary report from [facility], 02/03/2019, 1:39 a.m..
--- NOTE | 2019-02-03 19:29 | CARD ---
APPROVED REPORT Date of service: 02/03/2019 EKG Measurement Heart [id number] <Conclusion> Normal sinus rhythm Left bundle branch block Abnormal ECG
== END 2019-02-03 03:33 | disposition home or self-care (01) ==
LOC: H.ER 22:56
DX: R51 Headache (principal); F41.9 Anxiety disorder, unspecified; K29.70 Gastritis, unspecified, without bleeding; F03.90 Unspecified dementia, unspecified severity, without behavioral disturbance, psychotic disturbance, mood disturbance, and anxiety; I12.9 Hypertensive chronic kidney disease with stage 1 through stage 4 chronic kidney disease, or unspecified chronic kidney disease; Z79.4 Long term (current) use of insulin; Z88.1 Allergy status to other antibiotic agents; Z95.1 Presence of aortocoronary bypass graft; Z95.5 Presence of coronary angioplasty implant and graft; Z79.899 Other long term (current) drug therapy
CPT/HCPCS: 70450; 80053; 83605; 84484; 85025; 85610; 85730; 93005; 96365; 96375; 99285; J2060; J2765; J7030

== ENCOUNTER 2019-02-24 11:51 | Emergency (ER) | payer MEDICARE, MEDICAID ==
[2019-02-24 11:52] VITALS: BMI 27.4
[2019-02-24 12:18] VITALS: O2SAT 99
--- NOTE | 2019-02-24 12:40 | ED PDOC ---
HPI: General Adult Time Seen by Provider: 02/24/19 12:20 Chief Complaint (Nursing): Abdominal Pain Chief Complaint (Provider): Abdominal Pain History Per: Patient History/Exam Limitations: no limitations Onset/Duration Of Symptoms: Days (1) Additional Complaint(s): 78 y/o female brought in by son presents to the ED complaining of right shoulder, elbow, and leg pain since last night. Patient states she was walking on the street and tripped and fell landing on her right side hitting her head, shoulder, and knee. Patient denies any other symptoms at this time. [facility] #[id number] PMD: Daquan Hannah Past Medical History Reviewed: Historical Data, Nursing Documentation, Vital Signs Vital Signs: Last Vital Signs Temp 98.4 F 02/24/19 12:17 Pulse 57 L 02/24/19 12:17 Resp 18 02/24/19 12:17 BP 161/71 H 02/24/19 12:17 Pulse Ox 99 02/24/19 12:17 Primary Care Provider: Daquan Wagoner - Medical History PMH: Anemia, Anxiety, Arthritis, CAD, Dementia (mild), Depression, Diabetes (?), Diverticulitis, Gastritis, Gall Bladder Disease, GERD, HTN, Hypercholesterolemia, Hypothyroidism, Pancreatitis, Chronic Kidney Disease (stage 2 renal disease) Denies: CHF, COPD, HIV, Rheumatoid Arthritis - Surgical History Surgical History: CABG, Cholecystectomy, Coronary Stent (11/2015 (1 STENT)) - Family History Family History: States: Unknown Family Hx - Immunization History Hx Tetanus Toxoid Vaccination: No Hx Influenza Vaccination: No Hx Pneumococcal Vaccination: No - Home Medications Home Medications: Ambulatory Orders Medication Instructions Recorded Insulin Glargine, Recombina 20 units SQ DAILY 11/03/17 [Lantus] Glimepiride [amaRYL] 4 mg PO BID #60 tab 11/08/17 Metoprolol Tartrate [Lopressor] 50 mg PO BID 03/28/18 QUEtiapine [Seroquel] 25 mg PO HS 03/28/18 Hydroxyzine Pamoate [Vistaril] 25 mg PO Q8 #10 capsule 06/04/18 Alprazolam [Xanax] 0.5 mg PO Q12 08/01/18 Aspirin [Ecotrin] 81 mg PO DAILY 08/01/18 Hydrochlorothiazide [Microzide] 12.5 mg PO BID 08/01/18 Irbesartan 150 mg PO Q12 08/01/18 Ticagrelor [Brilinta] 90 mg PO Q12 08/01/18 amLODIPine [Norvasc] 5 mg PO DAILY 08/01/18 Levothyroxine [Synthroid] 100 mcg PO DAILY #30 tab 12/15/18 Pantoprazole Sodium [Protonix] 40 mg PO DAILY #30 ect 12/15/18 Levofloxacin [Levaquin] 500 mg PO DAILY #7 tablet 01/06/19 Clindamycin [Cleocin] 450 mg PO TID 7 Days cap 01/09/19 oxyCODONE/Acetaminophen [Percocet 1 ea PO Q6 PRN #16 tab 01/09/19 5/325 mg Tab] Metoclopramide [Reglan] 10 mg PO Q6 PRN #12 tab 02/03/19 Ibuprofen [Motrin] 600 mg PO Q6H PRN #20 tab 02/24/19 - Allergies Allergies/Adverse Reactions: Allergies Allergy/AdvReac Type Severity Reaction Status Date / Time ceftriaxone [From Rocephin] Allergy RASH Verified 02/02/19 23:04 Review of Systems ROS Statement: Except As Marked, All Systems Reviewed And Found Negative Musculoskeletal: Positive for: Shoulder Pain, Arm Pain, Leg Pain Neurological: Positive for: Headache Physical Exam - Reviewed Nursing Documentation Reviewed: Yes Vital Signs Reviewed: Yes - Physical Exam Appears: Positive for: Well, Non-toxic, No Acute Distress Head Exam: Positive for: ATRAUMATIC, NORMAL INSPECTION, NORMOCEPHALIC Skin: Positive for: Normal Color, Warm, DRY Eye Exam: Positive for: EOMI, Normal appearance, PERRL ENT: Positive for: Normal ENT Inspection Neck: Positive for: Normal, Painless ROM, Supple Cardiovascular/Chest: Positive for: Regular Rate, Rhythm. Negative for: Murmur Respiratory: Positive for: Normal Breath Sounds. Negative for: Wheezing Gastrointestinal/Abdominal: Positive for: Normal Exam, Soft. Negative for: Tenderness Back: Positive for: Normal Inspection, Vertebral Tenderness (Minimal c-spine tenderness) Extremity: Positive for: Normal ROM, Tenderness (Right shoulder, knee, and elbow. Full ROM.), Other (Ecchymosis right upper extremity lateral.). Negative for: Deformity (No ecchymosis) Neurological/Psych: Positive for: Awake, Alert, Normal Tone, Oriented (x3). Negative for: Motor/Sensory Deficits - ECG O2 Sat by Pulse Oximetry: 99 Medical Decision Making Medical Decision Makin:00 Upon discharge, patient now c/o L sided abd pain X months, worse at night, vomiting X 1 episode and diarrhea X 1 episode today. Disposition - Clinical Impression Clinical Impression: Musculoskeletal pain, Head injury - Disposition Referrals: Daquna Wagoner MD [Family Provider] - Condition: STABLE Prescriptions: Ibuprofen [Motrin] 600 mg PO Q6H PRN #20 tab PRN Reason: Pain, Moderate (4-7) Instructions: Muscle and Bone Pain (DC), Closed Head Injury (DC) Forms: [employer] (Tajik) Print Language: ENGLISH
--- NOTE | 2019-02-24 13:46 | CT ---
Date of service: 02/24/2019 PROCEDURE: CT HEAD WITHOUT CONTRAST. HISTORY: Vertigo COMPARISON: Unenhanced head CT 02/03/2019. TECHNIQUE: Axial computed tomography images were obtained through the head/brain without intravenous contrast. Radiation dose: Total exam DLP = 757.08 mGy-cm. This CT exam was performed using one or more of the following dose reduction techniques: Automated exposure control, adjustment of the mA and/or kV according to patient size, and/or use of iterative reconstruction technique. FINDINGS: HEMORRHAGE: No intracranial hemorrhage. BRAIN: Good corticomedullary differentiation is seen. Reiterated diffuse cerebral atrophy and chronic microangiopathy. No suspicious extra-axial fluid collection is identified and the midline brain anatomy appears grossly nonfocal as imaged. No mass effect identified. VENTRICLES: Unremarkable. No hydrocephalus. CALVARIUM: Unremarkable. PARANASAL SINUSES: Unremarkable as visualized. No significant inflammatory changes. MASTOID AIR CELLS: Unremarkable as visualized. No inflammatory changes. OTHER FINDINGS: None. IMPRESSION: Stable age related neuro degenerative changes as discussed above. No definite acute intracranial findings by standard CT criteria.
--- NOTE | 2019-02-24 13:58 | CT ---
Date of service: 02/24/2019 PROCEDURE: CT Cervical Spine without contrast HISTORY: Fall COMPARISON: None available. TECHNIQUE: Axial computed tomography images were obtained of the cervical spine without the use of intravenous contrast. Coronal and sagittal reformatted images were created and reviewed. Radiation dose: Total exam DLP = 357.27 mGy-cm. This CT exam was performed using one or more of the following dose reduction techniques: Automated exposure control, adjustment of the mA and/or kV according to patient size, and/or use of iterative reconstruction technique. FINDINGS: VERTEBRAE: Normal alignment is interrupted minimally by grade 1 spondylolisthesis of C3 posterior as C4 on the basis of facet joint degenerative change. No fracture throughout the cervical spine. C1-2 articulation is intact though degenerated with the odontoid process is intact. Craniocervical junction appears unremarkable. Prevertebral paraspinal soft tissues are grossly nonfocal. Incidental note is made of moderate bilateral carotid bulb atherosclerotic plaque. DISCS/SPINAL CANAL/NEURAL FORAMINA: At C2-3, no significant stenosis identified. At C3-4, minimal grade 1 spondylolisthesis is appreciated with limited disc osteophyte complex inverting the ventral thecal sac without significant central canal stenosis. No significant neural foraminal stenosis bilaterally. At C4-5, limited disc bulge is suggested though not definite. No significant central canal or neural foraminal stenosis. At C5-6, small posterior disc osteophyte complex is appreciate without significant stenosis though the ventral thecal sac is inverted. Borderline right degenerative neural foraminal stenosis. None is identified at the left. At C6-7, an additional small posterior disc osteophyte complex and versus ventral thecal sac without causing significant central stenosis. No neural foraminal stenosis bilaterally. C7-T1 appears unremarkable. OTHER FINDINGS: None. IMPRESSION: No fracture appreciated throughout the cervical spine including the odontoid process. A minimal grade 1 spondylolisthesis C3-4. Multilevel spondylosis without significant central canal stenosis. Borderline degenerative right C6 root foraminal stenosis.
--- NOTE | 2019-02-24 17:14 | RAD ---
Date of service: 02/24/2019 PROCEDURE: Radiographs of the right elbow. HISTORY: Fall COMPARISON: No prior. TECHNIQUE: 3 views obtained. FINDINGS: BONES: No acute fracture or destructive bony lesion identified. An old chip or avulsion fracture or other heterotopic calcifications seen lateral to the lateral epicondyle distal right humerus. JOINTS: Limited degenerative cortical sclerosis appreciate throughout the joints of the right elbow. SOFT TISSUES: Normal. JOINT EFFUSION: None. OTHER FINDINGS: None. IMPRESSION: No acute fracture dislocation right elbow. Limited degenerative joint disease identified. Heterotopic calcification versus chronic avulsion or chip fracture lateral to right distal humeral lateral epicondyle.
--- NOTE | 2019-02-24 17:40 | ED PDOC ---
- Laboratory Results Result Diagrams: 02/24/19 17:42 02/24/19 17:42 - ECG O2 Sat by Pulse Oximetry: 99 (RA) Pulse Ox Interpretation: Normal Medical Decision Making Medical Decision Making: Time: 170 -- Patient endorsed to me by Dr. Rodriguez, pending ER workup, re-assessment and final ER disposition. Accession No. 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 HISTORY: Fall COMPARISON: No prior. TECHNIQUE: 3 views obtained. FINDINGS: BONES: No acute fracture or destructive bony lesion identified. An old chip or avulsion fracture or other heterotopic calcifications seen lateral to the lateral epicondyle distal right humerus. JOINTS: Limited degenerative cortical sclerosis appreciate throughout the joints of the right elbow. SOFT TISSUES: Normal. JOINT EFFUSION: None. OTHER FINDINGS: None. IMPRESSION: No acute fracture dislocation right elbow. Limited degenerative joint disease identified. Heterotopic calcification versus chronic avulsion or chip fracture lateral to right distal humeral lateral epicondyle. Time: 1858 EXAM: CT Abdomen and Pelvis with IV contrast CLINICAL HISTORY: Luq pain TECHNIQUE: Axial computed tomography images of the abdomen and pelvis with intravenous contrast. 807.21 mGy-cm CONTRAST: With; [id number] 90ML COMPARISON: None provided. FINDINGS: LUNG BASES: The lung bases appear clear. No pleural effusions are seen. Sternotomy wires present. LIVER: Unremarkable. GALLBLADDER AND BILE DUCTS: Gallbladder has been surgically removed. PANCREAS: Unremarkable. SPLEEN: Unremarkable. ADRENAL GLANDS: Unremarkable. KIDNEYS, URETERS, AND BLADDER: The kidneys appear within normal limits. There is no hydronephrosis or hydroureter. No urinary calculi are seen. STOMACH AND BOWEL: Unremarkable appearance of the stomach and bowel. No evidence of bowel obstruction. No evidence suggesting enteritis or colitis. Diverticular changes present in the descending and sigmoid colon. There is no diverticular abscess or mass. APPENDIX: No evidence of acute appendicitis on CT examination. PERITONEUM: No free fluid. No free air. LYMPH NODES: No lymphadenopathy is evident. REPRODUCTIVE: Unremarkable as visualized. VASCULATURE: No evidence of abdominal aortic aneurysm. BONES: No aggressive appearing osseous lesion. No acute osseous pathology evident. IMPRESSION: No suspicious mass or lymphadenopathy within the abdomen or pelvis. Status post cholecystectomy. Diverticular changes of the sigmoid and descending colon. Clinical correlation advised. Electronically signed on February 24, 2019 6:59:15 PM EDT by: Cheikh Lara M.D., Certified by [facility], Diagnostic Radiology Time: 1916 -- Labs demonstrate no clinically significant abnormalities. -- DW pt and family findings. Pt has been having abdominal pain ongoing for months and had previous CTs already for the same pain. Had not followed up with gastroenterology for this pain. Reports a colonoscopy in the past, possibly 5 years ago. Strongly advised followup with GI and PMD for further management. Stable for discharge. Scribe Attestation: Documented by Michael Mathew, acting as a scribe for Fatoumata Corbett MD. Provider Scribe Attestation: All medical record entries made by the Scribe were at my direction and personally dictated by me. I have reviewed the chart and agree that the record accurately reflects my personal performance of the history, physical exam, medical decision making, and the department course for this patient. I have also personally directed, reviewed, and agree with the discharge instructions and disposition. Disposition - Clinical Impression Clinical Impression: Musculoskeletal pain, Head injury, Abdominal pain - POA Present On Arrival: None - Disposition Referrals: Daquan Wagoner MD [Family Provider] - 02/25/19 Disposition: Routine/Home Disposition Time: 19:00 Condition: STABLE Prescriptions: Ibuprofen [Motrin] 600 mg PO Q6H PRN #20 tab PRN Reason: Pain, Moderate (4-7) Instructions: Muscle and Bone Pain (DC), Closed Head Injury (DC), Stomach Ache and Stomach Upset Print Language: SERBIAN
[2019-02-24 17:46] LABS: BASO % 0.4 % (0.0-2.0); EOS # 0.3 K/uL (0.0-0.7); EOS % 3.6 % (0.0-4.0); HEMOGLOBIN 12.6 g/dL (12.0-16.0); LYMPH # 2.9 K/uL (1.0-4.3); LYMPH % 35.2 % (20.0-40.0); MEAN CELL VOLUME 87.2 fl (81.0-99.0); MEAN CORPUSCULAR HEMOGLOBIN 28.7 pg (27.0-31.0); MEAN CORPUSCULAR HGB CONC 32.9 g/dL (33.0-37.0); MEAN PLATELET VOLUME 9.2 fl (7.2-11.7); MONO # 0.6 K/uL (0.0-0.8); MONO % 7.6 % (0.0-10.0); NEUT # 4.3 K/uL (1.8-7.0); NEUT % 53.2 % (50.0-75.0); NRBC % 0.1 % (0.0-0.0); RBC 4.41 Mil/uL (3.80-5.20); RED CELL DISTRIBUTION WIDTH 13.4 % (11.5-14.5); WHITE BLOOD COUNT 8.2 K/uL (4.8-10.8)
[2019-02-24 18:10] LABS: ALB/GLOB RATIO 1.2 (1.0-2.1); ALBUMIN 4.9 g/dL (3.5-5.0); CALCIUM 10.1 mg/dL (8.4-10.2)
[2019-02-24] MEDS ORDERED: Sodium Chloride 0.9% 50 ML IV ONE (18:24)
[2019-02-24] MEDS ORDERED: Iodixanol 320 MG/ML 100 ML BOTTLE IV ONE (18:24)
--- NOTE | 2019-02-24 18:36 | RAD ---
Date of service: 02/24/2019 PROCEDURE: Radiographs of the Right Shoulder HISTORY: Fall COMPARISON: Right shoulder radiographs 07/07/2013. TECHNIQUE: 3 views obtained. FINDINGS: BONES: No interval fracture or destructive bony lesion identified. JOINTS: No subluxation or dislocation. Glenohumeral and acromioclavicular joints remain mild to moderately degenerated. SOFT TISSUES: Normal. OTHER FINDINGS: None. IMPRESSION: [id number] degenerative joint disease right shoulder without fracture, subluxation or dislocation in the interval compared to 07/07/2013 radiographs.
--- NOTE | 2019-02-24 18:39 | RAD ---
Date of service: 02/24/2019 PROCEDURE: Right Knee Radiographs. HISTORY: Fall COMPARISON: None. TECHNIQUE: Three views obtained. FINDINGS: BONES: No acute fracture or destructive bony lesion identified. JOINTS: No subluxation or dislocation appreciated. Advanced degenerative joint space narrowing, articular cortical sclerosis and osteophyte development are identified at the medial and lateral tibial compartments more so than patellofemoral compartment. The appearance of lessened joint space narrowing at the right femorotibial compartment may be a function of rinses in positioning between the 2 exams. JOINT EFFUSION: A small suprapatellar bursa effusion is suggested. OTHER FINDINGS: Vascular calcifications are identified posteriorly. IMPRESSION: No acute fracture or dislocation. Advanced osteoarthritis is again appreciated at the right knee as discussed above, not dramatically changed compared prior right knee radiographs 10/05/2016.
[2019-02-24 20:18] VITALS: BP 107/79; PULSE 98; RESP 16; TEMP 98.8
--- NOTE | 2019-02-25 11:37 | CT ---
Date of service: 02/24/2019 PROCEDURE: CT Abdomen and Pelvis with contrast HISTORY: LUQ pain COMPARISON: 12/12/2018, 01/14/2019. CT scans abdomen and pelvis TECHNIQUE: Intravenous contrast dose: 90 cc Visipaque 320. Radiation dose: Total exam DLP = 807.21 mGy-cm. This CT exam was performed using one or more of the following dose reduction techniques: Automated exposure control, adjustment of the mA and/or kV according to patient size, and/or use of iterative reconstruction technique. FINDINGS: LOWER THORAX: Unremarkable. LIVER: Hepatic steatosis. No focal masses. No intrahepatic bile duct dilatation or perihepatic ascites. GALLBLADDER AND BILE DUCTS: Status post cholecystectomy. No abnormality is seen in the gallbladder fossa. Persistent dilatation of common bile duct. PANCREAS: Unremarkable. No gross lesion or ductal dilatation. SPLEEN: Unremarkable. ADRENALS: Unremarkable. No mass. KIDNEYS AND URETERS: Unremarkable. No hydronephrosis. No solid mass. VASCULATURE: Atherosclerotic calcification and mural plaque present. Findings are seen throughout the aorta which is non aneurysmal. BOWEL: Fecal impaction, constipation Diverticulosis without an acute inflammatory component or other associated pathologic process. APPENDIX: A normal appendix is visualized in it's entirety. PERITONEUM: Unremarkable. No free fluid. No free air. LYMPH NODES: Unremarkable. No enlarged lymph nodes. BLADDER: Unremarkable. REPRODUCTIVE: Unremarkable. BONES: No acute fracture. OTHER FINDINGS: None. IMPRESSION: No acute or significant findings related to/ accounting for the clinical presentation. Additional benign and/or incidental findings described above. No significant interval change compared to the prior examination(s). Concordant results (preliminary interpretation) provided by [employer]. Procedure Completed: 18:47. Preliminary Report: Interpreted and electronically signed: 18:59. Final Interpretation: 11:33. February 25, 2019.
== END 2019-02-24 20:18 | disposition home or self-care (01) ==
LOC: H.ER 11:51
DX: S09.90XA Unspecified injury of head, initial encounter (principal); M79.10 Myalgia, unspecified site; W01.0XXA Fall on same level from slipping, tripping and stumbling without subsequent striking against object, initial encounter; Y93.01 Activity, walking, marching and hiking; Y92.480 Sidewalk as the place of occurrence of the external cause; E03.9 Hypothyroidism, unspecified; E78.00 Pure hypercholesterolemia, unspecified; F03.90 Unspecified dementia, unspecified severity, without behavioral disturbance, psychotic disturbance, mood disturbance, and anxiety; I12.9 Hypertensive chronic kidney disease with stage 1 through stage 4 chronic kidney disease, or unspecified chronic kidney disease; M19.011 Primary osteoarthritis, right shoulder; M48.02 Spinal stenosis, cervical region; Z79.4 Long term (current) use of insulin; Z88.1 Allergy status to other antibiotic agents; Z95.5 Presence of coronary angioplasty implant and graft
CPT/HCPCS: 70450; 72125; 73030; 73080; 73562; 74177; 80053; 82948; 83690; 85025; 99285; Q9967